=== PATIENT | male | born 1935 ===

== ENCOUNTER 2018-05-16 20:15 | Inpatient (IN) | payer MEDICARE, MEDICAID ==
[2018-05-16] MEDS: niCARdipine IV 25 MG in Sodium Chloride 0.9% 240 ML IV SCH (20:15)
[2018-05-16 20:41] VITALS: BMI 26.6
[2018-05-16] MEDS ORDERED: Glucagon Recombinant 1 mg Inj IM PRN (21:03)
[2018-05-16] MEDS ORDERED: Dextrose 50% SYRINGE Inj (50 ml) IV PRN (21:03)
--- NOTE | 2018-05-16 21:05 | CP.PCM.CON ---
History of Present Illness - History of Present Illness History of Present Illness: Chief complaint: Patient transferred from [facility] not clear, but for neurological management. HPI: 83-year-old male with a history of ischemic CVA, residual right-sided weakness, history of AV malformation in 2014, peripheral vascular disease, iron deficiency anemia, hypertension and hyperlipidemia diabetes BPH. Patient was initially seen in the emergency room what [facility], and there are he was evaluated for increasing weakness in the lower extremities bilaterally, difficulty in walking, frequent fall. Patient usually walks with a cane. Patient felt warm last night prior to the emergency room visit and CT scan of the head was done in the hospital reviewed left posterior frontal, parietal intracerebral hematoma with the edema. And also some slight midline shift noted. Patient was transferred to [facility] because of the request by interventional neuroradiologist's request. Follow closely monitoring. And for possible intervention if needed a the at [facility] or at tertiary center. Patient is now awake. He is responding. He is having less right-sided weakness. Also right-sided neglect Past medical history: Multiple medical history including hypertension and hyperlipidemia ischemic CVA in the past Surgical history noted from the chart Allergies no known drug allergy Personal history unclear Most of the information was obtained from the chart. On examination: Vital signs stable at this time. Blood pressure 150/75 Temperature is normal Heartbeat is 1 23 bpm Respiration 17/m Chest bilateral good air entry. Regular heart sound. Abdominal tenderness negative SOD CUTTER right-sided weakness noted. He is moving and also focusing on the left side patient's initial labs reviewed Chemistry normal. Glucose 190. WBC 12.3 Hemoglobin 10.5 Hematocrit is 32.5 Platelets 232 INR is 1.1 CAT scan of the head showing evidence of large hematoma involving the left hemisphere suspected AVM noted Assessment and recommendation: Patient is a 84-year-old male with multiple medical history, ischemic stroke in the past. Hypertension hyperlipidemia Admitted to the hospital with acute intracranial bleeding. Suspected AVM. Neurological follow-up and evaluation. Any changing in the neurological status, needs to be evaluated by the neurosurgical intervention team. We will repeat the CAT scan. Will follow the patient in ICU. Past Patient History - Infectious Disease Hx of Infectious Diseases: None - Past Medical History & Family History Past Medical History?: Yes - Past Social History Smoking Status: Unknown If Ever Smoked - CARDIAC Hx Cardiac Disorders: Yes - PULMONARY Hx Asthma: No Hx Bronchitis: No Hx Chronic Obstructive Pulmonary Disease (COPD): No Hx Emphysema: No Hx Pneumonia: No Hx Pulmonary Embolism: No Hx Sleep Apnea: No - NEUROLOGICAL Hx Neurological Disorder: Yes - HEENT Hx HEENT Problems: Yes - RENAL Hx Chronic Kidney Disease: No - ENDOCRINE/METABOLIC Hx Endocrine Disorders: Yes - HEMATOLOGICAL/ONCOLOGICAL Hx Blood Disorders: No - INTEGUMENTARY Hx Dermatological Problems: No - MUSCULOSKELETAL/RHEUMATOLOGICAL Hx Falls: No - GASTROINTESTINAL Hx Gastrointestinal Disorders: No - GENITOURINARY/GYNECOLOGICAL Hx Genitourinary Disorders: Yes - PSYCHIATRIC Hx Psychophysiologic Disorder: No Hx Substance Use: No - ANESTHESIA Hx Anesthesia: No Hx Anesthesia Reactions: No Meds Allergies/Adverse Reactions: Allergies Allergy/AdvReac Type Severity Reaction Status Date / Time No Known Allergies Allergy Verified 04/30/16 15:57 - Medications Medications: Current Medications Dextrose (Dextrose 50% Inj) 0 ml IV STAT PRN; Protocol PRN Reason: Hypoglycemia Protocol Dextrose (Glutose 15) 0 gm PO ONCE PRN; Protocol PRN Reason: Hypoglycemia Protocol Glucagon (Glucagen Diagnostic Kit) 0 mg IM STAT PRN; Protocol PRN Reason: Hypoglycemia Protocol Dextrose (Dextrose 5% In Water 1000 Ml) 1,000 mls @ 0 mls/hr IV .Q0M PRN; Protocol; Per Protocol PRN Reason: Hypoglycemia Protocol Insulin Human Regular (Novolin R) 0 unit SC ACHS ATUL PRN Reason: Protocol
--- NOTE | 2018-05-16 21:06 | CP.PCM.HP ---
<Kathrin Masters - Last Filed: 05/16/18 23:37> History of Present Illness - History of Present Illness History of Present Illness: Information was received from the niece - Shelby Graves and medical record from [place] as patient was not oriented x3. HPI: 83 year old male with past medical history as noted below who was found unresponsive at home and was brought to [facility] via ambulance. Per EMS the patient had a fall at home last night. In the ED, the patient had a Head CT which revealed an interval left posterior frontal/parietal intra cerebral hematoma with surrounding edema and possible minimal/mild mass effect on the left frontal horn. There is no mildline shift at this time. Given these findings, neurosurgery was called- Dr. Teresa stated the patient should be transferred. Patient was transferred to [facility] and is being followed by neurologist Dr. Aviles and interventional neurologist Dr. Brantley. PMD: Dr. 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; smokes for the past 70 years about 1 ppd; quit drinking 3 years ago; quit snorting cocaine about 10 years ago Patient also has a sister - Sonja Rosario #[phone] Present on Admission - Present on Admission Any Indicators Present on Admission: No Review of Systems - Review of Systems Systems not reviewed;Unavailable: Altered Mental Status Past Patient History - Infectious Disease Hx of Infectious Diseases: None - Past Medical History & Family History Past Medical History?: Yes - Past Social History Smoking Status: Unknown If Ever Smoked - CARDIAC Hx Cardiac Disorders: Yes - PULMONARY Hx Asthma: No Hx Bronchitis: No Hx Chronic Obstructive Pulmonary Disease (COPD): No Hx Emphysema: No Hx Pneumonia: No Hx Pulmonary Embolism: No Hx Sleep Apnea: No - NEUROLOGICAL Hx Neurological Disorder: Yes - HEENT Hx HEENT Problems: Yes - RENAL Hx Chronic Kidney Disease: No - ENDOCRINE/METABOLIC Hx Endocrine Disorders: Yes - HEMATOLOGICAL/ONCOLOGICAL Hx Blood Disorders: No - INTEGUMENTARY Hx Dermatological Problems: No - MUSCULOSKELETAL/RHEUMATOLOGICAL Hx Falls: No - GASTROINTESTINAL Hx Gastrointestinal Disorders: No - GENITOURINARY/GYNECOLOGICAL Hx Genitourinary Disorders: Yes - PSYCHIATRIC Hx Psychophysiologic Disorder: No Hx Substance Use: No - ANESTHESIA Hx Anesthesia: No Hx Anesthesia Reactions: No Meds Allergies/Adverse Reactions: Allergies Allergy/AdvReac Type Severity Reaction Status Date / Time No Known Allergies Allergy Verified 04/30/16 15:57 Physical Exam - Constitutional Appears: Confused - Head Exam Head Exam: ATRAUMATIC, NORMAL INSPECTION - Eye Exam Eye Exam: EOMI, Normal appearance. absent: PERRL Pupil Exam: absent: NORMAL ACCOMODATION - ENT Exam ENT Exam: Mucous Membranes Moist - Respiratory Exam Respiratory Exam: NORMAL BREATHING PATTERN - Cardiovascular Exam Cardiovascular Exam: REGULAR RHYTHM, +S1, +S2 - Extremities Exam Additional comments: Right Foot: 4th and 5th toes are amputated - Neurological Exam Additional comments: Patient was awake; not alert and not oriented x3. Right sided facial droop. Was not able to access strength as patient was not cooperative for physical exam Assessment & Plan - Assessment and Plan (Free Text) Assessment: Acute left posterior intracerebral hematoma with surrounding edema, with underlying AVM. - Admitted to ICU - Neuro Intervention: Dr. Brantley - Neurology: Dr. Aviles - Repeat CT scan in the AM - Cardene drip for BP control - Neuro checks q1 hours - NPO status - Hold Plavix and any other anticoagulation - Images: * Head CT 10:45am: Interval left posterior frontal/parietal intra cerebral hematoma with surrounding edema and possible minimal -mild mass-effect on the left frontal horn. No midline shift. No dilatation of the right lateral ventricle appreciated. No interval dilatation of other particular segments noted. Prior to this report dictation, the urgent findings of a left intercerebral hematoma was directly called in to the ER physician Dr. Gordillo at approximately 11 :18 am. * Cervical Spine CT: No fracture or subluxation. Multilevel arthrosis. Chronic sinus disease. * Head/Neck CTA: A large left frontoparietal arteriovascular malformation is identified immediately anterior to significant intraparenchymal hemorrhage not significantly changed in size compared prior unenhanced CT head 05/16/2017 10: 57 a.m.. The AVM may have increased in size slightly as compared to 05/02/2016 brain MRI with contrast Prominent vertex cortical venous drainage is seen above the AVM as discussed above. Follow-up digital subtraction catheter angiography is advised for added characterization. No aneurysm appreciated grossly. Moderate bilateral ICA stenoses at their cavernous segments as well as mild-to- moderate right and moderate left ICA origins stenoses as discussed above. Hypoplastic left vertebral artery with widely patent right vertebral and basilar arteries noted. * Head CT 5pm: Subjective mild expansion of the left parietal hematoma with mild surrounding edema impressing upon the posterior portion of the body of the left lateral ventricle. No other significant interval change. History of HTN - Cardene drip as above - monitor History of Type 2 Diabetes mellitus - ISS sliding scale - accucheks - Hypoglycemia protocol - Monitor History of Hyperlipidemia - Restart statin when diet advanced History of BPH Prophylaxis - SCDs - PT/OT Kathrin Masters PGY-2 <Harrison Stephenson - Last Filed: 05/17/18 06:26> Results - Vital Signs Recent Vital Signs: Last Vital Signs Temp 99 F 05/17/18 04:00 Pulse 121 H 05/17/18 04:02 Resp 18 05/17/18 04:02 BP 150/73 05/17/18 04:02 Pulse Ox 96 05/17/18 04:02 - Labs Labs: Laboratory Results - last 24 hr 05/16/18 21:12 POC Glucose (mg/dL) 192 H Assessment & Plan - Date & Time Date: 05/17/18 (I have seen and examined the patient. I agree with the findings and plan of care as documented by Dr. Masters. Patient with intracererbral hemorrhage. History of Hypertension and diabetes. Admit to ICU. Cardene drip. NISS and accuchecks. Further management as per ICU. Monitor for acute changes.) Time: 06:25 Attending/Attestation - Attestation I have personally seen and examined this patient.: Yes I have fully participated in the care of the patient.: Yes I have reviewed all pertinent clinical information: Yes
[2018-05-16] MEDS ORDERED: SODIUM CHLORIDE 0.9% IV SCH ×2 (21:15→22:00)
[2018-05-16] MEDS ORDERED: NICARDIPINE IV SCH ×2 (21:15→22:00)
[2018-05-16] MEDS: (Novolin R) Insulin Human Regular 100 units/ml vial SC SCH (21:39)
[2018-05-16] MEDS ORDERED: (Novolin R) Insulin Human Regular 100 units/ml vial SC SCH (22:00)
--- NOTE | 2018-05-16 23:01 | CP.PCM.CON ---
History of Present Illness - History of Present Illness History of Present Illness: 83 yr old male who was found unresponsive with pmh of documented left cortical avm, not resected and now intracranial hemorrhage. He is transferred to [facility] icu for angiogram in am and possibel avm embolization. in the er, the patient showed right sided droop, right arm weakness that was about 3/5, and aphasia . ct scan showed large left parietotemporal hemorrhage Past Patient History - Infectious Disease Hx of Infectious Diseases: None - Past Medical History & Family History Past Medical History?: Yes - Past Social History Smoking Status: Unknown If Ever Smoked - CARDIAC Hx Cardiac Disorders: Yes - PULMONARY Hx Asthma: No Hx Bronchitis: No Hx Chronic Obstructive Pulmonary Disease (COPD): No Hx Emphysema: No Hx Pneumonia: No Hx Pulmonary Embolism: No Hx Sleep Apnea: No - NEUROLOGICAL Hx Neurological Disorder: Yes - HEENT Hx HEENT Problems: Yes - RENAL Hx Chronic Kidney Disease: No - ENDOCRINE/METABOLIC Hx Endocrine Disorders: Yes - HEMATOLOGICAL/ONCOLOGICAL Hx Blood Disorders: No - INTEGUMENTARY Hx Dermatological Problems: No - MUSCULOSKELETAL/RHEUMATOLOGICAL Hx Falls: No - GASTROINTESTINAL Hx Gastrointestinal Disorders: No - GENITOURINARY/GYNECOLOGICAL Hx Genitourinary Disorders: Yes - PSYCHIATRIC Hx Psychophysiologic Disorder: No Hx Substance Use: No - ANESTHESIA Hx Anesthesia: No Hx Anesthesia Reactions: No Meds Allergies/Adverse Reactions: Allergies Allergy/AdvReac Type Severity Reaction Status Date / Time No Known Allergies Allergy Verified 04/30/16 15:57 - Medications Medications: Current Medications Dextrose (Dextrose 50% Inj) 0 ml IV STAT PRN; Protocol PRN Reason: Hypoglycemia Protocol Dextrose (Glutose 15) 0 gm PO ONCE PRN; Protocol PRN Reason: Hypoglycemia Protocol Glucagon (Glucagen Diagnostic Kit) 0 mg IM STAT PRN; Protocol PRN Reason: Hypoglycemia Protocol Dextrose (Dextrose 5% In Water 1000 Ml) 1,000 mls @ 0 mls/hr IV .Q0M PRN; Protocol; Per Protocol PRN Reason: Hypoglycemia Protocol Nicardipine HCl 25 mg/ Sodium (Chloride) 250 mls @ 50 mls/hr IV .Q5H ATUL; 5 MG/ HR PRN Reason: Protocol Last Admin: 05/16/18 20:15 Dose: 5 mg/hr, 50 mls/hr Insulin Human Regular (Novolin R) 0 unit SC ACHS ATUL PRN Reason: Protocol Last Admin: 05/16/18 21:39 Dose: Not Given Assessment & Plan - Assessment and Plan (Free Text) Assessment: plan; 1. control bp 2. decadron 8 m giv q [address] scan am thank you dr quintana
[2018-05-17] MEDS: niCARdipine IV 25 MG in Sodium Chloride 0.9% 240 ML IV SCH ×6 (03:31→20:10)
[2018-05-17 06:31] LABS: BASO # 0.1 K/uL (0.0-0.2); BASO % 0.8 % (0.0-2.0); EOS # 0.2 K/uL (0.0-0.7); EOS % 1.8 % (0.0-4.0); HEMOGLOBIN 10.2 g/dL (12.0-18.0); LYMPH # 1.8 K/uL (1.0-4.3); LYMPH % 17.6 % (20.0-40.0); MEAN CELL VOLUME 70.5 fL (80.0-94.0); MEAN CORPUSCULAR HEMOGLOBIN 22.7 pg (27.0-31.0); MEAN CORPUSCULAR HGB CONC 32.2 g/dL (33.0-37.0); MEAN PLATELET VOLUME 9.6 fL (7.2-11.7); MONO # 0.7 K/uL (0.0-0.8); MONO % 6.6 % (0.0-10.0); NEUT # 7.4 K/uL (1.8-7.0); NEUT % 73.2 % (50.0-75.0); RBC 4.51 Mil/uL (4.40-5.90); RED CELL DISTRIBUTION WIDTH 19.3 % (11.5-14.5); WHITE BLOOD COUNT 10.1 K/uL (4.8-10.8)
[2018-05-17 06:32] LABS: INR 1.2
[2018-05-17 06:39] LABS: ALB/GLOB RATIO 1.8 (1.0-2.1); ALBUMIN 4.1 g/dL (3.5-5.0); ALT/SGPT 34 U/L (21-72); AST/SGOT 40 U/L (17-59); BLOOD UREA NITROGEN 11 mg/dL (9-20); CALCIUM 7.8 mg/dl (8.6-10.4); GFR AFRICAN-AMERICAN > 60; GFR NON-AFRICAN AMERICAN > 60
--- NOTE | 2018-05-17 06:54 | CP.PCM.PN ---
Subjective - Date & Time of Evaluation Date of Evaluation: 05/17/18 Time of Evaluation: 06:53 - Subjective Subjective: Mr. Rosario was seen and examined at the bedside in ICU. He is awake, confused , with episode of restlessness and agitation. He is able to answer some questions and denies any headache, blurred vision, diplopia. He is able to follow simple commands with right facial droop, right side weakness. On Nicardipine drip for blood pressure control. He is is on 1:1 sitter for patient safety. Objective - Vital Signs/Intake and Output Vital Signs (last 24 hours): Temp Pulse Resp BP Pulse Ox 99 F 121 H 18 150/73 96 05/17/18 04:00 05/17/18 04:02 05/17/18 04:02 05/17/18 04:02 05/17/18 04:02 Intake and Output: 05/16/18 05/17/18 18:59 06:59 Intake Total 558.9 Output Total 250 Balance 308.9 - Medications Medications: Current Medications Dexamethasone (Decadron Inj) 8 mg IV Q12 ATUL Dextrose (Dextrose 50% Inj) 0 ml IV STAT PRN; Protocol PRN Reason: Hypoglycemia Protocol Dextrose (Glutose 15) 0 gm PO ONCE PRN; Protocol PRN Reason: Hypoglycemia Protocol Glucagon (Glucagen Diagnostic Kit) 0 mg IM STAT PRN; Protocol PRN Reason: Hypoglycemia Protocol Dextrose (Dextrose 5% In Water 1000 Ml) 1,000 mls @ 0 mls/hr IV .Q0M PRN; Protocol; Per Protocol PRN Reason: Hypoglycemia Protocol Nicardipine HCl 25 mg/ Sodium (Chloride) 250 mls @ 50 mls/hr IV .Q5H ATUL; 5 MG/ HR PRN Reason: Protocol Last Admin: 05/17/18 04:49 Dose: 5 mg/hr, 50 mls/hr Insulin Human Regular (Novolin R) 0 unit SC ACHS ATUL PRN Reason: Protocol Last Admin: 05/16/18 21:39 Dose: Not Given - Labs Labs: 05/17/18 06:14 PT 13.0 SECONDS (9.7-12.2) H 05/17/18 06:21 INR 1.2 05/17/18 06:21 APTT 29 SECONDS (21-34) 05/17/18 06:21 - Constitutional Appears: No Acute Distress - Head Exam Head Exam: NORMAL INSPECTION - Eye Exam Pupil Exam: Miosis Additional comments: 2 mm sluggish bilaterally. - Neurological Exam Neurological Exam: Awake Neuro motor strength exam: Left Upper Extremity: 5, Right Upper Extremity: 0, Left Lower Extremity: 5, Right Lower Extremity: 2/1 Additional comments: awake, confused, able to follow simple commands such as opening his mouth, squeezing his left hand, no movement noted in his right hand. Assessment and Plan (1) Intracranial hemorrhage Assessment & Plan: Case discussed with Dr. Aviles, continue all current medical regimen. Pending repeat CT scan of the head results. Recommend daily CT scan of the head to monitor intracranial hemorrhage, decadron 8 mg IV q 12 hours, blood pressure control with systolic blood pressure between 130-140, keep head of bed elevated at least 30 degrees angle.normothermic, glycemic control. Status: Acute
[2018-05-17] MEDS: Dexamethasone 4 mg/1 ml IV SCH ×2 (07:18→09:28)
[2018-05-17] MEDS: (Novolin R) Insulin Human Regular 100 units/ml vial SC SCH ×2 (07:19→12:35)
--- NOTE | 2018-05-17 08:48 | CP.CCUPN ---
<Alecia Avalos - Last Filed: 05/17/18 20:41> CCU Subjective - Physician Review Subjective (Free Text): Patient seen and examined at bedside. He is awake, confused, with episode of restlessness and agitation. Denies any headache, blurred vision, diplopia. CCU Objective - Vital Signs / Intake & Output Intake and Output (Last 8hrs): Intake & Output 05/16/18 05/17/18 05/17/18 22:59 06:59 14:59 Intake Total 243.9 425.0 Output Total 400 Balance 243.9 25.0 Weight 175 lb 4.28 oz 175 lb 4.28 oz Intake: IV 100.0 62.5 Intake, IV Amount 143.9 362.5 LFA #20 143.9 362.5 Oral 0 0 Output: Urine 400 Urine, Voided 400 - Physical Exam Head: Positive for: Atraumatic, Normocephalic Pupils: Positive for: Sluggish Extroacular Muscles: Positive for: EOMI Conjunctiva: Positive for: Normal Mouth: Positive for: Dry Cardiovascular: Positive for: Tachycardic Abdomen: Positive for: Normal Bowel Sounds. Negative for: Tenderness, Distention Upper Extremity: Positive for: Normal Inspection, NORMAL PULSES, Neurovascularly Intact, Capillary Refill < 2s Lower Extremity: Positive for: Normal Inspection, NORMAL PULSES, Neurovascularly Intact, Capillary Refill < 2 s Skin: Positive for: Warm, Dry Psychiatric: Positive for: Alert, Agitated - Medications Active Medications: Active Medications Generic Name Dose Route Start Last Admin Trade Name Freq PRN Reason Stop Dose Admin Dexamethasone 8 mg 05/17/18 06:52 Decadron Inj IV Q12 ATUL Dextrose 0 ml 05/16/18 21:03 Dextrose 50% Inj IV STAT PRN Hypoglycemia Protocol Protocol Dextrose 0 gm 05/16/18 21:03 Glutose 15 PO ONCE PRN Hypoglycemia Protocol Protocol Glucagon 0 mg 05/16/18 21:03 Glucagen Diagnostic Kit IM STAT PRN Hypoglycemia Protocol Protocol Dextrose 1,000 mls @ 0 mls/hr 05/16/18 21:03 Dextrose 5% In Water 1000 Ml IV .Q0M PRN Hypoglycemia Protocol Protocol Per Protocol Nicardipine HCl 25 mg/ Sodium 250 mls @ 50 mls/hr 05/16/18 22:00 05/17/18 06: 30 Chloride IV 5 mg/hr .Q5H ATUL 50 mls/hr Protocol Titration 5 MG/HR Insulin Human Regular 0 unit 05/16/18 22:00 05/16/18 21:39 Novolin R SC Not Given ACHS [facility] Protocol - Patient Studies Lab Studies: Lab Studies 05/17/18 05/17/18 05/17/18 Range/Units 07:26 06:21 06:21 WBC 10.1 (4.8-10.8) K/uL RBC 4.51 (4.40-5.90) Mil/uL Hgb 10.2 L (12.0-18.0) g/dL Hct 31.8 L (35.0-51.0) % MCV 70.5 L (80.0-94.0) fL MCH 22.7 L (27.0-31.0) pg MCHC 32.2 L (33.0-37.0) g/dL RDW 19.3 H (11.5-14.5) % Plt Count 250 (130-400) K/uL MPV 9.6 (7.2-11.7) fL Neut % (Auto) 73.2 (50.0-75.0) % Lymph % (Auto) 17.6 L (20.0-40.0) % [place] % (Auto) 6.6 (0.0-10.0) % Eos % (Auto) 1.8 (0.0-4.0) % Baso % (Auto) 0.8 (0.0-2.0) % Neut # (Auto) 7.4 H (1.8-7.0) K/uL Lymph # (Auto) 1.8 (1.0-4.3) K/uL [place] # (Auto) 0.7 (0.0-0.8) K/uL Eos # (Auto) 0.2 (0.0-0.7) K/uL Baso # (Auto) 0.1 (0.0-0.2) K/uL PT 13.0 H (9.7-12.2) SECONDS INR 1.2 APTT 29 (21-34) SECONDS Sodium (132-148) mmol/L Potassium (3.6-5.2) mmol/L Chloride (98-107) mmol/L Carbon Dioxide (22-30) mmol/L Anion Gap (10-20) BUN (9-20) mg/dL Creatinine (0.8-1.5) mg/dL Est GFR ( Amer) Est GFR (Non-Af Amer) POC Glucose (mg/dL) 198 H (65-110) mg/dL Random Glucose (75-110) mg/dL Calcium (8.6-10.4) mg/dl Phosphorus (2.5-4.5) mg/dL Magnesium (1.6-2.3) mg/dL Total Bilirubin (0.2-1.3) mg/dL AST (17-59) U/L ALT (21-72) U/L Alkaline Phosphatase (38-126) U/L Total Protein (6.3-8.3) g/dL Albumin (3.5-5.0) g/dL Globulin (2.2-3.9) gm/dL Albumin/Globulin Ratio (1.0-2.1) 05/17/18 05/16/18 Range/Units 06:14 21:12 WBC (4.8-10.8) K/uL RBC (4.40-5.90) Mil/uL Hgb (12.0-18.0) g/dL Hct (35.0-51.0) % MCV (80.0-94.0) fL MCH (27.0-31.0) pg MCHC (33.0-37.0) g/dL RDW (11.5-14.5) % Plt Count (130-400) K/uL MPV (7.2-11.7) fL Neut % (Auto) (50.0-75.0) % Lymph % (Auto) (20.0-40.0) % [place] % (Auto) (0.0-10.0) % Eos % (Auto) (0.0-4.0) % Baso % (Auto) (0.0-2.0) % Neut # (Auto) (1.8-7.0) K/uL Lymph # (Auto) (1.0-4.3) K/uL [place] # (Auto) (0.0-0.8) K/uL Eos # (Auto) (0.0-0.7) K/uL Baso # (Auto) (0.0-0.2) K/uL PT (9.7-12.2) SECONDS INR APTT (21-34) SECONDS Sodium 140 (132-148) mmol/L Potassium 3.7 (3.6-5.2) mmol/L Chloride 107 (98-107) mmol/L Carbon Dioxide 22 (22-30) mmol/L Anion Gap 15 (10-20) BUN 11 (9-20) mg/dL Creatinine 0.7 L (0.8-1.5) mg/dL Est GFR ( Amer) > 60 Est GFR (Non-Af Amer) > 60 POC Glucose (mg/dL) 192 H (65-110) mg/dL Random Glucose 176 H (75-110) mg/dL Calcium 7.8 L (8.6-10.4) mg/dl Phosphorus 3.0 (2.5-4.5) mg/dL Magnesium 1.8 (1.6-2.3) mg/dL Total Bilirubin 0.7 (0.2-1.3) mg/dL AST 40 (17-59) U/L ALT 34 (21-72) U/L Alkaline Phosphatase 52 (38-126) U/L Total Protein 6.4 (6.3-8.3) g/dL Albumin 4.1 (3.5-5.0) g/dL Globulin 2.3 (2.2-3.9) gm/dL Albumin/Globulin Ratio 1.8 (1.0-2.1) Laboratory Results - last 24 hr 05/16/18 05/17/18 05/17/18 21:12 06:14 06:21 WBC 10.1 RBC 4.51 Hgb 10.2 L Hct 31.8 L MCV 70.5 L MCH 22.7 L MCHC 32.2 L RDW 19.3 H Plt Count 250 MPV 9.6 Neut % (Auto) 73.2 Lymph % (Auto) 17.6 L [place] % (Auto) 6.6 Eos % (Auto) 1.8 Baso % (Auto) 0.8 Neut # (Auto) 7.4 H Lymph # (Auto) 1.8 [place] # (Auto) 0.7 Eos # (Auto) 0.2 Baso # (Auto) 0.1 PT INR APTT Sodium 140 Potassium 3.7 Chloride 107 Carbon Dioxide 22 Anion Gap 15 BUN 11 Creatinine 0.7 L Est GFR ( Amer) > 60 Est GFR (Non-Af Amer) > 60 POC Glucose (mg/dL) 192 H Random Glucose 176 H Calcium 7.8 L Phosphorus 3.0 Magnesium 1.8 Total Bilirubin 0.7 AST 40 ALT 34 Alkaline Phosphatase 52 Total Protein 6.4 Albumin 4.1 Globulin 2.3 Albumin/Globulin Ratio 1.8 05/17/18 05/17/18 06:21 07:26 WBC RBC Hgb Hct MCV MCH MCHC RDW Plt Count MPV Neut % (Auto) Lymph % (Auto) [place] % (Auto) Eos % (Auto) Baso % (Auto) Neut # (Auto) Lymph # (Auto) [place] # (Auto) Eos # (Auto) Baso # (Auto) PT 13.0 H INR 1.2 APTT 29 Sodium Potassium Chloride Carbon Dioxide Anion Gap BUN Creatinine Est GFR ( Amer) Est GFR (Non-Af Amer) POC Glucose (mg/dL) 198 H Random Glucose Calcium Phosphorus Magnesium Total Bilirubin AST ALT Alkaline Phosphatase Total Protein Albumin Globulin Albumin/Globulin Ratio EKG/Cardiology Studies: Cardiology / EKG Studies 05/16/18 21:30 EKG [ELECTROCARDIOGRAM] Stat Comment: Mode Of Transportation: Reason For Exam: CVA Fingerstick Blood Sugar Results: 192 Critical Care Progress Note - Nutrition Nutrition: Nutrition Category Date Time Status NPO Diet [DIET] Diets 05/16/18 Dinner Active Assessment/Plan - Assessment and Plan (Free Text) Assessment: This is a 83 year old male with PMHx Ischemic CVA x 4, 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 There is no mildline shift at this time. Given these findings, neurosurgery was called- Dr. Teresa stated the patient should be transferred for angiogram and possible AVM embolization. Patient was transferred to [facility] and is being followed by neurologist Dr. Aviles and interventional neurologist Dr. Brantley. As per Dr. Brantley - no neurological interventional is warranted at this time. Patient's sister - Sonja Rosario #[phone] Plan: Neuro: A: Intracranial Hemorrhage -- Dr. Aviles, Dr. Brantley consulted At [place]: -CT Head (05/16/18): interval left posterior frontal/parietal intra cerebral hematoma with surrounding edema and possible minimal mild mass effect on the left frontal horn. No midline shift. No dilatation of the right lateral ventricle appreciated. No interval dilatation or other particular segments noted. -CT head (05/16/18): subjective mild expansion of the left parietal hematoma with mild surrounding edema impression upon the posterior portion of the body of the left lateral ventricle. No other significant interval chage. At [facility]: -CT Head (05/17/18): re-demonstrated is a large parenchymal hematoma within the left posterior temporoparietal lobe secondary to hemorrhage into pre-existing AVM, mass effect produced by the hematoma and surrounding edema impress overlying sulci and posterior aspect left lateral ventricle as described. moderate to significant chronic white matter ischemic changes. - Aspiration precautions - Seizure precautions - Started Keppra 500mg Q12 - Serial CT scans ordered daily - As per Dr. 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 - Will need thyroid studies repeated : A: BPH Heme/Onc: A: History of Iron Deficiency Anemia Prophylactic Measures: - Protonix - SCDs, VTE C/I in light of ICH - PT Eval - Speech Eval - Swallow Eval DW Alecia Epps DO, PGY-1 <Yazan Godinez - Last Filed: 05/19/18 19:45> CCU Objective - Vital Signs / Intake & Output Vital Signs (Last 4 hours): Vital Signs BP 05/19/18 17:52 148/73 Intake and Output (Last 8hrs): Intake & Output 05/19/18 05/19/18 05/19/18 06:59 14:59 22:59 Intake Total 330 150 Balance 330 150 Weight 171 lb 0.62 oz Intake: Tube Feeding 330 150 Other: # Bowel Movements 0 0 - Medications Active Medications: Active Medications Generic Name Dose Route Start Last Admin Trade Name Freq PRN Reason Stop Dose Admin Bisacodyl 10 mg 05/19/18 08:54 Dulcolax [place] ONCE PRN Constipation Dextrose 0 ml 05/16/18 21:03 Dextrose 50% Inj IV STAT PRN Hypoglycemia Protocol Protocol Dextrose 0 gm 05/16/18 21:03 Glutose 15 PO ONCE PRN Hypoglycemia Protocol Protocol Glucagon 0 mg 05/16/18 21:03 Glucagen Diagnostic Kit IM STAT PRN Hypoglycemia Protocol Protocol Hydralazine HCl 20 mg 05/19/18 14:33 05/19/18 17:50 Apresoline PO 20 mg QID ATUL Administration Hydralazine HCl 10 mg 05/19/18 14:33 05/19/18 18:05 Apresoline IVP 10 mg Q6H PRN Administration Systolic Blood Pressure Dextrose 1,000 mls @ 0 mls/hr 05/16/18 21:03 Dextrose 5% In Water 1000 Ml IV .Q0M PRN Hypoglycemia Protocol Protocol Per Protocol Levetiracetam 500 mg/ Sodium 105 mls @ 420 mls/hr 05/18/18 10:00 05/19/18 09: 08 Chloride IVPB 420 mls/hr Q12H ATUL Administration Insulin Human Regular 0 unit 05/18/18 00:00 05/19/18 18:05 Novolin R SC 3 u Q6H ATUL Administration Protocol Metoprolol Tartrate 25 mg 05/19/18 10:00 05/19/18 17:52 Lopressor PO 25 mg BID ATUL Administration Pantoprazole Sodium 40 mg 05/18/18 10:00 05/19/18 09:09 Protonix Inj IVP 40 mg DAILY ATUL Administration - Patient Studies Lab Studies: Lab Studies 05/19/18 05/19/18 05/19/18 Range/Units 17:19 11:22 06:59 WBC (4.8-10.8) K/uL RBC (4.40-5.90) Mil/uL Hgb (12.0-18.0) g/dL Hct (35.0-51.0) % MCV (80.0-94.0) fL MCH (27.0-31.0) pg MCHC (33.0-37.0) g/dL RDW (11.5-14.5) % Plt Count (130-400) K/uL MPV (7.2-11.7) fL Neut % (Auto) (50.0-75.0) % Lymph % (Auto) (20.0-40.0) % [place] % (Auto) (0.0-10.0) % Eos % (Auto) (0.0-4.0) % Baso % (Auto) (0.0-2.0) % Neut # (Auto) (1.8-7.0) K/uL Lymph # (Auto) (1.0-4.3) K/uL [place] # (Auto) (0.0-0.8) K/uL Eos # (Auto) (0.0-0.7) K/uL Baso # (Auto) (0.0-0.2) K/uL Sodium (132-148) mmol/L Potassium (3.6-5.2) mmol/L Chloride (98-107) mmol/L Carbon Dioxide (22-30) mmol/L Anion Gap (10-20) BUN (9-20) mg/dL Creatinine (0.8-1.5) mg/dL Est GFR ( Amer) Est GFR (Non-Af Amer) POC Glucose (mg/dL) 237 H 200 H 207 H (65-110) mg/dL Random Glucose (75-110) mg/dL Calcium (8.6-10.4) mg/dl Phosphorus (2.5-4.5) mg/dL Magnesium (1.6-2.3) mg/dL Total Bilirubin (0.2-1.3) mg/dL AST (17-59) U/L ALT (21-72) U/L Alkaline Phosphatase (38-126) U/L Total Protein (6.3-8.3) g/dL Albumin (3.5-5.0) g/dL Globulin (2.2-3.9) gm/dL Albumin/Globulin Ratio (1.0-2.1) 05/19/18 05/19/18 05/18/18 Range/Units 06:48 06:48 23:29 WBC 12.3 H (4.8-10.8) K/uL RBC 4.51 (4.40-5.90) Mil/uL Hgb 10.3 L (12.0-18.0) g/dL Hct 32.0 L (35.0-51.0) % MCV 71.0 L (80.0-94.0) fL MCH 22.7 L (27.0-31.0) pg MCHC 32.0 L (33.0-37.0) g/dL RDW 19.9 H (11.5-14.5) % Plt Count 271 (130-400) K/uL MPV 9.3 (7.2-11.7) fL Neut % (Auto) 65.5 (50.0-75.0) % Lymph % (Auto) 27.2 (20.0-40.0) % [place] % (Auto) 6.3 (0.0-10.0) % Eos % (Auto) 0.4 (0.0-4.0) % Baso % (Auto) 0.6 (0.0-2.0) % Neut # (Auto) 8.0 H (1.8-7.0) K/uL Lymph # (Auto) 3.4 (1.0-4.3) K/uL [place] # (Auto) 0.8 (0.0-0.8) K/uL Eos # (Auto) 0.1 (0.0-0.7) K/uL Baso # (Auto) 0.1 (0.0-0.2) K/uL Sodium 146 (132-148) mmol/L Potassium 3.7 (3.6-5.2) mmol/L Chloride 112 H (98-107) mmol/L Carbon Dioxide 23 (22-30) mmol/L Anion Gap 14 (10-20) BUN 26 H (9-20) mg/dL Creatinine 0.8 (0.8-1.5) mg/dL Est GFR ( Amer) > 60 Est GFR (Non-Af Amer) > 60 POC Glucose (mg/dL) 225 H (65-110) mg/dL Random Glucose 199 H (75-110) mg/dL Calcium 9.4 (8.6-10.4) mg/dl Phosphorus 3.3 (2.5-4.5) mg/dL Magnesium 2.4 H (1.6-2.3) mg/dL Total Bilirubin 0.5 (0.2-1.3) mg/dL AST 68 H D (17-59) U/L ALT 40 (21-72) U/L Alkaline Phosphatase 55 (38-126) U/L Total Protein 7.0 (6.3-8.3) g/dL Albumin 4.2 (3.5-5.0) g/dL Globulin 2.8 (2.2-3.9) gm/dL Albumin/Globulin Ratio 1.5 (1.0-2.1) Laboratory Results - last 24 hr 05/18/18 05/19/18 05/19/18 23:29 06:48 06:48 WBC 12.3 H RBC 4.51 Hgb 10.3 L Hct 32.0 L MCV 71.0 L MCH 22.7 L MCHC 32.0 L RDW 19.9 H Plt Count 271 MPV 9.3 Neut % (Auto) 65.5 Lymph % (Auto) 27.2 Seward % (Auto) 6.3 Eos % (Auto) 0.4 Baso % (Auto) 0.6 Neut # (Auto) 8.0 H Lymph # (Auto) 3.4 Seward # (Auto) 0.8 Eos # (Auto) 0.1 Baso # (Auto) 0.1 Sodium 146 Potassium 3.7 Chloride 112 H Carbon Dioxide 23 Anion Gap 14 BUN 26 H Creatinine 0.8 Est GFR ( Amer) > 60 Est GFR (Non-Af Amer) > 60 POC Glucose (mg/dL) 225 H Random Glucose 199 H Calcium 9.4 Phosphorus 3.3 Magnesium 2.4 H Total Bilirubin 0.5 AST 68 H D ALT 40 Alkaline Phosphatase 55 Total Protein 7.0 Albumin 4.2 Globulin 2.8 Albumin/Globulin Ratio 1.5 05/19/18 05/19/18 05/19/18 06:59 11:22 17:19 WBC RBC Hgb Hct MCV MCH MCHC RDW Plt Count MPV Neut % (Auto) Lymph % (Auto) [place] % (Auto) Eos % (Auto) Baso % (Auto) Neut # (Auto) Lymph # (Auto) [place] # (Auto) Eos # (Auto) Baso # (Auto) Sodium Potassium Chloride Carbon Dioxide Anion Gap BUN Creatinine Est GFR ( Amer) Est GFR (Non-Af Amer) POC Glucose (mg/dL) 207 H 200 H 237 H Random Glucose Calcium Phosphorus Magnesium Total Bilirubin AST ALT Alkaline Phosphatase Total Protein Albumin Globulin Albumin/Globulin Ratio Critical Care Progress Note - Nutrition Nutrition: Nutrition Category Date Time Status NPO Diet [DIET] Diets 05/16/18 Dinner Active NPO Diet [DIET] Diets 05/20/18 Breakfast Active Attending/Attestation - Attestation I have personally seen and examined this patient.: Yes I have fully participated in the care of the patient.: Yes I have reviewed all pertinent clinical information: Yes Notes (Text): 05/17/18 Today: , May 17, 2018 The Patient was seen and examined at the bedside, Medical records reviewed, and management issues were discussed and formulated with the house staff. I have reviewed all the relevant clinical, laboratory, hemodynamic, radiographic data and medications Events reviewed Pain issues, skin care, head of the bed elevation, glycemic control were addressed. Agree with above resident's assessment and treatment plans of care as transcribed in Dr. Avalos note.
--- NOTE | 2018-05-17 11:52 | CT ---
PROCEDURE: CT HEAD WITHOUT CONTRAST. HISTORY: cva COMPARISON: Correlation made with CT scan of the brain [facility]/16/2018 [facility] TECHNIQUE: Axial computed tomography images were obtained through the head/brain without intravenous contrast. Radiation dose: Total exam DLP = 2900.56 mGy-cm. This CT exam was performed using one or more of the following dose reduction techniques: Automated exposure control, adjustment of the mA and/or kV according to patient size, and/or use of iterative reconstruction technique. FINDINGS: HEMORRHAGE: Re- demonstrated is a large elliptical shaped hematoma within the left posterior temporal parietal lobe consistent with hemorrhage into a pre-existing arteriovenous malformation. . Surrounding low-attenuation edema. The large left frontal lobe cortical surface AVM is less well seen on this study due to the lack of circulating intravenous contrast material. BRAIN: Above-mentioned hematoma and surrounding edema exert considerable surrounding mass effect with overlying sulcal effacement and marked compression of the posterior aspect of the left lateral ventricle including the left temporal horn. Moderate to significant chronic periventricular white matter ischemic changes seen extending peripherally into the deep and subcortical white matter both cerebral hemispheres. VENTRICLES: There is dilatation of the entire ventricular system,, not withstanding the aforementioned mass effect on the left atrium, left occipital horn temporal horn and posterior body left lateral ventricle. CALVARIUM: The calvarium intact. ORIF changes left orbital rim and anterior wall left maxillary antrum PARANASAL SINUSES: Mild mucoperiosteal inflammatory changes within the maxillary ethmoid and frontal sinuses. MASTOID AIR CELLS: Unremarkable as visualized. No inflammatory changes. OTHER FINDINGS: None. IMPRESSION: Re- demonstrated is a large parenchymal hematoma within the left posterior temporoparietal lobe secondary to hemorrhage into a pre-existing arteriovenous malformation. The mass effect produced by the hematoma and surrounding edema impress overlying sulci and posterior aspect left lateral ventricle as described. Moderate to significant chronic white matter ischemic changes.
--- NOTE | 2018-05-17 12:40 | CP.PCM.PN ---
Subjective - Date & Time of Evaluation Date of Evaluation: 05/17/18 Time of Evaluation: 12:35 - Subjective Subjective: Medical Attending Note: Patient seen and examined. Assisted RNCoty at bedside. Patient is agitated. Will not turn his head to the right. Patient reports he is at home, has 38 fingers with the nurse. Patient's family is not present at bedside. He also reports he wants coffee, but he failed his nursing swallow eval and the official swallow eval today. Patient received first dose of Decadron today. Objective - Vital Signs/Intake and Output Vital Signs (last 24 hours): Temp Pulse Resp BP Pulse Ox 100.1 F H 109 H 17 147/73 97 05/17/18 08:00 05/17/18 09:32 05/17/18 09:32 05/17/18 09:32 05/17/18 09:32 Intake and Output: 05/17/18 05/17/18 06:59 18:59 Intake Total 668.9 155 Output Total 400 150 Balance 268.9 5 - Medications Medications: Current Medications Dexamethasone (Decadron Inj) 8 mg IV Q12 ATUL Last Admin: 05/17/18 09:28 Dose: Not Given Dextrose (Dextrose 50% Inj) 0 ml IV STAT PRN; Protocol PRN Reason: Hypoglycemia Protocol Dextrose (Glutose 15) 0 gm PO ONCE PRN; Protocol PRN Reason: Hypoglycemia Protocol Glucagon (Glucagen Diagnostic Kit) 0 mg IM STAT PRN; Protocol PRN Reason: Hypoglycemia Protocol Dextrose (Dextrose 5% In Water 1000 Ml) 1,000 mls @ 0 mls/hr IV .Q0M PRN; Protocol; Per Protocol PRN Reason: Hypoglycemia Protocol Nicardipine HCl 25 mg/ Sodium (Chloride) 250 mls @ 50 mls/hr IV .Q5H ATUL; 5 MG/ HR PRN Reason: Protocol Last Admin: 05/17/18 09:20 Dose: Not Given Insulin Human Regular (Novolin R) 0 unit SC ACHS ATUL PRN Reason: Protocol Last Admin: 05/17/18 07:19 Dose: 2 u - Labs Labs: 05/17/18 06:21 05/17/18 06:14 PT 13.0 SECONDS (9.7-12.2) H 05/17/18 06:21 INR 1.2 05/17/18 06:21 APTT 29 SECONDS (21-34) 05/17/18 06:21 - Constitutional Appears: Agitated, Confused - ENT Exam ENT Exam: Mucous Membranes Moist - Respiratory Exam Respiratory Exam: Clear to Ausculation Bilateral, NORMAL BREATHING PATTERN. absent: Rales, Rhonchi, Wheezes - Cardiovascular Exam Cardiovascular Exam: Tachycardia, +S1, +S2 - GI/Abdominal Exam GI & Abdominal Exam: Soft, Normal Bowel Sounds. absent: Firm, Guarding, Rigid, Tenderness - Neurological Exam Neurological Exam: Awake. absent: Oriented x3 Neuro motor strength exam: Left Upper Extremity: 0, Right Upper Extremity: 4, Left Lower Extremity: 2/1, Right Lower Extremity: 4 Additional comments: will need turn his hand to see me on his right. will only look on his left. left upper extremity 4/5; left lower extremity: 4/5 Right upper extremity: 0; right lower extremity: 1/0 - Psychiatric Exam Psychiatric exam: Agitated - Skin Skin Exam: Dry, Intact, Normal Color, Warm Assessment and Plan (1) Intracranial hemorrhage Assessment & Plan: At [place]: CT Head (05/16/18): interval left posterior frontal/parietal intra cerebral hematoma with surrounding edema and possible minimal mild mass effect on the left frontal horn. No midline shift. No dilatation of the right lateral ventricle appreciated. No interval dilatation or other particular segments noted. CT head (05/16/18): subjective mild expansion of the left parietal hematoma with mild surrounding edema impression upon the posterior portion of the body of the left lateral ventricle. No other significant interval chage. At [facility]: CT Head (05/17/18): re-demonstrated is a large parenchymal hematoma within the left posterior temporoparietal lobe secondary to hemorrhage into pre-existing AVM, mass effect produced by the hematoma and surrounding edema impress overlying sulci and posterior aspect left lateral ventricle as described. moderate to significant chronic white matter ischemic changes. Admitted to ICU at [facility]. Neurology (Dr. Aviles) on the case-->help appreciated * I spoke with her in regards to CT head from today-->will speak with Neurointerventional regarding for embolization for today. Recommended for Keppra 1000mg IV X1, then keppra 500mg IV Q12H. * Off plavix (was previously on) * Dexamethadone 8mg IV Q12H * Nicardene drip 5mg/hr * Elevated head of Bed * Seizure precautions * Neurochecks * Plavix was held and other anticoagulation held Neurointerventional (Dr. Brantley covering by Dr. Felix? (apologize dont' know exact spelling)-->on board * Neurology will speak with neurointerventionalist in regards to latest CT head. Status: Acute (2) Dyslipidemia Assessment & Plan: Patient is NPO; failed both bedside and swallow eval Restart statin when patient safe to restart diet Status: Chronic (3) Hypertension Assessment & Plan: Patient on Cardene drip Status: Chronic (4) Diabetes Status: Chronic (5) Prophylactic measure Assessment & Plan: Elevated head Neurochecks chemical anticoagulation secondary to intracranial hemorrhage NPO seizure precautions aspiration precautions Status: Acute Attending/Attestation - Attestation I have personally seen and examined this patient.: Yes I have fully participated in the care of the patient.: Yes I have reviewed all pertinent clinical information, including history, physical exam and plan: Yes
--- NOTE | 2018-05-18 00:48 | CP.PCM.CON ---
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 The patient was transferred to [facility], [place] for further management and possible angiography to further evaluate the AVM . Review of Systems - Review of Systems Systems not reviewed;Unavailable: Acuity of Condition, Altered Mental Status Past Patient History - Infectious Disease Hx of Infectious Diseases: None - Past Medical History & Family History Past Medical History?: Yes - Past Social History Smoking Status: Current Some Days Smoker Chewing Tobacco Use: No Alcohol: Other (quit 3 years ago) - CARDIAC Hx Hypercholesterolemia: Yes Hx Hypertension: Yes - PULMONARY Hx Asthma: No Hx Bronchitis: No Hx Chronic Obstructive Pulmonary Disease (COPD): No Hx Emphysema: No Hx Pneumonia: No Hx Pulmonary Embolism: No Hx Sleep Apnea: No - NEUROLOGICAL HX 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 ) - HEENT Hx HEENT Problems: Yes - RENAL Hx Chronic Kidney Disease: No - ENDOCRINE/METABOLIC Hx Endocrine Disorders: Yes Hx Diabetes Mellitus Type 2: Yes - HEMATOLOGICAL/ONCOLOGICAL Hx Blood Disorders: No - INTEGUMENTARY Hx Dermatological Problems: No - MUSCULOSKELETAL/RHEUMATOLOGICAL Hx Falls: No - GASTROINTESTINAL Hx Gastrointestinal Disorders: No - GENITOURINARY/GYNECOLOGICAL Hx Genitourinary Disorders: Yes - PSYCHIATRIC Hx Psychophysiologic Disorder: No Hx Substance Use: No - SURGICAL HISTORY Hx Surgeries: No 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) - ANESTHESIA Hx Anesthesia: No Hx Anesthesia Reactions: No Meds Allergies/Adverse Reactions: Allergies Allergy/AdvReac Type Severity Reaction Status Date / Time No Known Allergies Allergy Verified 04/30/16 15:57 - Medications Medications: Current Medications Dextrose (Dextrose 50% Inj) 0 ml IV STAT PRN; Protocol PRN Reason: Hypoglycemia Protocol Dextrose (Glutose 15) 0 gm PO ONCE PRN; Protocol PRN Reason: Hypoglycemia Protocol Glucagon (Glucagen Diagnostic Kit) 0 mg IM STAT PRN; Protocol PRN Reason: Hypoglycemia Protocol Dextrose (Dextrose 5% In Water 1000 Ml) 1,000 mls @ 0 mls/hr IV .Q0M PRN; Protocol; Per Protocol PRN Reason: Hypoglycemia Protocol Nicardipine HCl 25 mg/ Sodium (Chloride) 250 mls @ 50 mls/hr IV .Q5H ATUL; 5 MG/ HR PRN Reason: Protocol Last Admin: 05/17/18 20:10 Dose: 5 mg/hr, 50 mls/hr Levetiracetam 500 mg/ Sodium (Chloride) 105 mls @ 420 mls/hr IVPB Q12H ATUL Insulin Human Regular (Novolin R) 0 unit SC Q6H ATUL PRN Reason: Protocol Pantoprazole Sodium (Protonix Inj) 40 mg IVP DAILY ATUL Physical Exam - Constitutional Appears: Confused - Head Exam Head Exam: ATRAUMATIC, NORMAL INSPECTION, NORMOCEPHALIC - Eye Exam Eye Exam: EOMI, Normal appearance Pupil Exam: PERRL - Respiratory Exam Respiratory Exam: Clear to Auscultation Bilateral, NORMAL BREATHING PATTERN - Cardiovascular Exam Cardiovascular Exam: REGULAR RHYTHM - GI/Abdominal Exam GI & Abdominal Exam: Normal Bowel Sounds - Expanded Neurological Exam Expanded Neurological exam: Expressive Aphasia Patient oriented to: person Speech: Anomia, Expressive Aphasia Cranial nerves: EOM's Intact: Normal, Facial [place]y w/Forehead Movement: Abnormal Right, Gag Reflex: Normal, Nystagmus: Normal Cerebellar Function: Finger to Nose: Abnormal Right (hemiparesis), Heel to [place] : Abnormal Right Sensory exam: Lower Extremity Temperature: Normal, Upper Extremity Temperature: Normal Neuro motor strength exam: Left Upper Extremity: 4, Right Upper Extremity: 2/1, Left Lower Extremity: 4, Right Lower Extremity: 2/1 DTR: Bicep Left: 2+, Bicep Right: 2+ Coma Scale Eye Opening: To Voice Coma Scale Verbal: Confused, Incomprehensible Results - Vital Signs Recent Vital Signs: Last Vital Signs Temp 100.0 F H 05/17/18 18:00 Pulse 107 H 05/17/18 18:02 Resp 16 05/17/18 18:02 BP 119/52 L 05/17/18 18:02 Pulse Ox 86 L 05/17/18 15:03 - Labs Result Diagrams: 05/17/18 06:21 05/17/18 06:14 Labs: Laboratory Results - last 24 hr 05/17/18 05/17/18 05/17/18 06:14 06:21 06:21 WBC 10.1 RBC 4.51 Hgb 10.2 L Hct 31.8 L MCV 70.5 L MCH 22.7 L MCHC 32.2 L RDW 19.3 H Plt Count 250 MPV 9.6 Neut % (Auto) 73.2 Lymph % (Auto) 17.6 L [place] % (Auto) 6.6 Eos % (Auto) 1.8 Baso % (Auto) 0.8 Neut # (Auto) 7.4 H Lymph # (Auto) 1.8 [place] # (Auto) 0.7 Eos # (Auto) 0.2 Baso # (Auto) 0.1 PT 13.0 H INR 1.2 APTT 29 Sodium 140 Potassium 3.7 Chloride 107 Carbon Dioxide 22 Anion Gap 15 BUN 11 Creatinine 0.7 L Est GFR ( Amer) > 60 Est GFR (Non-Af Amer) > 60 POC Glucose (mg/dL) Random Glucose 176 H Hemoglobin A1c Calcium 7.8 L Phosphorus 3.0 Magnesium 1.8 Total Bilirubin 0.7 AST 40 ALT 34 Alkaline Phosphatase 52 Total Protein 6.4 Albumin 4.1 Globulin 2.3 Albumin/Globulin Ratio 1.8 Triglycerides Cholesterol LDL Cholesterol Direct HDL Cholesterol Free T4 TSH 3rd Generation 05/17/18 05/17/18 05/17/18 07:26 11:09 14:12 WBC RBC Hgb Hct MCV MCH MCHC RDW Plt Count MPV Neut % (Auto) Lymph % (Auto) [place] % (Auto) Eos % (Auto) Baso % (Auto) Neut # (Auto) Lymph # (Auto) [place] # (Auto) Eos # (Auto) Baso # (Auto) PT INR APTT Sodium Potassium Chloride Carbon Dioxide Anion Gap BUN Creatinine Est GFR ( Amer) Est GFR (Non-Af Amer) POC Glucose (mg/dL) 198 H 213 H Random Glucose Hemoglobin A1c Calcium Phosphorus Magnesium Total Bilirubin AST ALT Alkaline Phosphatase Total Protein Albumin Globulin Albumin/Globulin Ratio Triglycerides 123 Cholesterol 199 LDL Cholesterol Direct 152 H HDL Cholesterol 38 Free T4 TSH 3rd Generation 0.22 L 05/17/18 05/17/18 05/17/18 14:12 14:12 16:23 WBC RBC Hgb Hct MCV MCH MCHC RDW Plt Count MPV Neut % (Auto) Lymph % (Auto) [place] % (Auto) Eos % (Auto) Baso % (Auto) Neut # (Auto) Lymph # (Auto) [place] # (Auto) Eos # (Auto) Baso # (Auto) PT INR APTT Sodium Potassium Chloride Carbon Dioxide Anion Gap BUN Creatinine Est GFR ( Amer) Est GFR (Non-Af Amer) POC Glucose (mg/dL) 231 H Random Glucose Hemoglobin A1c 9.2 H Calcium Phosphorus Magnesium Total Bilirubin AST ALT Alkaline Phosphatase Total Protein Albumin Globulin Albumin/Globulin Ratio Triglycerides Cholesterol LDL Cholesterol Direct HDL Cholesterol Free T4 1.22 TSH 3rd Generation Assessment & Plan (1) Intracranial hemorrhage Status: Acute Priority: High (2) AVM (arteriovenous malformation) brain Status: Acute Priority: High - Assessment and Plan (Free Text) Assessment: Left frontal arteriovenous malformation status post CT angiography which demonstrates and associated arteriovenous malformation of the posterior frontal and anterior parietal region. Status post intracranial hemorrhage. Monitor neurological examination is there is significant worsening than obtained repeated head CT stat Routine follow-up head CT for Monday, May 20, 2018 Patient will need to cerebral angiography to further evaluate the arterial venous malformation. This will be scheduled for sometime next week. - Date & Time Date: 05/17/18 Time: 20:15
[2018-05-18] MEDS: niCARdipine IV 25 MG in Sodium Chloride 0.9% 240 ML IV SCH ×5 (02:05→14:50)
[2018-05-18] MEDS: (Novolin R) Insulin Human Regular 100 units/ml vial SC SCH ×4 (05:35→18:37)
[2018-05-18 06:55] LABS: BASO % 0.2 % (0.0-2.0); HEMOGLOBIN 9.9 g/dL (12.0-18.0); LYMPH # 1.7 K/uL (1.0-4.3); LYMPH % 14.3 % (20.0-40.0); MEAN CELL VOLUME 70.3 fL (80.0-94.0); MEAN CORPUSCULAR HEMOGLOBIN 22.6 pg (27.0-31.0); MEAN CORPUSCULAR HGB CONC 32.1 g/dL (33.0-37.0); MEAN PLATELET VOLUME 9.4 fL (7.2-11.7); MONO # 0.7 K/uL (0.0-0.8); MONO % 5.6 % (0.0-10.0); NEUT # 9.6 K/uL (1.8-7.0); NEUT % 79.9 % (50.0-75.0); NRBC % 0.1 % (0.0-2.0); RBC 4.38 Mil/uL (4.40-5.90); RED CELL DISTRIBUTION WIDTH 19.3 % (11.5-14.5)
[2018-05-18 07:05] LABS: ALB/GLOB RATIO 1.5 (1.0-2.1); ALBUMIN 4.2 g/dL (3.5-5.0); ALT/SGPT 31 U/L (21-72); AST/SGOT 51 U/L (17-59); BLOOD UREA NITROGEN 25 mg/dL (9-20); CALCIUM 9.3 mg/dl (8.6-10.4); GFR AFRICAN-AMERICAN > 60; GFR NON-AFRICAN AMERICAN > 60
--- NOTE | 2018-05-18 07:15 | CP.PCM.PN ---
Subjective - Date & Time of Evaluation Date of Evaluation: 05/18/18 Time of Evaluation: 07:15 - Subjective Subjective: Mr. Rosario was seen and examined at the bedside in ICU. He is awake, confused , with episode of restlessness and agitation. He is able to answer some questions and denies any headache, blurred vision, diplopia. He is able to follow simple commands with right facial droop, right side weakness. On Nicardipine drip for blood pressure control. He is is on 1:1 sitter and left hand mitten for patient safety. Seen by neurointerventionalist with possible cerebral angiogram next week.There was no untoward events overnight. Objective - Vital Signs/Intake and Output Vital Signs (last 24 hours): Temp Pulse Resp BP Pulse Ox 97.6 F 84 12 135/63 98 05/18/18 04:00 05/18/18 07:01 05/18/18 07:01 05/18/18 07:01 05/18/18 07:01 Intake and Output: 05/18/18 05/18/18 06:59 18:59 Intake Total 1100 300 Output Total 200 Balance 900 300 - Medications Medications: Current Medications Dextrose (Dextrose 50% Inj) 0 ml IV STAT PRN; Protocol PRN Reason: Hypoglycemia Protocol Dextrose (Glutose 15) 0 gm PO ONCE PRN; Protocol PRN Reason: Hypoglycemia Protocol Glucagon (Glucagen Diagnostic Kit) 0 mg IM STAT PRN; Protocol PRN Reason: Hypoglycemia Protocol Dextrose (Dextrose 5% In Water 1000 Ml) 1,000 mls @ 0 mls/hr IV .Q0M PRN; Protocol; Per Protocol PRN Reason: Hypoglycemia Protocol Nicardipine HCl 25 mg/ Sodium (Chloride) 250 mls @ 50 mls/hr IV .Q5H ATUL; 5 MG/ HR PRN Reason: Protocol Last Admin: 05/18/18 07:00 Dose: 5 mg/hr, 50 mls/hr Levetiracetam 500 mg/ Sodium (Chloride) 105 mls @ 420 mls/hr IVPB Q12H ATUL Insulin Human Regular (Novolin R) 0 unit SC Q6H ATUL PRN Reason: Protocol Last Admin: 05/18/18 05:35 Dose: Not Given Pantoprazole Sodium (Protonix Inj) 40 mg IVP DAILY ATUL - Labs Labs: 05/18/18 06:39 05/18/18 06:40 PT 13.0 SECONDS (9.7-12.2) H 05/17/18 06:21 INR 1.2 05/17/18 06:21 APTT 29 SECONDS (21-34) 05/17/18 06:21 - Constitutional Appears: No Acute Distress - Head Exam Head Exam: NORMAL INSPECTION - Eye Exam Pupil Exam: Unequal Additional comments: left 3 mm and right 2 mm sluggish - Neurological Exam Neurological Exam: Awake Neuro motor strength exam: Left Upper Extremity: 5, Right Upper Extremity: 0, Left Lower Extremity: 5, Right Lower Extremity: 2/1 Additional comments: neurological unchanged from previous examination Assessment and Plan (1) Intracranial hemorrhage Assessment & Plan: Case discussed with Dr. Aviles, continue all current medical regimen. Recommend daily CT scan of the head to monitor intracranial hemorrhage, however, repeat CT scan if mental status decline from his current status, blood pressure control with systolic blood pressure between 130-140, keep head of bed elevated at least 30 degrees angle.normothermic, glycemic control. Status: Acute
--- NOTE | 2018-05-18 09:17 | CT ---
EXAM: CT Head Without Intravenous Contrast EXAM DATE/TIME: Examination ordered 05/17/2018 5:41 PM. Image number total count reviewed 359 CLINICAL HISTORY: The patient is 83 years old and is male; Signs and symptoms; Other: Evaluate ich; Patient HX: Icu patient Facility exam id and description: Ct heads head w/o contrast TECHNIQUE: Axial computed tomography images of the head/brain without intravenous contrast. All CT scans at this facility use at least one of these dose optimization techniques: automated exposure control; mA and/or kV adjustment per patient size (includes targeted exams where dose is matched to clinical indication); or iterative reconstruction. Coronal and sagittal reformatted images were created and reviewed. COMPARISON: CT - HEAD W/O CONTRAST 2018-05-17 05:54 FINDINGS: BRAIN: Stable elliptical shaped hematoma within the left posterior temporal parietal lobe with surrounding edema causing mass effect. chronic periventricular white matter ischemic changes seen extending peripherally into the deep and subcortical white matter both cerebral hemispheres. VENTRICLES: Stable. BONES/JOINTS: Unremarkable. SOFT TISSUES: Unremarkable. SINUSES: Mild mucoperiosteal changes within the maxillary ethmoid and frontal sinuses with metallic densities left maxillary sinus. MASTOID AIR CELLS: Unremarkable as visualized. No mastoid effusion. IMPRESSION: 1. Stable elliptical shaped hematoma within the left posterior temporal parietal lobe with surrounding edema causing mass effect. 2. chronic periventricular white matter ischemic changes seen extending peripherally into the deep and subcortical white matter both cerebral hemispheres.
[2018-05-18] MEDS: levETIRAcetam 500 MG in Sodium Chloride 0.9% 100 ML IVPB SCH ×2 (09:34→21:47)
[2018-05-18] MEDS: Metoprolol 1 mg/ml Inj IVP SCH ×3 (09:35→22:01)
--- NOTE | 2018-05-18 09:43 | RAD ---
HISTORY: aspiration? COMPARISON: 03/20/2013 FINDINGS: LUNGS: No active pulmonary disease. PLEURA: No significant pleural effusion identified, no pneumothorax apparent. CARDIOVASCULAR: Normal. OSSEOUS STRUCTURES: No significant abnormalities. VISUALIZED UPPER ABDOMEN: Normal. OTHER FINDINGS: None. IMPRESSION: No active disease.
--- NOTE | 2018-05-18 10:20 | CP.PCM.PN ---
Subjective - Date & Time of Evaluation Date of Evaluation: 05/18/18 Time of Evaluation: 10:00 - Subjective Subjective: Medical Attending Note: Patient seen and examined. Translation provided with his nurse Coty. Patient was restless and agitated over night. This morning patient is much more alert. Patient is able to say his -date. patient is able to move right upper extremity more compared to yesterday and left upper extremity 5/5 and right lower extremity is moving more compared to yesterday. Patient reports he cannot see. patient is requesting coffee this morning. pending swallow eval this AM. Objective - Vital Signs/Intake and Output Vital Signs (last 24 hours): Temp Pulse Resp BP Pulse Ox 97.6 F 84 12 135/63 98 05/18/18 04:00 05/18/18 07:01 05/18/18 07:01 05/18/18 07:01 05/18/18 07:01 Intake and Output: 05/18/18 05/18/18 06:59 18:59 Intake Total 1100 300 Output Total 200 Balance 900 300 - Medications Medications: Current Medications Dextrose (Dextrose 50% Inj) 0 ml IV STAT PRN; Protocol PRN Reason: Hypoglycemia Protocol Dextrose (Glutose 15) 0 gm PO ONCE PRN; Protocol PRN Reason: Hypoglycemia Protocol Glucagon (Glucagen Diagnostic Kit) 0 mg IM STAT PRN; Protocol PRN Reason: Hypoglycemia Protocol Dextrose (Dextrose 5% In Water 1000 Ml) 1,000 mls @ 0 mls/hr IV .Q0M PRN; Protocol; Per Protocol PRN Reason: Hypoglycemia Protocol Nicardipine HCl 25 mg/ Sodium (Chloride) 250 mls @ 50 mls/hr IV .Q5H ATUL; 5 MG/ HR PRN Reason: Protocol Last Admin: 05/18/18 07:00 Dose: 5 mg/hr, 50 mls/hr Levetiracetam 500 mg/ Sodium (Chloride) 105 mls @ 420 mls/hr IVPB Q12H ATUL Insulin Human Regular (Novolin R) 0 unit SC Q6H ATUL PRN Reason: Protocol Last Admin: 05/18/18 05:35 Dose: Not Given Metoprolol Tartrate (Lopressor) 5 mg IVP Q6H ATUL Pantoprazole Sodium (Protonix Inj) 40 mg IVP DAILY ATUL - Labs Labs: 05/18/18 06:39 05/18/18 06:40 PT 13.0 SECONDS (9.7-12.2) H 05/17/18 06:21 INR 1.2 05/17/18 06:21 APTT 29 SECONDS (21-34) 05/17/18 06:21 - Constitutional Appears: Non-toxic, Agitated - Head Exam Head Exam: ATRAUMATIC - Eye Exam Additional comments: neglect towards right - Respiratory Exam Respiratory Exam: Clear to Ausculation Bilateral, NORMAL BREATHING PATTERN. absent: Rales, Rhonchi, Wheezes - Cardiovascular Exam Cardiovascular Exam: REGULAR RHYTHM, +S1, +S2 - GI/Abdominal Exam GI & Abdominal Exam: Distended, Soft, Normal Bowel Sounds. absent: Firm, Guarding, Rigid, Tenderness, Rebound - Extremities Exam Extremities Exam: absent: Pedal Edema, Tenderness - Neurological Exam Neurological Exam: Awake. absent: Oriented x3 Neuro motor strength exam: Left Upper Extremity: 4, Right Upper Extremity: 2/1 ( improved), Left Lower Extremity: 4, Right Lower Extremity: 2/1 - Skin Skin Exam: Dry, Intact, Normal Color, Warm Assessment and Plan (1) Intracranial hemorrhage Status: Acute (2) Dyslipidemia Status: Chronic (3) Hypertension Status: Chronic (4) Diabetes Status: Chronic (5) Prophylactic measure Status: Acute Attending/Attestation - Attestation I have personally seen and examined this patient.: Yes I have fully participated in the care of the patient.: Yes I have reviewed all pertinent clinical information, including history, physical exam and plan: Yes Notes (Text): Assessment and Plan (1) Intracranial hemorrhage Assessment & Plan: At [place]: CT Head (05/16/18): interval left posterior frontal/parietal intra cerebral hematoma with surrounding edema and possible minimal mild mass effect on the left frontal horn. No midline shift. No dilatation of the right lateral ventricle appreciated. No interval dilatation or other particular segments noted. CT head (05/16/18): subjective mild expansion of the left parietal hematoma with mild surrounding edema impression upon the posterior portion of the body of the left lateral ventricle. No other significant interval chage. At [facility]: CT Head (05/17/18): re-demonstrated is a large parenchymal hematoma within the left posterior temporoparietal lobe secondary to hemorrhage into pre-existing AVM, mass effect produced by the hematoma and surrounding edema impress overlying sulci and posterior aspect left lateral ventricle as described. moderate to significant chronic white matter ischemic changes. Admitted to ICU at [facility]. Neurology (Dr. Aviles) on the case-->help appreciated * I spoke with her in regards to CT head from today-->will speak with Neurointerventional regarding for embolization for today. Recommended for Keppra 1000mg IV X1, then keppra 500mg IV Q12H. * Off plavix (was previously on) * d/c Dexamethadone 8mg IV Q12H yesterday * Nicardene drip 5mg/hr * Elevated head of Bed * Seizure precautions * Neurochecks * Plavix was held and other anticoagulation held Neurointerventional on board-->plan for intervention for next week Pending repeat swallow eval Status: Acute (2) Dyslipidemia Assessment & Plan: Patient is NPO; failed both bedside and swallow eval Restart statin when patient safe to restart diet; if not place NGT tube Status: Chronic (3) Hypertension Assessment & Plan: Patient on Cardene drip--Tapered Status: Chronic (4) Diabetes Status: Chronic (5) Prophylactic measure Assessment & Plan: Elevated head Neurochecks chemical anticoagulation secondary to intracranial hemorrhage NPO seizure precautions aspiration precautions pending repeat swallow eval Status: Acute
--- NOTE | 2018-05-18 11:40 | CT ---
PROCEDURE: CT HEAD WITHOUT CONTRAST. HISTORY: follow up intracranial hemorrhage COMPARISON: 05/17/2018. TECHNIQUE: Axial computed tomography images were obtained through the head/brain without intravenous contrast. Radiation dose: Total exam DLP = 1331.87 MGy-cm. This CT exam was performed using one or more of the following dose reduction techniques: Automated exposure control, adjustment of the mA and/or kV according to patient size, and/or use of iterative reconstruction technique. FINDINGS: HEMORRHAGE: There is interval evolution and mild contraction of 5.2 x 5.1 x 6.5 cm acute left posterior parietal hematoma with moderate surrounding vasogenic edema, local mass effect, compression and effacement of the left lateral ventricle without midline shift, herniation or hydrocephalus. BRAIN: There are moderate chronic microangiopathic changes. There is no extra-axial fluid collection. VENTRICLES: There is mild age-related global parenchymal volume loss and proportionate enlargement of the ventricles and cortical sulci. CALVARIUM: The skull base and calvarium are normal. There are metallic plates transfixing left inferior orbital and anterior maxillary wall fractures. PARANASAL SINUSES: There is a retention cyst/ polyp in the left frontal sinus, chronic ethmoid and bilateral maxillary sinusitis. MASTOID AIR CELLS: Predominantly clear. OTHER FINDINGS: None. IMPRESSION: Interval evolution of acute large left posterior parietal lobe hematoma with moderate surrounding vasogenic edema and mass effect on the left lateral ventricle without evidence of midline shift or herniation. No hydrocephalus. Moderate chronic microangiopathic changes and mild age-related global parenchymal volume loss.
--- NOTE | 2018-05-18 12:00 | CP.CCUPN ---
<Alecia Avalos - Last Filed: 05/18/18 12:07> CCU Subjective - Physician Review Subjective (Free Text): Patient seen and examined at bedside. He is awake, confused, with episode of restlessness and agitation. Denies any headache, blurred vision, diplopia. CCU Objective - Vital Signs / Intake & Output Vital Signs (Last 4 hours): Vital Signs Temp Pulse Resp BP Pulse Ox 05/18/18 11:15 73 12 131/63 05/18/18 11:06 74 16 05/18/18 11:00 99.1 F 05/18/18 10:01 100 H 15 138/69 96 05/18/18 10:00 98 H 14 100 05/18/18 09:01 80 13 124/60 97 05/18/18 09:00 79 13 98 05/18/18 08:01 89 12 129/64 98 05/18/18 08:00 76 12 99 Intake and Output (Last 8hrs): Intake & Output 05/17/18 05/18/18 05/18/18 22:59 06:59 14:59 Intake Total 675 650 425 Output Total 200 100 Balance 675 450 325 Weight 169 lb 12.095 oz Intake: IV 250 250 250 Intake, IV Amount 425 400 175 Left Forearm 425 50 Right Wrist 350 175 Output: Urine 200 100 Condom 200 100 - Physical Exam Head: Positive for: Atraumatic, Normocephalic Pupils: Positive for: Sluggish Extroacular Muscles: Positive for: EOMI Conjunctiva: Positive for: Normal Mouth: Positive for: Dry Cardiovascular: Positive for: Tachycardic Abdomen: Positive for: Normal Bowel Sounds. Negative for: Tenderness, Distention Upper Extremity: Positive for: Normal Inspection, NORMAL PULSES, Neurovascularly Intact, Capillary Refill < 2s Lower Extremity: Positive for: Normal Inspection, NORMAL PULSES, Neurovascularly Intact, Capillary Refill < 2 s Skin: Positive for: Warm, Dry Psychiatric: Positive for: Alert, Agitated - Medications Active Medications: Active Medications Generic Name Dose Route Start Last Admin Trade Name Freq PRN Reason Stop Dose Admin Dextrose 0 ml 05/16/18 21:03 Dextrose 50% Inj IV STAT PRN Hypoglycemia Protocol Protocol Dextrose 0 gm 05/16/18 21:03 Glutose 15 PO ONCE PRN Hypoglycemia Protocol Protocol Glucagon 0 mg 05/16/18 21:03 Glucagen Diagnostic Kit IM STAT PRN Hypoglycemia Protocol Protocol Dextrose 1,000 mls @ 0 mls/hr 05/16/18 21:03 Dextrose 5% In Water 1000 Ml IV .Q0M PRN Hypoglycemia Protocol Protocol Per Protocol Nicardipine HCl 25 mg/ Sodium 250 mls @ 50 mls/hr 05/16/18 22:00 05/18/18 07: 00 Chloride IV 5 mg/hr .Q5H ATUL 50 mls/hr Protocol Administration 5 MG/HR Levetiracetam 500 mg/ Sodium 105 mls @ 420 mls/hr 05/18/18 10:00 Chloride IVPB Q12H ATUL Insulin Human Regular 0 unit 05/18/18 00:00 05/18/18 05:35 Novolin R SC Not Given Q6H [facility] Protocol Metoprolol Tartrate 5 mg 05/18/18 09:30 Lopressor IVP Q6H ATUL Pantoprazole Sodium 40 mg 05/18/18 10:00 Protonix Inj IVP DAILY ATUL - Patient Studies Lab Studies: Microbiology Studies 05/16/18 22:42 MRSA Culture (Admit) - Final Nose MRSA NOT DETECTED Lab Studies 05/18/18 05/18/18 05/18/18 Range/Units 11:17 06:40 06:39 WBC 12.0 H (4.8-10.8) K/uL RBC 4.38 L (4.40-5.90) Mil/uL Hgb 9.9 L (12.0-18.0) g/dL Hct 30.8 L (35.0-51.0) % MCV 70.3 L (80.0-94.0) fL MCH 22.6 L (27.0-31.0) pg MCHC 32.1 L (33.0-37.0) g/dL RDW 19.3 H (11.5-14.5) % Plt Count 240 (130-400) K/uL MPV 9.4 (7.2-11.7) fL Neut % (Auto) 79.9 H (50.0-75.0) % Lymph % (Auto) 14.3 L (20.0-40.0) % [place] % (Auto) 5.6 (0.0-10.0) % Eos % (Auto) 0.0 (0.0-4.0) % Baso % (Auto) 0.2 (0.0-2.0) % Neut # (Auto) 9.6 H (1.8-7.0) K/uL Lymph # (Auto) 1.7 (1.0-4.3) K/uL [place] # (Auto) 0.7 (0.0-0.8) K/uL Eos # (Auto) 0.0 (0.0-0.7) K/uL Baso # (Auto) 0.0 (0.0-0.2) K/uL Sodium 143 (132-148) mmol/L Potassium 4.0 (3.6-5.2) mmol/L Chloride 110 H (98-107) mmol/L Carbon Dioxide 21 L (22-30) mmol/L Anion Gap 16 (10-20) BUN 25 H (9-20) mg/dL Creatinine 0.8 (0.8-1.5) mg/dL Est GFR ( Amer) > 60 Est GFR (Non-Af Amer) > 60 POC Glucose (mg/dL) 230 H (65-110) mg/dL Random Glucose 213 H (75-110) mg/dL Hemoglobin A1c (4.2-6.5) % Calcium 9.3 (8.6-10.4) mg/dl Phosphorus 3.0 (2.5-4.5) mg/dL Magnesium 2.2 (1.6-2.3) mg/dL Total Bilirubin 0.6 (0.2-1.3) mg/dL AST 51 (17-59) U/L ALT 31 (21-72) U/L Alkaline Phosphatase 60 (38-126) U/L Total Protein 7.2 (6.3-8.3) g/dL Albumin 4.2 (3.5-5.0) g/dL Globulin 2.9 (2.2-3.9) gm/dL Albumin/Globulin Ratio 1.5 (1.0-2.1) Triglycerides (0-149) mg/dL Cholesterol (0-199) mg/dL LDL Cholesterol Direct (0-129) mg/dL HDL Cholesterol (30-70) mg/dL Free T4 (0.78-2.19) ng/dL TSH 3rd Generation (0.46-4.68) mIU/L 05/18/18 05/18/18 05/17/18 Range/Units 05:25 00:07 16:23 WBC (4.8-10.8) K/uL RBC (4.40-5.90) Mil/uL Hgb (12.0-18.0) g/dL Hct (35.0-51.0) % MCV (80.0-94.0) fL MCH (27.0-31.0) pg MCHC (33.0-37.0) g/dL RDW (11.5-14.5) % Plt Count (130-400) K/uL MPV (7.2-11.7) fL Neut % (Auto) (50.0-75.0) % Lymph % (Auto) (20.0-40.0) % [place] % (Auto) (0.0-10.0) % Eos % (Auto) (0.0-4.0) % Baso % (Auto) (0.0-2.0) % Neut # (Auto) (1.8-7.0) K/uL Lymph # (Auto) (1.0-4.3) K/uL [place] # (Auto) (0.0-0.8) K/uL Eos # (Auto) (0.0-0.7) K/uL Baso # (Auto) (0.0-0.2) K/uL Sodium (132-148) mmol/L Potassium (3.6-5.2) mmol/L Chloride (98-107) mmol/L Carbon Dioxide (22-30) mmol/L Anion Gap (10-20) BUN (9-20) mg/dL Creatinine (0.8-1.5) mg/dL Est GFR ( Amer) Est GFR (Non-Af Amer) POC Glucose (mg/dL) 224 H 200 H 231 H (65-110) mg/dL Random Glucose (75-110) mg/dL Hemoglobin A1c (4.2-6.5) % Calcium (8.6-10.4) mg/dl Phosphorus (2.5-4.5) mg/dL Magnesium (1.6-2.3) mg/dL Total Bilirubin (0.2-1.3) mg/dL AST (17-59) U/L ALT (21-72) U/L Alkaline Phosphatase (38-126) U/L Total Protein (6.3-8.3) g/dL Albumin (3.5-5.0) g/dL Globulin (2.2-3.9) gm/dL Albumin/Globulin Ratio (1.0-2.1) Triglycerides (0-149) mg/dL Cholesterol (0-199) mg/dL LDL Cholesterol Direct (0-129) mg/dL HDL Cholesterol (30-70) mg/dL Free T4 (0.78-2.19) ng/dL TSH 3rd Generation (0.46-4.68) mIU/L 05/17/18 05/17/18 05/17/18 Range/Units 14:12 14:12 14:12 WBC (4.8-10.8) K/uL RBC (4.40-5.90) Mil/uL Hgb (12.0-18.0) g/dL Hct (35.0-51.0) % MCV (80.0-94.0) fL MCH (27.0-31.0) pg MCHC (33.0-37.0) g/dL RDW (11.5-14.5) % Plt Count (130-400) K/uL MPV (7.2-11.7) fL Neut % (Auto) (50.0-75.0) % Lymph % (Auto) (20.0-40.0) % [place] % (Auto) (0.0-10.0) % Eos % (Auto) (0.0-4.0) % Baso % (Auto) (0.0-2.0) % Neut # (Auto) (1.8-7.0) K/uL Lymph # (Auto) (1.0-4.3) K/uL [place] # (Auto) (0.0-0.8) K/uL Eos # (Auto) (0.0-0.7) K/uL Baso # (Auto) (0.0-0.2) K/uL Sodium (132-148) mmol/L Potassium (3.6-5.2) mmol/L Chloride (98-107) mmol/L Carbon Dioxide (22-30) mmol/L Anion Gap (10-20) BUN (9-20) mg/dL Creatinine (0.8-1.5) mg/dL Est GFR ( Amer) Est GFR (Non-Af Amer) POC Glucose (mg/dL) (65-110) mg/dL Random Glucose (75-110) mg/dL Hemoglobin A1c 9.2 H (4.2-6.5) % Calcium (8.6-10.4) mg/dl Phosphorus (2.5-4.5) mg/dL Magnesium (1.6-2.3) mg/dL Total Bilirubin (0.2-1.3) mg/dL AST (17-59) U/L ALT (21-72) U/L Alkaline Phosphatase (38-126) U/L Total Protein (6.3-8.3) g/dL Albumin (3.5-5.0) g/dL Globulin (2.2-3.9) gm/dL Albumin/Globulin Ratio (1.0-2.1) Triglycerides 123 (0-149) mg/dL Cholesterol 199 (0-199) mg/dL LDL Cholesterol Direct 152 H (0-129) mg/dL HDL Cholesterol 38 (30-70) mg/dL Free T4 1.22 (0.78-2.19) ng/dL TSH 3rd Generation 0.22 L (0.46-4.68) mIU/L Laboratory Results - last 24 hr 05/17/18 05/17/18 05/17/18 14:12 14:12 14:12 WBC RBC Hgb Hct MCV MCH MCHC RDW Plt Count MPV Neut % (Auto) Lymph % (Auto) [place] % (Auto) Eos % (Auto) Baso % (Auto) Neut # (Auto) Lymph # (Auto) [place] # (Auto) Eos # (Auto) Baso # (Auto) Sodium Potassium Chloride Carbon Dioxide Anion Gap BUN Creatinine Est GFR ( Amer) Est GFR (Non-Af Amer) POC Glucose (mg/dL) Random Glucose Hemoglobin A1c 9.2 H Calcium Phosphorus Magnesium Total Bilirubin AST ALT Alkaline Phosphatase Total Protein Albumin Globulin Albumin/Globulin Ratio Triglycerides 123 Cholesterol 199 LDL Cholesterol Direct 152 H HDL Cholesterol 38 Free T4 1.22 TSH 3rd Generation 0.22 L 05/17/18 05/18/18 05/18/18 16:23 00:07 05:25 WBC RBC Hgb Hct MCV MCH MCHC RDW Plt Count MPV Neut % (Auto) Lymph % (Auto) [place] % (Auto) Eos % (Auto) Baso % (Auto) Neut # (Auto) Lymph # (Auto) [place] # (Auto) Eos # (Auto) Baso # (Auto) Sodium Potassium Chloride Carbon Dioxide Anion Gap BUN Creatinine Est GFR ( Amer) Est GFR (Non-Af Amer) POC Glucose (mg/dL) 231 H 200 H 224 H Random Glucose Hemoglobin A1c Calcium Phosphorus Magnesium Total Bilirubin AST ALT Alkaline Phosphatase Total Protein Albumin Globulin Albumin/Globulin Ratio Triglycerides Cholesterol LDL Cholesterol Direct HDL Cholesterol Free T4 TSH 3rd Generation 05/18/18 05/18/18 05/18/18 06:39 06:40 11:17 WBC 12.0 H RBC 4.38 L Hgb 9.9 L Hct 30.8 L MCV 70.3 L MCH 22.6 L MCHC 32.1 L RDW 19.3 H Plt Count 240 MPV 9.4 Neut % (Auto) 79.9 H Lymph % (Auto) 14.3 L [place] % (Auto) 5.6 Eos % (Auto) 0.0 Baso % (Auto) 0.2 Neut # (Auto) 9.6 H Lymph # (Auto) 1.7 [place] # (Auto) 0.7 Eos # (Auto) 0.0 Baso # (Auto) 0.0 Sodium 143 Potassium 4.0 Chloride 110 H Carbon Dioxide 21 L Anion Gap 16 BUN 25 H Creatinine 0.8 Est GFR ( Amer) > 60 Est GFR (Non-Af Amer) > 60 POC Glucose (mg/dL) 230 H Random Glucose 213 H Hemoglobin A1c Calcium 9.3 Phosphorus 3.0 Magnesium 2.2 Total Bilirubin 0.6 AST 51 ALT 31 Alkaline Phosphatase 60 Total Protein 7.2 Albumin 4.2 Globulin 2.9 Albumin/Globulin Ratio 1.5 Triglycerides Cholesterol LDL Cholesterol Direct HDL Cholesterol Free T4 TSH 3rd Generation Fingerstick Blood Sugar Results: 224 Critical Care Progress Note - Nutrition Nutrition: Nutrition Category Date Time Status NPO Diet [DIET] Diets 05/16/18 Dinner Active Assessment/Plan - Assessment and Plan (Free Text) Assessment: This is a 83 year old male with PMHx Ischemic CVA x 4, 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 There is no mildline shift at this time. Given these findings, neurosurgery was called- Dr. Teresa stated the patient should be transferred for angiogram and possible AVM embolization. Patient was transferred to [facility] and is being followed by neurologist Dr. Aviles and interventional neurologist Dr. Brantley. As per Dr. Brantley - angiogram next week. Patient's sister - Sonja Rosario #[phone] Plan: Neuro: A: Intracranial Hemorrhage -- Dr. Aviles, Dr. Brantley consulted At [facility]: -CT Head (05/16/18): interval left posterior frontal/parietal intra cerebral hematoma with surrounding edema and possible minimal mild mass effect on the left frontal horn. No midline shift. No dilatation of the right lateral ventricle appreciated. No interval dilatation or other particular segments noted. -CT head (05/16/18): subjective mild expansion of the left parietal hematoma with mild surrounding edema impression upon the posterior portion of the body of the left lateral ventricle. No other significant interval chage. At [facility]: -CT Head (05/17/18): re-demonstrated is a large parenchymal hematoma within the left posterior temporoparietal lobe secondary to hemorrhage into pre-existing AVM, mass effect produced by the hematoma and surrounding edema impress overlying sulci and posterior aspect left lateral ventricle as described. moderate to significant chronic white matter ischemic changes. - Aspiration precautions - Seizure precautions - Started Keppra 500mg Q12 - Serial CT scans ordered daily - As per Dr. 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 - Will need thyroid studies repeated : A: BPH Heme/Onc: A: History of Iron Deficiency Anemia Prophylactic Measures: - Protonix - SCDs, VTE C/I in light of ICH - PT Eval - Speech Eval - Swallow Eval Disposition: Spoke to Luke Ryan, , NGT in place with tube feedings, she is amendable to PEG if it is necessary, will consult GI. Possible angiogram next week as per interventional neurosurgery. DW Alecia Beverly DO, PGY-1 <Antonio Edouard M - Last Filed: 05/19/18 12:41> CCU Objective - Vital Signs / Intake & Output Vital Signs (Last 4 hours): Vital Signs Pulse Resp BP Pulse Ox 05/19/18 11:02 48 L 12 129/61 99 05/19/18 11:00 51 L 13 98 05/19/18 10:02 69 12 162/66 H 99 05/19/18 10:00 65 14 100 05/19/18 09:53 151/64 H 05/19/18 09:02 56 L 11 L 151/64 H 99 05/19/18 09:00 55 L 12 97 Intake and Output (Last 8hrs): Intake & Output 05/18/18 05/19/18 05/19/18 22:59 06:59 14:59 Intake Total 180 330 150 Balance 180 330 150 Weight 171 lb 0.62 oz Intake: Intake, IV Amount 100 Right Wrist 100 Oral 0 Tube Feeding 80 330 150 Other: # Bowel Movements 0 0 - Medications Active Medications: Active Medications Generic Name Dose Route Start Last Admin Trade Name Freq PRN Reason Stop Dose Admin Bisacodyl 10 mg 05/19/18 08:54 Dulcolax [place] ONCE PRN Constipation Dextrose 0 ml 05/16/18 21:03 Dextrose 50% Inj IV STAT PRN Hypoglycemia Protocol Protocol Dextrose 0 gm 05/16/18 21:03 Glutose 15 PO ONCE PRN Hypoglycemia Protocol Protocol Glucagon 0 mg 05/16/18 21:03 Glucagen Diagnostic Kit IM STAT PRN Hypoglycemia Protocol Protocol Hydralazine HCl 10 mg 05/19/18 10:00 05/19/18 09:51 Apresoline PO 10 mg QID ATUL Administration Dextrose 1,000 mls @ 0 mls/hr 05/16/18 21:03 Dextrose 5% In Water 1000 Ml IV .Q0M PRN Hypoglycemia Protocol Protocol Per Protocol Levetiracetam 500 mg/ Sodium 105 mls @ 420 mls/hr 05/18/18 10:00 05/19/18 09: 08 Chloride IVPB 420 mls/hr Q12H ATUL Administration Insulin Human Regular 0 unit 05/18/18 00:00 05/19/18 06:00 Novolin R SC 3 u Q6H ATUL Administration Protocol Metoprolol Tartrate 25 mg 05/19/18 10:00 05/19/18 09:53 Lopressor PO 25 mg BID ATUL Administration Pantoprazole Sodium 40 mg 05/18/18 10:00 05/19/18 09:09 Protonix Inj IVP 40 mg DAILY ATUL Administration - Patient Studies Lab Studies: Lab Studies 05/19/18 05/19/18 05/19/18 Range/Units 11:22 06:59 06:48 WBC (4.8-10.8) K/uL RBC (4.40-5.90) Mil/uL Hgb (12.0-18.0) g/dL Hct (35.0-51.0) % MCV (80.0-94.0) fL MCH (27.0-31.0) pg MCHC (33.0-37.0) g/dL RDW (11.5-14.5) % Plt Count (130-400) K/uL MPV (7.2-11.7) fL Neut % (Auto) (50.0-75.0) % Lymph % (Auto) (20.0-40.0) % [place] % (Auto) (0.0-10.0) % Eos % (Auto) (0.0-4.0) % Baso % (Auto) (0.0-2.0) % Neut # (Auto) (1.8-7.0) K/uL Lymph # (Auto) (1.0-4.3) K/uL [place] # (Auto) (0.0-0.8) K/uL Eos # (Auto) (0.0-0.7) K/uL Baso # (Auto) (0.0-0.2) K/uL Sodium 146 (132-148) mmol/L Potassium 3.7 (3.6-5.2) mmol/L Chloride 112 H (98-107) mmol/L Carbon Dioxide 23 (22-30) mmol/L Anion Gap 14 (10-20) BUN 26 H (9-20) mg/dL Creatinine 0.8 (0.8-1.5) mg/dL Est GFR ( Amer) > 60 Est GFR (Non-Af Amer) > 60 POC Glucose (mg/dL) 200 H 207 H (65-110) mg/dL Random Glucose 199 H (75-110) mg/dL Calcium 9.4 (8.6-10.4) mg/dl Phosphorus 3.3 (2.5-4.5) mg/dL Magnesium 2.4 H (1.6-2.3) mg/dL Total Bilirubin 0.5 (0.2-1.3) mg/dL AST 68 H D (17-59) U/L ALT 40 (21-72) U/L Alkaline Phosphatase 55 (38-126) U/L Total Protein 7.0 (6.3-8.3) g/dL Albumin 4.2 (3.5-5.0) g/dL Globulin 2.8 (2.2-3.9) gm/dL Albumin/Globulin Ratio 1.5 (1.0-2.1) 05/19/18 05/18/18 05/18/18 Range/Units 06:48 23:29 17:40 WBC 12.3 H (4.8-10.8) K/uL RBC 4.51 (4.40-5.90) Mil/uL Hgb 10.3 L (12.0-18.0) g/dL Hct 32.0 L (35.0-51.0) % MCV 71.0 L (80.0-94.0) fL MCH 22.7 L (27.0-31.0) pg MCHC 32.0 L (33.0-37.0) g/dL RDW 19.9 H (11.5-14.5) % Plt Count 271 (130-400) K/uL MPV 9.3 (7.2-11.7) fL Neut % (Auto) 65.5 (50.0-75.0) % Lymph % (Auto) 27.2 (20.0-40.0) % [place] % (Auto) 6.3 (0.0-10.0) % Eos % (Auto) 0.4 (0.0-4.0) % Baso % (Auto) 0.6 (0.0-2.0) % Neut # (Auto) 8.0 H (1.8-7.0) K/uL Lymph # (Auto) 3.4 (1.0-4.3) K/uL [place] # (Auto) 0.8 (0.0-0.8) K/uL Eos # (Auto) 0.1 (0.0-0.7) K/uL Baso # (Auto) 0.1 (0.0-0.2) K/uL Sodium (132-148) mmol/L Potassium (3.6-5.2) mmol/L Chloride (98-107) mmol/L Carbon Dioxide (22-30) mmol/L Anion Gap (10-20) BUN (9-20) mg/dL Creatinine (0.8-1.5) mg/dL Est GFR ( Amer) Est GFR (Non-Af Amer) POC Glucose (mg/dL) 225 H 182 H (65-110) mg/dL Random Glucose (75-110) mg/dL Calcium (8.6-10.4) mg/dl Phosphorus (2.5-4.5) mg/dL Magnesium (1.6-2.3) mg/dL Total Bilirubin (0.2-1.3) mg/dL AST (17-59) U/L ALT (21-72) U/L Alkaline Phosphatase (38-126) U/L Total Protein (6.3-8.3) g/dL Albumin (3.5-5.0) g/dL Globulin (2.2-3.9) gm/dL Albumin/Globulin Ratio (1.0-2.1) Laboratory Results - last 24 hr 05/18/18 05/18/18 05/19/18 17:40 23:29 06:48 WBC 12.3 H RBC 4.51 Hgb 10.3 L Hct 32.0 L MCV 71.0 L MCH 22.7 L MCHC 32.0 L RDW 19.9 H Plt Count 271 MPV 9.3 Neut % (Auto) 65.5 Lymph % (Auto) 27.2 [place] % (Auto) 6.3 Eos % (Auto) 0.4 Baso % (Auto) 0.6 Neut # (Auto) 8.0 H Lymph # (Auto) 3.4 [place] # (Auto) 0.8 Eos # (Auto) 0.1 Baso # (Auto) 0.1 Sodium Potassium Chloride Carbon Dioxide Anion Gap BUN Creatinine Est GFR ( Amer) Est GFR (Non-Af Amer) POC Glucose (mg/dL) 182 H 225 H Random Glucose Calcium Phosphorus Magnesium Total Bilirubin AST ALT Alkaline Phosphatase Total Protein Albumin Globulin Albumin/Globulin Ratio 05/19/18 05/19/18 05/19/18 06:48 06:59 11:22 WBC RBC Hgb Hct MCV MCH MCHC RDW Plt Count MPV Neut % (Auto) Lymph % (Auto) [place] % (Auto) Eos % (Auto) Baso % (Auto) Neut # (Auto) Lymph # (Auto) [place] # (Auto) Eos # (Auto) Baso # (Auto) Sodium 146 Potassium 3.7 Chloride 112 H Carbon Dioxide 23 Anion Gap 14 BUN 26 H Creatinine 0.8 Est GFR ( Amer) > 60 Est GFR (Non-Af Amer) > 60 POC Glucose (mg/dL) 207 H 200 H Random Glucose 199 H Calcium 9.4 Phosphorus 3.3 Magnesium 2.4 H Total Bilirubin 0.5 AST 68 H D ALT 40 Alkaline Phosphatase 55 Total Protein 7.0 Albumin 4.2 Globulin 2.8 Albumin/Globulin Ratio 1.5 Critical Care Progress Note - Nutrition Nutrition: Nutrition Category Date Time Status NPO Diet [DIET] Diets 05/16/18 Dinner Active Assessment/Plan - Assessment and Plan (Free Text) Plan: Patient seen and examined at bedside. Patient with ICH HTN admitted to ICU for treatment for HTn with IV cardene. -HTN: rx with lopressor +/-hydralazine -ICH: avoid antiplatelet and anticoagulants -dvt pppx scds -pud ppx Patient remains hemodynamically stable. Agitated at time requiring 1:1 -continue rx as per neurology/neurosurgery - Date & Time Date: 05/18/18 Time: 19:00
[2018-05-19] MEDS: (Novolin R) Insulin Human Regular 100 units/ml vial SC SCH ×4 (00:40→18:05)
[2018-05-19] MEDS: Metoprolol 1 mg/ml Inj IVP SCH (03:30)
[2018-05-19 06:59] LABS: BASO # 0.1 K/uL (0.0-0.2); BASO % 0.6 % (0.0-2.0); EOS # 0.1 K/uL (0.0-0.7); EOS % 0.4 % (0.0-4.0); HEMOGLOBIN 10.3 g/dL (12.0-18.0); LYMPH # 3.4 K/uL (1.0-4.3); LYMPH % 27.2 % (20.0-40.0); MEAN CORPUSCULAR HEMOGLOBIN 22.7 pg (27.0-31.0); MEAN PLATELET VOLUME 9.3 fL (7.2-11.7); MONO # 0.8 K/uL (0.0-0.8); MONO % 6.3 % (0.0-10.0); NEUT % 65.5 % (50.0-75.0); RBC 4.51 Mil/uL (4.40-5.90); RED CELL DISTRIBUTION WIDTH 19.9 % (11.5-14.5); WHITE BLOOD COUNT 12.3 K/uL (4.8-10.8)
[2018-05-19 07:21] LABS: ALB/GLOB RATIO 1.5 (1.0-2.1); ALBUMIN 4.2 g/dL (3.5-5.0); ALT/SGPT 40 U/L (21-72); AST/SGOT 68 U/L (17-59); BLOOD UREA NITROGEN 26 mg/dL (9-20); CALCIUM 9.4 mg/dl (8.6-10.4); GFR AFRICAN-AMERICAN > 60; GFR NON-AFRICAN AMERICAN > 60
[2018-05-19] MEDS: levETIRAcetam 500 MG in Sodium Chloride 0.9% 100 ML IVPB SCH ×2 (09:08→22:00)
--- NOTE | 2018-05-19 10:58 | CP.PCM.CON ---
History of Present Illness - History of Present Illness History of Present Illness: COVERING DR MANRIQUE 83 yo male transferred from [place] following a CVA in need of interventional radiologist for angiogram to be scheduled next week. Patient failed speech and swallow evaluation and has an NGt for feedings. Called as family and medical team desire a PEG tube to meet his short and possible senior care feeding and medication needs. Patient and family are apparently in agreement for this. Consent issues to be addressed before schedulling. Review of Systems - Review of Systems Systems not reviewed;Unavailable: Language Barrier, Other Past Patient History - Infectious Disease Hx of Infectious Diseases: None - Past Medical History & Family History Past Medical History?: Yes - Past Social History Smoking Status: Current Some Days Smoker Chewing Tobacco Use: No Alcohol: None Drugs: Denies - CARDIAC Hx Hypercholesterolemia: Yes Hx Hypertension: Yes - PULMONARY Hx Asthma: No Hx Bronchitis: No Hx Chronic Obstructive Pulmonary Disease (COPD): No Hx Emphysema: No Hx Pneumonia: No Hx Pulmonary Embolism: No Hx Sleep Apnea: No - NEUROLOGICAL HX 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 ) - HEENT Hx HEENT Problems: Yes - RENAL Hx Chronic Kidney Disease: No - ENDOCRINE/METABOLIC Hx Endocrine Disorders: Yes Hx Diabetes Mellitus Type 2: Yes - HEMATOLOGICAL/ONCOLOGICAL Hx Blood Disorders: No - INTEGUMENTARY Hx Dermatological Problems: No - MUSCULOSKELETAL/RHEUMATOLOGICAL Hx Falls: No - GASTROINTESTINAL Hx Gastrointestinal Disorders: No - GENITOURINARY/GYNECOLOGICAL Hx Genitourinary Disorders: Yes - PSYCHIATRIC Hx Psychophysiologic Disorder: No Hx Substance Use: No - SURGICAL HISTORY Hx Surgeries: No 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) - ANESTHESIA Hx Anesthesia: No Hx Anesthesia Reactions: No Meds Allergies/Adverse Reactions: Allergies Allergy/AdvReac Type Severity Reaction Status Date / Time No Known Allergies Allergy Verified 04/30/16 15:57 - Medications Medications: Current Medications Bisacodyl (Dulcolax) 10 mg [place] ONCE PRN PRN Reason: Constipation Dextrose (Dextrose 50% Inj) 0 ml IV STAT PRN; Protocol PRN Reason: Hypoglycemia Protocol Dextrose (Glutose 15) 0 gm PO ONCE PRN; Protocol PRN Reason: Hypoglycemia Protocol Glucagon (Glucagen Diagnostic Kit) 0 mg IM STAT PRN; Protocol PRN Reason: Hypoglycemia Protocol Hydralazine HCl (Apresoline) 10 mg PO QID ATUL Last Admin: 05/19/18 09:51 Dose: 10 mg Dextrose (Dextrose 5% In Water 1000 Ml) 1,000 mls @ 0 mls/hr IV .Q0M PRN; Protocol; Per Protocol PRN Reason: Hypoglycemia Protocol Levetiracetam 500 mg/ Sodium (Chloride) 105 mls @ 420 mls/hr IVPB Q12H [facility] Last Admin: 05/19/18 09:08 Dose: 420 mls/hr Insulin Human Regular (Novolin R) 0 unit SC Q6H [facility] PRN Reason: Protocol Last Admin: 05/19/18 06:00 Dose: 3 u Metoprolol Tartrate (Lopressor) 25 mg PO BID [facility] Last Admin: 05/19/18 09:53 Dose: 25 mg Pantoprazole Sodium (Protonix Inj) 40 mg IVP DAILY [facility] Last Admin: 05/19/18 09:09 Dose: 40 mg Physical Exam - Constitutional Appears: No Acute Distress - Head Exam Head Exam: ATRAUMATIC, NORMOCEPHALIC - Respiratory Exam Respiratory Exam: NORMAL BREATHING PATTERN - Cardiovascular Exam Cardiovascular Exam: REGULAR RHYTHM, +S1 - GI/Abdominal Exam GI & Abdominal Exam: Normal Bowel Sounds, Soft. absent: Tenderness Additional comments: Obese, no scars or masses appreciated. - Extremities Exam Extremities exam: Positive for: pedal edema - Neurological Exam Neurological exam: Alert Results - Vital Signs Recent Vital Signs: Last Vital Signs Temp 98.7 F 05/19/18 04:00 Pulse 73 05/19/18 08:02 Resp 14 05/19/18 08:02 BP 151/64 H 05/19/18 09:53 Pulse Ox 96 05/19/18 08:02 - Labs Result Diagrams: 05/19/18 06:48 05/19/18 06:48 Labs: Laboratory Results - last 24 hr 05/18/18 05/18/18 05/18/18 11:17 17:40 23:29 WBC RBC Hgb Hct MCV MCH MCHC RDW Plt Count MPV Neut % (Auto) Lymph % (Auto) [place] % (Auto) Eos % (Auto) Baso % (Auto) Neut # (Auto) Lymph # (Auto) [place] # (Auto) Eos # (Auto) Baso # (Auto) Sodium Potassium Chloride Carbon Dioxide Anion Gap BUN Creatinine Est GFR ( Amer) Est GFR (Non-Af Amer) POC Glucose (mg/dL) 230 H 182 H 225 H Random Glucose Calcium Phosphorus Magnesium Total Bilirubin AST ALT Alkaline Phosphatase Total Protein Albumin Globulin Albumin/Globulin Ratio 05/19/18 05/19/18 05/19/18 06:48 06:48 06:59 WBC 12.3 H RBC 4.51 Hgb 10.3 L Hct 32.0 L MCV 71.0 L MCH 22.7 L MCHC 32.0 L RDW 19.9 H Plt Count 271 MPV 9.3 Neut % (Auto) 65.5 Lymph % (Auto) 27.2 [place] % (Auto) 6.3 Eos % (Auto) 0.4 Baso % (Auto) 0.6 Neut # (Auto) 8.0 H Lymph # (Auto) 3.4 [place] # (Auto) 0.8 Eos # (Auto) 0.1 Baso # (Auto) 0.1 Sodium 146 Potassium 3.7 Chloride 112 H Carbon Dioxide 23 Anion Gap 14 BUN 26 H Creatinine 0.8 Est GFR ( Amer) > 60 Est GFR (Non-Af Amer) > 60 POC Glucose (mg/dL) 207 H Random Glucose 199 H Calcium 9.4 Phosphorus 3.3 Magnesium 2.4 H Total Bilirubin 0.5 AST 68 H D ALT 40 Alkaline Phosphatase 55 Total Protein 7.0 Albumin 4.2 Globulin 2.8 Albumin/Globulin Ratio 1.5 Assessment & Plan (1) Dysphagia Assessment and Plan: Patient in need of PEG as outlined in notes. Will discuss with family and arrange for next week (monday) Risks/benefits to be discussed with family. Will need to be off all antiplatelet drugs for 5-7 days to facilitate placement. Will schedule for tomorrow am if family has given consent. Status: Acute (2) AVM (arteriovenous malformation) Assessment and Plan: as per neuro Status: Acute (3) Intracranial hemorrhage Assessment and Plan: as per neuro Status: Acute Priority: High
--- NOTE | 2018-05-19 12:56 | CP.CCUPN ---
<Alecia Avalos - Last Filed: 05/19/18 12:54> CCU Subjective - Physician Review Subjective (Free Text): Patient seen and examined at bedside. He is awake, confused, with episode of restlessness and agitation. Denies any headache, blurred vision, diplopia. CCU Objective - Vital Signs / Intake & Output Vital Signs (Last 4 hours): Vital Signs Pulse Resp BP Pulse Ox 05/19/18 11:02 48 L 12 129/61 99 05/19/18 11:00 51 L 13 98 05/19/18 10:02 69 12 162/66 H 99 05/19/18 10:00 65 14 100 05/19/18 09:53 151/64 H 05/19/18 09:02 56 L 11 L 151/64 H 99 05/19/18 09:00 55 L 12 97 Intake and Output (Last 8hrs): Intake & Output 05/18/18 05/19/18 05/19/18 22:59 06:59 14:59 Intake Total 180 330 150 Balance 180 330 150 Weight 171 lb 0.62 oz Intake: Intake, IV Amount 100 Right Wrist 100 Oral 0 Tube Feeding 80 330 150 Other: # Bowel Movements 0 0 - Physical Exam Head: Positive for: Atraumatic, Normocephalic Pupils: Positive for: Sluggish Extroacular Muscles: Positive for: EOMI Conjunctiva: Positive for: Normal Mouth: Positive for: Dry Cardiovascular: Positive for: Tachycardic Abdomen: Positive for: Normal Bowel Sounds. Negative for: Tenderness, Distention Upper Extremity: Positive for: Normal Inspection, NORMAL PULSES, Neurovascularly Intact, Capillary Refill < 2s Lower Extremity: Positive for: Normal Inspection, NORMAL PULSES, Neurovascularly Intact, Capillary Refill < 2 s Skin: Positive for: Warm, Dry Psychiatric: Positive for: Alert, Agitated - Medications Active Medications: Active Medications Generic Name Dose Route Start Last Admin Trade Name Freq PRN Reason Stop Dose Admin Bisacodyl 10 mg 05/19/18 08:54 Dulcolax [place] ONCE PRN Constipation Dextrose 0 ml 05/16/18 21:03 Dextrose 50% Inj IV STAT PRN Hypoglycemia Protocol Protocol Dextrose 0 gm 05/16/18 21:03 Glutose 15 PO ONCE PRN Hypoglycemia Protocol Protocol Glucagon 0 mg 05/16/18 21:03 Glucagen Diagnostic Kit IM STAT PRN Hypoglycemia Protocol Protocol Hydralazine HCl 10 mg 05/19/18 10:00 05/19/18 09:51 Apresoline PO 10 mg QID ATUL Administration Dextrose 1,000 mls @ 0 mls/hr 05/16/18 21:03 Dextrose 5% In Water 1000 Ml IV .Q0M PRN Hypoglycemia Protocol Protocol Per Protocol Levetiracetam 500 mg/ Sodium 105 mls @ 420 mls/hr 05/18/18 10:00 05/19/18 09: 08 Chloride IVPB 420 mls/hr Q12H ATUL Administration Insulin Human Regular 0 unit 05/18/18 00:00 05/19/18 06:00 Novolin R SC 3 u Q6H ATUL Administration Protocol Metoprolol Tartrate 25 mg 05/19/18 10:00 05/19/18 09:53 Lopressor PO 25 mg BID ATUL Administration Pantoprazole Sodium 40 mg 05/18/18 10:00 05/19/18 09:09 Protonix Inj IVP 40 mg DAILY ATUL Administration - Patient Studies Lab Studies: Lab Studies 05/19/18 05/19/18 05/19/18 Range/Units 11:22 06:59 06:48 WBC (4.8-10.8) K/uL RBC (4.40-5.90) Mil/uL Hgb (12.0-18.0) g/dL Hct (35.0-51.0) % MCV (80.0-94.0) fL MCH (27.0-31.0) pg MCHC (33.0-37.0) g/dL RDW (11.5-14.5) % Plt Count (130-400) K/uL MPV (7.2-11.7) fL Neut % (Auto) (50.0-75.0) % Lymph % (Auto) (20.0-40.0) % [place] % (Auto) (0.0-10.0) % Eos % (Auto) (0.0-4.0) % Baso % (Auto) (0.0-2.0) % Neut # (Auto) (1.8-7.0) K/uL Lymph # (Auto) (1.0-4.3) K/uL [place] # (Auto) (0.0-0.8) K/uL Eos # (Auto) (0.0-0.7) K/uL Baso # (Auto) (0.0-0.2) K/uL Sodium 146 (132-148) mmol/L Potassium 3.7 (3.6-5.2) mmol/L Chloride 112 H (98-107) mmol/L Carbon Dioxide 23 (22-30) mmol/L Anion Gap 14 (10-20) BUN 26 H (9-20) mg/dL Creatinine 0.8 (0.8-1.5) mg/dL Est GFR ( Amer) > 60 Est GFR (Non-Af Amer) > 60 POC Glucose (mg/dL) 200 H 207 H (65-110) mg/dL Random Glucose 199 H (75-110) mg/dL Calcium 9.4 (8.6-10.4) mg/dl Phosphorus 3.3 (2.5-4.5) mg/dL Magnesium 2.4 H (1.6-2.3) mg/dL Total Bilirubin 0.5 (0.2-1.3) mg/dL AST 68 H D (17-59) U/L ALT 40 (21-72) U/L Alkaline Phosphatase 55 (38-126) U/L Total Protein 7.0 (6.3-8.3) g/dL Albumin 4.2 (3.5-5.0) g/dL Globulin 2.8 (2.2-3.9) gm/dL Albumin/Globulin Ratio 1.5 (1.0-2.1) 05/19/18 05/18/18 05/18/18 Range/Units 06:48 23:29 17:40 WBC 12.3 H (4.8-10.8) K/uL RBC 4.51 (4.40-5.90) Mil/uL Hgb 10.3 L (12.0-18.0) g/dL Hct 32.0 L (35.0-51.0) % MCV 71.0 L (80.0-94.0) fL MCH 22.7 L (27.0-31.0) pg MCHC 32.0 L (33.0-37.0) g/dL RDW 19.9 H (11.5-14.5) % Plt Count 271 (130-400) K/uL MPV 9.3 (7.2-11.7) fL Neut % (Auto) 65.5 (50.0-75.0) % Lymph % (Auto) 27.2 (20.0-40.0) % [place] % (Auto) 6.3 (0.0-10.0) % Eos % (Auto) 0.4 (0.0-4.0) % Baso % (Auto) 0.6 (0.0-2.0) % Neut # (Auto) 8.0 H (1.8-7.0) K/uL Lymph # (Auto) 3.4 (1.0-4.3) K/uL [place] # (Auto) 0.8 (0.0-0.8) K/uL Eos # (Auto) 0.1 (0.0-0.7) K/uL Baso # (Auto) 0.1 (0.0-0.2) K/uL Sodium (132-148) mmol/L Potassium (3.6-5.2) mmol/L Chloride (98-107) mmol/L Carbon Dioxide (22-30) mmol/L Anion Gap (10-20) BUN (9-20) mg/dL Creatinine (0.8-1.5) mg/dL Est GFR ( Amer) Est GFR (Non-Af Amer) POC Glucose (mg/dL) 225 H 182 H (65-110) mg/dL Random Glucose (75-110) mg/dL Calcium (8.6-10.4) mg/dl Phosphorus (2.5-4.5) mg/dL Magnesium (1.6-2.3) mg/dL Total Bilirubin (0.2-1.3) mg/dL AST (17-59) U/L ALT (21-72) U/L Alkaline Phosphatase (38-126) U/L Total Protein (6.3-8.3) g/dL Albumin (3.5-5.0) g/dL Globulin (2.2-3.9) gm/dL Albumin/Globulin Ratio (1.0-2.1) Laboratory Results - last 24 hr 05/18/18 05/18/18 05/19/18 17:40 23:29 06:48 WBC 12.3 H RBC 4.51 Hgb 10.3 L Hct 32.0 L MCV 71.0 L MCH 22.7 L MCHC 32.0 L RDW 19.9 H Plt Count 271 MPV 9.3 Neut % (Auto) 65.5 Lymph % (Auto) 27.2 [place] % (Auto) 6.3 Eos % (Auto) 0.4 Baso % (Auto) 0.6 Neut # (Auto) 8.0 H Lymph # (Auto) 3.4 [place] # (Auto) 0.8 Eos # (Auto) 0.1 Baso # (Auto) 0.1 Sodium Potassium Chloride Carbon Dioxide Anion Gap BUN Creatinine Est GFR ( Amer) Est GFR (Non-Af Amer) POC Glucose (mg/dL) 182 H 225 H Random Glucose Calcium Phosphorus Magnesium Total Bilirubin AST ALT Alkaline Phosphatase Total Protein Albumin Globulin Albumin/Globulin Ratio 05/19/18 05/19/18 05/19/18 06:48 06:59 11:22 WBC RBC Hgb Hct MCV MCH MCHC RDW Plt Count MPV Neut % (Auto) Lymph % (Auto) [place] % (Auto) Eos % (Auto) Baso % (Auto) Neut # (Auto) Lymph # (Auto) [place] # (Auto) Eos # (Auto) Baso # (Auto) Sodium 146 Potassium 3.7 Chloride 112 H Carbon Dioxide 23 Anion Gap 14 BUN 26 H Creatinine 0.8 Est GFR ( Amer) > 60 Est GFR (Non-Af Amer) > 60 POC Glucose (mg/dL) 207 H 200 H Random Glucose 199 H Calcium 9.4 Phosphorus 3.3 Magnesium 2.4 H Total Bilirubin 0.5 AST 68 H D ALT 40 Alkaline Phosphatase 55 Total Protein 7.0 Albumin 4.2 Globulin 2.8 Albumin/Globulin Ratio 1.5 Fingerstick Blood Sugar Results: 207 Critical Care Progress Note - Nutrition Nutrition: Nutrition Category Date Time Status NPO Diet [DIET] Diets 05/16/18 Dinner Active Assessment/Plan - Assessment and Plan (Free Text) Assessment: This is a 83 year old male with PMHx Ischemic CVA x 4, 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 There is no mildline shift at this time. Given these findings, neurosurgery was called- Dr. Teresa stated the patient should be transferred for angiogram and possible AVM embolization. Patient was transferred to [facility] and is being followed by neurologist Dr. Aviles and interventional neurologist Dr. Brantley. As per Dr. Brantley - angiogram next week. Patient's sister - Sonja Rosario #[phone] Plan: Neuro: A: Intracranial Hemorrhage -- Dr. Aviles, Dr. Brantley consulted At [place]: -CT Head (05/16/18): interval left posterior frontal/parietal intra cerebral hematoma with surrounding edema and possible minimal mild mass effect on the left frontal horn. No midline shift. No dilatation of the right lateral ventricle appreciated. No interval dilatation or other particular segments noted. -CT head (05/16/18): subjective mild expansion of the left parietal hematoma with mild surrounding edema impression upon the posterior portion of the body of the left lateral ventricle. No other significant interval chage. At [facility]: -CT Head (05/17/18): re-demonstrated is a large parenchymal hematoma within the left posterior temporoparietal lobe secondary to hemorrhage into pre-existing AVM, mass effect produced by the hematoma and surrounding edema impress overlying sulci and posterior aspect left lateral ventricle as described. moderate to significant chronic white matter ischemic changes. - Aspiration precautions - Seizure precautions - Started Keppra 500mg Q12 - Serial CT scans ordered daily - As per Dr. 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 - Will need thyroid studies repeated : A: BPH Heme/Onc: A: History of Iron Deficiency Anemia Prophylactic Measures: - Protonix - SCDs, VTE C/I in light of ICH - PT Eval - Speech Eval - Swallow Eval failed x2 Disposition: Spoke to Niece Shelby, , NGT in place with tube feedings, she is amendable to PEG if it is necessary, will consult GI. Possible angiogram next week as per interventional neurosurgery. Disposition: Patient transferred to telemetry. DW Dr. Antonio Edouard, Alecia Avalos DO, PGY-1 <Antonio Edouard M - Last Filed: 05/19/18 14:36> CCU Objective - Vital Signs / Intake & Output Vital Signs (Last 4 hours): Vital Signs Pulse Resp BP Pulse Ox 05/19/18 11:02 48 L 12 129/61 99 05/19/18 11:00 51 L 13 98 Intake and Output (Last 8hrs): Intake & Output 05/18/18 05/19/18 05/19/18 22:59 06:59 14:59 Intake Total 180 330 150 Balance 180 330 150 Weight 171 lb 0.62 oz Intake: Intake, IV Amount 100 Right Wrist 100 Oral 0 Tube Feeding 80 330 150 Other: # Bowel Movements 0 0 - Medications Active Medications: Active Medications Generic Name Dose Route Start Last Admin Trade Name Freq PRN Reason Stop Dose Admin Bisacodyl 10 mg 05/19/18 08:54 Dulcolax OK ONCE PRN Constipation Dextrose 0 ml 05/16/18 21:03 Dextrose 50% Inj IV STAT PRN Hypoglycemia Protocol Protocol Dextrose 0 gm 05/16/18 21:03 Glutose 15 PO ONCE PRN Hypoglycemia Protocol Protocol Glucagon 0 mg 05/16/18 21:03 Glucagen Diagnostic Kit IM STAT PRN Hypoglycemia Protocol Protocol Hydralazine HCl 20 mg 05/19/18 14:33 Apresoline PO QID ATUL Dextrose 1,000 mls @ 0 mls/hr 05/16/18 21:03 Dextrose 5% In Water 1000 Ml IV .Q0M PRN Hypoglycemia Protocol Protocol Per Protocol Levetiracetam 500 mg/ Sodium 105 mls @ 420 mls/hr 05/18/18 10:00 05/19/18 09: 08 Chloride IVPB 420 mls/hr Q12H ATUL Administration Insulin Human Regular 0 unit 05/18/18 00:00 05/19/18 13:12 Novolin R SC 3 u Q6H ATUL Administration Protocol Metoprolol Tartrate 25 mg 05/19/18 10:00 05/19/18 09:53 Lopressor PO 25 mg BID ATUL Administration Pantoprazole Sodium 40 mg 05/18/18 10:00 05/19/18 09:09 Protonix Inj IVP 40 mg DAILY ATLU Administration - Patient Studies Lab Studies: Lab Studies 05/19/18 05/19/18 05/19/18 Range/Units 11:22 06:59 06:48 WBC (4.8-10.8) K/uL RBC (4.40-5.90) Mil/uL Hgb (12.0-18.0) g/dL Hct (35.0-51.0) % MCV (80.0-94.0) fL MCH (27.0-31.0) pg MCHC (33.0-37.0) g/dL RDW (11.5-14.5) % Plt Count (130-400) K/uL MPV (7.2-11.7) fL Neut % (Auto) (50.0-75.0) % Lymph % (Auto) (20.0-40.0) % [place] % (Auto) (0.0-10.0) % Eos % (Auto) (0.0-4.0) % Baso % (Auto) (0.0-2.0) % Neut # (Auto) (1.8-7.0) K/uL Lymph # (Auto) (1.0-4.3) K/uL [place] # (Auto) (0.0-0.8) K/uL Eos # (Auto) (0.0-0.7) K/uL Baso # (Auto) (0.0-0.2) K/uL Sodium 146 (132-148) mmol/L Potassium 3.7 (3.6-5.2) mmol/L Chloride 112 H (98-107) mmol/L Carbon Dioxide 23 (22-30) mmol/L Anion Gap 14 (10-20) BUN 26 H (9-20) mg/dL Creatinine 0.8 (0.8-1.5) mg/dL Est GFR ( Amer) > 60 Est GFR (Non-Af Amer) > 60 POC Glucose (mg/dL) 200 H 207 H (65-110) mg/dL Random Glucose 199 H (75-110) mg/dL Calcium 9.4 (8.6-10.4) mg/dl Phosphorus 3.3 (2.5-4.5) mg/dL Magnesium 2.4 H (1.6-2.3) mg/dL Total Bilirubin 0.5 (0.2-1.3) mg/dL AST 68 H D (17-59) U/L ALT 40 (21-72) U/L Alkaline Phosphatase 55 (38-126) U/L Total Protein 7.0 (6.3-8.3) g/dL Albumin 4.2 (3.5-5.0) g/dL Globulin 2.8 (2.2-3.9) gm/dL Albumin/Globulin Ratio 1.5 (1.0-2.1) 05/19/18 05/18/18 05/18/18 Range/Units 06:48 23:29 17:40 WBC 12.3 H (4.8-10.8) K/uL RBC 4.51 (4.40-5.90) Mil/uL Hgb 10.3 L (12.0-18.0) g/dL Hct 32.0 L (35.0-51.0) % MCV 71.0 L (80.0-94.0) fL MCH 22.7 L (27.0-31.0) pg MCHC 32.0 L (33.0-37.0) g/dL RDW 19.9 H (11.5-14.5) % Plt Count 271 (130-400) K/uL MPV 9.3 (7.2-11.7) fL Neut % (Auto) 65.5 (50.0-75.0) % Lymph % (Auto) 27.2 (20.0-40.0) % [place] % (Auto) 6.3 (0.0-10.0) % Eos % (Auto) 0.4 (0.0-4.0) % Baso % (Auto) 0.6 (0.0-2.0) % Neut # (Auto) 8.0 H (1.8-7.0) K/uL Lymph # (Auto) 3.4 (1.0-4.3) K/uL [place] # (Auto) 0.8 (0.0-0.8) K/uL Eos # (Auto) 0.1 (0.0-0.7) K/uL Baso # (Auto) 0.1 (0.0-0.2) K/uL Sodium (132-148) mmol/L Potassium (3.6-5.2) mmol/L Chloride (98-107) mmol/L Carbon Dioxide (22-30) mmol/L Anion Gap (10-20) BUN (9-20) mg/dL Creatinine (0.8-1.5) mg/dL Est GFR ( Amer) Est GFR (Non-Af Amer) POC Glucose (mg/dL) 225 H 182 H (65-110) mg/dL Random Glucose (75-110) mg/dL Calcium (8.6-10.4) mg/dl Phosphorus (2.5-4.5) mg/dL Magnesium (1.6-2.3) mg/dL Total Bilirubin (0.2-1.3) mg/dL AST (17-59) U/L ALT (21-72) U/L Alkaline Phosphatase (38-126) U/L Total Protein (6.3-8.3) g/dL Albumin (3.5-5.0) g/dL Globulin (2.2-3.9) gm/dL Albumin/Globulin Ratio (1.0-2.1) Laboratory Results - last 24 hr 05/18/18 05/18/18 05/19/18 17:40 23:29 06:48 WBC 12.3 H RBC 4.51 Hgb 10.3 L Hct 32.0 L MCV 71.0 L MCH 22.7 L MCHC 32.0 L RDW 19.9 H Plt Count 271 MPV 9.3 Neut % (Auto) 65.5 Lymph % (Auto) 27.2 [place] % (Auto) 6.3 Eos % (Auto) 0.4 Baso % (Auto) 0.6 Neut # (Auto) 8.0 H Lymph # (Auto) 3.4 [place] # (Auto) 0.8 Eos # (Auto) 0.1 Baso # (Auto) 0.1 Sodium Potassium Chloride Carbon Dioxide Anion Gap BUN Creatinine Est GFR ( Amer) Est GFR (Non-Af Amer) POC Glucose (mg/dL) 182 H 225 H Random Glucose Calcium Phosphorus Magnesium Total Bilirubin AST ALT Alkaline Phosphatase Total Protein Albumin Globulin Albumin/Globulin Ratio 05/19/18 05/19/18 05/19/18 06:48 06:59 11:22 WBC RBC Hgb Hct MCV MCH MCHC RDW Plt Count MPV Neut % (Auto) Lymph % (Auto) [place] % (Auto) Eos % (Auto) Baso % (Auto) Neut # (Auto) Lymph # (Auto) [place] # (Auto) Eos # (Auto) Baso # (Auto) Sodium 146 Potassium 3.7 Chloride 112 H Carbon Dioxide 23 Anion Gap 14 BUN 26 H Creatinine 0.8 Est GFR ( Amer) > 60 Est GFR (Non-Af Amer) > 60 POC Glucose (mg/dL) 207 H 200 H Random Glucose 199 H Calcium 9.4 Phosphorus 3.3 Magnesium 2.4 H Total Bilirubin 0.5 AST 68 H D ALT 40 Alkaline Phosphatase 55 Total Protein 7.0 Albumin 4.2 Globulin 2.8 Albumin/Globulin Ratio 1.5 Critical Care Progress Note - Nutrition Nutrition: Nutrition Category Date Time Status NPO Diet [DIET] Diets 05/16/18 Dinner Active Assessment/Plan - Assessment and Plan (Free Text) Plan: Patient with h/o ICH with slight pressure effect, off cardene ggt. -HTN: continue hydralazine + lopressor +/-iv hydrlazine -avoid any hypotonic fluid -avoid antiplatelets and anticogulants -neurosurgery and neurology follow up. Patient tolerating NG tube feeds and remains hemodynamically stable. - Date & Time Date: 05/19/18 Time: 14:36
--- NOTE | 2018-05-19 13:05 | CP.PCM.PN ---
Subjective - Date & Time of Evaluation Date of Evaluation: 05/19/18 Time of Evaluation: 12:50 - Subjective Subjective: Medical Attending Note Patient seen and examined whit his nurse and charge nurse at bedside. Patient has comeback from head CT. Patient is able to say his name, his birthdate, will follow commands. His niece is on route in the hospital. Objective - Vital Signs/Intake and Output Vital Signs (last 24 hours): Temp Pulse Resp BP Pulse Ox 97.6 F 48 L 12 129/61 99 05/19/18 08:00 05/19/18 11:02 05/19/18 11:02 05/19/18 11:02 05/19/18 11:02 Intake and Output: 05/19/18 05/19/18 06:59 18:59 Intake Total 500 150 Balance 500 150 - Medications Medications: Current Medications Bisacodyl (Dulcolax) 10 mg [place] ONCE PRN PRN Reason: Constipation Dextrose (Dextrose 50% Inj) 0 ml IV STAT PRN; Protocol PRN Reason: Hypoglycemia Protocol Dextrose (Glutose 15) 0 gm PO ONCE PRN; Protocol PRN Reason: Hypoglycemia Protocol Glucagon (Glucagen Diagnostic Kit) 0 mg IM STAT PRN; Protocol PRN Reason: Hypoglycemia Protocol Hydralazine HCl (Apresoline) 10 mg PO QID [facility] Last Admin: 05/19/18 09:51 Dose: 10 mg Dextrose (Dextrose 5% In Water 1000 Ml) 1,000 mls @ 0 mls/hr IV .Q0M PRN; Protocol; Per Protocol PRN Reason: Hypoglycemia Protocol Levetiracetam 500 mg/ Sodium (Chloride) 105 mls @ 420 mls/hr IVPB Q12H [facility] Last Admin: 05/19/18 09:08 Dose: 420 mls/hr Insulin Human Regular (Novolin R) 0 unit SC Q6H ATUL PRN Reason: Protocol Last Admin: 05/19/18 06:00 Dose: 3 u Metoprolol Tartrate (Lopressor) 25 mg PO BID [facility] Last Admin: 05/19/18 09:53 Dose: 25 mg Pantoprazole Sodium (Protonix Inj) 40 mg IVP DAILY [facility] Last Admin: 05/19/18 09:09 Dose: 40 mg - Labs Labs: 05/19/18 06:48 05/19/18 06:48 PT 13.0 SECONDS (9.7-12.2) H 05/17/18 06:21 INR 1.2 05/17/18 06:21 APTT 29 SECONDS (21-34) 05/17/18 06:21 - Constitutional Appears: Non-toxic, No Acute Distress - Head Exam Additional comments: right sided facial weakness Patient is more alert, able to see me straight ahead there was neglect yesterday - Eye Exam Eye Exam: EOMI, PERRL - ENT Exam ENT Exam: Mucous Membranes Moist - Respiratory Exam Respiratory Exam: Clear to Ausculation Bilateral. absent: Rales, Rhonchi, Wheezes - Cardiovascular Exam Cardiovascular Exam: REGULAR RHYTHM, +S1, +S2 - GI/Abdominal Exam GI & Abdominal Exam: Soft, Normal Bowel Sounds. absent: Distended, Firm, Guarding, Rigid, Tenderness, Rebound - Extremities Exam Extremities Exam: absent: Pedal Edema, Tenderness - Neurological Exam Neurological Exam: Alert, Awake, Oriented x3 Neuro motor strength exam: Left Upper Extremity: 4, Right Upper Extremity: 2/1, Left Lower Extremity: 4, Right Lower Extremity: 2/1 - Psychiatric Exam Psychiatric exam: Normal Affect, Normal Mood - Skin Skin Exam: Dry, Intact, Normal Color, Warm Assessment and Plan (1) Intracranial hemorrhage Status: Acute (2) Dyslipidemia Status: Chronic (3) Hypertension Status: Chronic (4) Diabetes Status: Chronic (5) Prophylactic measure Status: Acute Attending/Attestation - Attestation I have personally seen and examined this patient.: Yes I have fully participated in the care of the patient.: Yes I have reviewed all pertinent clinical information, including history, physical exam and plan: Yes Notes (Text): (1) Intracranial hemorrhage Assessment & Plan: At [place]: * CT Head (05/16/18): interval left posterior frontal/parietal intra cerebral hematoma with surrounding edema and possible minimal mild mass effect on the left frontal horn. No midline shift. No dilatation of the right lateral ventricle appreciated. No interval dilatation or other particular segments noted. * CT head (05/16/18): subjective mild expansion of the left parietal hematoma with mild surrounding edema impression upon the posterior portion of the body of the left lateral ventricle. No other significant interval chage. At [facility]: * CT Head (05/17/18): re-demonstrated is a large parenchymal hematoma within the left posterior temporoparietal lobe secondary to hemorrhage into pre-existing AVM, mass effect produced by the hematoma and surrounding edema impress overlying sulci and posterior aspect left lateral ventricle as described. moderate to significant chronic white matter ischemic changes. * CT head (05/19/18): pending Admitted to ICU at [facility] on 05/16/18 Neurology (Dr. Aviles) on the case-->help appreciated Neurointerventioanl (Dr. Brantley/) on board-->help appreciated * Off plavix (was previously on) * d/c Dexamethadone 8mg IV Q12H yesterday * off nicardine drip * Elevated head of Bed * Seizure precautions * Neurochecks * Plavix was held and other anticoagulation held Neurointerventional on board-->plan for intervention for next week for angiogram Has failed swallow eval; has NGT tube currently Status: Acute (2) Dysphagia Assessment & Plan: * GI (Dr. Sawant) zone maintenance technician-->help appreciated * GI to discuss with family-->possible Monday * Will discuss with family and arrange for next week (monday most lik) * Risks/benefits to be discussed with family. Will need to be off all antiplatelet drugs for 5-7 days to facilitate placement. (3) Dyslipidemia Assessment & Plan: * Patient is NPO; failed both bedside and swallow eval * Restart statin when patient safe to restart diet; if not place NGT tube Status: Chronic (4) Hypertension Assessment & Plan: * Off drip * Started on Metoprolol 25mgPO BID * Started on Hydralazine 10mg PO QID * Order for echocardiogram * Prior echocardiogram (05/03/18): normal LV systolic function. Aortic valve sclerosis Status: Chronic (5) Diabetes Status: Chronic * hgba1c: 9.2 * Lipid Panel: 123, Cholestrol: 199, LDL: 152. HDL: 38 * HYpoglycemic protocol * insulin sliding scale Q6H * Accuchecks Q6H (6) Prophylactic measure Assessment & Plan: * Elevated head * Neurochecks * chemical anticoagulation secondary to intracranial hemorrhage * NPO * seizure precautions * aspiration precautions * Has failed swallow eval twice * Has NGT tube * Spoke to Luke Ryan, , she is amendable to PEG if it is necessary Status: Acute
--- NOTE | 2018-05-19 13:08 | CT ---
PROCEDURE: CT HEAD WITHOUT CONTRAST. HISTORY: Follow-up follow up intracranial hemorrhage COMPARISON: None available. TECHNIQUE: Axial computed tomography images were obtained through the head/brain without intravenous contrast. Radiation dose: Total exam DLP = mGy-cm. This CT exam was performed using one or more of the following dose reduction techniques: Automated exposure control, adjustment of the mA and/or kV according to patient size, and/or use of iterative reconstruction technique. FINDINGS: HEMORRHAGE: Large left posterior temporoparietal parenchymal hematoma related to hemorrhage into a pre-existing arteriovenous malformation again noted. The hematoma appears essentially unchanged from prior study. There is a small peripheral rim of surrounding edema about the hematoma. Persistent mass effect with compression of the left ventricle particularly the left atrium and occipital horn again noted. There is also overlying sulcal effacement. BRAIN: Moderate chronic periventricular white matter ischemic changes are again noted. There are scattered chronic bilateral basal nuclei and small lacunar type infarcts as well. Moderate generalized volume loss. VENTRICLES: Persistent enlargement of the ventricular system not withstanding mass-effect. Hydrocephalus. CALVARIUM: Calvarium intact. PARANASAL SINUSES: Mild mucosal thickening seen within the ethmoid air complex extending superiorly into the frontal sinus. Mild mucosal thickening both maxillary antra. . MASTOID AIR CELLS: Unremarkable as visualized. No inflammatory changes. OTHER FINDINGS: In situ NGT. . 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 There is a small rim of surrounding edema about the hematoma. The hematoma and its surrounding edema exert persistent mass effect with overlying sulcal effacement as well as compression of the left lateral ventricle as described. There is also dilatation of the remaining ventricular system not withstanding mass-effect of. Moderate to spare significant chronic white matter ischemic changes.
[2018-05-20] MEDS: (Novolin R) Insulin Human Regular 100 units/ml vial SC SCH ×4 (00:17→18:55)
--- NOTE | 2018-05-20 00:17 | CP.PCM.PN ---
Subjective - Date & Time of Evaluation Date of Evaluation: 05/19/18 Time of Evaluation: 16:00 - Subjective Subjective: Patient is now speaking clearly, naming objects, and following commands. No seizures noted. A/P: Patient with cerebral hemorrhage, and underlying avm. Plan: 1. DIscussd with Dr. dunne, and possible angiogram on Monday. 2. Repeat CT if mental status changes. 3. COntrol blood pressure control. Thank you Dr. quintana Objective - Vital Signs/Intake and Output Vital Signs (last 24 hours): Temp Pulse Resp BP Pulse Ox 97.8 F 70 15 166/63 H 98 05/19/18 16:00 05/19/18 20:10 05/19/18 20:10 05/19/18 20:10 05/19/18 20:10 Intake and Output: 05/19/18 05/20/18 18:59 06:59 Intake Total 150 Balance 150 - Medications Medications: Current Medications Bisacodyl (Dulcolax) 10 mg ID ONCE PRN PRN Reason: Constipation Dextrose (Dextrose 50% Inj) 0 ml IV STAT PRN; Protocol PRN Reason: Hypoglycemia Protocol Dextrose (Glutose 15) 0 gm PO ONCE PRN; Protocol PRN Reason: Hypoglycemia Protocol Glucagon (Glucagen Diagnostic Kit) 0 mg IM STAT PRN; Protocol PRN Reason: Hypoglycemia Protocol Hydralazine HCl (Apresoline) 20 mg PO QID [facility] Last Admin: 05/19/18 22:00 Dose: 20 mg Hydralazine HCl (Apresoline) 10 mg IVP Q6H PRN PRN Reason: Systolic Blood Pressure Last Admin: 05/19/18 18:05 Dose: 10 mg Dextrose (Dextrose 5% In Water 1000 Ml) 1,000 mls @ 0 mls/hr IV .Q0M PRN; Protocol; Per Protocol PRN Reason: Hypoglycemia Protocol Levetiracetam 500 mg/ Sodium (Chloride) 105 mls @ 420 mls/hr IVPB Q12H [facility] Last Admin: 05/19/18 22:00 Dose: 420 mls/hr Insulin Human Regular (Novolin R) 0 unit SC Q6H [facility] PRN Reason: Protocol Last Admin: 05/19/18 18:05 Dose: 3 u Metoprolol Tartrate (Lopressor) 25 mg PO BID [facility] Last Admin: 05/19/18 17:52 Dose: 25 mg Pantoprazole Sodium (Protonix Inj) 40 mg IVP DAILY [facility] Last Admin: 05/19/18 09:09 Dose: 40 mg - Labs Labs: 05/19/18 06:48 05/19/18 06:48 PT 13.0 SECONDS (9.7-12.2) H 05/17/18 06:21 INR 1.2 05/17/18 06:21 APTT 29 SECONDS (21-34) 05/17/18 06:21
[2018-05-20 06:54] LABS: BASO # 0.1 K/uL (0.0-0.2); BASO % 0.4 % (0.0-2.0); EOS # 0.3 K/uL (0.0-0.7); EOS % 1.8 % (0.0-4.0); HEMOGLOBIN 11.6 g/dL (12.0-18.0); LYMPH # 3.3 K/uL (1.0-4.3); LYMPH % 23.3 % (20.0-40.0); MEAN CELL VOLUME 70.6 fL (80.0-94.0); MEAN CORPUSCULAR HEMOGLOBIN 22.5 pg (27.0-31.0); MEAN CORPUSCULAR HGB CONC 31.9 g/dL (33.0-37.0); MEAN PLATELET VOLUME 9.1 fL (7.2-11.7); MONO % 6.9 % (0.0-10.0); NEUT # 9.7 K/uL (1.8-7.0); NEUT % 67.6 % (50.0-75.0); RBC 5.15 Mil/uL (4.40-5.90); RED CELL DISTRIBUTION WIDTH 19.4 % (11.5-14.5); WHITE BLOOD COUNT 14.3 K/uL (4.8-10.8)
[2018-05-20 07:07] LABS: ALB/GLOB RATIO 1.3 (1.0-2.1); ALBUMIN 4.3 g/dL (3.5-5.0); ALT/SGPT 52 U/L (21-72); AST/SGOT 57 U/L (17-59); BLOOD UREA NITROGEN 25 mg/dL (9-20); CALCIUM 9.6 mg/dl (8.6-10.4); GFR AFRICAN-AMERICAN > 60; GFR NON-AFRICAN AMERICAN > 60
--- NOTE | 2018-05-20 09:12 | CP.PCM.PN ---
Subjective - Date & Time of Evaluation Date of Evaluation: 05/20/18 Time of Evaluation: 09:00 - Subjective Subjective: Medical Attending Note: I discussed with patient's nurse. no events overnight noted for confusion per nurse. Patient is able to say his name, his birthday, and following commands. Patient has not had a bowel movement. Patient is on NGT tube feedings. Patient is scheduled for peg placement this upcoming Monday with Dr. Concepcion. Patient is pending angiogram with neurointerventionalist this upcoming week unclear when. patient to go for repeat head CT later today. Objective - Vital Signs/Intake and Output Vital Signs (last 24 hours): Temp Pulse Resp BP Pulse Ox 98.5 F 70 16 138/62 96 05/20/18 04:00 05/20/18 07:26 05/20/18 07:26 05/20/18 07:26 05/20/18 07:26 Intake and Output: 05/20/18 05/20/18 06:59 18:59 Intake Total 550 100 Output Total 150 Balance 550 -50 - Medications Medications: Current Medications Bisacodyl (Dulcolax) 10 mg IN ONCE PRN PRN Reason: Constipation Dextrose (Dextrose 50% Inj) 0 ml IV STAT PRN; Protocol PRN Reason: Hypoglycemia Protocol Dextrose (Glutose 15) 0 gm PO ONCE PRN; Protocol PRN Reason: Hypoglycemia Protocol Glucagon (Glucagen Diagnostic Kit) 0 mg IM STAT PRN; Protocol PRN Reason: Hypoglycemia Protocol Hydralazine HCl (Apresoline) 10 mg IVP Q6H PRN PRN Reason: Systolic Blood Pressure Last Admin: 05/20/18 01:43 Dose: 10 mg Hydralazine HCl (Apresoline) 20 mg PO Q6H [facility] Dextrose (Dextrose 5% In Water 1000 Ml) 1,000 mls @ 0 mls/hr IV .Q0M PRN; Protocol; Per Protocol PRN Reason: Hypoglycemia Protocol Levetiracetam 500 mg/ Sodium (Chloride) 105 mls @ 420 mls/hr IVPB Q12H [facility] Last Admin: 05/19/18 22:00 Dose: 420 mls/hr Insulin Human Regular (Novolin R) 0 unit SC Q6H [facility] PRN Reason: Protocol Last Admin: 05/20/18 06:00 Dose: 3 u Metoprolol Tartrate (Lopressor) 25 mg PO BID [facility] Last Admin: 05/19/18 17:52 Dose: 25 mg Pantoprazole Sodium (Protonix Inj) 40 mg IVP DAILY [facility] Last Admin: 05/19/18 09:09 Dose: 40 mg - Labs Labs: 05/20/18 06:41 05/20/18 06:35 PT 13.0 SECONDS (9.7-12.2) H 05/17/18 06:21 INR 1.2 05/17/18 06:21 APTT 29 SECONDS (21-34) 05/17/18 06:21 - Constitutional Appears: Non-toxic, No Acute Distress - Head Exam Additional comments: right facial weakness - Eye Exam Eye Exam: EOMI, PERRL - ENT Exam ENT Exam: Mucous Membranes Moist - Respiratory Exam Respiratory Exam: Clear to Ausculation Bilateral, NORMAL BREATHING PATTERN. absent: Rales, Rhonchi, Wheezes - Cardiovascular Exam Cardiovascular Exam: REGULAR RHYTHM, +S1, +S2 - GI/Abdominal Exam GI & Abdominal Exam: Soft, Normal Bowel Sounds. absent: Distended, Firm, Guarding, Rigid, Tenderness, Rebound - Exam Additional comments: [facility] - Extremities Exam Extremities Exam: absent: Pedal Edema, Tenderness - Back Exam Back Exam: absent: CVA tenderness (L), CVA tenderness (R) - Neurological Exam Neurological Exam: Alert, Awake, Oriented x3 Neuro motor strength exam: Left Upper Extremity: 4, Right Upper Extremity: 2/1, Left Lower Extremity: 4, Right Lower Extremity: 2/1 - Psychiatric Exam Psychiatric exam: Normal Affect, Normal Mood - Skin Skin Exam: Dry, Intact, Normal Color, Warm Assessment and Plan (1) Intracranial hemorrhage Status: Acute (2) Dyslipidemia Status: Chronic (3) Hypertension Status: Chronic (4) Diabetes Status: Chronic (5) Prophylactic measure Status: Acute Attending/Attestation - Attestation I have personally seen and examined this patient.: Yes I have fully participated in the care of the patient.: Yes I have reviewed all pertinent clinical information, including history, physical exam and plan: Yes Notes (Text): (1) Intracranial hemorrhage Assessment & Plan: At [place]: * CT Head (05/16/18): interval left posterior frontal/parietal intra cerebral hematoma with surrounding edema and possible minimal mild mass effect on the left frontal horn. No midline shift. No dilatation of the right lateral ventricle appreciated. No interval dilatation or other particular segments noted. * CT head (05/16/18): subjective mild expansion of the left parietal hematoma with mild surrounding edema impression upon the posterior portion of the body of the left lateral ventricle. No other significant interval chage. At [facility]: * CT Head (05/17/18): re-demonstrated is a large parenchymal hematoma within the left posterior temporoparietal lobe secondary to hemorrhage into pre-existing AVM, mass effect produced by the hematoma and surrounding edema impress overlying sulci and posterior aspect left lateral ventricle as described. moderate to significant chronic white matter ischemic changes. * CT head (05/19/18): official read available in the computer. Admitted to ICU at [facility] on 05/16/18 Neurology (Dr. Aviles) on the case-->help appreciated Noninterventionist (Dr. Brantley/) on board-->help appreciated * Off plavix (was previously on) * d/c Dexamethadone 8mg IV Q12H * off nicardine drip * Elevated head of Bed * Seizure precautions * Neurochecks * Plavix was held and other anticoagulation held since 05/16/18 Neurointerventional on board-->plan for intervention this upcoming week for angiogram Has failed swallow eval; has NGT tube currently Status: Acute (2) Dysphagia Assessment & Plan: * GI (Sr. Concepcion) phone operator-->help appreciated * GI is planning for peg placement on Monday * Risks/benefits to be discussed with family. Will need to be off all antiplatelet drugs for 5-7 days to facilitate placement. Has been since 05/16/18 (3) Dyslipidemia Assessment & Plan: * Patient is NPO; failed both bedside and swallow eval * Patient is on NGT tube feedings * Glucerna 50ml/hr Status: Chronic (4) Hypertension Assessment & Plan: * Off drip * Started on Metoprolol 25mgPO BID * Hydralazine 20mg PO Q6H * Order for echocardiogram * Prior echocardiogram (05/03/18): normal LV systolic function. Aortic valve sclerosis Status: Chronic (5) Diabetes Status: Chronic * hgba1c: 9.2 * Lipid Panel: 123, Cholestrol: 199, LDL: 152. HDL: 38 * HYpoglycemic protocol * insulin sliding scale Q6H * Accuchecks Q6H (6) Prophylactic measure Assessment & Plan: * Elevated head * Neurochecks * chemical anticoagulation secondary to intracranial hemorrhage * NPO * seizure precautions * aspiration precautions * Has failed swallow eval twice * Has NGT tube * Luke Ryan, , she is amendable to PEG if it is necessary Status: Acute Patient is mild trending white count. Patient has [place] catheter. No fever noted. Will order blood/urine cultures/procalcitonin. Patient will be going for head CT later today. Discussed with nurse Johanny, patient is scheduled for peg placement with Gi (Dr. Lebron) this upcoming Monday. Patient is tentatively scheduled for cerebral angiogram with neurointerventional but unclear this upcoming week.
[2018-05-20] MEDS: levETIRAcetam 500 MG in Sodium Chloride 0.9% 100 ML IVPB SCH ×2 (10:21→21:12)
--- NOTE | 2018-05-20 11:00 | CP.PCM.PN ---
Subjective - Date & Time of Evaluation Date of Evaluation: 05/20/18 Time of Evaluation: 10:58 - Subjective Subjective: No new c/o. Consent for PEG obtained this am from family. Objective - Vital Signs/Intake and Output Vital Signs (last 24 hours): Temp Pulse Resp BP Pulse Ox 99.1 F 81 11 L 168/67 H 97 05/20/18 08:00 05/20/18 09:10 05/20/18 09:10 05/20/18 10:19 05/20/18 08:26 Intake and Output: 05/20/18 05/20/18 06:59 18:59 Intake Total 550 155 Output Total 150 Balance 550 5 - Medications Medications: Current Medications Bisacodyl (Dulcolax) 10 mg [place] ONCE PRN PRN Reason: Constipation Dextrose (Dextrose 50% Inj) 0 ml IV STAT PRN; Protocol PRN Reason: Hypoglycemia Protocol Dextrose (Glutose 15) 0 gm PO ONCE PRN; Protocol PRN Reason: Hypoglycemia Protocol Glucagon (Glucagen Diagnostic Kit) 0 mg IM STAT PRN; Protocol PRN Reason: Hypoglycemia Protocol Hydralazine HCl (Apresoline) 10 mg IVP Q6H PRN PRN Reason: Systolic Blood Pressure Last Admin: 05/20/18 01:43 Dose: 10 mg Hydralazine HCl (Apresoline) 20 mg PO Q6H [facility] Last Admin: 05/20/18 10:20 Dose: 20 mg Dextrose (Dextrose 5% In Water 1000 Ml) 1,000 mls @ 0 mls/hr IV .Q0M PRN; Protocol; Per Protocol PRN Reason: Hypoglycemia Protocol Levetiracetam 500 mg/ Sodium (Chloride) 105 mls @ 420 mls/hr IVPB Q12H [facility] Last Admin: 05/20/18 10:21 Dose: 420 mls/hr Insulin Human Regular (Novolin R) 0 unit SC Q6H [facility] PRN Reason: Protocol Last Admin: 05/20/18 06:00 Dose: 3 u Metoprolol Tartrate (Lopressor) 25 mg PO BID [facility] Last Admin: 05/20/18 10:19 Dose: 25 mg Pantoprazole Sodium (Protonix Inj) 40 mg IVP DAILY [facility] Last Admin: 05/20/18 10:19 Dose: 40 mg - Labs Labs: 05/20/18 06:41 05/20/18 06:35 PT 13.0 SECONDS (9.7-12.2) H 05/17/18 06:21 INR 1.2 05/17/18 06:21 APTT 29 SECONDS (21-34) 05/17/18 06:21 - Constitutional Appears: No Acute Distress - Head Exam Head Exam: ATRAUMATIC, NORMOCEPHALIC - Respiratory Exam Respiratory Exam: Decreased Breath Sounds - Cardiovascular Exam Cardiovascular Exam: REGULAR RHYTHM - GI/Abdominal Exam GI & Abdominal Exam: Soft, Normal Bowel Sounds. absent: Tenderness - Extremities Exam Extremities Exam: Pedal Edema Assessment and Plan (1) Dysphagia Assessment & Plan: Plan for PEG placement on Monday. Consent obtained. Hold all antiplatelet and anticoagulant meds (none currently due to bleed). Discussed with Neuro yesterday. Status: Acute (2) AVM (arteriovenous malformation) Status: Acute (3) Intracranial hemorrhage Status: Acute
--- NOTE | 2018-05-20 13:26 | CT ---
PROCEDURE: CT HEAD WITHOUT CONTRAST. HISTORY: follow up intracranial hemorrhage COMPARISON: 05/19/2018. TECHNIQUE: Axial computed tomography images were obtained through the head/brain without intravenous contrast. Radiation dose: Total exam DLP = 1001.98 mGy-cm. This CT exam was performed using one or more of the following dose reduction techniques: Automated exposure control, adjustment of the mA and/or kV according to patient size, and/or use of iterative reconstruction technique. FINDINGS: HEMORRHAGE: There is redemonstration of evolving 3.9 x 4.2 cm left posterior parietal lobe subacute hematoma with moderate surrounding vasogenic edema, local mass effect and effacement of the left lateral ventricle with 4 mm midline shift from left to right without herniation. BRAIN: There are moderate chronic microangiopathic changes. There is no territorial infarction. There are coarse atherosclerotic calcifications in the cavernous carotid arteries. VENTRICLES: There is moderate age-related global parenchymal volume loss and proportionate enlargement of the ventricles and cortical sulci. There is redemonstration of a linear high attenuation focus along the right lateral ventricular wall which may represent tiny hemorrhage or calcification. CALVARIUM: There are postsurgical changes in the left inferior orbital floor and anterior maxillary wall. PARANASAL SINUSES: There is mild mucoperiosteal thickening in the ethmoid air cells and maxillary sinuses with fluid in the right maxillary sinus. MASTOID AIR CELLS: Unremarkable as visualized. No inflammatory changes. OTHER FINDINGS: None. IMPRESSION: Involving large subacute left posterior parietal lobe hematoma with moderate surrounding vasogenic edema, local mass effect and effacement of the right lateral ventricle and 4 mm midline shift from left to right. No herniation or hydrocephalus. Moderate chronic microangiopathic changes and moderate age-related global parenchymal volume loss.
[2018-05-20 15:15] LABS: URINE BILIRUBIN NEGATIVE (NEGATIVE); URINE BLOOD NEGATIVE (NEGATIVE); URINE CLARITY Clear (Clear); URINE COLOR Yellow (YELLOW); URINE GLUCOSE (UA) 3+ mg/dL (Normal); URINE LEUKOCYTE ESTERASE NEG Leu/uL (Negative); URINE PROTEIN NEGATIVE (NEGATIVE)
[2018-05-21] MEDS: (Novolin R) Insulin Human Regular 100 units/ml vial SC SCH ×4 (00:18→18:01)
--- NOTE | 2018-05-21 07:03 | CP.PCM.PN ---
Subjective - Date & Time of Evaluation Date of Evaluation: 05/21/18 Time of Evaluation: 06:58 - Subjective Subjective: Mr. Rosario was seen and examined at the bedside. He is awake, with episode of confusion, unable to state place, person, or time. However he is able to answer some questions. He denies denies, dizziness, blurred vision. He is tolerating NGT feeding. He follows simple commands with mild right facial droop, his right upper extremity flaccid and lower extremity weak. He is able to wiggle his toes. He has bilateral SCD's. He is schedule for cerebral angiogram in maxi. am. He has episode of restlessness and remains on 1: 1 for patient safety. There was no untoward events overnight. Objective - Vital Signs/Intake and Output Vital Signs (last 24 hours): Temp Pulse Resp BP Pulse Ox 98.9 F 98 H 20 171/83 H 98 05/21/18 04:35 05/21/18 04:35 05/21/18 04:35 05/21/18 04:35 05/20/18 23:38 Intake and Output: 05/20/18 05/21/18 18:59 06:59 Intake Total 935 50 Output Total 650 Balance 285 50 - Medications Medications: Current Medications Bisacodyl (Dulcolax) 10 mg [place] ONCE PRN PRN Reason: Constipation Dextrose (Dextrose 50% Inj) 0 ml IV STAT PRN; Protocol PRN Reason: Hypoglycemia Protocol Dextrose (Glutose 15) 0 gm PO ONCE PRN; Protocol PRN Reason: Hypoglycemia Protocol Glucagon (Glucagen Diagnostic Kit) 0 mg IM STAT PRN; Protocol PRN Reason: Hypoglycemia Protocol Hydralazine HCl (Apresoline) 20 mg PO Q6H [facility] Last Admin: 05/21/18 04:53 Dose: 20 mg Hydralazine HCl (Apresoline) 10 mg IVP Q6H PRN PRN Reason: sbp > 160 Last Admin: 05/20/18 23:49 Dose: 10 mg Dextrose (Dextrose 5% In Water 1000 Ml) 1,000 mls @ 0 mls/hr IV .Q0M PRN; Protocol; Per Protocol PRN Reason: Hypoglycemia Protocol Levetiracetam 500 mg/ Sodium (Chloride) 105 mls @ 420 mls/hr IVPB Q12H [facility] Last Admin: 05/20/18 21:12 Dose: 420 mls/hr Insulin Human Regular (Novolin R) 0 unit SC Q6H [facility] PRN Reason: Protocol Last Admin: 05/21/18 00:18 Dose: 3 u Metoprolol Tartrate (Lopressor) 25 mg PO BID [facility] Last Admin: 05/20/18 17:12 Dose: 25 mg Pantoprazole Sodium (Protonix Inj) 40 mg IVP DAILY [facility] Last Admin: 05/20/18 10:19 Dose: 40 mg - Labs Labs: 05/20/18 06:41 05/20/18 06:35 PT 13.0 SECONDS (9.7-12.2) H 05/17/18 06:21 INR 1.2 05/17/18 06:21 APTT 29 SECONDS (21-34) 05/17/18 06:21 - Constitutional Appears: No Acute Distress - Head Exam Head Exam: NORMAL INSPECTION - Eye Exam Pupil Exam: PERRL - Neurological Exam Neurological Exam: Awake Neuro motor strength exam: Left Upper Extremity: 5, Right Upper Extremity: 0, Left Lower Extremity: 5, Right Lower Extremity: 2/1 Additional comments: neurological unchanged from previous examination. Assessment and Plan (1) Intracranial hemorrhage Assessment & Plan: Case discussed with Dr. Daugherty, continue all current medical regimen. Recommend repeat CT scan if mental status decline from his current status, blood pressure control with systolic blood pressure between 130-140, keep head of bed elevated at least 30 degrees angle.normothermic, glycemic control, and acute rehab for discharge planning. Status: Acute
[2018-05-21 08:51] LABS: BASO # 0.1 K/uL (0.0-0.2); BASO % 0.5 % (0.0-2.0); EOS # 0.1 K/uL (0.0-0.7); EOS % 0.8 % (0.0-4.0); HEMOGLOBIN 11.6 g/dL (12.0-18.0); LYMPH # 2.5 K/uL (1.0-4.3); LYMPH % 18.6 % (20.0-40.0); MEAN CELL VOLUME 70.9 fL (80.0-94.0); MEAN CORPUSCULAR HEMOGLOBIN 22.4 pg (27.0-31.0); MEAN CORPUSCULAR HGB CONC 31.6 g/dL (33.0-37.0); MEAN PLATELET VOLUME 9.6 fL (7.2-11.7); MONO # 0.8 K/uL (0.0-0.8); NEUT # 9.8 K/uL (1.8-7.0); NEUT % 74.1 % (50.0-75.0); RBC 5.18 Mil/uL (4.40-5.90); RED CELL DISTRIBUTION WIDTH 19.8 % (11.5-14.5); WHITE BLOOD COUNT 13.2 K/uL (4.8-10.8)
[2018-05-21 08:57] LABS: INR 1.1; PROTHROMBIN TIME 12.4 SECONDS (9.7-12.2)
[2018-05-21] MEDS: levETIRAcetam 500 MG in Sodium Chloride 0.9% 100 ML IVPB SCH ×2 (09:34→21:20)
--- NOTE | 2018-05-21 09:51 | CP.PCM.PN ---
Subjective - Date & Time of Evaluation Date of Evaluation: 05/21/18 Time of Evaluation: 07:00 - Subjective Subjective: PGY2- Progress note for Dr. Edouard Patient seen and examined at bedside. Patient says he has no pain. Patient thinks he is in [place], but then when I tell him he is in [place] he says he is in [facility]. Patient denies any headache, chest pain, or abdominal pain. Objective - Vital Signs/Intake and Output Vital Signs (last 24 hours): Temp Pulse Resp BP Pulse Ox 98.9 F 93 H 20 150/85 98 05/21/18 04:35 05/21/18 07:50 05/21/18 04:35 05/21/18 09:13 05/20/18 23:38 Intake and Output: 05/21/18 05/21/18 06:59 18:59 Intake Total 50 Balance 50 - Medications Medications: Current Medications Bisacodyl (Dulcolax) 10 mg [place] ONCE PRN PRN Reason: Constipation Dextrose (Dextrose 50% Inj) 0 ml IV STAT PRN; Protocol PRN Reason: Hypoglycemia Protocol Dextrose (Glutose 15) 0 gm PO ONCE PRN; Protocol PRN Reason: Hypoglycemia Protocol Glucagon (Glucagen Diagnostic Kit) 0 mg IM STAT PRN; Protocol PRN Reason: Hypoglycemia Protocol Hydralazine HCl (Apresoline) 20 mg PO Q6H [facility] Last Admin: 05/21/18 09:12 Dose: 20 mg Hydralazine HCl (Apresoline) 10 mg IVP Q6H PRN PRN Reason: sbp > 160 Last Admin: 05/20/18 23:49 Dose: 10 mg Dextrose (Dextrose 5% In Water 1000 Ml) 1,000 mls @ 0 mls/hr IV .Q0M PRN; Protocol; Per Protocol PRN Reason: Hypoglycemia Protocol Levetiracetam 500 mg/ Sodium (Chloride) 105 mls @ 420 mls/hr IVPB Q12H [facility] Last Admin: 05/21/18 09:34 Dose: 420 mls/hr Insulin Human Regular (Novolin R) 0 unit SC Q6H [facility] PRN Reason: Protocol Last Admin: 05/21/18 07:55 Dose: 4 u Metoprolol Tartrate (Lopressor) 25 mg PO BID [facility] Last Admin: 05/21/18 09:13 Dose: 25 mg Pantoprazole Sodium (Protonix Inj) 40 mg IVP DAILY [facility] Last Admin: 05/21/18 09:13 Dose: 40 mg - Labs Labs: 05/21/18 08:44 05/20/18 06:35 PT 12.4 SECONDS (9.7-12.2) H 05/21/18 08:44 INR 1.1 05/21/18 08:44 APTT 32 SECONDS (21-34) 05/21/18 08:44 - Constitutional Appears: Non-toxic, No Acute Distress - Head Exam Head Exam: ATRAUMATIC, NORMOCEPHALIC Additional comments: right facial weakness - Eye Exam Eye Exam: EOMI, Normal appearance - Respiratory Exam Respiratory Exam: Clear to Ausculation Bilateral, NORMAL BREATHING PATTERN. absent: Rales, Rhonchi, Wheezes - Cardiovascular Exam Cardiovascular Exam: REGULAR RHYTHM, RRR, +S1, +S2 - Extremities Exam Extremities Exam: Normal Inspection. absent: Pedal Edema - Neurological Exam Neuro motor strength exam: Left Upper Extremity: 4, Right Upper Extremity: 2/1, Left Lower Extremity: 4, Right Lower Extremity: 2/1 - Psychiatric Exam Psychiatric exam: Flat Affect, Normal Mood - Skin Skin Exam: Intact, Normal Color, Warm Assessment and Plan - Assessment and Plan (Free Text) Assessment: (1) Intracranial hemorrhage Assessment & Plan: At [place]: * CT Head (05/16/18): interval left posterior frontal/parietal intra cerebral hematoma with surrounding edema and possible minimal mild mass effect on the left frontal horn. No midline shift. No dilatation of the right lateral ventricle appreciated. No interval dilatation or other particular segments noted. * CT head (05/16/18): subjective mild expansion of the left parietal hematoma with mild surrounding edema impression upon the posterior portion of the body of the left lateral ventricle. No other significant interval chage. At [facility]: * CT Head (05/17/18): re-demonstrated is a large parenchymal hematoma within the left posterior temporoparietal lobe secondary to hemorrhage into pre-existing AVM, mass effect produced by the hematoma and surrounding edema impress overlying sulci and posterior aspect left lateral ventricle as described. moderate to significant chronic white matter ischemic changes. * CT Head (05/19/18): re-demonstrated large parenchymal hematoma left posterior temporoparietal region secondary to hemorrhage into a pre-existing AVM. see full report * CT Head (05/20/18): no change, please see full report Neurology (Dr. Aviles) on the case-->help appreciated Noninterventionist (Dr. Brantley/) on board-->help appreciated * Off plavix (was previously on) * d/c Dexamethadone 8mg IV Q12H * off nicardine drip * Elevated head of Bed * Seizure precautions * Neurochecks * Plavix was held and other anticoagulation held since 05/16/18 Neurointerventional on board-->plan for intervention :angiogram tomorrow (05/22) (2) Dysphagia Assessment & Plan: * GI (Sr. Concepcion) nuclear radiation engineer-->help appreciated * GI is planning for peg placement on Monday, npo after midnight * Risks/benefits to be discussed with family. Will need to be off all antiplatelet drugs for 5-7 days to facilitate placement. Has been since 05/16/18 (3) Dyslipidemia Assessment & Plan: * Patient is on NGT tube feedings, hold after midnight * Glucerna 50ml/hr Status: Chronic (4) Hypertension Assessment & Plan: * Off drip * Metoprolol to 25mg po BID * Hydralazine 50mg PO Q6H (increased from 20 mg on 05/21) * Order for echocardiogram * Prior echocardiogram (05/03/18): normal LV systolic function. Aortic valve sclerosis Status: Chronic (5) Diabetes Status: Chronic * hgba1c: 9.2 * Lipid Panel: 123, Cholestrol: 199, LDL: 152. HDL: 38 * Hypoglycemic protocol * insulin sliding scale Q6H * Accuchecks Q6H (6) Prophylactic measure Assessment & Plan: * Elevated head * Neurochecks * chemical anticoagulation secondary to intracranial hemorrhage * NPO * seizure precautions * aspiration precautions * Has failed swallow eval twice * Has NGT tube * Niece Shelby, , she is amendable to PEG if it is necessary Status: Acute Dispo: Patient medically optimized for peg tube placement tomorrow 05/22/18, NPO after midnight
--- NOTE | 2018-05-21 11:51 | CP.PCM.PCO ---
Physician Communication Note - Physician Communication Note Physician Communication Note: Family meeting tomorrow at 11 am.
--- NOTE | 2018-05-21 16:20 | CARD ---
APPROVED REPORT EXAM: Two-dimensional and M-mode echocardiogram with Doppler and color Doppler. Other Information Quality : AverageRhythm : NSR INDICATION Aortic Valve Disease RISK FACTORS Hypertension 2D DIMENSIONS LVOT Diameter1.5 (1.8-2.4cm) M-Mode DIMENSIONS RVDd1.44 (2.1-3.2cm)Left Atrium (MM)3.32 (2.5-4.0cm) IVSd0.96 (0.7-1.1cm)Aortic Root2.91 (2.2-3.7cm) LVDd5.09 (4.0-5.6cm)Aortic Cusp Exc.1.70 (1.5-2.0cm) PWd0.96 (0.7-1.1cm)FS (%) 36 % LVDs3.28 (2.0-3.8cm)LVEF (%)65 (>50%) Aortic Valve AoV Peak Wsgnszyl085.9cm/Shandra Peak GR.11mmHgLVOT Peak Jwthsvrl498.2cm/s DAVID (VMAX)1.33cm2 Mitral Valve MV E Yxutoxde087.0cm/sMV A Yahvpsai956.1cm/sE/A ratio0.7 TDI E/Lateral E'0.0E/Medial E'0.0 Tricuspid Valve TR Peak Brdhtylc297oy/sTR Peak Gr.79kaJcNGKT54rvYn LEFT VENTRICLE The left ventricle is normal size. There is normal left ventricular wall thickness. The Ejection Fraction is 60-65%. Transmitral Doppler flow pattern is Grade I-abnormal relaxation pattern. RIGHT VENTRICLE The right ventricle is normal size. The right ventricular systolic function is normal. ATRIA The left atrium size is normal. The right atrium size is normal. The interatrial septum is intact with no evidence for an atrial septal defect. AORTIC VALVE The aortic valve is mildly sclerotic. No aortic regurgitation is present. MITRAL VALVE Mitral annular calcification is mild. Mitral regurgitation is trace. TRICUSPID VALVE The tricuspid valve is normal in structure. There is mild tricuspid regurgitation. Right ventricular systolic pressure is estimated at 30 mmHg. There is no pulmonary hypertension. PULMONIC VALVE The pulmonary valve is normal in structure. GREAT VESSELS The aortic root is normal size. The aortic root displays mild sclerocalcific changes of the aortic root. PERICARDIAL EFFUSION There is no pericardial effusion. <Conclusion> poor window. tds. The left ventricle is normal size. The Ejection Fraction is 60-65%. Transmitral Doppler flow pattern is Grade I-abnormal relaxation pattern. There is mild tricuspid regurgitation. Right ventricular systolic pressure is estimated at 30 mmHg. There is no pulmonary hypertension. The aortic root is normal size. The aortic root displays mild sclerocalcific changes of the aortic root.
--- NOTE | 2018-05-21 17:19 | CP.PCM.PN ---
Subjective - Date & Time of Evaluation Date of Evaluation: 05/21/18 Time of Evaluation: 17:17 - Subjective Subjective: Dr Leal discussed case with Dr Teresa who feels that angiogram with embolization should be done now before any elective procedures due to risk to extend stroke after PEG. PEG has been cancelled and can be rescheduled once angiogram situation has been addressed. Dr Brody called but unable to leave message on her voice mail. Objective - Vital Signs/Intake and Output Vital Signs (last 24 hours): Temp Pulse Resp BP Pulse Ox 98.9 F 93 H 20 150/85 98 05/21/18 04:35 05/21/18 07:50 05/21/18 04:35 05/21/18 09:13 05/20/18 23:38 Intake and Output: 05/21/18 05/21/18 06:59 18:59 Intake Total 50 Balance 50 - Medications Medications: Current Medications Bisacodyl (Dulcolax) 10 mg [place] ONCE PRN PRN Reason: Constipation Dextrose (Dextrose 50% Inj) 0 ml IV STAT PRN; Protocol PRN Reason: Hypoglycemia Protocol Dextrose (Glutose 15) 0 gm PO ONCE PRN; Protocol PRN Reason: Hypoglycemia Protocol Glucagon (Glucagen Diagnostic Kit) 0 mg IM STAT PRN; Protocol PRN Reason: Hypoglycemia Protocol Hydralazine HCl (Apresoline) 10 mg IVP Q6H PRN PRN Reason: sbp > 160 Last Admin: 05/20/18 23:49 Dose: 10 mg Hydralazine HCl (Apresoline) 50 mg PO Q6H ATUL Dextrose (Dextrose 5% In Water 1000 Ml) 1,000 mls @ 0 mls/hr IV .Q0M PRN; Protocol; Per Protocol PRN Reason: Hypoglycemia Protocol Levetiracetam 500 mg/ Sodium (Chloride) 105 mls @ 420 mls/hr IVPB Q12H ATUL Last Admin: 05/21/18 09:34 Dose: 420 mls/hr Insulin Human Regular (Novolin R) 0 unit SC Q6H ATUL PRN Reason: Protocol Last Admin: 05/21/18 13:00 Dose: 3 u Metoprolol Tartrate (Lopressor) 25 mg PO BID ATUL Last Admin: 05/21/18 09:13 Dose: 25 mg Pantoprazole Sodium (Protonix Inj) 40 mg IVP DAILY [facility] Last Admin: 05/21/18 09:13 Dose: 40 mg Rosuvastatin Calcium (Crestor) 5 mg PO HS ATUL - Labs Labs: 05/21/18 08:44 05/20/18 06:35 PT 12.4 SECONDS (9.7-12.2) H 05/21/18 08:44 INR 1.1 05/21/18 08:44 APTT 32 SECONDS (21-34) 05/21/18 08:44 Assessment and Plan (1) Dysphagia Status: Acute (2) AVM (arteriovenous malformation) Status: Acute (3) Intracranial hemorrhage Status: Acute
--- NOTE | 2018-05-21 22:02 | CP.PCM.PCO ---
Physician Communication Note - Physician Communication Note Physician Communication Note: discussed with Baldemar ovalle in regards to peg cancellation.
[2018-05-22] MEDS: (Novolin R) Insulin Human Regular 100 units/ml vial SC SCH ×4 (00:24→17:12)
--- NOTE | 2018-05-22 07:09 | CP.PCM.PN ---
<Ally Lakhani - Last Filed: 05/22/18 17:14> Subjective - Date & Time of Evaluation Date of Evaluation: 05/22/18 Time of Evaluation: 07:00 - Subjective Subjective: PGY2- Medicine Note for Dr. Edouard Patient seen and examined at bedside. Patient is very confused. Patient says we are in a house in [place]. Patient does not know the year. Patient denies any pain, but full ROS unobtainable. Objective - Vital Signs/Intake and Output Vital Signs (last 24 hours): Temp Pulse Resp BP Pulse Ox 98.1 F 20 L 118 H 177/74 H 96 05/21/18 23:44 05/22/18 05:00 05/22/18 05:00 05/22/18 05:00 05/22/18 05:00 Intake and Output: 05/22/18 05/22/18 06:59 18:59 Intake Total 505 Balance 505 - Medications Medications: Current Medications Bisacodyl (Dulcolax) 10 mg [place] ONCE PRN PRN Reason: Constipation Dextrose (Dextrose 50% Inj) 0 ml IV STAT PRN; Protocol PRN Reason: Hypoglycemia Protocol Dextrose (Glutose 15) 0 gm PO ONCE PRN; Protocol PRN Reason: Hypoglycemia Protocol Glucagon (Glucagen Diagnostic Kit) 0 mg IM STAT PRN; Protocol PRN Reason: Hypoglycemia Protocol Hydralazine HCl (Apresoline) 10 mg IVP Q6H PRN PRN Reason: sbp > 160 Last Admin: 05/21/18 20:53 Dose: 10 mg Hydralazine HCl (Apresoline) 50 mg PO Q6H [facility] Last Admin: 05/22/18 05:49 Dose: 50 mg Dextrose (Dextrose 5% In Water 1000 Ml) 1,000 mls @ 0 mls/hr IV .Q0M PRN; Protocol; Per Protocol PRN Reason: Hypoglycemia Protocol Levetiracetam 500 mg/ Sodium (Chloride) 105 mls @ 420 mls/hr IVPB Q12H [facility] Last Admin: 05/21/18 21:20 Dose: 420 mls/hr Insulin Human Regular (Novolin R) 0 unit SC Q6H ATUL PRN Reason: Protocol Last Admin: 05/22/18 06:15 Dose: 4 units Metoprolol Tartrate (Lopressor) 25 mg PO BID [facility] Last Admin: 05/21/18 18:04 Dose: 25 mg Pantoprazole Sodium (Protonix Inj) 40 mg IVP DAILY [facility] Last Admin: 05/21/18 09:13 Dose: 40 mg Rosuvastatin Calcium (Crestor) 5 mg PO HS [facility] Last Admin: 05/21/18 22:36 Dose: 5 mg - Labs Labs: 05/21/18 08:44 05/20/18 06:35 PT 12.4 SECONDS (9.7-12.2) H 05/21/18 08:44 INR 1.1 05/21/18 08:44 APTT 32 SECONDS (21-34) 05/21/18 08:44 - Additional Findings Additional findings: - Constitutional Appears: Non-toxic, No Acute Distress - Head Exam Head Exam: ATRAUMATIC, NORMOCEPHALIC Additional comments: right facial weakness - Eye Exam Eye Exam: EOMI, Normal appearance - Respiratory Exam Respiratory Exam: Clear to Ausculation Bilateral, NORMAL BREATHING PATTERN. absent: Rales, Rhonchi, Wheezes - Cardiovascular Exam Cardiovascular Exam: REGULAR RHYTHM, RRR, +S1, +S2 - Extremities Exam Extremities Exam: Normal Inspection. absent: Pedal Edema - Neurological Exam Neuro motor strength exam: Left Upper Extremity: 4, Right Upper Extremity: 2/1, Left Lower Extremity: 4, Right Lower Extremity: 2/1 - Psychiatric Exam Psychiatric exam: Flat Affect, Normal Mood - Skin Skin Exam: Intact, Normal Color, Warm Assessment and Plan - Assessment and Plan (Free Text) Assessment: (1) Intracranial hemorrhage Assessment & Plan: At [place]: * CT Head (05/16/18): interval left posterior frontal/parietal intra cerebral hematoma with surrounding edema and possible minimal mild mass effect on the left frontal horn. No midline shift. No dilatation of the right lateral ventricle appreciated. No interval dilatation or other particular segments noted. * CT head (05/16/18): subjective mild expansion of the left parietal hematoma with mild surrounding edema impression upon the posterior portion of the body of the left lateral ventricle. No other significant interval chage. At [facility]: * CT Head (05/17/18): re-demonstrated is a large parenchymal hematoma within the left posterior temporoparietal lobe secondary to hemorrhage into pre-existing AVM, mass effect produced by the hematoma and surrounding edema impress overlying sulci and posterior aspect left lateral ventricle as described. moderate to significant chronic white matter ischemic changes. * CT Head (05/19/18): re-demonstrated large parenchymal hematoma left posterior temporoparietal region secondary to hemorrhage into a pre-existing AVM. see full report * CT Head (05/20/18): no change, please see full report Neurology (Dr. Aviles) on the case-->help appreciated Noninterventionist (Dr. Brantley/) on board-->help appreciated * Off plavix (was previously on) * d/c Dexamethadone 8mg IV Q12H * off nicardine drip * Elevated head of Bed * Seizure precautions * Neurochecks * Plavix was held and other anticoagulation held since 05/16/18 Neurointerventional on board-->plan for intervention :angiogram with Dr. Brantley' s colleague Dr. Agarwal on 05/23/18 (2) Dysphagia Assessment & Plan: * GI (Sr. Concepcion) adult basic education manager-->help appreciated * PEG placement cancelled due to angiogram with embolization, PEG to be rescheduled * Risks/benefits to be discussed with family. Will need to be off all antiplatelet drugs for 5-7 days to facilitate placement. Has been since 05/16/18 (3) Dyslipidemia Assessment & Plan: * Patient is on NGT tube feedings, hold after midnight * Glucerna 50ml/hr Status: Chronic (4) Hypertension Assessment & Plan: * Off drip * Metoprolol to 25mg po BID * Hydralazine 50mg PO Q6H (increased from 20 mg on 05/21) * Order for echocardiogram * Prior echocardiogram (05/03/18): normal LV systolic function. Aortic valve sclerosis Status: Chronic (5) Diabetes Status: Chronic * hgba1c: 9.2 * Lipid Panel: 123, Cholestrol: 199, LDL: 152. HDL: 38 * Hypoglycemic protocol * insulin sliding scale Q6H * Accuchecks Q6H (6) Prophylactic measure Assessment & Plan: * Elevated head * Neurochecks * chemical anticoagulation secondary to intracranial hemorrhage * NPO * seizure precautions * aspiration precautions * Has failed swallow eval twice * Has NGT tube * Luke Ryan, , she is amendable to PEG if it is necessary * f/u with Ken tomorrow after family meeting for code status/ polst Status: Acute <Baldemar Edouard - Last Filed: 05/22/18 20:45> Objective - Vital Signs/Intake and Output Vital Signs (last 24 hours): Temp Pulse Resp BP Pulse Ox 98.5 F 85 20 156/81 H 97 05/22/18 15:57 05/22/18 20:31 05/22/18 15:57 05/22/18 20:31 05/22/18 15:57 Intake and Output: 05/22/18 05/23/18 18:59 06:59 Intake Total 500 Balance 500 - Medications Medications: Current Medications Bisacodyl (Dulcolax) 10 mg MT ONCE PRN PRN Reason: Constipation Dextrose (Dextrose 50% Inj) 0 ml IV STAT PRN; Protocol PRN Reason: Hypoglycemia Protocol Dextrose (Glutose 15) 0 gm PO ONCE PRN; Protocol PRN Reason: Hypoglycemia Protocol Glucagon (Glucagen Diagnostic Kit) 0 mg IM STAT PRN; Protocol PRN Reason: Hypoglycemia Protocol Hydralazine HCl (Apresoline) 10 mg IVP Q6H PRN PRN Reason: sbp > 160 Last Admin: 05/21/18 20:53 Dose: 10 mg Hydralazine HCl (Apresoline) 50 mg PO Q6H ATUL Last Admin: 05/22/18 16:44 Dose: 50 mg Levetiracetam 500 mg/ Sodium (Chloride) 105 mls @ 420 mls/hr IVPB Q12H ATUL Last Admin: 05/22/18 10:18 Dose: 420 mls/hr Insulin Human Regular (Novolin R) 0 unit SC Q6H ATUL PRN Reason: Protocol Last Admin: 05/22/18 17:12 Dose: 4 units Metoprolol Tartrate (Lopressor) 50 mg PO BID ATUL Pantoprazole Sodium (Protonix Inj) 40 mg IVP DAILY ATUL Last Admin: 05/22/18 10:17 Dose: 40 mg Rosuvastatin Calcium (Crestor) 5 mg PO HS ATUL Last Admin: 05/21/18 22:36 Dose: 5 mg - Labs Labs: 05/22/18 08:03 05/22/18 08:03 PT 12.4 SECONDS (9.7-12.2) H 05/21/18 08:44 INR 1.1 05/21/18 08:44 APTT 32 SECONDS (21-34) 05/21/18 08:44 Attending/Attestation - Attestation I have personally seen and examined this patient.: Yes I have fully participated in the care of the patient.: Yes I have reviewed all pertinent clinical information, including history, physical exam and plan: Yes Notes (Text): 05/22/18 20:33 Patient was seen and examined at 3:15 PM with Luke Ryan Henri [phone] present Exam, assessment and plan were gone over with Resident Dr. Blackmon Spoke with Luke Ryan (who his designated health care decision maker for patient as per my conversation with Sister Sonja Rosario [phone] with the help of Thai translation done by Nurse Luevano from ) extensively about patient diagnoses. Also explained the Angiogram of brain with possible embolization to [place] as well as the risks. She has agreed to procedure and consent has been placed in chart. For Brain Angiogram and possible Embolization morning 05/23/[address] Dionisio Garcia. Therefore we will hold NGT Glucerna feeding at midnight tonight. Patient is cleared from Medicine standpoint for above procedure. Blood glucose not under control on ISS Q6H. Will add long acting insulin after procedure on 05/23/18. Leukocytosis at 19. However NO fever and Blood Culture is negative to date. Could this elevated WBC be secondary to the intracranial hemorrhage? Blood pressure not under control despite increasing the Hydralazine to 50 mg PO Q6H on 05/22/18. Therefore Metoprolol Tartrate has been increased to 50 mg PO BID starting tonight at 10 PM. Spoke with Speech Therapist Howard on 05/21/18 and she is not able to perform swallow evaluation on patient due to him not being able to follow instructions. Spoke with GI Dr. Concepcion earlier this morning and he will perform PEG Tube placement once above neurology procedure is completed and patient is stable from that standpoint. Baldemar Edouard D.O.
[2018-05-22 08:10] LABS: BASO # 0.1 K/uL (0.0-0.2); BASO % 0.4 % (0.0-2.0); EOS # 0.3 K/uL (0.0-0.7); EOS % 1.8 % (0.0-4.0); HEMOGLOBIN 11.7 g/dL (12.0-18.0); LYMPH % 15.6 % (20.0-40.0); MEAN CELL VOLUME 71.6 fL (80.0-94.0); MEAN CORPUSCULAR HEMOGLOBIN 22.6 pg (27.0-31.0); MEAN CORPUSCULAR HGB CONC 31.5 g/dL (33.0-37.0); MEAN PLATELET VOLUME 9.8 fL (7.2-11.7); MONO # 1.1 K/uL (0.0-0.8); MONO % 5.8 % (0.0-10.0); NEUT # 14.6 K/uL (1.8-7.0); NEUT % 76.4 % (50.0-75.0); RBC 5.18 Mil/uL (4.40-5.90); WHITE BLOOD COUNT 19.1 K/uL (4.8-10.8)
[2018-05-22 08:48] LABS: ALB/GLOB RATIO 1.3 (1.0-2.1); ALBUMIN 4.3 g/dL (3.5-5.0); ALT/SGPT 38 U/L (21-72); AST/SGOT 31 U/L (17-59); BLOOD UREA NITROGEN 34 mg/dL (9-20); CALCIUM 9.8 mg/dl (8.6-10.4); GFR AFRICAN-AMERICAN > 60; GFR NON-AFRICAN AMERICAN > 60
--- NOTE | 2018-05-22 10:02 | CP.PCM.PN ---
Subjective - Date & Time of Evaluation Date of Evaluation: 05/22/18 Time of Evaluation: 09:58 - Subjective Subjective: Advised patient to go for angiography tomorrow. Event leading to cancellation of PEG discussed with Dr Leal, Dr Brody and Dr Gabbie Edouard. Objective - Vital Signs/Intake and Output Vital Signs (last 24 hours): Temp Pulse Resp BP Pulse Ox 98.2 F 95 H 20 156/87 H 98 05/22/18 07:54 05/22/18 07:54 05/22/18 07:54 05/22/18 07:54 05/22/18 07:54 Intake and Output: 05/22/18 05/22/18 06:59 18:59 Intake Total 505 Balance 505 - Medications Medications: Current Medications Bisacodyl (Dulcolax) 10 mg [place] ONCE PRN PRN Reason: Constipation Dextrose (Dextrose 50% Inj) 0 ml IV STAT PRN; Protocol PRN Reason: Hypoglycemia Protocol Dextrose (Glutose 15) 0 gm PO ONCE PRN; Protocol PRN Reason: Hypoglycemia Protocol Glucagon (Glucagen Diagnostic Kit) 0 mg IM STAT PRN; Protocol PRN Reason: Hypoglycemia Protocol Hydralazine HCl (Apresoline) 10 mg IVP Q6H PRN PRN Reason: sbp > 160 Last Admin: 05/21/18 20:53 Dose: 10 mg Hydralazine HCl (Apresoline) 50 mg PO Q6H [facility] Last Admin: 05/22/18 05:49 Dose: 50 mg Dextrose (Dextrose 5% In Water 1000 Ml) 1,000 mls @ 0 mls/hr IV .Q0M PRN; Protocol; Per Protocol PRN Reason: Hypoglycemia Protocol Levetiracetam 500 mg/ Sodium (Chloride) 105 mls @ 420 mls/hr IVPB Q12H [facility] Last Admin: 05/21/18 21:20 Dose: 420 mls/hr Insulin Human Regular (Novolin R) 0 unit SC Q6H ATUL PRN Reason: Protocol Last Admin: 05/22/18 06:15 Dose: 4 units Metoprolol Tartrate (Lopressor) 25 mg PO BID [facility] Last Admin: 05/21/18 18:04 Dose: 25 mg Pantoprazole Sodium (Protonix Inj) 40 mg IVP DAILY [facility] Last Admin: 05/21/18 09:13 Dose: 40 mg Rosuvastatin Calcium (Crestor) 5 mg PO HS [facility] Last Admin: 05/21/18 22:36 Dose: 5 mg - Labs Labs: 05/22/18 08:03 05/22/18 08:03 PT 12.4 SECONDS (9.7-12.2) H 05/21/18 08:44 INR 1.1 05/21/18 08:44 APTT 32 SECONDS (21-34) 05/21/18 08:44 - Constitutional Appears: No Acute Distress, Confused - Head Exam Head Exam: ATRAUMATIC, NORMOCEPHALIC - Respiratory Exam Respiratory Exam: NORMAL BREATHING PATTERN - Cardiovascular Exam Cardiovascular Exam: REGULAR RHYTHM - GI/Abdominal Exam GI & Abdominal Exam: Soft, Normal Bowel Sounds. absent: Tenderness - Extremities Exam Extremities Exam: Normal Inspection Assessment and Plan (1) Dysphagia Assessment & Plan: Continue NGT feedings until cleared for PEG placement. Will likely need to be done next week. Status: Acute (2) AVM (arteriovenous malformation) Assessment & Plan: Awaiting transfer for angio and embolization if warranted. Elective PEG cancelled due to potential risk to extend CVA with procedures before clip placed. Anti platelet drugs on hold due to ICH. Status: Acute (3) Intracranial hemorrhage Status: Acute
[2018-05-22] MEDS: levETIRAcetam 500 MG in Sodium Chloride 0.9% 100 ML IVPB SCH ×2 (10:18→21:21)
--- NOTE | 2018-05-22 11:56 | CP.PCM.PCO ---
Physician Communication Note - Physician Communication Note Physician Communication Note: Family meeting postponed by the famly for tomorrow at 1 pm.
--- NOTE | 2018-05-22 12:18 | CP.PCM.PN ---
Subjective - Date & Time of Evaluation Date of Evaluation: 05/22/18 Time of Evaluation: 11:58 - Subjective Subjective: NEURO-INTERVENTIONAL PROGRESS NOTE The patient is an 83 year old male with an ICH into the region of a previusoly diagnosed, known left fronto-parietal AVM. The patient intially presented to [facility] and was transferred to [facility] for higher level care. the patient has done well, and is now out of the ICU. He will need a diagnostic cerebral angiogram to better define and deliniate the lesion. Pre-rupture imaging did not demonstrate definitive evidence of a nidal aneurysm , nor did emergent CTA done in the ER. Objective - Vital Signs/Intake and Output Vital Signs (last 24 hours): Temp Pulse Resp BP Pulse Ox 98.2 F 95 H 20 152/89 H 98 05/22/18 07:54 05/22/18 07:54 05/22/18 07:54 05/22/18 10:12 05/22/18 07:54 Intake and Output: 05/22/18 05/22/18 06:59 18:59 Intake Total 505 Balance 505 - Medications Medications: Current Medications Bisacodyl (Dulcolax) 10 mg [place] ONCE PRN PRN Reason: Constipation Dextrose (Dextrose 50% Inj) 0 ml IV STAT PRN; Protocol PRN Reason: Hypoglycemia Protocol Dextrose (Glutose 15) 0 gm PO ONCE PRN; Protocol PRN Reason: Hypoglycemia Protocol Glucagon (Glucagen Diagnostic Kit) 0 mg IM STAT PRN; Protocol PRN Reason: Hypoglycemia Protocol Hydralazine HCl (Apresoline) 10 mg IVP Q6H PRN PRN Reason: sbp > 160 Last Admin: 05/21/18 20:53 Dose: 10 mg Hydralazine HCl (Apresoline) 50 mg PO Q6H ATUL Last Admin: 05/22/18 10:12 Dose: 50 mg Dextrose (Dextrose 5% In Water 1000 Ml) 1,000 mls @ 0 mls/hr IV .Q0M PRN; Protocol; Per Protocol PRN Reason: Hypoglycemia Protocol Levetiracetam 500 mg/ Sodium (Chloride) 105 mls @ 420 mls/hr IVPB Q12H ATUL Last Admin: 05/22/18 10:18 Dose: 420 mls/hr Insulin Human Regular (Novolin R) 0 unit SC Q6H ATUL PRN Reason: Protocol Last Admin: 05/22/18 06:15 Dose: 4 units Metoprolol Tartrate (Lopressor) 25 mg PO BID [facility] Last Admin: 05/22/18 10:12 Dose: 25 mg Pantoprazole Sodium (Protonix Inj) 40 mg IVP DAILY [facility] Last Admin: 05/22/18 10:17 Dose: 40 mg Rosuvastatin Calcium (Crestor) 5 mg PO HS [facility] Last Admin: 05/21/18 22:36 Dose: 5 mg - Labs Labs: 05/22/18 08:03 05/22/18 08:03 PT 12.4 SECONDS (9.7-12.2) H 05/21/18 08:44 INR 1.1 05/21/18 08:44 APTT 32 SECONDS (21-34) 05/21/18 08:44 - Additional Findings Additional findings: NEURO EXAM Awake, Alert PERRL EOMI moves left side freely, no drift on left +right sided arm and leg weakness Assessment and Plan - Assessment and Plan (Free Text) Assessment: 83 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 Pre-rupture imaging did not demonstrate definitive evidence of a nidal aneurysm, nor did emergent CTA done in the ER. Given that this is a ruptured AVM, the risk of rebleed is lower than it would be if this was a SAH from a ruptured aneurysm . The rebleed rate for a ruptured AVM is quoted as between 4-18% in the first year after the bleed. As such urgent, but not emergent cerebral angiography is warranted. Now that the patient is out of the acute window we will proceed with diagnostic angiography. If an angiographic high risk feature is found we will then decide on how best to treat the patient. 2-NPO except medications after midnight. 3-Please obtain medical clearance for Diagnostic Cerebral Angiography under [place]. 4-Please obtain pre-anaesthesia consultation as well.
[2018-05-23] MEDS: (Novolin R) Insulin Human Regular 100 units/ml vial SC SCH ×3 (00:19→18:04)
--- NOTE | 2018-05-23 06:49 | CP.PCM.PN ---
Subjective - Date & Time of Evaluation Date of Evaluation: 05/23/18 Time of Evaluation: 06:49 - Subjective Subjective: Mr. Rosario was seen and examined at the bedside. He is awake, but much improved behavior in comparison from previous examination. He remains with episode of confusion, unable to state place, person, or time, but able to answer some questions. He denies denies, dizziness, blurred vision. He follows simple commands with mild right facial droop, his right upper extremity flaccid and lower extremity weak. He is able to wiggle his toes. He is schedule for cerebral angiogram in today. He has episode of restlessness and remains on 1: 1 for patient safety. There was no untoward events overnight. Objective - Vital Signs/Intake and Output Vital Signs (last 24 hours): Temp Pulse Resp BP Pulse Ox 99 F 95 H 20 155/87 H 98 05/23/18 01:10 05/23/18 06:29 05/23/18 01:10 05/23/18 06:29 05/23/18 01:10 Intake and Output: 05/22/18 05/23/18 18:59 06:59 Intake Total 500 550 Balance 500 550 - Medications Medications: Current Medications Bisacodyl (Dulcolax) 10 mg SD ONCE PRN PRN Reason: Constipation Dextrose (Dextrose 50% Inj) 0 ml IV STAT PRN; Protocol PRN Reason: Hypoglycemia Protocol Dextrose (Glutose 15) 0 gm PO ONCE PRN; Protocol PRN Reason: Hypoglycemia Protocol Glucagon (Glucagen Diagnostic Kit) 0 mg IM STAT PRN; Protocol PRN Reason: Hypoglycemia Protocol Hydralazine HCl (Apresoline) 10 mg IVP Q6H PRN PRN Reason: sbp > 160 Last Admin: 05/23/18 01:10 Dose: 10 mg Hydralazine HCl (Apresoline) 50 mg PO Q6H [facility] Last Admin: 05/23/18 04:01 Dose: Not Given Levetiracetam 500 mg/ Sodium (Chloride) 105 mls @ 420 mls/hr IVPB Q12H [facility] Last Admin: 05/22/18 21:21 Dose: 420 mls/hr Insulin Human Regular (Novolin R) 0 unit SC Q6H [facility] PRN Reason: Protocol Last Admin: 05/23/18 06:30 Dose: Not Given Metoprolol Tartrate (Lopressor) 50 mg PO BID [facility] Last Admin: 05/22/18 21:21 Dose: Not Given Pantoprazole Sodium (Protonix Inj) 40 mg IVP DAILY [facility] Last Admin: 05/22/18 10:17 Dose: 40 mg Rosuvastatin Calcium (Crestor) 5 mg PO HS [facility] Last Admin: 05/22/18 21:22 Dose: Not Given - Labs Labs: 05/22/18 08:03 05/22/18 08:03 PT 12.4 SECONDS (9.7-12.2) H 05/21/18 08:44 INR 1.1 05/21/18 08:44 APTT 32 SECONDS (21-34) 05/21/18 08:44 - Constitutional Appears: No Acute Distress - Head Exam Head Exam: NORMAL INSPECTION - Eye Exam Pupil Exam: PERRL Additional comments: 2 mm sluggish - Neurological Exam Neurological Exam: Awake Neuro motor strength exam: Left Upper Extremity: 5, Right Upper Extremity: 0, Left Lower Extremity: 5, Right Lower Extremity: 2/1 Additional comments: neurological improved from previous examination, less restlessness, follows commands, sensation is intact. Assessment and Plan (1) Intracranial hemorrhage Assessment & Plan: Case discussed with Dr. Daugherty, continue all current medical regimen. Recommend to follow any orders from neurointerventionalist, repeat CT scan if mental status decline from his current status, blood pressure control with systolic blood pressure between 130-140, keep head of bed elevated at least 30 degrees angle.normothermic, glycemic control, and acute rehab for discharge planning. Status: Acute
[2018-05-23 08:47] LABS: BASO # 0.2 K/uL (0.0-0.2); BASO % 0.9 % (0.0-2.0); EOS # 0.4 K/uL (0.0-0.7); EOS % 2.6 % (0.0-4.0); HEMOGLOBIN 11.4 g/dL (12.0-18.0); LYMPH # 3.5 K/uL (1.0-4.3); MEAN CELL VOLUME 71.4 fL (80.0-94.0); MEAN CORPUSCULAR HEMOGLOBIN 22.6 pg (27.0-31.0); MEAN CORPUSCULAR HGB CONC 31.7 g/dL (33.0-37.0); MONO # 0.8 K/uL (0.0-0.8); MONO % 4.9 % (0.0-10.0); NEUT # 11.7 K/uL (1.8-7.0); NEUT % 70.6 % (50.0-75.0); RBC 5.03 Mil/uL (4.40-5.90); WHITE BLOOD COUNT 16.6 K/uL (4.8-10.8)
[2018-05-23 09:01] LABS: ALB/GLOB RATIO 1.3 (1.0-2.1); ALBUMIN 4.2 g/dL (3.5-5.0); ALT/SGPT 33 U/L (21-72); AST/SGOT 25 U/L (17-59); BLOOD UREA NITROGEN 31 mg/dL (9-20); CALCIUM 9.4 mg/dl (8.6-10.4); GFR AFRICAN-AMERICAN > 60; GFR NON-AFRICAN AMERICAN > 60
[2018-05-23] MEDS: levETIRAcetam 500 MG in Sodium Chloride 0.9% 100 ML IVPB SCH ×2 (09:18→21:30)
--- NOTE | 2018-05-23 10:00 | CP.PCM.PN ---
Subjective - Date & Time of Evaluation Date of Evaluation: 05/23/18 Time of Evaluation: 07:00 - Subjective Subjective: Progress Note for Dr. Edouard Patient seen and examined at bedside and in no acute distress. Patient pulled his NG tube out overnight and would not tolerate it being replaced. Today patient is more oriented. He knows he is in a hospital in [place], but is unable to tell me the date. Patient denies any pain. Objective - Vital Signs/Intake and Output Vital Signs (last 24 hours): Temp Pulse Resp BP Pulse Ox 98.3 F 96 H 20 148/98 H 96 05/23/18 07:00 05/23/18 07:45 05/23/18 07:00 05/23/18 07:00 05/23/18 07:00 Intake and Output: 05/23/18 05/23/18 06:59 18:59 Intake Total 550 Balance 550 - Medications Medications: Current Medications Bisacodyl (Dulcolax) 10 mg [place] ONCE PRN PRN Reason: Constipation Dextrose (Dextrose 50% Inj) 0 ml IV STAT PRN; Protocol PRN Reason: Hypoglycemia Protocol Dextrose (Glutose 15) 0 gm PO ONCE PRN; Protocol PRN Reason: Hypoglycemia Protocol Glucagon (Glucagen Diagnostic Kit) 0 mg IM STAT PRN; Protocol PRN Reason: Hypoglycemia Protocol Hydralazine HCl (Apresoline) 10 mg IVP Q6H PRN PRN Reason: sbp > 160 Last Admin: 05/23/18 01:10 Dose: 10 mg Hydralazine HCl (Apresoline) 50 mg PO Q6H [facility] Last Admin: 05/23/18 04:01 Dose: Not Given Levetiracetam 500 mg/ Sodium (Chloride) 105 mls @ 420 mls/hr IVPB Q12H [facility] Last Admin: 05/23/18 09:18 Dose: 420 mls/hr Insulin Human Regular (Novolin R) 0 unit SC Q6H [facility] PRN Reason: Protocol Last Admin: 05/23/18 06:30 Dose: Not Given Metoprolol Tartrate (Lopressor) 50 mg PO BID [facility] Last Admin: 05/22/18 21:21 Dose: Not Given Pantoprazole Sodium (Protonix Ec Tab) 40 mg PO DAILY [facility] Rosuvastatin Calcium (Crestor) 5 mg PO HS [facility] Last Admin: 05/22/18 21:22 Dose: Not Given - Labs Labs: 05/23/18 08:22 05/23/18 08:22 PT 12.4 SECONDS (9.7-12.2) H 05/21/18 08:44 INR 1.1 05/21/18 08:44 APTT 32 SECONDS (21-34) 05/21/18 08:44 - Additional Findings Additional findings: - Constitutional Appears: Non-toxic, No Acute Distress - Head Exam Head Exam: ATRAUMATIC, NORMOCEPHALIC Additional comments: right facial weakness - Eye Exam Eye Exam: EOMI, Normal appearance - Respiratory Exam Respiratory Exam: Clear to Ausculation Bilateral, NORMAL BREATHING PATTERN. absent: Rales, Rhonchi, Wheezes - Cardiovascular Exam Cardiovascular Exam: REGULAR RHYTHM, RRR, +S1, +S2 - Extremities Exam Extremities Exam: Normal Inspection. absent: Pedal Edema - Neurological Exam Neuro motor strength exam: Left Upper Extremity: 4, Right Upper Extremity: 2/1, Left Lower Extremity: 4, Right Lower Extremity: 2/1 - Psychiatric Exam Psychiatric exam: Flat Affect, Normal Mood - Skin Skin Exam: Intact, Normal Color, Warm Assessment and Plan - Assessment and Plan (Free Text) Assessment: (1) Intracranial hemorrhage Assessment & Plan: At [place]: * CT Head (05/16/18): interval left posterior frontal/parietal intra cerebral hematoma with surrounding edema and possible minimal mild mass effect on the left frontal horn. No midline shift. No dilatation of the right lateral ventricle appreciated. No interval dilatation or other particular segments noted. * CT head (05/16/18): subjective mild expansion of the left parietal hematoma with mild surrounding edema impression upon the posterior portion of the body of the left lateral ventricle. No other significant interval chage. At [facility]: * CT Head (05/17/18): re-demonstrated is a large parenchymal hematoma within the left posterior temporoparietal lobe secondary to hemorrhage into pre-existing AVM, mass effect produced by the hematoma and surrounding edema impress overlying sulci and posterior aspect left lateral ventricle as described. moderate to significant chronic white matter ischemic changes. * CT Head (05/19/18): re-demonstrated large parenchymal hematoma left posterior temporoparietal region secondary to hemorrhage into a pre-existing AVM. see full report * CT Head (05/20/18): no change, please see full report Neurology (Dr. Aviles) on the case-->help appreciated Noninterventionist (Dr. Brantley/) on board-->help appreciated * Off plavix (was previously on) * d/c Dexamethadone 8mg IV Q12H * off nicardine drip * Elevated head of Bed * Seizure precautions * Neurochecks * Plavix was held and other anticoagulation held since 05/16/18 Neurointerventional on board-->plan for intervention :angiogram with Dr. Brantley' s colleague Dr. Agarwal on 05/23/18 (2) Dysphagia Assessment & Plan: * GI (Sr. Concepcion) social professionals-->help appreciated * PEG placement cancelled due to angiogram with embolization, PEG to be rescheduled * Risks/benefits to be discussed with family. Will need to be off all antiplatelet drugs for 5-7 days to facilitate placement. Has been since 05/16/18 * NG tube replaced on 05/23 (3) Dyslipidemia Assessment & Plan: * Patient is on NGT tube feedings, hold after midnight * Glucerna 50ml/hr Status: Chronic (4) Hypertension Assessment & Plan: * Off drip * Metoprolol increased to 50mg po BID * Hydralazine 50mg PO Q6H (increased from 20 mg on 05/21) * Order for echocardiogram * Prior echocardiogram (05/03/18): normal LV systolic function. Aortic valve sclerosis Status: Chronic (5) Diabetes Status: Chronic * hgba1c: 9.2 * Lipid Panel: 123, Cholestrol: 199, LDL: 152. HDL: 38 * Hypoglycemic protocol * insulin sliding scale Q6H * Accuchecks Q6H (6) Prophylactic measure Assessment & Plan: * Elevated head * Neurochecks * chemical anticoagulation secondary to intracranial hemorrhage * NPO * NG tube for Glucerna feedings and Free water 250cc/hr * seizure precautions * aspiration precautions * Has failed swallow eval twice * Has NGT tube * Niece Shelby, , she is amendable to PEG if it is necessary * f/u with [facility] tomorrow after family meeting for code status/ polst Status: Acute
--- NOTE | 2018-05-23 10:30 | CP.PCM.PN ---
Subjective - Date & Time of Evaluation Date of Evaluation: 05/23/18 Time of Evaluation: 10:25 - Subjective Subjective: No new complaints. Noted that NGT pulled out Objective - Vital Signs/Intake and Output Vital Signs (last 24 hours): Temp Pulse Resp BP Pulse Ox 98.3 F 96 H 20 148/98 H 96 05/23/18 07:00 05/23/18 07:45 05/23/18 07:00 05/23/18 07:00 05/23/18 07:00 Intake and Output: 05/23/18 05/23/18 06:59 18:59 Intake Total 550 Balance 550 - Medications Medications: Current Medications Bisacodyl (Dulcolax) 10 mg [place] ONCE PRN PRN Reason: Constipation Dextrose (Dextrose 50% Inj) 0 ml IV STAT PRN; Protocol PRN Reason: Hypoglycemia Protocol Dextrose (Glutose 15) 0 gm PO ONCE PRN; Protocol PRN Reason: Hypoglycemia Protocol Glucagon (Glucagen Diagnostic Kit) 0 mg IM STAT PRN; Protocol PRN Reason: Hypoglycemia Protocol Hydralazine HCl (Apresoline) 10 mg IVP Q6H PRN PRN Reason: sbp > 160 Last Admin: 05/23/18 01:10 Dose: 10 mg Hydralazine HCl (Apresoline) 50 mg PO Q6H [facility] Last Admin: 05/23/18 04:01 Dose: Not Given Levetiracetam 500 mg/ Sodium (Chloride) 105 mls @ 420 mls/hr IVPB Q12H [facility] Last Admin: 05/23/18 09:18 Dose: 420 mls/hr Insulin Human Regular (Novolin R) 0 unit SC Q6H [facility] PRN Reason: Protocol Last Admin: 05/23/18 06:30 Dose: Not Given Metoprolol Tartrate (Lopressor) 50 mg PO BID [facility] Last Admin: 05/22/18 21:21 Dose: Not Given Pantoprazole Sodium (Protonix Ec Tab) 40 mg PO DAILY [facility] Rosuvastatin Calcium (Crestor) 5 mg PO HS [facility] Last Admin: 05/22/18 21:22 Dose: Not Given - Labs Labs: 05/23/18 08:22 05/23/18 08:22 PT 12.4 SECONDS (9.7-12.2) H 05/21/18 08:44 INR 1.1 05/21/18 08:44 APTT 32 SECONDS (21-34) 05/21/18 08:44 - Constitutional Appears: No Acute Distress, Confused - Head Exam Head Exam: ATRAUMATIC, NORMOCEPHALIC - Respiratory Exam Respiratory Exam: NORMAL BREATHING PATTERN - Cardiovascular Exam Cardiovascular Exam: REGULAR RHYTHM, +S1 - GI/Abdominal Exam GI & Abdominal Exam: Soft, Normal Bowel Sounds. absent: Tenderness Assessment and Plan (1) Dysphagia Assessment & Plan: Will need NGT reinserted for feedings and meds until cleared for PEG tube. Will schedule when angio/clipping is done. Status: Acute (2) AVM (arteriovenous malformation) Assessment & Plan: Awaiting cerebral angio today. Awaiting Neuro clearance to schedule PEG. Status: Acute (3) Intracranial hemorrhage Status: Acute
[2018-05-23] MEDS: Pantoprazole 40 mg EC Tab PO SCH (10:45)
[2018-05-23] MEDS ORDERED: Lidocaine Hydrochloride 20 ML INJ ONE (13:50)
--- NOTE | 2018-05-23 14:27 | CP.PCM.PN ---
Subjective - Date & Time of Evaluation Date of Evaluation: 05/23/18 Time of Evaluation: 14:24 - Subjective Subjective: Patient examined in best, very sleepy, confused, is not cooperative. Patient is still unable to swallow. Went today for brain angiography. PEG placement suggested before any other information initiated. Doctor Gabbie Edouard just informed me that family was against PEG. This happened after family meeting was over. Objective - Vital Signs/Intake and Output Vital Signs (last 24 hours): Temp Pulse Resp BP Pulse Ox 98.3 F 96 H 20 148/98 H 96 05/23/18 07:00 05/23/18 07:45 05/23/18 07:00 05/23/18 07:00 05/23/18 07:00 Intake and Output: 05/23/18 05/23/18 06:59 18:59 Intake Total 550 Balance 550 - Medications Medications: Current Medications Bisacodyl (Dulcolax) 10 mg [place] ONCE PRN PRN Reason: Constipation Dextrose (Dextrose 50% Inj) 0 ml IV STAT PRN; Protocol PRN Reason: Hypoglycemia Protocol Dextrose (Glutose 15) 0 gm PO ONCE PRN; Protocol PRN Reason: Hypoglycemia Protocol Glucagon (Glucagen Diagnostic Kit) 0 mg IM STAT PRN; Protocol PRN Reason: Hypoglycemia Protocol Hydralazine HCl (Apresoline) 10 mg IVP Q6H PRN PRN Reason: sbp > 160 Last Admin: 05/23/18 01:10 Dose: 10 mg Hydralazine HCl (Apresoline) 50 mg PO Q6H [facility] Last Admin: 05/23/18 04:01 Dose: Not Given Levetiracetam 500 mg/ Sodium (Chloride) 105 mls @ 420 mls/hr IVPB Q12H [facility] Last Admin: 05/23/18 09:18 Dose: 420 mls/hr Insulin Human Regular (Novolin R) 0 unit SC Q6H [facility] PRN Reason: Protocol Last Admin: 05/23/18 06:30 Dose: Not Given Metoprolol Tartrate (Lopressor) 50 mg PO BID [facility] Last Admin: 05/23/18 10:44 Dose: Not Given Pantoprazole Sodium (Protonix Ec Tab) 40 mg PO DAILY [facility] Last Admin: 05/23/18 10:45 Dose: Not Given Rosuvastatin Calcium (Crestor) 5 mg PO HS [facility] Last Admin: 05/22/18 21:22 Dose: Not Given - Labs Labs: 05/23/18 08:22 05/23/18 08:22 PT 12.4 SECONDS (9.7-12.2) H 05/21/18 08:44 INR 1.1 05/21/18 08:44 APTT 32 SECONDS (21-34) 05/21/18 08:44 - Constitutional Appears: Chronically Ill - Head Exam Head Exam: ATRAUMATIC, NORMAL INSPECTION, NORMOCEPHALIC - Eye Exam Eye Exam: EOMI, Normal appearance, PERRL Pupil Exam: NORMAL ACCOMODATION, PERRL - ENT Exam ENT Exam: Mucous Membranes Dry - Neck Exam Neck Exam: Normal Inspection - Respiratory Exam Respiratory Exam: Decreased Breath Sounds, NORMAL BREATHING PATTERN - Cardiovascular Exam Cardiovascular Exam: Tachycardia - GI/Abdominal Exam GI & Abdominal Exam: Soft, Normal Bowel Sounds - Rectal Exam Rectal Exam: Deferred - Exam Exam: NORMAL INSPECTION - Extremities Exam Extremities Exam: Normal Inspection - Back Exam Back Exam: NORMAL INSPECTION - Neurological Exam Neurological Exam: Alert, Altered Neuro motor strength exam: Left Upper Extremity: 2/1, Right Upper Extremity: 2/1 , Left Lower Extremity: 2/1, Right Lower Extremity: 2/1 - Psychiatric Exam Psychiatric exam: Flat Affect - Skin Skin Exam: Normal Color, Warm Assessment and Plan - Assessment and Plan (Free Text) Assessment: Family meeting held attended by patient's sister Sal and niece Rosa. Patient's clinical condition reviewed. I offered my concerns regarding intra cerebral hematoma and edema seen on CT head. I related patient's symptoms to those findings. Family understood the complexity of situation. I further discussed the other neuro deficits and suggested that patient may need further interventions to correct those findings on the brain. Code status discussed. POLST reviewed. I enabled family to make informed decision. Patient's sister was very clear that her brother would never want his life prolonged on life support. The niece supported her decision. They chose DNR /DNI. After the meeting upon patient's return from procedure, Doctor Gabbie Edouard spoke to family about proposed PEG tube before any intervention on brain is done. As per Doctor Edouard, family refused PEG. At this time , family has left and I will have to meet again with them for further goals of care discussion. Impression * Lethargy * Confusion * Dysphagia * No further interventions on brain suggested before PEG inserted * Family advocates for ordinary measures only * Family against PEG as per discussion with Doctor Gabbie Edouard Suggestion * Promote safety * Artificial hydration and nutrition * DNR/DNI * Palliative care will meet with family again to discuss PEG. * If PEG declined than Hospice at facility would be next appropriate level of care Advance planing time 45 min
--- NOTE | 2018-05-23 14:33 | CP.PCM.PN ---
Subjective - Date & Time of Evaluation Date of Evaluation: 05/23/18 Time of Evaluation: 14:20 - Subjective Subjective: NEURO-INTERVENTIONAL PRGORESS NOTE The patient is an 83 year old male with an ICH into the region of a previously diagnosed, known left fronto-parietal AVM. The patient intially presented to [facility] and was transferred to [facility] for higher level care. The plan was for a diagnostic angiogram today. After re-discussion with the family they have decided against having the cerbral angiogram as they feel that at this juncture treament of the AVM would not be in-line with his wished. Objective - Vital Signs/Intake and Output Vital Signs (last 24 hours): Temp Pulse Resp BP Pulse Ox 98.3 F 96 H 20 148/98 H 96 05/23/18 07:00 05/23/18 07:45 05/23/18 07:00 05/23/18 07:00 05/23/18 07:00 Intake and Output: 05/23/18 05/23/18 06:59 18:59 Intake Total 550 Balance 550 - Medications Medications: Current Medications Bisacodyl (Dulcolax) 10 mg [place] ONCE PRN PRN Reason: Constipation Dextrose (Dextrose 50% Inj) 0 ml IV STAT PRN; Protocol PRN Reason: Hypoglycemia Protocol Dextrose (Glutose 15) 0 gm PO ONCE PRN; Protocol PRN Reason: Hypoglycemia Protocol Glucagon (Glucagen Diagnostic Kit) 0 mg IM STAT PRN; Protocol PRN Reason: Hypoglycemia Protocol Hydralazine HCl (Apresoline) 10 mg IVP Q6H PRN PRN Reason: sbp > 160 Last Admin: 05/23/18 01:10 Dose: 10 mg Hydralazine HCl (Apresoline) 50 mg PO Q6H [facility] Last Admin: 05/23/18 04:01 Dose: Not Given Levetiracetam 500 mg/ Sodium (Chloride) 105 mls @ 420 mls/hr IVPB Q12H [facility] Last Admin: 05/23/18 09:18 Dose: 420 mls/hr Insulin Human Regular (Novolin R) 0 unit SC Q6H [facility] PRN Reason: Protocol Last Admin: 05/23/18 06:30 Dose: Not Given Metoprolol Tartrate (Lopressor) 50 mg PO BID [facility] Last Admin: 05/23/18 10:44 Dose: Not Given Pantoprazole Sodium (Protonix Ec Tab) 40 mg PO DAILY [facility] Last Admin: 05/23/18 10:45 Dose: Not Given Rosuvastatin Calcium (Crestor) 5 mg PO HS [facility] Last Admin: 05/22/18 21:22 Dose: Not Given - Labs Labs: 05/23/18 08:22 05/23/18 08:22 PT 12.4 SECONDS (9.7-12.2) H 05/21/18 08:44 INR 1.1 05/21/18 08:44 APTT 32 SECONDS (21-34) 05/21/18 08:44 - Additional Findings Additional findings: NEURO EXAM Awake, Alert PERRL EOMI moves left side freely, no drift on left +right sided arm and leg weakness Assessment and Plan - Assessment and Plan (Free Text) Assessment: 83 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 I spoke with his sister and with his niece. The neice's name is Shelby Dash and she is the family member who is making medical decisions. I explained that without a diagnostic cerebral angiogram we might not detect a weak point in the AVM that is amicable to repair. Further, the patient could go onto re-rupture and have more severe disability or even . The family acknowledged this, but feel that right now he is too weak to entertain treatment; even if we discovered something that we could treat and possibly reduce his risk of further rebleed. Shelby was very clear that this is not what the patient would want. If he goes to rehab and recovers to where he is more independent then they will reconsider. I explained that should they change their mind at any time--including this hospitilization--we can revisit the plan. The family said they still want to treat him, but that this was too invasive for now. All questions answered. I have discussed this with the primary team and the neurology team. reccomend repeat non-invasive imaging this week.
--- NOTE | 2018-05-23 17:39 | RAD ---
Chest x-ray single frontal view History: NG tube placement. Comparison: None available. Findings: NG tube coiled within the distal esophagus. Advancement into the stomach is recommended. Enlarged ectatic aorta. Biapical pleural thickening with upper lobe granulomatous changes. Scattered nodularity in both lungs. Cardiomegaly. Mild venous congestion. Patchy increased markings at the right lung base. Degenerative changes in the spine and shoulders. Impression: NG tube coiled within the distal esophagus. Advancement into the stomach is recommended. Enlarged ectatic aorta. Biapical pleural thickening with upper lobe granulomatous changes. Scattered nodularity in both lungs. Cardiomegaly. Mild venous congestion. Patchy increased markings at the right lung base.
[2018-05-24] MEDS: (Novolin R) Insulin Human Regular 100 units/ml vial SC SCH ×4 (00:22→17:52)
--- NOTE | 2018-05-24 07:11 | CP.PCM.PN ---
Subjective - Date & Time of Evaluation Date of Evaluation: 05/24/18 Time of Evaluation: 07:11 - Subjective Subjective: Mr. Rosario was seen and examined at the bedside. He is awake, but much improved behavior in comparison from previous examination. He remains with episode of confusion, unable to state place, person, or time, but able to answer some questions. He denies denies, dizziness, blurred vision. He follows simple commands with mild right facial droop, his right upper extremity flaccid and lower extremity weak. He is able to wiggle his toes. The family decided to placed the patient DNR/DNI. and cancelled cerebral angiogram. He has episode of restlessness and remains on 1: 1 for patient safety. There was no untoward events overnight. Objective - Vital Signs/Intake and Output Vital Signs (last 24 hours): Temp Pulse Resp BP Pulse Ox 99 F 101 H 20 146/81 94 L 05/23/18 23:45 05/23/18 23:45 05/23/18 23:45 05/23/18 23:45 05/23/18 23:45 - Medications Medications: Current Medications Bisacodyl (Dulcolax) 10 mg [place] ONCE PRN PRN Reason: Constipation Dextrose (Dextrose 50% Inj) 0 ml IV STAT PRN; Protocol PRN Reason: Hypoglycemia Protocol Dextrose (Glutose 15) 0 gm PO ONCE PRN; Protocol PRN Reason: Hypoglycemia Protocol Glucagon (Glucagen Diagnostic Kit) 0 mg IM STAT PRN; Protocol PRN Reason: Hypoglycemia Protocol Hydralazine HCl (Apresoline) 10 mg IVP Q6H PRN PRN Reason: sbp > 160 Last Admin: 05/23/18 01:10 Dose: 10 mg Hydralazine HCl (Apresoline) 50 mg PO Q6H [facility] Last Admin: 05/24/18 05:32 Dose: 50 mg Levetiracetam 500 mg/ Sodium (Chloride) 105 mls @ 420 mls/hr IVPB Q12H [facility] Last Admin: 05/23/18 21:30 Dose: 420 mls/hr Insulin Human Regular (Novolin R) 0 unit SC Q6H [facility] PRN Reason: Protocol Last Admin: 05/24/18 07:00 Dose: 4 units Metoprolol Tartrate (Lopressor) 50 mg PO BID [facility] Last Admin: 05/23/18 18:04 Dose: Not Given Pantoprazole Sodium (Protonix Ec Tab) 40 mg PO DAILY [facility] Last Admin: 05/23/18 10:45 Dose: Not Given Rosuvastatin Calcium (Crestor) 5 mg PO HS [facility] Last Admin: 05/23/18 22:05 Dose: 5 mg - Labs Labs: 05/23/18 08:22 05/23/18 08:22 PT 12.4 SECONDS (9.7-12.2) H 05/21/18 08:44 INR 1.1 05/21/18 08:44 APTT 32 SECONDS (21-34) 05/21/18 08:44 - Constitutional Appears: No Acute Distress - Head Exam Head Exam: NORMAL INSPECTION - Eye Exam Pupil Exam: Miosis - Neurological Exam Neurological Exam: Alert, Awake Neuro motor strength exam: Left Upper Extremity: 5, Right Upper Extremity: 2/1, Left Lower Extremity: 5, Right Lower Extremity: 2/1 Additional comments: neurological unchanged from previous examination. Assessment and Plan (1) Intracranial hemorrhage Assessment & Plan: Case discussed with Dr. Daugherty, continue all current medical regimen. Recommend palliative care, blood pressure control with systolic blood pressure between 130-140, keep head of bed elevated at least 30 degrees angle.normothermic, glycemic control, and acute rehab for discharge planning. Status: Acute
[2018-05-24 08:25] LABS: BASO # 0.1 K/uL (0.0-0.2); BASO % 0.9 % (0.0-2.0); EOS # 0.5 K/uL (0.0-0.7); EOS % 3.3 % (0.0-4.0); HEMOGLOBIN 11.1 g/dL (12.0-18.0); LYMPH # 2.7 K/uL (1.0-4.3); LYMPH % 19.7 % (20.0-40.0); MEAN CELL VOLUME 72.3 fL (80.0-94.0); MEAN CORPUSCULAR HEMOGLOBIN 22.7 pg (27.0-31.0); MEAN CORPUSCULAR HGB CONC 31.4 g/dL (33.0-37.0); MEAN PLATELET VOLUME 10.1 fL (7.2-11.7); MONO % 7.4 % (0.0-10.0); NEUT # 9.6 K/uL (1.8-7.0); NEUT % 68.7 % (50.0-75.0); RBC 4.87 Mil/uL (4.40-5.90); RED CELL DISTRIBUTION WIDTH 20.1 % (11.5-14.5); WHITE BLOOD COUNT 13.9 K/uL (4.8-10.8)
[2018-05-24 08:48] LABS: ALB/GLOB RATIO 1.3 (1.0-2.1); ALT/SGPT 26 U/L (21-72); AST/SGOT 27 U/L (17-59); BLOOD UREA NITROGEN 37 mg/dL (9-20); CALCIUM 9.3 mg/dl (8.6-10.4); GFR AFRICAN-AMERICAN > 60; GFR NON-AFRICAN AMERICAN > 60
[2018-05-24] MEDS: Pantoprazole 40 mg EC Tab PO SCH (09:45)
[2018-05-24] MEDS: levETIRAcetam 500 MG in Sodium Chloride 0.9% 100 ML IVPB SCH ×2 (09:49→21:27)
--- NOTE | 2018-05-24 10:07 | CP.PCM.PN ---
Subjective - Date & Time of Evaluation Date of Evaluation: 05/24/18 Time of Evaluation: 10:04 - Subjective Subjective: Cerebral Angio cancelled by family yesterday. He is now a DNR/DNI. Objective - Vital Signs/Intake and Output Vital Signs (last 24 hours): Temp Pulse Resp BP Pulse Ox 98.0 F 90 20 149/87 98 05/24/18 07:35 05/24/18 07:35 05/24/18 07:35 05/24/18 07:35 05/24/18 07:35 - Medications Medications: Current Medications Bisacodyl (Dulcolax) 10 mg [place] ONCE PRN PRN Reason: Constipation Dextrose (Dextrose 50% Inj) 0 ml IV STAT PRN; Protocol PRN Reason: Hypoglycemia Protocol Dextrose (Glutose 15) 0 gm PO ONCE PRN; Protocol PRN Reason: Hypoglycemia Protocol Glucagon (Glucagen Diagnostic Kit) 0 mg IM STAT PRN; Protocol PRN Reason: Hypoglycemia Protocol Hydralazine HCl (Apresoline) 10 mg IVP Q6H PRN PRN Reason: sbp > 160 Last Admin: 05/23/18 01:10 Dose: 10 mg Hydralazine HCl (Apresoline) 50 mg PO Q6H [facility] Last Admin: 05/24/18 05:32 Dose: 50 mg Levetiracetam 500 mg/ Sodium (Chloride) 105 mls @ 420 mls/hr IVPB Q12H [facility] Last Admin: 05/24/18 09:49 Dose: 420 mls/hr Insulin Human Regular (Novolin R) 0 unit SC Q6H [facility] PRN Reason: Protocol Last Admin: 05/24/18 07:00 Dose: 4 units Metoprolol Tartrate (Lopressor) 50 mg PO BID [facility] Last Admin: 05/24/18 09:45 Dose: 50 mg Pantoprazole Sodium (Protonix Ec Tab) 40 mg PO DAILY [facility] Last Admin: 05/24/18 09:45 Dose: Not Given Rosuvastatin Calcium (Crestor) 5 mg PO HS [facility] Last Admin: 05/23/18 22:05 Dose: 5 mg - Labs Labs: 05/24/18 08:19 05/24/18 08:19 PT 12.4 SECONDS (9.7-12.2) H 05/21/18 08:44 INR 1.1 05/21/18 08:44 APTT 32 SECONDS (21-34) 05/21/18 08:44 - Constitutional Appears: No Acute Distress, Confused - Respiratory Exam Respiratory Exam: NORMAL BREATHING PATTERN - Cardiovascular Exam Cardiovascular Exam: REGULAR RHYTHM - GI/Abdominal Exam GI & Abdominal Exam: Soft, Normal Bowel Sounds. absent: Tenderness - Extremities Exam Extremities Exam: Pedal Edema Assessment and Plan (1) Dysphagia Assessment & Plan: Continue NGT feedings for now. Await family decision regarding PEG which was postponed until angiogram and possible clipping of AVM was performed. Family may opt for supportive care only at this time. Recall as needed. Thank you. Status: Acute (2) AVM (arteriovenous malformation) Assessment & Plan: Further workup and treatment cancelled per family request. Status: Acute (3) Intracranial hemorrhage Status: Acute
--- NOTE | 2018-05-24 10:47 | RAD ---
HISTORY: NGT Placement COMPARISON: 05/23/2018. FINDINGS: The nasogastric tube terminates in the stomach. LUNGS: The lungs are well inflated. No focal consolidation. PLEURA: No significant pleural effusion identified, no pneumothorax apparent. CARDIOVASCULAR: Normal. OSSEOUS STRUCTURES: No significant abnormalities. VISUALIZED UPPER ABDOMEN: Normal. OTHER FINDINGS: None. IMPRESSION: The nasogastric tube terminates in the stomach. No acute findings.
--- NOTE | 2018-05-24 11:06 | CP.PCM.PN ---
<Ally Lakhani - Last Filed: 05/24/18 16:41> Subjective - Date & Time of Evaluation Date of Evaluation: 05/24/18 Time of Evaluation: 07:00 - Subjective Subjective: PGY [address] Edouard Patient seen and examined at bedside. Cerebral angio cancelled by family yesterday. Patient is DNR/ DNI. After discussion with [place] family would like the cerebral angio and then peg tube. Cerebral angio to be done tomorrow. Patient denies any pain. NG tube replaced yesterday after patient had pulled it out. Patient tolerating NG tube well. Patient thinks he is at home and does not know the date. Objective - Vital Signs/Intake and Output Vital Signs (last 24 hours): Temp Pulse Resp BP Pulse Ox 98.0 F 90 20 149/87 98 05/24/18 07:35 05/24/18 07:35 05/24/18 07:35 05/24/18 07:35 05/24/18 07:35 - Medications Medications: Current Medications Bisacodyl (Dulcolax) 10 mg [place] ONCE PRN PRN Reason: Constipation Dextrose (Dextrose 50% Inj) 0 ml IV STAT PRN; Protocol PRN Reason: Hypoglycemia Protocol Dextrose (Glutose 15) 0 gm PO ONCE PRN; Protocol PRN Reason: Hypoglycemia Protocol Glucagon (Glucagen Diagnostic Kit) 0 mg IM STAT PRN; Protocol PRN Reason: Hypoglycemia Protocol Hydralazine HCl (Apresoline) 10 mg IVP Q6H PRN PRN Reason: sbp > 160 Last Admin: 05/23/18 01:10 Dose: 10 mg Hydralazine HCl (Apresoline) 50 mg PO Q6H [facility] Last Admin: 05/24/18 05:32 Dose: 50 mg Levetiracetam 500 mg/ Sodium (Chloride) 105 mls @ 420 mls/hr IVPB Q12H [facility] Last Admin: 05/24/18 09:49 Dose: 420 mls/hr Insulin Human Regular (Novolin R) 0 unit SC Q6H [facility] PRN Reason: Protocol Last Admin: 05/24/18 07:00 Dose: 4 units Metoprolol Tartrate (Lopressor) 50 mg PO BID [facility] Last Admin: 05/24/18 09:45 Dose: 50 mg Pantoprazole Sodium (Protonix Ec Tab) 40 mg PO DAILY [facility] Last Admin: 05/24/18 09:45 Dose: Not Given Rosuvastatin Calcium (Crestor) 5 mg PO HS [facility] Last Admin: 05/23/18 22:05 Dose: 5 mg - Labs Labs: 05/24/18 08:19 05/24/18 08:19 PT 12.4 SECONDS (9.7-12.2) H 05/21/18 08:44 INR 1.1 05/21/18 08:44 APTT 32 SECONDS (21-34) 05/21/18 08:44 - Additional Findings Additional findings: - Constitutional Appears: Non-toxic, No Acute Distress - Head Exam Head Exam: ATRAUMATIC, NORMOCEPHALIC Additional comments: right facial weakness - Eye Exam Eye Exam: EOMI, Normal appearance - Respiratory Exam Respiratory Exam: Clear to Ausculation Bilateral, NORMAL BREATHING PATTERN. absent: Rales, Rhonchi, Wheezes - Cardiovascular Exam Cardiovascular Exam: REGULAR RHYTHM, RRR, +S1, +S2 - Extremities Exam Extremities Exam: Normal Inspection. absent: Pedal Edema - Neurological Exam Neuro motor strength exam: Left Upper Extremity: 4, Right Upper Extremity: 2/1, Left Lower Extremity: 4, Right Lower Extremity: 2/1 - Psychiatric Exam Psychiatric exam: Flat Affect, Normal Mood - Skin Skin Exam: Intact, Normal Color, Warm Assessment and Plan - Assessment and Plan (Free Text) Assessment: (1) Intracranial hemorrhage Assessment & Plan: At [place]: * CT Head (05/16/18): interval left posterior frontal/parietal intra cerebral hematoma with surrounding edema and possible minimal mild mass effect on the left frontal horn. No midline shift. No dilatation of the right lateral ventricle appreciated. No interval dilatation or other particular segments noted. * CT head (05/16/18): subjective mild expansion of the left parietal hematoma with mild surrounding edema impression upon the posterior portion of the body of the left lateral ventricle. No other significant interval chage. At [facility]): * CT Head (05/17/18): re-demonstrated is a large parenchymal hematoma within the left posterior temporoparietal lobe secondary to hemorrhage into pre-existing AVM, mass effect produced by the hematoma and surrounding edema impress overlying sulci and posterior aspect left lateral ventricle as described. moderate to significant chronic white matter ischemic changes. * CT Head (05/19/18): re-demonstrated large parenchymal hematoma left posterior temporoparietal region secondary to hemorrhage into a pre-existing AVM. see full report * CT Head (05/20/18): no change, please see full report Neurology (Dr. Aviles) on the case-->help appreciated Noninterventionist (Dr. Brantley/) on board-->help appreciated * Off plavix (was previously on) * d/c Dexamethadone 8mg IV Q12H * off nicardine drip * Elevated head of Bed * Seizure precautions * Neurochecks * Plavix was held and other anticoagulation held since 05/16/18 Neurointerventional on board-->plan for intervention :angiogram with Dr. Brantley' s colleague Dr. Agarwal on 05/25/18 If patient needs embolization will need to transferred to [place] or [facility] tube feedings to be stopped after midnight (2) Dysphagia Assessment & Plan: * GI (Sr. Concepcion) aoc operations intelligence officer-->help appreciated * PEG placement cancelled due to angiogram with embolization, PEG to be rescheduled * Risks/benefits to be discussed with family. Will need to be off all antiplatelet drugs for 5-7 days to facilitate placement. Has been since 05/16/18 * NG tube replaced on 05/23 (3) Dyslipidemia Assessment & Plan: * Patient is on NGT tube feedings, hold after midnight * Glucerna 50ml/hr Status: Chronic (4) Hypertension Assessment & Plan: * Off drip * Metoprolol increased to 50mg po BID * Hydralazine 50mg PO Q6H (increased from 20 mg on 05/21) * Order for echocardiogram * Prior echocardiogram (05/03/18): normal LV systolic function. Aortic valve sclerosis Status: Chronic (5) Diabetes Status: Chronic * hgba1c: 9.2 * Lipid Panel: 123, Cholestrol: 199, LDL: 152. HDL: 38 * Hypoglycemic protocol * insulin sliding scale Q6H * Accuchecks Q6H (6) Hypernatremia * free water through NG tube increased from 250ml to 400ml on 05/24 (6) Prophylactic measure Assessment & Plan: * Elevated head * Neurochecks * chemical anticoagulation secondary to intracranial hemorrhage * NPO * NG tube for Glucerna feedings and Free water 250cc/hr * seizure precautions * aspiration precautions * Has failed swallow eval twice * Has NGT tube * Luke Ryan, * DNR/ DNI <Baldemar Edouard - Last Filed: 05/24/18 23:40> Objective - Vital Signs/Intake and Output Vital Signs (last 24 hours): Temp Pulse Resp BP Pulse Ox 98.1 F 69 20 145/87 95 05/24/18 16:05 05/24/18 18:11 05/24/18 16:05 05/24/18 16:05 05/24/18 16:05 Intake and Output: 05/24/18 05/25/18 18:59 06:59 Intake Total 100 100 Balance 100 100 - Medications Medications: Current Medications Bisacodyl (Dulcolax) 10 mg [place] ONCE PRN PRN Reason: Constipation Dextrose (Dextrose 50% Inj) 0 ml IV STAT PRN; Protocol PRN Reason: Hypoglycemia Protocol Dextrose (Glutose 15) 0 gm PO ONCE PRN; Protocol PRN Reason: Hypoglycemia Protocol Glucagon (Glucagen Diagnostic Kit) 0 mg IM STAT PRN; Protocol PRN Reason: Hypoglycemia Protocol Hydralazine HCl (Apresoline) 10 mg IVP Q6H PRN PRN Reason: sbp > 160 Last Admin: 05/23/18 01:10 Dose: 10 mg Hydralazine HCl (Apresoline) 50 mg PO Q6H [facility] Last Admin: 05/24/18 22:05 Dose: 50 mg Levetiracetam 500 mg/ Sodium (Chloride) 105 mls @ 420 mls/hr IVPB Q12H [facility] Last Admin: 05/24/18 21:27 Dose: 420 mls/hr Insulin Human Regular (Novolin R) 0 unit SC Q6H [facility] PRN Reason: Protocol Last Admin: 05/24/18 17:52 Dose: 4 units Metoprolol Tartrate (Lopressor) 50 mg PO BID [facility] Last Admin: 05/24/18 17:53 Dose: 50 mg Pantoprazole Sodium (Protonix Ec Tab) 40 mg PO DAILY [facility] Last Admin: 05/24/18 09:45 Dose: Not Given Rosuvastatin Calcium (Crestor) 5 mg PO HS [facility] Last Admin: 05/24/18 22:05 Dose: 5 mg - Labs Labs: 05/24/18 08:19 05/24/18 08:19 PT 12.4 SECONDS (9.7-12.2) H 05/21/18 08:44 INR 1.1 05/21/18 08:44 APTT 32 SECONDS (21-34) 05/21/18 08:44 Attending/Attestation - Attestation I have personally seen and examined this patient.: Yes I have fully participated in the care of the patient.: Yes I have reviewed all pertinent clinical information, including history, physical exam and plan: Yes Notes (Text): 05/24/18 23:28 Patient was seen and examined at 10:15 AM Patient was seen with ALISE Menezes who helped to translate Hungarian. ROS was not possible as patient appears to be confused. He believes it is 1982 and that the president is Elbert. He could not provide day, date, time although these provided to him yesterday and they were again provided to him today. Noted Speach Therapist evaluation: need barrium swallow to fully assess ability to swallow but this is not possible as patient does not have ability at this point in time to follow instructions. He is at high risk for aspiration. Continue feedings with Glucerna 50 ml/hr via NGT 400 ml Free Water Q6H via NGT to help treat the Hypernatremia. Patient was scheduled for Brain Angiogram on 05/23/18 but then Luke Ryan [phone] declined right before the procedure. I reached out to Palliative Care Nurse Amari and she spoke with Shelby again today who agreed to procedure as we need the issue of the possibility of bleeding AVM resolved PRIOR to GI placing PEG Tube. Spoke with Neurointervential Radiologist Dr. Dionisio Agarwal [phone] and he has scheduled patient for Brain Angiogram for 10 AM 05/25/18 here at [facility]. Based upon what he finds he may have to schedule embolization either at [facility] or [facility]. NGT feeding will be stopped after midnight tonight. Once cleared by Dr. Agarwal, speak with GI Dr. Nova about placing PEG Tube. Baldemar Edouard D.O.
[2018-05-25] MEDS: (Novolin R) Insulin Human Regular 100 units/ml vial SC SCH ×4 (00:47→17:54)
--- NOTE | 2018-05-25 06:36 | CP.PCM.PN ---
Subjective - Date & Time of Evaluation Date of Evaluation: 05/25/18 Time of Evaluation: 06:35 - Subjective Subjective: Mr. Rosario was seen and examined at the bedside. He is awake,speech is much clearer and much improved behavior in comparison from previous examination. He remains with episode of confusion, unable to state place, person, or time, but able to answer some questions. He denies denies, dizziness, blurred vision. He follows simple commands with mild right facial droop, his right upper extremity flaccid and lower extremity weak. He is able to wiggle his toes. He is schedule for cerebral angiogram in today. He has episode of restlessness but able to redirect.and remains on 1: 1 for patient safety. There was no untoward events overnight. Objective - Vital Signs/Intake and Output Vital Signs (last 24 hours): Temp Pulse Resp BP Pulse Ox 98.0 F 78 18 190/70 H 97 05/25/18 00:15 05/25/18 00:15 05/25/18 00:15 05/25/18 00:15 05/25/18 00:15 Intake and Output: 05/24/18 05/25/18 18:59 06:59 Intake Total 100 500 Balance 100 500 - Medications Medications: Current Medications Bisacodyl (Dulcolax) 10 mg [place] ONCE PRN PRN Reason: Constipation Dextrose (Dextrose 50% Inj) 0 ml IV STAT PRN; Protocol PRN Reason: Hypoglycemia Protocol Dextrose (Glutose 15) 0 gm PO ONCE PRN; Protocol PRN Reason: Hypoglycemia Protocol Glucagon (Glucagen Diagnostic Kit) 0 mg IM STAT PRN; Protocol PRN Reason: Hypoglycemia Protocol Hydralazine HCl (Apresoline) 10 mg IVP Q6H PRN PRN Reason: sbp > 160 Last Admin: 05/23/18 01:10 Dose: 10 mg Hydralazine HCl (Apresoline) 50 mg PO Q6H [facility] Last Admin: 05/25/18 05:52 Dose: 50 mg Levetiracetam 500 mg/ Sodium (Chloride) 105 mls @ 420 mls/hr IVPB Q12H [facility] Last Admin: 05/24/18 21:27 Dose: 420 mls/hr Insulin Human Regular (Novolin R) 0 unit SC Q6H [facility] PRN Reason: Protocol Last Admin: 05/25/18 00:47 Dose: Not Given Metoprolol Tartrate (Lopressor) 50 mg PO BID [facility] Last Admin: 05/24/18 17:53 Dose: 50 mg Pantoprazole Sodium (Protonix Ec Tab) 40 mg PO DAILY [facility] Last Admin: 05/24/18 09:45 Dose: Not Given Rosuvastatin Calcium (Crestor) 5 mg PO HS [facility] Last Admin: 05/24/18 22:05 Dose: 5 mg - Labs Labs: 05/24/18 08:19 05/24/18 08:19 PT 12.4 SECONDS (9.7-12.2) H 05/21/18 08:44 INR 1.1 05/21/18 08:44 APTT 32 SECONDS (21-34) 05/21/18 08:44 - Constitutional Appears: No Acute Distress - Head Exam Head Exam: NORMAL INSPECTION - Eye Exam Pupil Exam: PERRL - Neurological Exam Neurological Exam: Alert, Awake Neuro motor strength exam: Left Upper Extremity: 4, Right Upper Extremity: 0, Left Lower Extremity: 4, Right Lower Extremity: 2/1 Additional comments: neuro status unchanged from previous examination. Assessment and Plan (1) Intracranial hemorrhage Assessment & Plan: Case discussed with Dr. Daugherty, continue all current medical regimen. Recommend to follow any orders from neurointerventionalist, repeat CT scan if mental status decline from his current status, blood pressure control with systolic blood pressure between 130-140, keep head of bed elevated at least 30 degrees angle.normothermic, glycemic control, and acute rehab for discharge planning. Status: Acute
[2018-05-25 08:35] LABS: BASO # 0.1 K/uL (0.0-0.2); BASO % 0.8 % (0.0-2.0); EOS # 0.6 K/uL (0.0-0.7); EOS % 4.5 % (0.0-4.0); HEMOGLOBIN 11.4 g/dL (12.0-18.0); LYMPH # 3.4 K/uL (1.0-4.3); LYMPH % 27.2 % (20.0-40.0); MEAN CELL VOLUME 71.4 fL (80.0-94.0); MEAN CORPUSCULAR HEMOGLOBIN 22.3 pg (27.0-31.0); MEAN CORPUSCULAR HGB CONC 31.2 g/dL (33.0-37.0); MEAN PLATELET VOLUME 10.3 fL (7.2-11.7); MONO # 0.9 K/uL (0.0-0.8); MONO % 7.5 % (0.0-10.0); NEUT # 7.6 K/uL (1.8-7.0); NRBC % 0.1 % (0.0-2.0); RBC 5.12 Mil/uL (4.40-5.90); RED CELL DISTRIBUTION WIDTH 19.9 % (11.5-14.5); WHITE BLOOD COUNT 12.7 K/uL (4.8-10.8)
[2018-05-25 08:39] LABS: ALB/GLOB RATIO 1.3 (1.0-2.1); ALT/SGPT 34 U/L (21-72); AST/SGOT 29 U/L (17-59); BLOOD UREA NITROGEN 33 mg/dL (9-20); CALCIUM 9.5 mg/dl (8.6-10.4); GFR AFRICAN-AMERICAN > 60; GFR NON-AFRICAN AMERICAN > 60
--- NOTE | 2018-05-25 09:36 | CP.PCM.PN ---
<Ally Lakhani - Last Filed: 05/25/18 15:43> Subjective - Date & Time of Evaluation Date of Evaluation: 05/25/18 Time of Evaluation: 07:00 - Subjective Subjective: PGY2 Progress Note for Dr. Eaton Patient seen and examined at bedside. Cerebral angio to be done today. Patient denies any pain and says he is feeling okay. Patient is unaware of location or date. Objective - Vital Signs/Intake and Output Vital Signs (last 24 hours): Temp Pulse Resp BP Pulse Ox 98.0 F 73 18 162/85 H 97 05/25/18 00:15 05/25/18 07:50 05/25/18 00:15 05/25/18 03:00 05/25/18 00:15 Intake and Output: 05/25/18 05/25/18 06:59 18:59 Intake Total 500 Balance 500 - Medications Medications: Current Medications Bisacodyl (Dulcolax) [address] ONCE PRN PRN Reason: Constipation Dextrose (Dextrose 50% Inj) 0 ml IV STAT PRN; Protocol PRN Reason: Hypoglycemia Protocol Dextrose (Glutose 15) 0 gm PO ONCE PRN; Protocol PRN Reason: Hypoglycemia Protocol Glucagon (Glucagen Diagnostic Kit) 0 mg IM STAT PRN; Protocol PRN Reason: Hypoglycemia Protocol Hydralazine HCl (Apresoline) 10 mg IVP Q6H PRN PRN Reason: sbp > 160 Last Admin: 05/23/18 01:10 Dose: 10 mg Hydralazine HCl (Apresoline) 50 mg PO Q6H [facility] Last Admin: 05/25/18 05:52 Dose: 50 mg Levetiracetam 500 mg/ Sodium (Chloride) 105 mls @ 420 mls/hr IVPB Q12H [facility] Last Admin: 05/24/18 21:27 Dose: 420 mls/hr Insulin Human Regular (Novolin R) 0 unit SC Q6H [facility] PRN Reason: Protocol Last Admin: 05/25/18 07:05 Dose: 3 units Metoprolol Tartrate (Lopressor) 50 mg PO BID [facility] Last Admin: 05/24/18 17:53 Dose: 50 mg Pantoprazole Sodium (Protonix Ec Tab) 40 mg PO DAILY [facility] Last Admin: 05/24/18 09:45 Dose: Not Given Rosuvastatin Calcium (Crestor) 5 mg PO [facility] Last Admin: 05/24/18 22:05 Dose: 5 mg - Labs Labs: 05/25/18 08:18 05/25/18 08:18 PT 12.4 SECONDS (9.7-12.2) H 05/21/18 08:44 INR 1.1 05/21/18 08:44 APTT 32 SECONDS (21-34) 05/21/18 08:44 - Additional Findings Additional findings: - Constitutional Appears: Non-toxic, No Acute Distress - Head Exam Head Exam: ATRAUMATIC, NORMOCEPHALIC Additional comments: right facial weakness - Eye Exam Eye Exam: EOMI, Normal appearance - Respiratory Exam Respiratory Exam: Clear to Ausculation Bilateral, NORMAL BREATHING PATTERN. absent: Rales, Rhonchi, Wheezes - Cardiovascular Exam Cardiovascular Exam: REGULAR RHYTHM, RRR, +S1, +S2 - Extremities Exam Extremities Exam: Normal Inspection. absent: Pedal Edema - Neurological Exam Neuro motor strength exam: Left Upper Extremity: 4, Right Upper Extremity: 2/1, Left Lower Extremity: 4, Right Lower Extremity: 2/1 - Psychiatric Exam Psychiatric exam: Flat Affect, Normal Mood - Skin Skin Exam: Intact, Normal Color, Warm Assessment and Plan - Assessment and Plan (Free Text) Assessment: (1) Intracranial hemorrhage Assessment & Plan: At [place]: * CT Head (05/16/18): interval left posterior frontal/parietal intra cerebral hematoma with surrounding edema and possible minimal mild mass effect on the left frontal horn. No midline shift. No dilatation of the right lateral ventricle appreciated. No interval dilatation or other particular segments noted. * CT head (05/16/18): subjective mild expansion of the left parietal hematoma with mild surrounding edema impression upon the posterior portion of the body of the left lateral ventricle. No other significant interval chage. At [facility]: * CT Head (05/17/18): re-demonstrated is a large parenchymal hematoma within the left posterior temporoparietal lobe secondary to hemorrhage into pre-existing AVM, mass effect produced by the hematoma and surrounding edema impress overlying sulci and posterior aspect left lateral ventricle as described. moderate to significant chronic white matter ischemic changes. * CT Head (05/19/18): re-demonstrated large parenchymal hematoma left posterior temporoparietal region secondary to hemorrhage into a pre-existing AVM. see full report * CT Head (05/20/18): no change, please see full report Neurology (Dr. Aviles) on the case-->help appreciated Noninterventionist (Dr. Brantley/) on board-->help appreciated * Off plavix (was previously on) * d/c Dexamethadone 8mg IV Q12H * off nicardine drip * Elevated head of Bed * Seizure precautions * Neurochecks * Plavix was held and other anticoagulation held since 05/16/18 Neurointerventional on board--> angiogram with Dr. Brantley's colleague Dr. Agarwal on 05/25/18 If patient needs embolization will need to be transferred to [place] or [facility] (2) Dysphagia Assessment & Plan: * GI (Sr. Concepcion) traffic control operator-->help appreciated * PEG to be rescheduled * Risks/benefits to be discussed with family. Will need to be off all antiplatelet drugs for 5-7 days to facilitate placement. Has been since 05/16/18 * NG tube replaced on 05/23 (3) Dyslipidemia Assessment & Plan: * Patient is on NGT tube feedings, hold after midnight * Glucerna 50ml/hr Status: Chronic (4) Hypertension Assessment & Plan: * Off drip * Metoprolol increased to 50mg po BID * Hydralazine 50mg PO Q6H (increased from 20 mg on 05/21) * Order for echocardiogram * Prior echocardiogram (05/03/18): normal LV systolic function. Aortic valve sclerosis Status: Chronic (5) Diabetes Status: Chronic * hgba1c: 9.2 * Lipid Panel: 123, Cholestrol: 199, LDL: 152. HDL: 38 * Hypoglycemic protocol * insulin sliding scale Q6H * Accuchecks Q6H (6) Hypernatremia * free water through NG tube increased from 250ml to 400ml on 05/24 (6) Prophylactic measure Assessment & Plan: * Elevated head * Neurochecks * chemical anticoagulation secondary to intracranial hemorrhage * NPO * NG tube for Glucerna feedings and Free water 250cc/hr * seizure precautions * aspiration precautions * Has failed swallow eval twice * Has NGT tube * Luke Ryan, * DNR/ DNI Patient stable for PEG placement as per neuro, neuro interventional, and medicine. <Myles Eaton - Last Filed: 05/30/18 15:23> Objective - Vital Signs/Intake and Output Vital Signs (last 24 hours): Temp Pulse Resp BP Pulse Ox 98.8 F 76 20 154/78 H 97 05/25/18 16:50 05/25/18 18:00 05/25/18 16:50 05/25/18 16:50 05/25/18 16:50 - Medications Medications: Current Medications Bisacodyl (Dulcolax) [address] ONCE PRN PRN Reason: Constipation Dextrose (Dextrose 50% Inj) 0 ml IV STAT PRN; Protocol PRN Reason: Hypoglycemia Protocol Dextrose (Glutose 15) 0 gm PO ONCE PRN; Protocol PRN Reason: Hypoglycemia Protocol Glucagon (Glucagen Diagnostic Kit) 0 mg IM STAT PRN; Protocol PRN Reason: Hypoglycemia Protocol Hydralazine HCl (Apresoline) 10 mg IVP Q6H PRN PRN Reason: sbp > 160 Last Admin: 05/23/18 01:10 Dose: 10 mg Hydralazine HCl (Apresoline) 50 mg PO Q6H [facility] Last Admin: 05/25/18 17:54 Dose: 50 mg Levetiracetam 500 mg/ Sodium (Chloride) 105 mls @ 420 mls/hr IVPB Q12H [facility] Last Admin: 05/25/18 10:13 Dose: Not Given Insulin Human Regular (Novolin R) 0 unit SC Q6H [facility] PRN Reason: Protocol Last Admin: 05/25/18 17:54 Dose: 3 units Metoprolol Tartrate (Lopressor) 50 mg PO BID [facility] Last Admin: 05/25/18 17:54 Dose: 50 mg Pantoprazole Sodium (Protonix Ec Tab) 40 mg PO DAILY [facility] Last Admin: 05/25/18 10:14 Dose: Not Given Rosuvastatin Calcium (Crestor) 5 mg PO HS [facility] Last Admin: 05/24/18 22:05 Dose: 5 mg - Labs Labs: 05/25/18 08:18 05/25/18 08:18 PT 12.4 SECONDS (9.7-12.2) H 05/21/18 08:44 INR 1.1 05/21/18 08:44 APTT 32 SECONDS (21-34) 05/21/18 08:44 Attending/Attestation - Attestation I have personally seen and examined this patient.: Yes I have fully participated in the care of the patient.: Yes I have reviewed all pertinent clinical information, including history, physical exam and plan: Yes
[2018-05-25] MEDS ORDERED: Lidocaine 2% MPF (5 ml) Inj ONE (09:50)
--- NOTE | 2018-05-25 09:50 | CP.PCM.PCO ---
Physician Communication Note - Physician Communication Note Physician Communication Note: Discussion with Patients NOK Assessment/Plan - Assessment and Plan (Free Text) Assessment: 83 year old male with ICH Plan: I had a long discussion with the patient's niece Shelby Dash ([phone]) . Lizette has been delegated by the family to be the one making the medical decisions for the patient. When I spoke to her and the family they expressed that they felt that he would not want the angiogram as they felt that his condition was poor. The family-- int the interim--had discussions with the primary team and pallaitive care. I received a call that the family had changed their mind and would like to proceed with the angiogram. I called Shelby this am and she said that they would like to proceed. She expressed that she was under the impression that in order for the patient to be fed he had to have this procedure. I explained to her that that was completely incorrect, that he can still have full and aggressive medical treatment without perusing diagnosis and treatment of the AVM. Shelby said she understood, I believe from my conversations with her that the stress of the situation might have caused her to have an incorrect perception of the meetings with his various medical and support teams. I again explained that in no way was his care contingent on him having this angiogram or having his AVM treated. Shelby said she understood. She now feels that she would like to get the diagnostic study because it will help the family decide if they will want to proceed with more agressive care. We also decided that we will not do the angiogram under GA as this increases the studies risk; it will be done under MAC. Shelby displayed good understanding of the situation, and was able to assure me she understood that she and her family alone would be determining what care MR. Rosario recieved. Consent for the procedure was affirmed. We also discussed that gamma knife could be a viable option for the patient, while not providing immediate reduction of bleeding risk, would possibly reduce the risk over time. We will discuss this and other options, including surgery, intervention and observation after we have the results of the cerebral angiogram. In order to prevent any further confusion I have given Shelby my personal cell number should she need to disucss things in the future. Plan is for Cerebral angiogram today under MAC with anaesthesia present. - Date & Time Date: 05/25/18 Time: 09:49
--- NOTE | 2018-05-25 10:04 | PCM.IRPREO ---
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 CT head and CTA head and neck post rupture Was medical management performed in the past 24 months: Yes List of medical management performed: Conservative observation prior to ICH Clinical indication for the procedure: ICH with known AVM. To look for possible anatomical weak points that pose a risk of re-rupture. Also to better define the lesion for definitve treatment if decided upon Have risks and benefits been explained to the patient: Yes Risks and benefits been explained to the patient: Disucssed with family and next of kin. Risks include but not limited to groin site complications, anasthesia complications, allergic reaction, vessel injury, renal damage, limb injury, new stroke with severe or persistent neuro deficits, ICH, and possibly . Have alternatives to surgery explained to the patient as applicable: Yes - Allergies Allergies: Allergies No Known Allergies Allergy (Verified 04/30/16 15:57) - Physical Exam Vital Signs: Vital Signs 05/25/18 05/25/18 03:00 07:50 Pulse Rate 72 73 Blood Pressure 162/85 H - Specialist Directed Exam Other Pertinent Findings: NEURO EXAM. Awake, Alert. PERRL,. moves left side. no drift on left. +right sided arm and leg weakness - Impression Impression: 83 year old with a left fronto-parietal known AVM and ICH in that region Pt. Evaluated Today:Candidate for Anesthesia & Procedure: yes. case discussed with family decison maker Shelby Hernandez. please see my seperated physician communication note for details. - Date & Time Date: 05/25/18 Time: 10:02
[2018-05-25] MEDS: levETIRAcetam 500 MG in Sodium Chloride 0.9% 100 ML IVPB SCH ×2 (10:13→22:01)
[2018-05-25] MEDS: Pantoprazole 40 mg EC Tab PO SCH (10:14)
[2018-05-25] MEDS ORDERED: ceFAZolin 1 gm in NS 1 GM/100 ML BAG IVPB ONE (10:25)
[2018-05-25] MEDS ORDERED: Iodixanol 320 MG/ML 100 ML BOTTLE IV ONE (10:29)
--- NOTE | 2018-05-25 11:45 | PCM.OP ---
Operative Report - Operative Report Date of Surgery/Procedure: 05/25/18 Time of Surgery/Procedure: 10:00 Surgeon: Dr. Dionisio Leal MD Payroll Processor: Moises Anesthesia/Sedation: MAC by Dr. Akins Pre-Operative Diagnosis: Left anterior circulation ICH Post-Operative Diagnosis: Ruptured left fronto-parietal AVM Indication for Surgery: ICH with known AVM Operative Findings: Left fronto-parietal AVM: 1-Arterial supply via the superior branch of the left MCA and via distal left QUIN convexal branches. 2- Diffuse, yet will defined nidus. 3-No evidence of treatable mayela-nidal aneurysm. 4-Early venous drainaige (shunting) primarily into the superior sagital sinus with antegrade drainge into the bilateral transverse-sigmoid sinuses. There is also reflus into superficial cortical veins. Procedure/Operation Description: Diagnostic cerebral angiography Estimated Blood Loss: minimal Blood Replaced: none Sponge/Instrument Count: all catheters, wires and sheaths removed and acounted for Drains: none Complications: none. No new FND upon awakening. Stable throught the procedure Specimen: none Discharge & Condition: To PACU for observation
[2018-05-26] MEDS: (Novolin R) Insulin Human Regular 100 units/ml vial SC SCH ×4 (00:23→17:43)
[2018-05-26 07:29] LABS: BASO # 0.1 K/uL (0.0-0.2); BASO % 0.8 % (0.0-2.0); EOS # 0.6 K/uL (0.0-0.7); EOS % 4.2 % (0.0-4.0); LYMPH # 2.8 K/uL (1.0-4.3); LYMPH % 21.5 % (20.0-40.0); MEAN CELL VOLUME 71.1 fL (80.0-94.0); MEAN CORPUSCULAR HEMOGLOBIN 22.6 pg (27.0-31.0); MEAN CORPUSCULAR HGB CONC 31.7 g/dL (33.0-37.0); MEAN PLATELET VOLUME 10.8 fL (7.2-11.7); MONO # 0.8 K/uL (0.0-0.8); MONO % 5.8 % (0.0-10.0); NEUT # 8.8 K/uL (1.8-7.0); NEUT % 67.7 % (50.0-75.0); RBC 4.9 Mil/uL (4.40-5.90)
[2018-05-26 07:46] LABS: ALB/GLOB RATIO 1.3 (1.0-2.1); ALBUMIN 3.9 g/dL (3.5-5.0); ALT/SGPT 34 U/L (21-72); AST/SGOT 30 U/L (17-59); BLOOD UREA NITROGEN 33 mg/dL (9-20); CALCIUM 9.5 mg/dl (8.6-10.4); GFR AFRICAN-AMERICAN > 60; GFR NON-AFRICAN AMERICAN > 60
[2018-05-26] MEDS: levETIRAcetam 500 MG in Sodium Chloride 0.9% 100 ML IVPB SCH ×2 (09:34→21:35)
[2018-05-26] MEDS: Pantoprazole 40 mg EC Tab PO SCH (09:35)
--- NOTE | 2018-05-26 10:34 | CP.PCM.PN ---
<Ally Lakhani - Last Filed: 05/26/18 11:34> Subjective - Date & Time of Evaluation Date of Evaluation: 05/26/18 Time of Evaluation: 07:00 - Subjective Subjective: PGY2- Progress Note for Dr. Eaton Patient seen and examined at bedside. Patient does not know where he is or what day it is. Patient has no complaints. Objective - Vital Signs/Intake and Output Vital Signs (last 24 hours): Temp Pulse Resp BP Pulse Ox 98.0 F 87 20 151/72 H 96 05/26/18 07:09 05/26/18 07:30 05/26/18 07:09 05/26/18 09:28 05/26/18 07:09 Intake and Output: 05/26/18 05/26/18 06:59 18:59 Intake Total 400 Balance 400 - Medications Medications: Current Medications Bisacodyl (Dulcolax) 10 mg WA ONCE PRN PRN Reason: Constipation Dextrose (Dextrose 50% Inj) 0 ml IV STAT PRN; Protocol PRN Reason: Hypoglycemia Protocol Dextrose (Glutose 15) 0 gm PO ONCE PRN; Protocol PRN Reason: Hypoglycemia Protocol Glucagon (Glucagen Diagnostic Kit) 0 mg IM STAT PRN; Protocol PRN Reason: Hypoglycemia Protocol Hydralazine HCl (Apresoline) 10 mg IVP Q6H PRN PRN Reason: sbp > 160 Last Admin: 05/26/18 08:45 Dose: 10 mg Hydralazine HCl (Apresoline) 50 mg PO Q6H [facility] Last Admin: 05/26/18 05:34 Dose: 50 mg Levetiracetam 500 mg/ Sodium (Chloride) 105 mls @ 420 mls/hr IVPB Q12H [facility] Last Admin: 05/26/18 09:34 Dose: 420 mls/hr Insulin Human Regular (Novolin R) 0 unit SC Q6H [facility] PRN Reason: Protocol Last Admin: 05/26/18 07:30 Dose: 4 units Metoprolol Tartrate (Lopressor) 50 mg PO BID [facility] Last Admin: 05/26/18 09:35 Dose: 50 mg Pantoprazole Sodium (Protonix Ec Tab) 40 mg PO DAILY [facility] Last Admin: 05/26/18 09:35 Dose: 40 mg Rosuvastatin Calcium (Crestor) 5 mg PO HS [facility] Last Admin: 05/25/18 22:21 Dose: 5 mg - Labs Labs: 05/26/18 07:20 05/26/18 07:20 PT 12.4 SECONDS (9.7-12.2) H 05/21/18 08:44 INR 1.1 05/21/18 08:44 APTT 32 SECONDS (21-34) 05/21/18 08:44 - Additional Findings Additional findings: - Constitutional Appears: Non-toxic, No Acute Distress - Head Exam Head Exam: ATRAUMATIC, NORMOCEPHALIC Additional comments: right facial weakness - Eye Exam Eye Exam: EOMI, Normal appearance - Respiratory Exam Respiratory Exam: Clear to Ausculation Bilateral, NORMAL BREATHING PATTERN. absent: Rales, Rhonchi, Wheezes - Cardiovascular Exam Cardiovascular Exam: REGULAR RHYTHM, RRR, +S1, +S2 - Extremities Exam Extremities Exam: Normal Inspection. absent: Pedal Edema - Neurological Exam Neuro motor strength exam: Left Upper Extremity: 4, Right Upper Extremity: 2/1, Left Lower Extremity: 4, Right Lower Extremity: 2/1 - Psychiatric Exam Psychiatric exam: Flat Affect, Normal Mood - Skin Skin Exam: Intact, Normal Color, Warm Assessment and Plan - Assessment and Plan (Free Text) Assessment: (1) Intracranial hemorrhage Assessment & Plan: At [place]: * CT Head (05/16/18): interval left posterior frontal/parietal intra cerebral hematoma with surrounding edema and possible minimal mild mass effect on the left frontal horn. No midline shift. No dilatation of the right lateral ventricle appreciated. No interval dilatation or other particular segments noted. * CT head (05/16/18): subjective mild expansion of the left parietal hematoma with mild surrounding edema impression upon the posterior portion of the body of the left lateral ventricle. No other significant interval chage. At [facility]: * CT Head (05/17/18): re-demonstrated is a large parenchymal hematoma within the left posterior temporoparietal lobe secondary to hemorrhage into pre-existing AVM, mass effect produced by the hematoma and surrounding edema impress overlying sulci and posterior aspect left lateral ventricle as described. moderate to significant chronic white matter ischemic changes. * CT Head (05/19/18): re-demonstrated large parenchymal hematoma left posterior temporoparietal region secondary to hemorrhage into a pre-existing AVM. see full report * CT Head (05/20/18): no change, please see full report Neurology (Dr. Aviles) on the case-->help appreciated Noninterventionist (Dr. Brantley/) on board-->help appreciated * Off plavix (was previously on) * d/c Dexamethadone 8mg IV Q12H * off nicardine drip * Elevated head of Bed * Seizure precautions * Neurochecks * Plavix was held and other anticoagulation held since 05/16/18 Neurointerventional on board--> angiogram with Dr. Brantley's colleague Dr. Agarwal on 05/25/18 If patient needs embolization will need to be transferred to [place] or [facility] (2) Dysphagia Assessment & Plan: * GI (Sr. Concepcion) rehab consultant-->help appreciated * PEG to be rescheduled * Risks/benefits to be discussed with family. Will need to be off all antiplatelet drugs for 5-7 days to facilitate placement. Has been since 05/16/18 * NG tube replaced on 05/23 * swallow eval on 05/25 recommended puree diet and nectar thick liquids with teaspoon, spoke with Nayeli on 05/26 who would like to stop the tube feeds and try the diet. * calorie count ordered on 05/26 (3) Dyslipidemia Assessment & Plan: * Patient is on NGT tube feedings, hold after midnight * Glucerna 50ml/hr Status: Chronic (4) Hypertension Assessment & Plan: * Off drip * Metoprolol changed to 100mg ER on 05/26 * Hydralazine changed to 75mg po q8h from 50mg PO Q6H on 05/26 * Amlodipine 10mg daily added 05/26 * Order for echocardiogram * Prior echocardiogram (05/03/18): normal LV systolic function. Aortic valve sclerosis Status: Chronic (5) Diabetes Status: Chronic * hgba1c: 9.2 * Lipid Panel: 123, Cholestrol: 199, LDL: 152. HDL: 38 * Hypoglycemic protocol * insulin sliding scale Q6H * Accuchecks Q6H (6) Hypernatremia * free water through NG tube increased from 250ml to 400ml on 05/24 (7) Prophylactic measure Assessment & Plan: * Elevated head * Neurochecks * chemical anticoagulation secondary to intracranial hemorrhage * NPO * NG tube for Glucerna feedings and Free water 250cc/hr * seizure precautions * aspiration precautions * Has failed swallow eval twice * 05/26: pureed diet and NTL * Luke Ryan, * DNR/ DNI Patient stable for PEG placement as per neuro, neuro interventional, and medicine. <Myles Eaton - Last Filed: 05/27/18 08:01> Objective - Vital Signs/Intake and Output Vital Signs (last 24 hours): Temp Pulse Resp BP Pulse Ox 98.2 F 72 20 160/77 H 97 05/26/18 15:16 05/26/18 15:16 05/26/18 15:16 05/26/18 15:16 05/26/18 15:16 Intake and Output: 05/26/18 05/26/18 06:59 18:59 Intake Total 400 Balance 400 - Medications Medications: Current Medications Amlodipine Besylate (Norvasc) 10 mg PO DAILY [facility] Bisacodyl (Dulcolax) 10 mg WA ONCE PRN PRN Reason: Constipation Dextrose (Dextrose 50% Inj) 0 ml IV STAT PRN; Protocol PRN Reason: Hypoglycemia Protocol Dextrose (Glutose 15) 0 gm PO ONCE PRN; Protocol PRN Reason: Hypoglycemia Protocol Glucagon (Glucagen Diagnostic Kit) 0 mg IM STAT PRN; Protocol PRN Reason: Hypoglycemia Protocol Hydralazine HCl (Apresoline) 10 mg IVP Q6H PRN PRN Reason: sbp > 160 Last Admin: 05/26/18 08:45 Dose: 10 mg Hydralazine HCl (Apresoline) 75 mg PO Q8H [facility] Last Admin: 05/26/18 11:01 Dose: 75 mg Levetiracetam 500 mg/ Sodium (Chloride) 105 mls @ 420 mls/hr IVPB Q12H [facility] Last Admin: 05/26/18 09:34 Dose: 420 mls/hr Insulin Human Regular (Novolin R) 0 unit SC Q6H [facility] PRN Reason: Protocol Last Admin: 05/26/18 12:22 Dose: 4 units Metoprolol Succinate (Toprol Xl) 100 mg PO DAILY [facility] Pantoprazole Sodium (Protonix Ec Tab) 40 mg PO DAILY [facility] Last Admin: 05/26/18 09:35 Dose: 40 mg Rosuvastatin Calcium (Crestor) 5 mg PO HS [facility] Last Admin: 05/25/18 22:21 Dose: 5 mg - Labs Labs: 05/26/18 07:20 05/26/18 07:20 PT 12.4 SECONDS (9.7-12.2) H 05/21/18 08:44 INR 1.1 05/21/18 08:44 APTT 32 SECONDS (21-34) 05/21/18 08:44 Attending/Attestation - Attestation I have personally seen and examined this patient.: Yes I have fully participated in the care of the patient.: Yes I have reviewed all pertinent clinical information, including history, physical exam and plan: Yes Notes (Text): Seen and examined by me.He was on bed comfortable,confused and getting NG feeding s/p cerebral angiogram Resident spoke to her niece Star Ryan about speech recommendation and risk of aspiration. she wanted to start on dysphagia diet. we will do calorie count and monitor his intake with aspiration precaution assessment and the plan discussedw ith the resident and I agree with the documentation
--- NOTE | 2018-05-26 14:21 | OP ---
PROCEDURE DATE: 05/25/2018 DIAGNOSTIC CEREBRAL ANGIOGRAM REFERRING PHYSICIAN: Rolf Daugherty MD SURGEON: Dionisio Granado MD BRIEF HISTORY: The patient is an 83-year-old gentleman who presented with a left hemispheric intracerebral hemorrhage. This is in the context of having a known left frontoparietal arteriovenous malformation. Up at this point, the lesion had been asymptomatic. Given the new hemorrhage, diagnostic cerebral angiography was requested by the primary team in order to better elucidate and evaluate the exact angioarchitecture characteristics of the AVM. Informed consent was obtained. Risks of the procedure were explained, to be including but not limited to allergic reaction, groin site complications, limb ischemia, limb damage, renal damage, new stroke with possible severe persistent neurologic deficits, bleeding in the head as well as low possibility of given the patient is severely ill. After all questions were answered, informed consent was obtained from the patient's niece. Please see full note in the electronic medical record for the details of this conversation. ANESTHESIA: MAC ANESTHESIOLOGIST: Dr. Hernandez. PROCEDURE: The patient was brought to the cardiac catheterization suite. A time-out was performed using two patient identifiers. The patient's bracelet had been briefly removed; however, the nurse who had removed it verified that this was indeed the patient and as well other members of the team who met him again verified that. After a time-out had been performed, all questions were answered by the team and the procedure was begun; 1 g of prophylactic Ancef was given for the procedure. Standard diagnostic cerebral angiographic protocols were used for vessels. A 5-Surinamese micropuncture was used to obtain arterial access to the right femoral artery after it was anesthetized with lidocaine. A 5-Surinamese short sheath was placed in the right femoral artery. This was intermittently flushed with heparinized saline. Under direct fluoroscopic visualization and roadmap guidance, all vessels were using the aid of a Terumo 35 guidewire and exchanged with Advantage 35 Glidewire. Initially, the catheter was double flushed within the aorta, and the catheter hooked up to continuous heparinized flush. LEFT SUBCLAVIAN ARTERY: The left subclavian artery was injected in the AP plane; visualized was a normal angioarchitecture of the left subclavian artery identified and this can be seen, the takeoff of the left vertebral artery, which makes 180-degree loop inferiorly before making another 180-degree loop superiorly. There is no evidence of flow-limiting stenosis of the origin of the left vertebral artery. As well one can appreciate, a common trunk for the cervical arteries. The left internal mammary artery is identified. Along the course of visualized portion of the cervical, left vertebral artery, there is no abnormality or evidence of vessel damage. Under direct visualization, the ostium of the left vertebral artery was gently catheterized. LEFT VERTEBRAL ARTERY: Injections of the left vertebral artery were performed in AP and lateral planes. These demonstrated filling of the left intracranial vertebral artery with a large amount of filling being directed towards the left PICA. That appears to be washout in the mid basilar, presumably from the contralateral vertebral artery. The basilar artery is seen opacifying well. Further, one can appreciate bilateral combination window installer and ACAs filling. No evidence of aneurysm nor shunting lesion. No evidence of any filling of the AVM detected on cross-sectional imaging. Venous phase is normal. Further, these injections were repeated in high speed oblique projections without demonstrating any new pathology or shunting. LEFT COMMON CAROTID ARTERY: Injections of the left common carotid artery were performed in AP plane, which demonstrated a bovine aortic arch with a normal course and caliber of the common carotid artery on the left. These injections further demonstrate mild tortuosity and irregularity at the bifurcation of the internal and external carotid arteries. Right common carotid artery injections intracranial views. We were then able to advance the [employer] diagnostic catheter more distally within the left common carotid artery. As such, we three diagnostic catheters, 5-Surinamese, which was formed as per protocol in the left subclavian. The origin of the left common carotid artery was engaged, and we were able to get projections from the distal portion of the left internal carotid artery. These injections demonstrated filling of the MCA and QUIN as well as a large tangle of vessels with early venous drainage in the left frontal parietal region. These injections showed opacification of both the external and internal carotid artery, no obvious from the external carotid artery was seen or any intracranial shunting from it. The AVM identified seems primarily supplied from the left MCA with drainage into the superior sagittal sinus antegrade into the bilateral sigmoid sinuses. High speed oblique projections of the intracranial vasculature from the left common carotid artery. The catheter was left in the same position. was obtained, at which point injection was performed. This again demonstrated the same angioarchitecture previously described with the large arteriovenous malformation draining primarily via the superior sagittal sinus after being supplied mainly by the left MCA. There is a suggestion of cortical venous reflux from the aneurysm to the superior sagittal sinus down to cortical veins above the convexity; however, imaging was somewhat limited for full analysis. Given the fact that we were not able to fully and ascertain the exact angioarchitectural features of the lesion, we used a soft tip Advantage Glidewire and placed it in a stable position within the high cervical internal carotid artery, which was then advanced slightly into the petrocavernous segment. An exchange maneuver was performed under direct fluoroscopic guidance and the 5-Surinamese Feliz diagnostic catheter was placed in a stable position within the cervical left internal carotid artery. Diagnostic angiography was performed in AP, lateral, and oblique projections with high speed imaging. LEFT INTERNAL CAROTID ARTERY IN INJECTION INTRACRANIAL VIEWS: The injections demonstrated normal angioarchitecture opacification of the visualized portion of the left internal carotid artery. There is filling of both the left MCA and QUIN. On these injections, there does appear to be filling of the lesion via direct feeders off of the left QUNI, distal branches along the convexity as well as from the left MCA. Again, when assessing these images, it appears that the main supply from the left MCA territory is coming from the superior division of the left MCA. There is a diffuse nidus seen without any obvious large aneurysmal dilatation or venous stenosis. Venous drainage is via the superior sagittal sinus, which then refluxes down into the superior sagittal sinus via the lateral transverse sigmoid sinuses. As well, these high speed views can show that there is, as well, early venous drainage into two cortical vein along the convexity. In order to better define the exact venous drainage pattern, a larger magnified oblique high speed run was obtained. MAGNIFIED HIGH SPEED OBLIQUE RUN FROM THE LEFT INTERNAL CAROTID ARTERY: This angiogram demonstrates the above-mentioned features of normal flow within the course of the visualized left internal carotid artery. There is a bifurcation showing a distinct QUIN filling in the point of superior aspect of the lesion on the convexity as well the left MCA showed filling of the lesion. Venous drainage again can be seen filtering in the superior sagittal sinus in an antegrade fashion. As well, one can also appreciate the presence of cortical venous drainage. RIGHT SUBCLAVIAN ARTERY: The catheter was again navigated under direct fluoroscopic visualization into the right subclavian artery. AP images performed demonstrated normal course and caliber of the left subclavian artery. Flash filling can be seen at the right vertebral artery with filling predominantly seen into the right common carotid artery. RIGHT COMMON CAROTID ARTERY: Injections were performed in the cervical plane of the right common carotid artery. They demonstrated a moderate degree of ectasia and tortuosity with atherosclerotic disease of less than 50 percent at the bulb motion. Right common carotid artery injections intracranial projections. The right common carotid artery was injected with intracranial visualization. These demonstrated normal course and caliber at the visualized portions of the cervical right internal carotid artery and the right external carotid artery. There does not appear to be any shunting or early venous supply from the external carotid artery intracranially. One can see robust filling of the right MCA and of its branches as well as the left QUIN. There is cross filling via a robust anterior communicating artery with collateralization from contralateral left QUIN to the lesion. Venous drainage is not well seen in this given the patient's motion. Of note, on the lateral projection, the external carotid artery does not appear on its distal occipital branches to spot lesion; however, it is not to be definitively determined. Attempts at catheterization of the left external carotid artery selectively was difficult given the patient's movement and discomfort. Given the fact that we had obtained the primary of the arteriovenous malformation, we decided to conclude the procedure. RIGHT FEMORAL ANGIOGRAPHY: The right femoral artery was injected . This demonstrates a puncture near the bifurcation on the right. There is also disease in the superficial and deep femoral arteries. There is no flow limitation or any evidence of aneurysm nor pseudoaneurysm nor dissection. As such, It was felt that manual pressure should be held for hemostasis. Hemostasis was obtained after 10 to 15 minutes of manual pressure. No hematoma. COMPLICATIONS: None. CONTRAST: Approximately 120 mL of contrast was used. The patient tolerated the procedure well without any hemodynamic compromise. No new focal neurological deficits at the conclusion of the procedure. CONCLUSION: This diagnostic cerebral angiogram demonstrated the presence of a large frontotemporal AVM in the left hemisphere. The main arterial feeding to this lesion is via the superior branch of the left middle cerebral artery. There is also supply to this lesion via the distal aspect of the left anterior cerebral artery. These are both direct filling. There is a diffuse, well defined nidus. Early venous drainage is seen into the superior sagittal sinus antegrade down to the bilateral transverse sigmoid sinuses. There is also reflux into the cortical venous vasculature along the convexity. No associated large pre-intra or post-nidal aneurysm nor obvious angiographic weak points seen. The patient was in the recovery room for several hours as per standard protocol. I will inform the team of the events in real-time. Any questions or concerns, please contact me. Dionisio Granado MD
[2018-05-27] MEDS: (Novolin R) Insulin Human Regular 100 units/ml vial SC SCH ×4 (00:32→17:50)
--- NOTE | 2018-05-27 08:07 | CP.PCM.PN ---
Subjective - Date & Time of Evaluation Date of Evaluation: 05/27/18 Time of Evaluation: 08:07 - Subjective Subjective: Mr. Rosario was seen and examined at the bedside. He is awake,speech is much clearer, oriented in all spheres but with restlessness behavior able to redirect.and remains on 1: 1 for patient safety. He claims of inability to sleep. He denies denies, dizziness, blurred vision. He follows simple commands with mild right facial droop, his right upper extremity flaccid and lower extremity weak. He is able to wiggle his toes. His groin is intact with no s/s hematoma, or bleeding. There was no untoward events overnight. Objective - Vital Signs/Intake and Output Vital Signs (last 24 hours): Temp Pulse Resp BP Pulse Ox 98.0 F 77 20 155/74 H 100 05/27/18 07:43 05/27/18 07:43 05/27/18 07:43 05/27/18 07:43 05/27/18 07:43 Intake and Output: 05/27/18 05/27/18 06:59 18:59 Intake Total 100 Balance 100 - Medications Medications: Current Medications Amlodipine Besylate (Norvasc) 10 mg PO DAILY [facility] Bisacodyl (Dulcolax) 10 mg VA ONCE PRN PRN Reason: Constipation Dextrose (Dextrose 50% Inj) 0 ml IV STAT PRN; Protocol PRN Reason: Hypoglycemia Protocol Dextrose (Glutose 15) 0 gm PO ONCE PRN; Protocol PRN Reason: Hypoglycemia Protocol Glucagon (Glucagen Diagnostic Kit) 0 mg IM STAT PRN; Protocol PRN Reason: Hypoglycemia Protocol Hydralazine HCl (Apresoline) 10 mg IVP Q6H PRN PRN Reason: sbp > 160 Last Admin: 05/26/18 08:45 Dose: 10 mg Hydralazine HCl (Apresoline) 75 mg PO Q8H ATUL Last Admin: 05/27/18 02:55 Dose: 75 mg Levetiracetam 500 mg/ Sodium (Chloride) 105 mls @ 420 mls/hr IVPB Q12H ATUL Last Admin: 05/26/18 21:35 Dose: 420 mls/hr Insulin Human Regular (Novolin R) 0 unit SC Q6H ATUL PRN Reason: Protocol Last Admin: 05/27/18 00:32 Dose: Not Given Metoprolol Succinate (Toprol Xl) 100 mg PO DAILY [facility] Pantoprazole Sodium (Protonix Ec Tab) 40 mg PO DAILY [facility] Last Admin: 05/26/18 09:35 Dose: 40 mg Rosuvastatin Calcium (Crestor) 5 mg PO HS [facility] Last Admin: 05/26/18 21:35 Dose: 5 mg - Labs Labs: 05/26/18 07:20 05/26/18 07:20 PT 12.4 SECONDS (9.7-12.2) H 05/21/18 08:44 INR 1.1 05/21/18 08:44 APTT 32 SECONDS (21-34) 05/21/18 08:44 - Constitutional Appears: No Acute Distress - Head Exam Head Exam: NORMAL INSPECTION - Eye Exam Pupil Exam: PERRL - Neurological Exam Neurological Exam: Alert, Awake, Oriented x3 Neuro motor strength exam: Left Upper Extremity: 5, Right Upper Extremity: 2/1, Left Lower Extremity: 5, Right Lower Extremity: 2/1 Additional comments: neurological improved from previous examination, more alert, oriented, follows commands able to verbalize needs to staff. Assessment and Plan (1) Intracranial hemorrhage Assessment & Plan: Case discussed with Dr. Daugherty, continue all current medical regimen. Recommend seroquel 12.5 mg PO Q HS PRN for insomnia, repeat CT scan if mental status decline from his current status, blood pressure control with systolic blood pressure between 130-140, keep head of bed elevated at least 30 degrees angle.normothermic, glycemic control, and acute rehab for discharge planning. Status: Acute
[2018-05-27] MEDS ORDERED: QUEtiapine 12.5 MG TAB PO PRN (08:14)
[2018-05-27 08:18] LABS: BASO # 0.1 K/uL (0.0-0.2); BASO % 0.6 % (0.0-2.0); EOS # 0.5 K/uL (0.0-0.7); EOS % 4.1 % (0.0-4.0); HEMOGLOBIN 10.8 g/dL (12.0-18.0); LYMPH # 3.6 K/uL (1.0-4.3); LYMPH % 29.9 % (20.0-40.0); MEAN CELL VOLUME 71.5 fL (80.0-94.0); MEAN CORPUSCULAR HEMOGLOBIN 23.1 pg (27.0-31.0); MEAN CORPUSCULAR HGB CONC 32.3 g/dL (33.0-37.0); MEAN PLATELET VOLUME 10.9 fL (7.2-11.7); MONO # 0.6 K/uL (0.0-0.8); MONO % 5.4 % (0.0-10.0); NEUT # 7.1 K/uL (1.8-7.0); RBC 4.67 Mil/uL (4.40-5.90); RED CELL DISTRIBUTION WIDTH 19.8 % (11.5-14.5); WHITE BLOOD COUNT 11.9 K/uL (4.8-10.8)
[2018-05-27 08:30] LABS: ALB/GLOB RATIO 1.3 (1.0-2.1); ALBUMIN 3.8 g/dL (3.5-5.0); ALT/SGPT 35 U/L (21-72); AST/SGOT 36 U/L (17-59); BLOOD UREA NITROGEN 24 mg/dL (9-20); CALCIUM 9.3 mg/dl (8.6-10.4); GFR AFRICAN-AMERICAN > 60; GFR NON-AFRICAN AMERICAN > 60
--- NOTE | 2018-05-27 09:39 | CP.PCM.PN ---
<Ally Lakhani - Last Filed: 05/27/18 11:50> Subjective - Date & Time of Evaluation Date of Evaluation: 05/27/18 Time of Evaluation: 07:00 - Subjective Subjective: PGY2- Progress Note for Dr. Brody Patient seen and examined at bedside and in no acute distress. Patient knows he is in a hospital in [place] in 2018. Patient says he is eating slowly and carefully. Patient tolerated 75% of breakfast this morning and 75% of dinner last night. Patient denies any headache, chest pain, shortness of breath, abdominal pain, nausea, vomiting. Objective - Vital Signs/Intake and Output Vital Signs (last 24 hours): Temp Pulse Resp BP Pulse Ox 98.0 F 77 20 155/74 H 100 05/27/18 07:43 05/27/18 07:43 05/27/18 07:43 05/27/18 07:43 05/27/18 07:43 Intake and Output: 05/27/18 05/27/18 06:59 18:59 Intake Total 100 Balance 100 - Medications Medications: Current Medications Amlodipine Besylate (Norvasc) 10 mg PO DAILY ATUL Bisacodyl (Dulcolax) 10 mg NV ONCE PRN PRN Reason: Constipation Dextrose (Dextrose 50% Inj) 0 ml IV STAT PRN; Protocol PRN Reason: Hypoglycemia Protocol Dextrose (Glutose 15) 0 gm PO ONCE PRN; Protocol PRN Reason: Hypoglycemia Protocol Glucagon (Glucagen Diagnostic Kit) 0 mg IM STAT PRN; Protocol PRN Reason: Hypoglycemia Protocol Hydralazine HCl (Apresoline) 10 mg IVP Q6H PRN PRN Reason: sbp > 160 Last Admin: 05/26/18 08:45 Dose: 10 mg Hydralazine HCl (Apresoline) 75 mg PO Q8H ATUL Last Admin: 05/27/18 02:55 Dose: 75 mg Levetiracetam 500 mg/ Sodium (Chloride) 105 mls @ 420 mls/hr IVPB Q12H ATUL Last Admin: 05/26/18 21:35 Dose: 420 mls/hr Insulin Human Regular (Novolin R) 0 unit SC Q6H ATUL PRN Reason: Protocol Last Admin: 05/27/18 00:32 Dose: Not Given Metoprolol Succinate (Toprol Xl) 100 mg PO DAILY [facility] Pantoprazole Sodium (Protonix Ec Tab) 40 mg PO DAILY [facility] Last Admin: 05/26/18 09:35 Dose: 40 mg Quetiapine Fumarate (Seroquel) 12.5 mg PO HS PRN PRN Reason: Insomnia Rosuvastatin Calcium (Crestor) 5 mg PO HS [facility] Last Admin: 05/26/18 21:35 Dose: 5 mg - Labs Labs: 05/27/18 07:50 05/27/18 07:50 PT 12.4 SECONDS (9.7-12.2) H 05/21/18 08:44 INR 1.1 05/21/18 08:44 APTT 32 SECONDS (21-34) 05/21/18 08:44 - Additional Findings Additional findings: - Constitutional Appears: Non-toxic, No Acute Distress - Head Exam Head Exam: ATRAUMATIC, NORMOCEPHALIC Additional comments: right facial weakness - Eye Exam Eye Exam: EOMI, Normal appearance - Respiratory Exam Respiratory Exam: Clear to Ausculation Bilateral, NORMAL BREATHING PATTERN. absent: Rales, Rhonchi, Wheezes - Cardiovascular Exam Cardiovascular Exam: REGULAR RHYTHM, RRR, +S1, +S2 - Extremities Exam Extremities Exam: Normal Inspection. absent: Pedal Edema - Neurological Exam Neuro motor strength exam: Left Upper Extremity: 4, Right Upper Extremity: 2/1, Left Lower Extremity: 4, Right Lower Extremity: 2/1 - Psychiatric Exam Psychiatric exam: Flat Affect, Normal Mood - Skin Skin Exam: Intact, Normal Color, Warm Assessment and Plan - Assessment and Plan (Free Text) Assessment: (1) Intracranial hemorrhage Assessment & Plan: At [place]: * CT Head (05/16/18): interval left posterior frontal/parietal intra cerebral hematoma with surrounding edema and possible minimal mild mass effect on the left frontal horn. No midline shift. No dilatation of the right lateral ventricle appreciated. No interval dilatation or other particular segments noted. * CT head (05/16/18): subjective mild expansion of the left parietal hematoma with mild surrounding edema impression upon the posterior portion of the body of the left lateral ventricle. No other significant interval chage. At [facility]: * CT Head (05/17/18): re-demonstrated is a large parenchymal hematoma within the left posterior temporoparietal lobe secondary to hemorrhage into pre-existing AVM, mass effect produced by the hematoma and surrounding edema impress overlying sulci and posterior aspect left lateral ventricle as described. moderate to significant chronic white matter ischemic changes. * CT Head (05/19/18): re-demonstrated large parenchymal hematoma left posterior temporoparietal region secondary to hemorrhage into a pre-existing AVM. see full report * CT Head (05/20/18): no change, please see full report Neurology (Dr. Aviles) on the case-->help appreciated Noninterventionist (Dr. Brantley/) on board-->help appreciated * Off plavix (was previously on) * d/c Dexamethadone 8mg IV Q12H * off nicardine drip * Elevated head of Bed * Seizure precautions * Neurochecks * Plavix was stopped and other anticoagulation held since 05/16/18 Neurointerventional on board--> angiogram with Dr. Brantley's colleague Dr. Agarwal on 05/25/18 If patient needs embolization will need to be transferred to [place] or [facility] (2) Dysphagia Assessment & Plan: * GI (Sr. Concepcion) quality control engineer-->help appreciated * PEG to be rescheduled * Risks/benefits to be discussed with family. Will need to be off all antiplatelet drugs for 5-7 days to facilitate placement. Has been since 05/16/18 * NG tube replaced on 05/23 * swallow eval on 05/25 recommended puree diet and nectar thick liquids with teaspoon, spoke with Nayeli on 05/26 who would like to stop the tube feeds and try the diet. * calorie count ordered on 05/26 * Patient tolerating PO intake on 05/26 and 05/27 (3) Dyslipidemia Assessment & Plan: * lipid panel: trigylcerides 123, cholesterol 199, LDL 152, HDL 38 * Crestor 5mg po HS Status: Chronic (4) Hypertension Assessment & Plan: * if blood pressure remains elevated, may increase hydralazine to 100mg q8h * Metoprolol changed to 100mg ER on 05/26 * Hydralazine changed to 75mg po q8h from 50mg PO Q6H on 05/26 * Amlodipine 10mg daily added 05/26 * echo (05/19/18): poor window. left ventricle normal size. EF: 60-65%. grade I abnormal relaxation pattern. mild tricuspid regurg. right ventricular systolic pressure is estimated at 30mmHg. no pulm htn, aortic root is normal size. aortic root displays mild sclerocalcific changes of the aortic root. * Prior echocardiogram (05/03/18): normal LV systolic function. Aortic valve sclerosis Status: Chronic (5) Diabetes Status: Chronic * hgba1c: 9.2 * Lipid Panel: 123, Cholestrol: 199, LDL: 152. HDL: 38 * Hypoglycemic protocol * insulin sliding scale Q6H * Accuchecks Q6H (6) Hypernatremia * downtrending (7) Insomnia * neuro added Seroquel 12.5mg po HS prn on 05/27 (8) Prophylactic measure Assessment & Plan: * Elevated head * Neurochecks * chemical anticoagulation secondary to intracranial hemorrhage * seizure precautions * aspiration precautions * Has failed swallow eval twice * 05/26: pureed diet and NTL * Luke Shelby, * DNR/ DNI <Amaya Brody V - Last Filed: 05/27/18 15:31> Objective - Vital Signs/Intake and Output Vital Signs (last 24 hours): Temp Pulse Resp BP Pulse Ox 98.0 F 77 20 155/74 H 100 05/27/18 07:43 05/27/18 07:43 05/27/18 07:43 05/27/18 07:43 05/27/18 07:43 Intake and Output: 05/27/18 05/27/18 06:59 18:59 Intake Total 100 300 Balance 100 300 - Medications Medications: Current Medications Amlodipine Besylate (Norvasc) 10 mg PO DAILY ATUL Last Admin: 05/27/18 09:40 Dose: 10 mg Bisacodyl (Dulcolax) 10 mg NV ONCE PRN PRN Reason: Constipation Dextrose (Dextrose 50% Inj) 0 ml IV STAT PRN; Protocol PRN Reason: Hypoglycemia Protocol Dextrose (Glutose 15) 0 gm PO ONCE PRN; Protocol PRN Reason: Hypoglycemia Protocol Glucagon (Glucagen Diagnostic Kit) 0 mg IM STAT PRN; Protocol PRN Reason: Hypoglycemia Protocol Hydralazine HCl (Apresoline) 10 mg IVP Q6H PRN PRN Reason: sbp > 160 Last Admin: 05/26/18 08:45 Dose: 10 mg Hydralazine HCl (Apresoline) 75 mg PO Q8H [facility] Last Admin: 05/27/18 12:00 Dose: 75 mg Levetiracetam 500 mg/ Sodium (Chloride) 105 mls @ 420 mls/hr IVPB Q12H [facility] Last Admin: 05/27/18 09:40 Dose: 420 mls/hr Insulin Human Regular (Novolin R) 0 unit SC Q6H ATUL PRN Reason: Protocol Last Admin: 05/27/18 12:25 Dose: 3 units Metoprolol Succinate (Toprol Xl) 100 mg PO DAILY [facility] Last Admin: 05/27/18 09:45 Dose: 100 mg Pantoprazole Sodium (Protonix Ec Tab) 40 mg PO DAILY [facility] Last Admin: 05/27/18 09:40 Dose: 40 mg Quetiapine Fumarate (Seroquel) 12.5 mg PO HS PRN PRN Reason: Insomnia Rosuvastatin Calcium (Crestor) 5 mg PO HS [facility] Last Admin: 05/26/18 21:35 Dose: 5 mg - Labs Labs: 05/27/18 07:50 05/27/18 07:50 PT 12.4 SECONDS (9.7-12.2) H 05/21/18 08:44 INR 1.1 05/21/18 08:44 APTT 32 SECONDS (21-34) 05/21/18 08:44 Assessment and Plan (1) Intracranial hemorrhage Status: Acute (2) Dyslipidemia Status: Chronic (3) Hypertension Status: Chronic (4) Diabetes Status: Chronic (5) Prophylactic measure Status: Acute Attending/Attestation - Attestation I have personally seen and examined this patient.: Yes I have fully participated in the care of the patient.: Yes I have reviewed all pertinent clinical information, including history, physical exam and plan: Yes Notes (Text): Patient seen, examined, case discussed with medical aides teacher. Patient is improving compared to my last visit with him about a week ago. Patient has passed swallow eval as of yesterday and was placed on a dysphagia diet. Patient is currently on a calorie count today's date 2. Patient will have third day of calorie count and will be available to us as of Monday. I discussed with nurse today patient 100% of his dysphagia diet today. Patient is very conversant alert. Discussed with neurology, we are monitoring him just to make sure there is no hematoma or signs of altered mental status sized I would be suggestive hematoma. Likely need follow-up with outpatient neuro interventional and see in 6 weeks from what I read in the prior records that home Dr. Garcia has personally given his cell to the patient's niece if there is any additional questions. We will follow-up with the patient's niece to determine where to place patient for discharge planning in terms of subacute rehabilitation. (1) Intracranial hemorrhage Assessment & Plan: At [place]: * CT Head (05/16/18): interval left posterior frontal/parietal intra cerebral hematoma with surrounding edema and possible minimal mild mass effect on the left frontal horn. No midline shift. No dilatation of the right lateral ventricle appreciated. No interval dilatation or other particular segments noted. * CT head (05/16/18): subjective mild expansion of the left parietal hematoma with mild surrounding edema impression upon the posterior portion of the body of the left lateral ventricle. No other significant interval chage. At [facility]: * CT Head (05/17/18): re-demonstrated is a large parenchymal hematoma within the left posterior temporoparietal lobe secondary to hemorrhage into pre-existing AVM, mass effect produced by the hematoma and surrounding edema impress overlying sulci and posterior aspect left lateral ventricle as described. moderate to significant chronic white matter ischemic changes. * CT head (05/19/18): official read available in the computer. * CT Head (05/20/18): involving large subacute left posterior parietal lobe hematoma with moderate surrounding vasogenic edema, local mass effect, and effacement of the right lateral ventricle, 4mm midline shift from left to right. No herniation or hydrocephalus. Moderate chronic microangiopathic changes and moderate age-related global parenchymal volume loss Admitted to ICU at [facility] on 05/16/18; transferred out on 05/19/18 * Neurology (Dr. Aviles/Dr. Daugherty ) on the case-->help appreciated * Noninterventionist (Dr. Dionsiio Leal) on board-->help appreciated * Operative Note (05/25/18): Left fronto-parietal AVM: 1-Arterial supply via the superior branch of the left MCA and via distal left QUIN convexal branches. 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 3-No evidence of treatable mayela-nidal aneurysm. 4-Early venous drainaige (shunting) primarily into the superior sagital sinus with antegrade drainge into the bilateral transverse-sigmoid sinuses. There is also reflus into superficial cortical veins. * We also discussed that gamma knife could be a viable option for the patient, while not providing immediate reduction of bleeding risk, would possibly reduce the risk over time. We will discuss this and other options, including surgery, intervention and observation after we have the results of the cerebral angiogram. * Elevated head of Bed * Seizure precautions * Neurochecks * Plavix was held and other anticoagulation held since 05/16/18 * Crestor 5mg POqHS * T, Chol: 199, LDL: 152, HDL: 38 * a1c: 9.2 Status: Acute (2) Dysphagia Hypernatremia Assessment & Plan: * GI (Sr. Concepcion) quality control engineer-->help appreciated; peg postponed and reconsult if needed * Patient has passed swallow eval; placed on dysphagia diet and aspiration precaution * Currently on 2nd day of 3 calorie count * hypernatremia secondary to GI loss-->patient is eating now will monitor sodium level (3) Dyslipidemia Assessment & Plan: * Crestor 5mg POqHS * T, Chol: 199, LDL: 152, HDL: 38 * a1c: 9.2 Status: Chronic (4) Hypertension Assessment & Plan: * Norvasc 10mg PO daily * Hydralazine 10mg IVP Q6H SBP>160 * Hydralazine 75mg PO Q8H * Will increase to 100mg PO Q8H if continues to be uncontrolled * Toprol 100mg PO once a day * Echocardiogram (05/21/18): left ventricle is normal size, ejection fraction is 60-65%, grade i abnormal relaxation, mild tricupsid regurgitation, right ventricular systolic pressure is estimated at 30mm hg, no pulmonary hypertension , aortic root is normal size, aortic root displays mild scleorcalcific changes of the aortic root * Prior echocardiogram (05/03/18): normal LV systolic function. Aortic valve sclerosis Status: Chronic (5) Diabetes Status: Chronic * hgba1c: 9.2 * Lipid Panel: 123, Cholestrol: 199, LDL: 152. HDL: 38 * Hypoglycemic protocol * insulin sliding scale Q AC and HS * Accuchecks qAC and HS (6) Prophylactic measure Assessment & Plan: * Elevated head * Neurochecks * chemical anticoagulation secondary to intracranial hemorrhage * NPO * seizure precautions * aspiration precautions * Passed swallow eval * Calorie count in progress (day2/3) * Luke Ryan, , she is amendable to PEG if it is necessary Status: Acute Disposition: Will continue to see how patient does on dysphagia diet. will consult for subacute rehab placement for the patient and plan for discharge planning. We will see if neurointerventional/neurology want any further recommendations.
[2018-05-27] MEDS: Pantoprazole 40 mg EC Tab PO SCH (09:40)
[2018-05-27] MEDS: levETIRAcetam 500 MG in Sodium Chloride 0.9% 100 ML IVPB SCH ×2 (09:40→21:47)
[2018-05-27] MEDS: Metoprolol Succinate 100 mg XL Tab PO SCH (09:45)
[2018-05-28] MEDS: (Novolin R) Insulin Human Regular 100 units/ml vial SC SCH ×5 (00:45→21:39)
--- NOTE | 2018-05-28 06:10 | CP.PCM.PN ---
Subjective - Date & Time of Evaluation Date of Evaluation: 05/28/18 Time of Evaluation: 06:10 - Subjective Subjective: Mr. Rosario was seen and examined at the bedside. He is awake,speech is much clearer, oriented in all spheres but with restlessness behavior able to redirect.and remains on 1: 1 for patient safety. He claims of inability to sleep, wants coffee. He denies denies, dizziness, blurred vision. He follows simple commands with mild right facial droop, his right upper extremity weakness able to move in vertically, but with no hand flexion and lower extremity weak. He is able to wiggle his toes. There was no untoward events overnight. Objective - Vital Signs/Intake and Output Vital Signs (last 24 hours): Temp Pulse Resp BP Pulse Ox 98.4 F 63 20 158/77 H 99 05/27/18 23:14 05/27/18 23:14 05/27/18 23:14 05/28/18 04:15 05/27/18 23:14 Intake and Output: 05/27/18 05/28/18 18:59 06:59 Intake Total 420 100 Balance 420 100 - Medications Medications: Current Medications Amlodipine Besylate (Norvasc) 10 mg PO DAILY [facility] Last Admin: 05/27/18 09:40 Dose: 10 mg Bisacodyl (Dulcolax) 10 mg [place] ONCE PRN PRN Reason: Constipation Dextrose (Dextrose 50% Inj) 0 ml IV STAT PRN; Protocol PRN Reason: Hypoglycemia Protocol Dextrose (Glutose 15) 0 gm PO ONCE PRN; Protocol PRN Reason: Hypoglycemia Protocol Glucagon (Glucagen Diagnostic Kit) 0 mg IM STAT PRN; Protocol PRN Reason: Hypoglycemia Protocol Hydralazine HCl (Apresoline) 10 mg IVP Q6H PRN PRN Reason: sbp > 160 Last Admin: 05/26/18 08:45 Dose: 10 mg Hydralazine HCl (Apresoline) 75 mg PO Q8H [facility] Last Admin: 05/28/18 03:16 Dose: 75 mg Levetiracetam 500 mg/ Sodium (Chloride) 105 mls @ 420 mls/hr IVPB Q12H [facility] Last Admin: 05/27/18 21:47 Dose: 420 mls/hr Insulin Human Regular (Novolin R) 0 unit SC Q6H ATUL PRN Reason: Protocol Last Admin: 05/28/18 00:45 Dose: 4 units Metoprolol Succinate (Toprol Xl) 100 mg PO DAILY [facility] Last Admin: 05/27/18 09:45 Dose: 100 mg Pantoprazole Sodium (Protonix Ec Tab) 40 mg PO DAILY [facility] Last Admin: 05/27/18 09:40 Dose: 40 mg Quetiapine Fumarate (Seroquel) 12.5 mg PO HS PRN PRN Reason: Insomnia Rosuvastatin Calcium (Crestor) 5 mg PO HS [facility] Last Admin: 05/27/18 21:47 Dose: 5 mg - Labs Labs: 05/27/18 07:50 05/27/18 07:50 PT 12.4 SECONDS (9.7-12.2) H 05/21/18 08:44 INR 1.1 05/21/18 08:44 APTT 32 SECONDS (21-34) 05/21/18 08:44 - Constitutional Appears: No Acute Distress - Head Exam Head Exam: NORMAL INSPECTION - Eye Exam Pupil Exam: PERRL - Neurological Exam Neurological Exam: Alert, Awake Neuro motor strength exam: Left Upper Extremity: 5, Right Upper Extremity: 2/1, Left Lower Extremity: 5, Right Lower Extremity: 3 Additional comments: neurological unchanged from previous examination. Assessment and Plan (1) Intracranial hemorrhage Assessment & Plan: Case discussed with Dr. Daugherty, continue all current medical regimen. Recommend to increase seroquel 25 mg mg PO Q HS PRN for insomnia, repeat CT scan if mental status decline from his current status, blood pressure control with systolic blood pressure between 130-140, keep head of bed elevated at least 30 degrees angle.normothermic, glycemic control, and acute rehab for discharge planning. Status: Acute
[2018-05-28 07:30] LABS: BASO # 0.1 K/uL (0.0-0.2); BASO % 0.8 % (0.0-2.0); EOS # 0.5 K/uL (0.0-0.7); EOS % 4.2 % (0.0-4.0); HEMOGLOBIN 10.8 g/dL (12.0-18.0); LYMPH # 3.6 K/uL (1.0-4.3); LYMPH % 29.6 % (20.0-40.0); MEAN CELL VOLUME 71.5 fL (80.0-94.0); MEAN CORPUSCULAR HEMOGLOBIN 23.1 pg (27.0-31.0); MEAN CORPUSCULAR HGB CONC 32.3 g/dL (33.0-37.0); MEAN PLATELET VOLUME 10.8 fL (7.2-11.7); MONO # 0.6 K/uL (0.0-0.8); NEUT # 7.3 K/uL (1.8-7.0); NEUT % 60.4 % (50.0-75.0); NRBC % 0.1 % (0.0-2.0); RBC 4.69 Mil/uL (4.40-5.90); RED CELL DISTRIBUTION WIDTH 19.5 % (11.5-14.5)
[2018-05-28 07:36] LABS: ALB/GLOB RATIO 1.4 (1.0-2.1); ALBUMIN 3.8 g/dL (3.5-5.0); ALT/SGPT 33 U/L (21-72); AST/SGOT 34 U/L (17-59); BLOOD UREA NITROGEN 19 mg/dL (9-20); CALCIUM 9.2 mg/dl (8.6-10.4); GFR AFRICAN-AMERICAN > 60; GFR NON-AFRICAN AMERICAN > 60
[2018-05-28] MEDS: Metoprolol Succinate 100 mg XL Tab PO SCH (10:52)
[2018-05-28] MEDS: levETIRAcetam 500 MG in Sodium Chloride 0.9% 100 ML IVPB SCH ×2 (10:53→21:31)
[2018-05-28] MEDS: Pantoprazole 40 mg EC Tab PO SCH (10:53)
--- NOTE | 2018-05-28 20:19 | CP.PCM.PN ---
<Akil Grubbs - Last Filed: 05/28/18 21:31> Subjective - Date & Time of Evaluation Date of Evaluation: 05/28/18 Time of Evaluation: 11:00 - Subjective Subjective: Progress note for Hospitalist service Patient seen and examined at bedside. He is in no acute distress. He is eating well. He denies headache, chest pain, dyspnea, abdominal pain, nausea, vomiting. As per social work, awaiting placement at alf. Objective - Vital Signs/Intake and Output Vital Signs (last 24 hours): Temp Pulse Resp BP Pulse Ox 98.2 F 60 20 120/68 97 05/28/18 15:00 05/28/18 17:00 05/28/18 15:00 05/28/18 17:00 05/28/18 15:00 Intake and Output: 05/28/18 05/29/18 18:59 06:59 Intake Total 620 Balance 620 - Medications Medications: Current Medications Amlodipine Besylate (Norvasc) 10 mg PO DAILY [facility] Last Admin: 05/28/18 10:53 Dose: 10 mg Bisacodyl (Dulcolax) 10 mg AR ONCE PRN PRN Reason: Constipation Dextrose (Dextrose 50% Inj) 0 ml IV STAT PRN; Protocol PRN Reason: Hypoglycemia Protocol Dextrose (Glutose 15) 0 gm PO ONCE PRN; Protocol PRN Reason: Hypoglycemia Protocol Glucagon (Glucagen Diagnostic Kit) 0 mg IM STAT PRN; Protocol PRN Reason: Hypoglycemia Protocol Hydralazine HCl (Apresoline) 10 mg IVP Q6H PRN PRN Reason: sbp > 160 Last Admin: 05/26/18 08:45 Dose: 10 mg Hydralazine HCl (Apresoline) 100 mg PO Q8H [facility] Last Admin: 05/28/18 17:02 Dose: 100 mg Levetiracetam 500 mg/ Sodium (Chloride) 105 mls @ 420 mls/hr IVPB Q12H [facility] Last Admin: 05/28/18 10:53 Dose: 420 mls/hr Insulin Human Regular (Novolin R) 0 unit SC ACHS ATUL PRN Reason: Protocol Last Admin: 05/28/18 16:52 Dose: 4 unit Losartan Potassium (Cozaar) 50 mg PO DAILY [facility] Last Admin: 05/28/18 10:53 Dose: 50 mg Metoprolol Succinate (Toprol Xl) 100 mg PO DAILY [facility] Last Admin: 05/28/18 10:52 Dose: 100 mg Pantoprazole Sodium (Protonix Ec Tab) 40 mg PO DAILY [facility] Last Admin: 05/28/18 10:53 Dose: 40 mg Quetiapine Fumarate (Seroquel) 25 mg PO HS PRN PRN Reason: Insomnia Rosuvastatin Calcium (Crestor) 5 mg PO HS [facility] Last Admin: 05/27/18 21:47 Dose: 5 mg - Labs Labs: 05/28/18 07:09 05/28/18 07:09 PT 12.4 SECONDS (9.7-12.2) H 05/21/18 08:44 INR 1.1 05/21/18 08:44 APTT 32 SECONDS (21-34) 05/21/18 08:44 - Constitutional Appears: Non-toxic, No Acute Distress - Eye Exam Eye Exam: EOMI - Respiratory Exam Respiratory Exam: Clear to Ausculation Bilateral, NORMAL BREATHING PATTERN - Cardiovascular Exam Cardiovascular Exam: REGULAR RHYTHM, +S1, +S2 - GI/Abdominal Exam GI & Abdominal Exam: Soft, Normal Bowel Sounds. absent: Guarding, Rigid, Tenderness - Neurological Exam Neuro motor strength exam: Left Upper Extremity: 4, Right Upper Extremity: 2/1, Left Lower Extremity: 2/1 - Psychiatric Exam Psychiatric exam: Normal Mood Assessment and Plan - Assessment and Plan (Free Text) Plan: Assessment/plan (1) Intracranial hemorrhage Assessment & Plan: At [place]: * CT Head (05/16/18): interval left posterior frontal/parietal intra cerebral hematoma with surrounding edema and possible minimal mild mass effect on the left frontal horn. No midline shift. No dilatation of the right lateral ventricle appreciated. No interval dilatation or other particular segments noted. * CT head (05/16/18): subjective mild expansion of the left parietal hematoma with mild surrounding edema impression upon the posterior portion of the body of the left lateral ventricle. No other significant interval chage. At [facility]: * CT Head (05/17/18): re-demonstrated is a large parenchymal hematoma within the left posterior temporoparietal lobe secondary to hemorrhage into pre-existing AVM, mass effect produced by the hematoma and surrounding edema impress overlying sulci and posterior aspect left lateral ventricle as described. moderate to significant chronic white matter ischemic changes. * CT head (05/19/18): official read available in the computer. * CT Head (05/20/18): involving large subacute left posterior parietal lobe hematoma with moderate surrounding vasogenic edema, local mass effect, and effacement of the right lateral ventricle, 4mm midline shift from left to right. No herniation or hydrocephalus. Moderate chronic microangiopathic changes and moderate age-related global parenchymal volume loss Admitted to ICU at [facility] on 05/16/18; transferred out on 05/19/18 * Neurology (Dr. Aviles/Dr. Daugherty ) on the case-->help appreciated * Noninterventionist (Dr. 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 3-No evidence of treatable mayela-nidal aneurysm. 4-Early venous drainaige (shunting) primarily into the superior sagital sinus with antegrade drainge into the bilateral transverse-sigmoid sinuses. There is also reflus into superficial cortical veins. * We also discussed that gamma knife could be a viable option for the patient, while not providing immediate reduction of bleeding risk, would possibly reduce the risk over time. We will discuss this and other options, including surgery, intervention and observation after we have the results of the cerebral angiogram. * Elevated head of Bed * Seizure precautions * Neurochecks * Plavix was held and other anticoagulation held since 05/16/18 * Crestor 5mg POqHS * T, Chol: 199, LDL: 152, HDL: 38 * a1c: 9.2 * Seroquel 25mg PO HS PRN (2) Dysphagia Hypernatremia * GI (Sr. Concepcion) health and nutrition specialist-->help appreciated; peg postponed and reconsult if needed * Patient has passed swallow eval; placed on dysphagia diet and aspiration precaution * 05/28/18: tolerating diet well. * Currently on 3rd day of 3 calorie count * hypernatremia secondary to GI loss-->patient is eating now will monitor sodium level * 05/28/18: Na 143 (3) Dyslipidemia * Crestor 5mg POqHS * T, Chol: 199, LDL: 152, HDL: 38 * a1c: 9.2 (4) Hypertension Assessment & Plan: * Continue to monitor BP to keep systolic BP between 130-140 * Norvasc 10mg PO daily * Hydralazine 10mg IVP Q6H SBP>160 * Hydralazine 75mg PO Q8H --> (05/28/18) increased to 100mg PO Q8H * start Cozaar 50mg PO daily * Toprol 100mg PO once a day * Echocardiogram (05/21/18): left ventricle is normal size, ejection fraction is 60-65%, grade i abnormal relaxation, mild tricupsid regurgitation, right ventricular systolic pressure is estimated at 30mm hg, no pulmonary hypertension , aortic root is normal size, aortic root displays mild scleorcalcific changes of the aortic root * Prior echocardiogram (05/03/18): normal LV systolic function. Aortic valve sclerosis (5) Diabetes Status: Chronic * hgba1c: 9.2 * Lipid Panel: 123, Cholestrol: 199, LDL: 152. HDL: 38 * Hypoglycemic protocol * insulin sliding scale Q AC and HS * Accuchecks qAC and HS (6) Prophylactic measure Assessment & Plan: * Elevated head * Neurochecks * chemical anticoagulation secondary to intracranial hemorrhage * NPO * seizure precautions * aspiration precautions * Passed swallow eval * Calorie count in progress (day01/27) * Luke Ryan, , she is amendable to PEG if it is necessary Akil Grubbs, PGY1 Case discussed with Dr. Brody <Amaya Brody V - Last Filed: 05/29/18 08:52> Objective - Vital Signs/Intake and Output Vital Signs (last 24 hours): Temp Pulse Resp BP Pulse Ox 98.1 F 71 20 148/76 98 05/29/18 07:57 05/29/18 07:57 05/29/18 07:57 05/29/18 07:57 05/29/18 07:57 Intake and Output: 05/29/18 05/29/18 06:59 18:59 Intake Total 120 Output Total 250 Balance -130 - Medications Medications: Current Medications Amlodipine Besylate (Norvasc) 10 mg PO DAILY [facility] Last Admin: 05/28/18 10:53 Dose: 10 mg Bisacodyl (Dulcolax) 10 mg AR ONCE PRN PRN Reason: Constipation Dextrose (Dextrose 50% Inj) 0 ml IV STAT PRN; Protocol PRN Reason: Hypoglycemia Protocol Dextrose (Glutose 15) 0 gm PO ONCE PRN; Protocol PRN Reason: Hypoglycemia Protocol Glucagon (Glucagen Diagnostic Kit) 0 mg IM STAT PRN; Protocol PRN Reason: Hypoglycemia Protocol Hydralazine HCl (Apresoline) 10 mg IVP Q6H PRN PRN Reason: sbp > 160 Last Admin: 05/26/18 08:45 Dose: 10 mg Hydralazine HCl (Apresoline) 100 mg PO Q8H [facility] Last Admin: 05/29/18 01:50 Dose: 100 mg Levetiracetam 500 mg/ Sodium (Chloride) 105 mls @ 420 mls/hr IVPB Q12H [facility] Last Admin: 05/28/18 21:31 Dose: 420 mls/hr Insulin Human Regular (Novolin R) 0 unit SC ACHS ATUL PRN Reason: Protocol Last Admin: 05/29/18 08:08 Dose: Not Given Losartan Potassium (Cozaar) 50 mg PO DAILY [facility] Last Admin: 05/28/18 10:53 Dose: 50 mg Metoprolol Succinate (Toprol Xl) 100 mg PO DAILY [facility] Last Admin: 05/28/18 10:52 Dose: 100 mg Pantoprazole Sodium (Protonix Ec Tab) 40 mg PO DAILY [facility] Last Admin: 05/28/18 10:53 Dose: 40 mg Quetiapine Fumarate (Seroquel) 25 mg PO HS PRN PRN Reason: Insomnia Rosuvastatin Calcium (Crestor) 5 mg PO HS [facility] Last Admin: 05/28/18 21:31 Dose: 5 mg - Labs Labs: 05/29/18 07:08 05/29/18 07:08 PT 12.4 SECONDS (9.7-12.2) H 05/21/18 08:44 INR 1.1 05/21/18 08:44 APTT 32 SECONDS (21-34) 05/21/18 08:44 Assessment and Plan (1) Intracranial hemorrhage Status: Acute (2) Dyslipidemia Status: Chronic (3) Hypertension Status: Chronic (4) Diabetes Status: Chronic (5) Prophylactic measure Status: Acute Attending/Attestation - Attestation I have personally seen and examined this patient.: Yes I have fully participated in the care of the patient.: Yes I have reviewed all pertinent clinical information, including history, physical exam and plan: Yes Notes (Text): This is a late computer entry for 05/28/2018. Patient seen and examined this morning patient able to say his name his birthdate and able and improvement in right upper extremity weakness. No family present at bedside. I spoke with clinical partner bedside patient was able to eat 100% no difficulty of his food. Patient to complete last day of countertop today. It is unlikely the patient will need PEG tube at this time. Her spoken with neurology as well no further workup needed. Whenever he reviewed records patient's niece does have neuro-interventionalists phone number for follow-up. Patient's blood pressure mildly uncontrollable systolic appointment high 150s. We have increased his hydralazine 100 mg by mouth every 8 and started Cozaar 50 mg once per mouth. Hyponatremia has now normalized. Patient will likely need to restart by mouth medications to control diabetes as outpatient. Plan for discharge planning to rehabilitation tomorrow. (1) Intracranial hemorrhage Assessment & Plan: At [place]: * CT Head (05/16/18): interval left posterior frontal/parietal intra cerebral hematoma with surrounding edema and possible minimal mild mass effect on the left frontal horn. No midline shift. No dilatation of the right lateral ventricle appreciated. No interval dilatation or other particular segments noted. * CT head (05/16/18): subjective mild expansion of the left parietal hematoma with mild surrounding edema impression upon the posterior portion of the body of the left lateral ventricle. No other significant interval chage. At [facility]: * CT Head (05/17/18): re-demonstrated is a large parenchymal hematoma within the left posterior temporoparietal lobe secondary to hemorrhage into pre-existing AVM, mass effect produced by the hematoma and surrounding edema impress overlying sulci and posterior aspect left lateral ventricle as described. moderate to significant chronic white matter ischemic changes. * CT head (05/19/18): official read available in the computer. * CT Head (05/20/18): involving large subacute left posterior parietal lobe hematoma with moderate surrounding vasogenic edema, local mass effect, and effacement of the right lateral ventricle, 4mm midline shift from left to right. No herniation or hydrocephalus. Moderate chronic microangiopathic changes and moderate age-related global parenchymal volume loss Admitted to ICU at [facility] on 05/16/18; transferred out on 05/19/18 * Neurology (Dr. Aviles/Dr. Daugherty ) on the case-->help appreciated * Neuro-narrow gauge brakeman (Dr. 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 3-No evidence of treatable mayela-nidal aneurysm. 4-Early venous drainaige (shunting) primarily into the superior sagital sinus with antegrade drainge into the bilateral transverse-sigmoid sinuses. There is also reflus into superficial cortical veins. * We also discussed that gamma knife could be a viable option for the patient, while not providing immediate reduction of bleeding risk, would possibly reduce the risk over time. We will discuss this and other options, including surgery, intervention and observation after we have the results of the cerebral angiogram. * Elevated head of Bed * Seizure precautions * Neurochecks * Plavix was held and other anticoagulation held since 05/16/18 * Crestor 5mg POqHS * T, Chol: 199, LDL: 152, HDL: 38 * a1c: 9.2 Status: Acute (2) Dysphagia Hypernatremia Assessment & Plan: * GI (Sr. Concepcion) health and nutrition specialist-->help appreciated; peg postponed and reconsult if needed * Patient has passed swallow eval; placed on dysphagia diet and aspiration precaution * Currently on day 3 of 3 calorie count * hypernatremia secondary to GI loss-->patient is eating now will monitor sodium level; normalized (3) Dyslipidemia Assessment & Plan: * Crestor 5mg POqHS * T, Chol: 199, LDL: 152, HDL: 38 * a1c: 9.2 Status: Chronic (4) Hypertension Assessment & Plan: * Norvasc 10mg PO daily * Hydralazine 10mg IVP Q6H SBP>160 * Hydralazine 100 mg PO Q8H * Cozaar 50 mg by mouth once a day * Toprol 100mg PO once a day * Echocardiogram (05/21/18): left ventricle is normal size, ejection fraction is 60-65%, grade i abnormal relaxation, mild tricupsid regurgitation, right ventricular systolic pressure is estimated at 30mm hg, no pulmonary hypertension , aortic root is normal size, aortic root displays mild scleorcalcific changes of the aortic root * Prior echocardiogram (05/03/18): normal LV systolic function. Aortic valve sclerosis Status: Chronic (5) Diabetes Status: Chronic * hgba1c: 9.2 * Lipid Panel: 123, Cholestrol: 199, LDL: 152. HDL: 38 * Hypoglycemic protocol * insulin sliding scale Q AC and HS * Accuchecks qAC and HS (6) Prophylactic measure Assessment & Plan: * Elevated head * Neurochecks * chemical anticoagulation secondary to intracranial hemorrhage * NPO * seizure precautions * aspiration precautions * Passed swallow eval * Calorie count in progress (day2/3) * Luke Ryan, , she is amendable to PEG if it is necessary Status: Acute Disposition: Discharge for tomorrow.
[2018-05-29] MEDS: (Novolin R) Insulin Human Regular 100 units/ml vial SC SCH ×4 (01:00→22:08)
--- NOTE | 2018-05-29 07:05 | CP.PCM.PN ---
<Akil Grubbs - Last Filed: 05/29/18 20:23> Subjective - Date & Time of Evaluation Date of Evaluation: 05/29/18 Time of Evaluation: 07:05 - Subjective Subjective: Progress note for hospitalist service. Patient seen and examined at bedside. He states that he is in no discomfort. He is tolerating food well without choking. He denies headache, chest pain, dyspnea , abdominal pain, nausea, vomiting. As per social work, he is awaiting placement at subacute rehab. Objective - Vital Signs/Intake and Output Vital Signs (last 24 hours): Temp Pulse Resp BP Pulse Ox 98 F 67 20 158/69 H 99 05/28/18 23:56 05/28/18 23:56 05/28/18 23:56 05/28/18 23:56 05/28/18 23:56 Intake and Output: 05/29/18 05/29/18 06:59 18:59 Intake Total 120 Output Total 250 Balance -130 - Medications Medications: Current Medications Amlodipine Besylate (Norvasc) 10 mg PO DAILY [facility] Last Admin: 05/28/18 10:53 Dose: 10 mg Bisacodyl (Dulcolax) 10 mg SC ONCE PRN PRN Reason: Constipation Dextrose (Dextrose 50% Inj) 0 ml IV STAT PRN; Protocol PRN Reason: Hypoglycemia Protocol Dextrose (Glutose 15) 0 gm PO ONCE PRN; Protocol PRN Reason: Hypoglycemia Protocol Glucagon (Glucagen Diagnostic Kit) 0 mg IM STAT PRN; Protocol PRN Reason: Hypoglycemia Protocol Hydralazine HCl (Apresoline) 10 mg IVP Q6H PRN PRN Reason: sbp > 160 Last Admin: 05/26/18 08:45 Dose: 10 mg Hydralazine HCl (Apresoline) 100 mg PO Q8H [facility] Last Admin: 05/29/18 01:50 Dose: 100 mg Levetiracetam 500 mg/ Sodium (Chloride) 105 mls @ 420 mls/hr IVPB Q12H [facility] Last Admin: 05/28/18 21:31 Dose: 420 mls/hr Insulin Human Regular (Novolin R) 0 unit SC ACHS ATUL PRN Reason: Protocol Last Admin: 05/28/18 21:39 Dose: Not Given Losartan Potassium (Cozaar) 50 mg PO DAILY [facility] Last Admin: 05/28/18 10:53 Dose: 50 mg Metoprolol Succinate (Toprol Xl) 100 mg PO DAILY [facility] Last Admin: 05/28/18 10:52 Dose: 100 mg Pantoprazole Sodium (Protonix Ec Tab) 40 mg PO DAILY [facility] Last Admin: 05/28/18 10:53 Dose: 40 mg Quetiapine Fumarate (Seroquel) 25 mg PO HS PRN PRN Reason: Insomnia Rosuvastatin Calcium (Crestor) 5 mg PO HS [facility] Last Admin: 05/28/18 21:31 Dose: 5 mg - Labs Labs: 05/28/18 07:09 05/28/18 07:09 PT 12.4 SECONDS (9.7-12.2) H 05/21/18 08:44 INR 1.1 05/21/18 08:44 APTT 32 SECONDS (21-34) 05/21/18 08:44 - Constitutional Appears: Non-toxic, No Acute Distress - Head Exam Head Exam: ATRAUMATIC, NORMAL INSPECTION - Eye Exam Eye Exam: EOMI - ENT Exam ENT Exam: Mucous Membranes Moist - Respiratory Exam Respiratory Exam: Clear to Ausculation Bilateral, NORMAL BREATHING PATTERN. absent: Rales, Rhonchi, Wheezes, Stridor - Cardiovascular Exam Cardiovascular Exam: REGULAR RHYTHM, +S1, +S2 - GI/Abdominal Exam GI & Abdominal Exam: Soft, Normal Bowel Sounds. absent: Distended, Firm, Guarding, Rigid, Tenderness - Extremities Exam Extremities Exam: absent: Calf Tenderness, Pedal Edema - Neurological Exam Neurological Exam: Alert, Awake Additional comments: Right facial droop noted. Right slightly weaker than left. Assessment and Plan - Assessment and Plan (Free Text) Plan: Assessment/plan (1) Intracranial hemorrhage Assessment & Plan: At [facility]: * CT Head (05/16/18): interval left posterior frontal/parietal intra cerebral hematoma with surrounding edema and possible minimal mild mass effect on the left frontal horn. No midline shift. No dilatation of the right lateral ventricle appreciated. No interval dilatation or other particular segments noted. * CT head (05/16/18): subjective mild expansion of the left parietal hematoma with mild surrounding edema impression upon the posterior portion of the body of the left lateral ventricle. No other significant interval chage. At [facility]: * CT Head (05/17/18): re-demonstrated is a large parenchymal hematoma within the left posterior temporoparietal lobe secondary to hemorrhage into pre-existing AVM, mass effect produced by the hematoma and surrounding edema impress overlying sulci and posterior aspect left lateral ventricle as described. moderate to significant chronic white matter ischemic changes. * CT head (05/19/18): official read available in the computer. * CT Head (05/20/18): involving large subacute left posterior parietal lobe hematoma with moderate surrounding vasogenic edema, local mass effect, and effacement of the right lateral ventricle, 4mm midline shift from left to right. No herniation or hydrocephalus. Moderate chronic microangiopathic changes and moderate age-related global parenchymal volume loss Admitted to ICU at [facility] on 05/16/18; transferred out on 05/19/18 * Neurology (Dr. Aviles/Dr. Daugherty ) on the case-->help appreciated * Noninterventionist (Dr. 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 3-No evidence of treatable mayela-nidal aneurysm. 4-Early venous drainaige (shunting) primarily into the superior sagital sinus with antegrade drainge into the bilateral transverse-sigmoid sinuses. There is also reflus into superficial cortical veins. * We also discussed that gamma knife could be a viable option for the patient, while not providing immediate reduction of bleeding risk, would possibly reduce the risk over time. We will discuss this and other options, including surgery, intervention and observation after we have the results of the cerebral angiogram. * Elevated head of Bed * Seizure precautions * Neurochecks * Plavix was held and other anticoagulation held since 05/16/18 * Crestor 5mg POqHS * T, Chol: 199, LDL: 152, HDL: 38 * a1c: 9.2 * Seroquel 25mg PO HS PRN (2) Dysphagia Hypernatremia * GI (SrMaria Eugenia Concepcion) director of institutional sales-->help appreciated; peg postponed and reconsult if needed * Patient has passed swallow eval; placed on dysphagia diet and aspiration precaution * Continues to tolerate diet well * Currently on 3rd day of 3 calorie count * hypernatremia secondary to GI loss-->patient is eating now will monitor sodium level * 05/29/18: Na 143 (3) Dyslipidemia * Crestor 5mg POqHS * T, Chol: 199, LDL: 152, HDL: 38 * a1c: 9.2 (4) Hypertension Assessment & Plan: * Continue to monitor BP to keep systolic BP between 130-140 * Norvasc 10mg PO daily * Hydralazine 10mg IVP Q6H SBP>160 * Hydralazine 75mg PO Q8H --> (05/28/18) increased to 100mg PO Q8H * start Cozaar 50mg PO daily * Toprol 100mg PO once a day * Echocardiogram (05/21/18): left ventricle is normal size, ejection fraction is 60-65%, grade i abnormal relaxation, mild tricupsid regurgitation, right ventricular systolic pressure is estimated at 30mm hg, no pulmonary hypertension , aortic root is normal size, aortic root displays mild scleorcalcific changes of the aortic root * Prior echocardiogram (05/03/18): normal LV systolic function. Aortic valve sclerosis (5) Diabetes Status: Chronic * hgba1c: 9.2 * Lipid Panel: 123, Cholestrol: 199, LDL: 152. HDL: 38 * Hypoglycemic protocol * insulin sliding scale Q AC and HS * Accuchecks qAC and HS (6) Prophylactic measure Assessment & Plan: * Elevated head * Neurochecks * chemical anticoagulation secondary to intracranial hemorrhage * NPO * seizure precautions * aspiration precautions * Passed swallow eval * 3 day Calorie count completed 05/28/18 * Niece Shelby, , she is amendable to PEG if it is necessary Disposition: Awaiting authorization from subacute rehab. Can restart DM meds at home. Patient is not to be discharged on ASA or Plavix. Akil Grubbs, PGY1 Case discussed with Dr. Brody <Amaya Brody V - Last Filed: 05/30/18 09:18> Objective - Vital Signs/Intake and Output Vital Signs (last 24 hours): Temp Pulse Resp BP Pulse Ox 98.7 F 70 20 138/70 99 05/30/18 07:00 05/30/18 07:30 05/30/18 07:00 05/30/18 07:00 05/30/18 07:00 - Medications Medications: Current Medications Amlodipine Besylate (Norvasc) 10 mg PO DAILY [facility] Last Admin: 05/29/18 10:08 Dose: 10 mg Bisacodyl (Dulcolax) 10 mg SC ONCE PRN PRN Reason: Constipation Dextrose (Dextrose 50% Inj) 0 ml IV STAT PRN; Protocol PRN Reason: Hypoglycemia Protocol Dextrose (Glutose 15) 0 gm PO ONCE PRN; Protocol PRN Reason: Hypoglycemia Protocol Glucagon (Glucagen Diagnostic Kit) 0 mg IM STAT PRN; Protocol PRN Reason: Hypoglycemia Protocol Hydralazine HCl (Apresoline) 10 mg IVP Q6H PRN PRN Reason: sbp > 160 Last Admin: 05/26/18 08:45 Dose: 10 mg Hydralazine HCl (Apresoline) 100 mg PO Q8H [facility] Last Admin: 05/30/18 01:54 Dose: 100 mg Levetiracetam 500 mg/ Sodium (Chloride) 105 mls @ 420 mls/hr IVPB Q12H [facility] Last Admin: 05/29/18 21:35 Dose: 420 mls/hr Insulin Human Regular (Novolin R) 0 unit SC ACHS ATUL PRN Reason: Protocol Last Admin: 05/29/18 22:08 Dose: Not Given Losartan Potassium (Cozaar) 50 mg PO DAILY [facility] Last Admin: 05/29/18 10:08 Dose: 50 mg Metoprolol Succinate (Toprol Xl) 100 mg PO DAILY [facility] Last Admin: 05/29/18 10:08 Dose: 100 mg Pantoprazole Sodium (Protonix Ec Tab) 40 mg PO DAILY [facility] Last Admin: 05/29/18 10:08 Dose: 40 mg Quetiapine Fumarate (Seroquel) 25 mg PO HS PRN PRN Reason: Insomnia Rosuvastatin Calcium (Crestor) 5 mg PO HS [facility] Last Admin: 05/29/18 21:29 Dose: 5 mg - Labs Labs: 05/30/18 07:38 05/30/18 07:38 PT 12.4 SECONDS (9.7-12.2) H 05/21/18 08:44 INR 1.1 05/21/18 08:44 APTT 32 SECONDS (21-34) 05/21/18 08:44 Assessment and Plan (1) Intracranial hemorrhage Status: Acute (2) Dyslipidemia Status: Chronic (3) Hypertension Status: Chronic (4) Diabetes Status: Chronic (5) Prophylactic measure Status: Acute Attending/Attestation - Attestation I have personally seen and examined this patient.: Yes I have fully participated in the care of the patient.: Yes I have reviewed all pertinent clinical information, including history, physical exam and plan: Yes Notes (Text): This is a late computer entry for 05/29/2018. Patient seen and examined this morning patient able to say his name his birthdate and able and improvement in right upper extremity weakness. No family present at bedside. Her spoken with neurology as well no further workup needed. Blood pressure is controlled. Patient ate his breakfast this morning. Patient is medically stable for discharge. I have discussed with both case and addiction social worker; arrangements underway for discharge. (1) Intracranial hemorrhage Assessment & Plan: At [facility]: * CT Head (05/16/18): interval left posterior frontal/parietal intra cerebral hematoma with surrounding edema and possible minimal mild mass effect on the left frontal horn. No midline shift. No dilatation of the right lateral ventricle appreciated. No interval dilatation or other particular segments noted. * CT head (05/16/18): subjective mild expansion of the left parietal hematoma with mild surrounding edema impression upon the posterior portion of the body of the left lateral ventricle. No other significant interval chage. At [facility]: * CT Head (05/17/18): re-demonstrated is a large parenchymal hematoma within the left posterior temporoparietal lobe secondary to hemorrhage into pre-existing AVM, mass effect produced by the hematoma and surrounding edema impress overlying sulci and posterior aspect left lateral ventricle as described. moderate to significant chronic white matter ischemic changes. * CT head (05/19/18): official read available in the computer. * CT Head (05/20/18): involving large subacute left posterior parietal lobe hematoma with moderate surrounding vasogenic edema, local mass effect, and effacement of the right lateral ventricle, 4mm midline shift from left to right. No herniation or hydrocephalus. Moderate chronic microangiopathic changes and moderate age-related global parenchymal volume loss Admitted to ICU at [facility] on 05/16/18; transferred out on 05/19/18 * Neurology (Dr. Aviles/Dr. Daugherty ) on the case-->help appreciated * Neuro-clutch assembler (Dr. 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 3-No evidence of treatable mayela-nidal aneurysm. 4-Early venous drainaige (shunting) primarily into the superior sagital sinus with antegrade drainge into the bilateral transverse-sigmoid sinuses. There is also reflus into superficial cortical veins. * We also discussed that gamma knife could be a viable option for the patient, while not providing immediate reduction of bleeding risk, would possibly reduce the risk over time. We will discuss this and other options, including surgery, intervention and observation after we have the results of the cerebral angiogram. * Elevated head of Bed * Seizure precautions * Neurochecks * Plavix was held and other anticoagulation held since 05/16/18 * Crestor 5mg POqHS * T, Chol: 199, LDL: 152, HDL: 38 * a1c: 9.2 Status: Acute (2) Dysphagia Hypernatremia Assessment & Plan: * GI (Sr. Concepcion) director of institutional sales-->help appreciated; peg postponed and reconsult if needed * Patient has passed swallow eval; placed on dysphagia diet and aspiration precaution * Currently on day 3 of 3 calorie count * hypernatremia secondary to GI loss-->patient is eating now will monitor sodium level; normalized Status: Resolved (3) Dyslipidemia Assessment & Plan: * Crestor 5mg POqHS * T, Chol: 199, LDL: 152, HDL: 38 * a1c: 9.2 Status: Chronic (4) Hypertension Assessment & Plan: * Norvasc 10mg PO daily * Hydralazine 10mg IVP Q6H SBP>160 * Hydralazine 100 mg PO Q8H * Cozaar 50 mg by mouth once a day * Toprol 100mg PO once a day * Echocardiogram (05/21/18): left ventricle is normal size, ejection fraction is 60-65%, grade i abnormal relaxation, mild tricupsid regurgitation, right ventricular systolic pressure is estimated at 30mm hg, no pulmonary hypertension , aortic root is normal size, aortic root displays mild scleorcalcific changes of the aortic root * Prior echocardiogram (05/03/18): normal LV systolic function. Aortic valve sclerosis Status: Chronic (5) Diabetes Status: Chronic * hgba1c: 9.2 * Lipid Panel: 123, Cholestrol: 199, LDL: 152. HDL: 38 * Hypoglycemic protocol * insulin sliding scale Q AC and HS * Accuchecks qAC and HS Status: Chronic (6) Prophylactic measure Assessment & Plan: * Elevated head * Neurochecks * chemical anticoagulation secondary to intracranial hemorrhage * seizure precautions * aspiration precautions * Passed swallow eval * Calorie count in progress (day2/3) * Luke Ryan, Disposition: Patient is medically stable for discharge. No aspirin/plavix given intracranial hemorrhage related to AVM. Patient to f/u with neurointerventionalist and PMD as outpatient.
[2018-05-29 07:29] LABS: BASO # 0.1 K/uL (0.0-0.2); BASO % 0.8 % (0.0-2.0); EOS # 0.4 K/uL (0.0-0.7); EOS % 3.4 % (0.0-4.0); HEMOGLOBIN 10.9 g/dL (12.0-18.0); LYMPH # 3.6 K/uL (1.0-4.3); LYMPH % 28.6 % (20.0-40.0); MEAN CELL VOLUME 71.3 fL (80.0-94.0); MEAN CORPUSCULAR HEMOGLOBIN 22.6 pg (27.0-31.0); MEAN CORPUSCULAR HGB CONC 31.8 g/dL (33.0-37.0); MEAN PLATELET VOLUME 10.5 fL (7.2-11.7); MONO # 0.6 K/uL (0.0-0.8); NEUT # 7.8 K/uL (1.8-7.0); NEUT % 62.2 % (50.0-75.0); NRBC % 0.1 % (0.0-2.0); RBC 4.81 Mil/uL (4.40-5.90); RED CELL DISTRIBUTION WIDTH 19.3 % (11.5-14.5); WHITE BLOOD COUNT 12.6 K/uL (4.8-10.8)
[2018-05-29 08:11] LABS: ALB/GLOB RATIO 1.3 (1.0-2.1); ALBUMIN 3.7 g/dL (3.5-5.0); ALT/SGPT 40 U/L (21-72); AST/SGOT 42 U/L (17-59); BLOOD UREA NITROGEN 17 mg/dL (9-20); CALCIUM 9.1 mg/dl (8.6-10.4); GFR AFRICAN-AMERICAN > 60; GFR NON-AFRICAN AMERICAN > 60
[2018-05-29] MEDS: Metoprolol Succinate 100 mg XL Tab PO SCH (10:08)
[2018-05-29] MEDS: Pantoprazole 40 mg EC Tab PO SCH (10:08)
[2018-05-29] MEDS: levETIRAcetam 500 MG in Sodium Chloride 0.9% 100 ML IVPB SCH ×2 (10:21→21:35)
[2018-05-30 07:54] LABS: BASO # 0.1 K/uL (0.0-0.2); EOS # 0.4 K/uL (0.0-0.7); EOS % 3.9 % (0.0-4.0); HEMOGLOBIN 10.8 g/dL (12.0-18.0); MEAN CELL VOLUME 71.4 fL (80.0-94.0); MEAN CORPUSCULAR HEMOGLOBIN 23.2 pg (27.0-31.0); MEAN CORPUSCULAR HGB CONC 32.5 g/dL (33.0-37.0); MEAN PLATELET VOLUME 10.7 fL (7.2-11.7); MONO # 0.5 K/uL (0.0-0.8); MONO % 5.4 % (0.0-10.0); NEUT % 59.7 % (50.0-75.0); RBC 4.66 Mil/uL (4.40-5.90); RED CELL DISTRIBUTION WIDTH 19.6 % (11.5-14.5); WHITE BLOOD COUNT 10.1 K/uL (4.8-10.8)
[2018-05-30 08:04] LABS: ALB/GLOB RATIO 1.3 (1.0-2.1); ALBUMIN 3.7 g/dL (3.5-5.0); ALT/SGPT 42 U/L (21-72); AST/SGOT 38 U/L (17-59); BLOOD UREA NITROGEN 19 mg/dL (9-20); CALCIUM 9.2 mg/dl (8.6-10.4); GFR AFRICAN-AMERICAN > 60; GFR NON-AFRICAN AMERICAN > 60
[2018-05-30] MEDS: (Novolin R) Insulin Human Regular 100 units/ml vial SC SCH ×4 (08:30→21:32)
--- NOTE | 2018-05-30 08:56 | CP.PCM.PN ---
<Amaya Brody V - Last Filed: 05/30/18 09:18> Objective - Vital Signs/Intake and Output Vital Signs (last 24 hours): Temp Pulse Resp BP Pulse Ox 98.7 F 70 20 138/70 99 05/30/18 07:00 05/30/18 07:30 05/30/18 07:00 05/30/18 07:00 05/30/18 07:00 - Medications Medications: Current Medications Amlodipine Besylate (Norvasc) 10 mg PO DAILY [facility] Last Admin: 05/30/18 09:17 Dose: 10 mg Bisacodyl (Dulcolax) 10 mg TN ONCE PRN PRN Reason: Constipation Dextrose (Dextrose 50% Inj) 0 ml IV STAT PRN; Protocol PRN Reason: Hypoglycemia Protocol Dextrose (Glutose 15) 0 gm PO ONCE PRN; Protocol PRN Reason: Hypoglycemia Protocol Glucagon (Glucagen Diagnostic Kit) 0 mg IM STAT PRN; Protocol PRN Reason: Hypoglycemia Protocol Hydralazine HCl (Apresoline) 10 mg IVP Q6H PRN PRN Reason: sbp > 160 Last Admin: 05/26/18 08:45 Dose: 10 mg Hydralazine HCl (Apresoline) 100 mg PO Q8H [facility] Last Admin: 05/30/18 09:17 Dose: 100 mg Levetiracetam 500 mg/ Sodium (Chloride) 105 mls @ 420 mls/hr IVPB Q12H [facility] Last Admin: 05/29/18 21:35 Dose: 420 mls/hr Insulin Human Regular (Novolin R) 0 unit SC ACHS [facility] PRN Reason: Protocol Last Admin: 05/30/18 08:30 Dose: 2 unit Losartan Potassium (Cozaar) 50 mg PO DAILY [facility] Last Admin: 05/30/18 09:17 Dose: 50 mg Metoprolol Succinate (Toprol Xl) 100 mg PO DAILY [facility] Last Admin: 05/30/18 09:17 Dose: 100 mg Pantoprazole Sodium (Protonix Ec Tab) 40 mg PO DAILY [facility] Last Admin: 05/30/18 09:17 Dose: 40 mg Quetiapine Fumarate (Seroquel) 25 mg PO HS PRN PRN Reason: Insomnia Rosuvastatin Calcium (Crestor) 5 mg PO HS [facility] Last Admin: 05/29/18 21:29 Dose: 5 mg - Labs Labs: 05/30/18 07:38 05/30/18 07:38 PT 12.4 SECONDS (9.7-12.2) H 05/21/18 08:44 INR 1.1 05/21/18 08:44 APTT 32 SECONDS (21-34) 05/21/18 08:44 Assessment and Plan (1) Intracranial hemorrhage Status: Acute (2) Dyslipidemia Status: Chronic (3) Hypertension Status: Chronic (4) Diabetes Status: Chronic (5) Prophylactic measure Status: Acute Attending/Attestation - Attestation I have personally seen and examined this patient.: Yes I have fully participated in the care of the patient.: Yes I have reviewed all pertinent clinical information, including history, physical exam and plan: Yes Notes (Text): Patient seen, examined and case discussed with medical coordinator pesticide use. Patient is alert, awake, and speaking with me. Denies acute complaints. No family present at bedside. Patient ate well this morning. Patient is medically stable for discharge when bed is available. I have spoken with social and director case yesterday; they are aware. Today is the holiday arrangements are still pending insurance and new location given denial yesterday. Will re-start patient's flomax 0.4mg PO daily Will start Amaryl 1mg PPO daily and start Metformin 1000mg PO BID given uncontrolled diabetic (1) Intracranial hemorrhage Assessment & Plan: At [facility]: * CT Head (05/16/18): interval left posterior frontal/parietal intra cerebral hematoma with surrounding edema and possible minimal mild mass effect on the left frontal horn. No midline shift. No dilatation of the right lateral ventricle appreciated. No interval dilatation or other particular segments noted. * CT head (05/16/18): subjective mild expansion of the left parietal hematoma with mild surrounding edema impression upon the posterior portion of the body of the left lateral ventricle. No other significant interval chage. At [facility]: * CT Head (05/17/18): re-demonstrated is a large parenchymal hematoma within the left posterior temporoparietal lobe secondary to hemorrhage into pre-existing AVM, mass effect produced by the hematoma and surrounding edema impress overlying sulci and posterior aspect left lateral ventricle as described. moderate to significant chronic white matter ischemic changes. * CT head (05/19/18): official read available in the computer. * CT Head (05/20/18): involving large subacute left posterior parietal lobe hematoma with moderate surrounding vasogenic edema, local mass effect, and effacement of the right lateral ventricle, 4mm midline shift from left to right. No herniation or hydrocephalus. Moderate chronic microangiopathic changes and moderate age-related global parenchymal volume loss Admitted to ICU at [facility] on 05/16/18; transferred out on 05/19/18 * Neurology (Dr. Aviles/Dr. Daugherty ) on the case-->help appreciated * Neuro-hoop driving machine operator helper (Dr. 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 3-No evidence of treatable mayela-nidal aneurysm. 4-Early venous drainaige (shunting) primarily into the superior sagital sinus with antegrade drainge into the bilateral transverse-sigmoid sinuses. There is also reflus into superficial cortical veins. * We also discussed that gamma knife could be a viable option for the patient, while not providing immediate reduction of bleeding risk, would possibly reduce the risk over time. We will discuss this and other options, including surgery, intervention and observation after we have the results of the cerebral angiogram. * Elevated head of Bed * Seizure precautions * Neurochecks * Plavix was held and other anticoagulation held since 05/16/18 * Crestor 5mg POqHS * T, Chol: 199, LDL: 152, HDL: 38 * a1c: 9.2 Status: stable (2) Dysphagia Hypernatremia-->resolved Assessment & Plan: * GI (Sr. Concepcion) environmental services supervisor-->help appreciated; peg postponed and reconsult if needed * Patient has passed swallow eval; placed on dysphagia diet and aspiration precaution * Completed calorie count * hypernatremia secondary to GI loss-->patient is eating now will monitor sodium level; normalized Status: Resolved (3) Dyslipidemia Assessment & Plan: * Crestor 5mg POqHS * T, Chol: 199, LDL: 152, HDL: 38 * a1c: 9.2 Status: Chronic (4) Hypertension Assessment & Plan: * Norvasc 10mg PO daily * Hydralazine 10mg IVP Q6H SBP>160 * Hydralazine 100 mg PO Q8H * Cozaar 50 mg by mouth once a day * Toprol 100mg PO once a day * Echocardiogram (05/21/18): left ventricle is normal size, ejection fraction is 60-65%, grade i abnormal relaxation, mild tricupsid regurgitation, right ventricular systolic pressure is estimated at 30mm hg, no pulmonary hypertension , aortic root is normal size, aortic root displays mild scleorcalcific changes of the aortic root * Prior echocardiogram (05/03/18): normal LV systolic function. Aortic valve sclerosis Status: Chronic (5) Diabetes Status: Chronic * hgba1c: 9.2 * Lipid Panel: 123, Cholestrol: 199, LDL: 152. HDL: 38 * Hypoglycemic protocol * insulin sliding scale Q AC and HS * Accuchecks qAC and HS * Start Metformin 1000mg PO BID * Start Amaryl 1mg PO daily Status: Chronic (6) BPH Status: Chronic * Flomax 0.4mg PO daily Status: Chronic (7) Prophylactic measure Assessment & Plan: * Elevated head * Neurochecks * chemical anticoagulation secondary to intracranial hemorrhage * seizure precautions * aspiration precautions * Passed swallow eval * Tolerating Dysphagia diet * Calorie count in progress (day2/3) * Luke Ryan, Disposition: Patient is medically stable for discharge. No aspirin/plavix given intracranial hemorrhage related to AVM. Patient to f/u with neurointerventionalist and PMD as outpatient. <Radha Chandler - Last Filed: 05/30/18 19:29> Subjective - Date & Time of Evaluation Date of Evaluation: 05/30/18 Time of Evaluation: 08:54 - Subjective Subjective: PGY-[address] Brody. Patient was seen and examined today at bedside. Nurse reports no overnight events. Patient reports no acute problems. No clinical change from yesterday. Denies chest pain, shortness of breath, abdominal pain, nausea, vomiting, constipation, diarrhea. Objective - Vital Signs/Intake and Output Vital Signs (last 24 hours): Temp Pulse Resp BP Pulse Ox 98.7 F 70 20 138/70 99 05/30/18 07:00 05/30/18 07:30 05/30/18 07:00 05/30/18 07:00 05/30/18 07:00 - Medications Medications: Current Medications Amlodipine Besylate (Norvasc) 10 mg PO DAILY [facility] Last Admin: 05/29/18 10:08 Dose: 10 mg Bisacodyl (Dulcolax) 10 mg TN ONCE PRN PRN Reason: Constipation Dextrose (Dextrose 50% Inj) 0 ml IV STAT PRN; Protocol PRN Reason: Hypoglycemia Protocol Dextrose (Glutose 15) 0 gm PO ONCE PRN; Protocol PRN Reason: Hypoglycemia Protocol Glucagon (Glucagen Diagnostic Kit) 0 mg IM STAT PRN; Protocol PRN Reason: Hypoglycemia Protocol Hydralazine HCl (Apresoline) 10 mg IVP Q6H PRN PRN Reason: sbp > 160 Last Admin: 05/26/18 08:45 Dose: 10 mg Hydralazine HCl (Apresoline) 100 mg PO Q8H [facility] Last Admin: 05/30/18 01:54 Dose: 100 mg Levetiracetam 500 mg/ Sodium (Chloride) 105 mls @ 420 mls/hr IVPB Q12H [facility] Last Admin: 05/29/18 21:35 Dose: 420 mls/hr Insulin Human Regular (Novolin R) 0 unit SC ACHS [facility] PRN Reason: Protocol Last Admin: 05/29/18 22:08 Dose: Not Given Losartan Potassium (Cozaar) 50 mg PO DAILY [facility] Last Admin: 05/29/18 10:08 Dose: 50 mg Metoprolol Succinate (Toprol Xl) 100 mg PO DAILY [facility] Last Admin: 05/29/18 10:08 Dose: 100 mg Pantoprazole Sodium (Protonix Ec Tab) 40 mg PO DAILY [facility] Last Admin: 05/29/18 10:08 Dose: 40 mg Quetiapine Fumarate (Seroquel) 25 mg PO HS PRN PRN Reason: Insomnia Rosuvastatin Calcium (Crestor) 5 mg PO HS [facility] Last Admin: 05/29/18 21:29 Dose: 5 mg - Labs Labs: 05/30/18 07:38 05/30/18 07:38 PT 12.4 SECONDS (9.7-12.2) H 05/21/18 08:44 INR 1.1 05/21/18 08:44 APTT 32 SECONDS (21-34) 05/21/18 08:44 - Constitutional Appears: Non-toxic, No Acute Distress - Head Exam Head Exam: ATRAUMATIC, NORMAL INSPECTION, NORMOCEPHALIC - Eye Exam Eye Exam: EOMI, Normal appearance, PERRL - ENT Exam ENT Exam: Mucous Membranes Moist, Normal Exam - Respiratory Exam Respiratory Exam: Clear to Ausculation Bilateral, NORMAL BREATHING PATTERN. absent: Rales, Rhonchi, Wheezes - Cardiovascular Exam Cardiovascular Exam: REGULAR RHYTHM, +S1, +S2. absent: Murmur - GI/Abdominal Exam GI & Abdominal Exam: Soft, Normal Bowel Sounds. absent: Distended, Firm, Guarding, Rigid, Tenderness - Extremities Exam Extremities Exam: absent: Calf Tenderness, Pedal Edema - Neurological Exam Neurological Exam: Alert, Awake - Psychiatric Exam Psychiatric exam: Normal Affect, Normal Mood - Skin Skin Exam: Dry, Intact, Normal Color, Warm Assessment and Plan - Assessment and Plan (Free Text) Plan: (1) Intracranial hemorrhage Assessment & Plan: At [facility]: * CT Head (05/16/18): interval left posterior frontal/parietal intra cerebral hematoma with surrounding edema and possible minimal mild mass effect on the left frontal horn. No midline shift. No dilatation of the right lateral ventricle appreciated. No interval dilatation or other particular segments noted. * CT head (05/16/18): subjective mild expansion of the left parietal hematoma with mild surrounding edema impression upon the posterior portion of the body of the left lateral ventricle. No other significant interval chage. At [facility]: * CT Head (05/17/18): re-demonstrated is a large parenchymal hematoma within the left posterior temporoparietal lobe secondary to hemorrhage into pre-existing AVM, mass effect produced by the hematoma and surrounding edema impress overlying sulci and posterior aspect left lateral ventricle as described. moderate to significant chronic white matter ischemic changes. * CT head (05/19/18): official read available in the computer. * CT Head (05/20/18): involving large subacute left posterior parietal lobe hematoma with moderate surrounding vasogenic edema, local mass effect, and effacement of the right lateral ventricle, 4mm midline shift from left to right. No herniation or hydrocephalus. Moderate chronic microangiopathic changes and moderate age-related global parenchymal volume loss Admitted to ICU at [facility] on 05/16/18; transferred out on 05/19/18 * Neurology (Dr. Aviles/Dr. Daugherty ) on the case-->help appreciated * Noninterventionist (Dr. 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 3-No evidence of treatable mayela-nidal aneurysm. 4-Early venous drainaige (shunting) primarily into the superior sagital sinus with antegrade drainge into the bilateral transverse-sigmoid sinuses. There is also reflus into superficial cortical veins. * We also discussed that gamma knife could be a viable option for the patient, while not providing immediate reduction of bleeding risk, would possibly reduce the risk over time. We will discuss this and other options, including surgery, intervention and observation after we have the results of the cerebral angiogram. * Elevated head of Bed * Seizure precautions * Neurochecks * Plavix was held and other anticoagulation held since 05/16/18 * Crestor 5mg POqHS * T, Chol: 199, LDL: 152, HDL: 38 * a1c: 9.2 * Seroquel 25mg PO HS PRN (2) Dysphagia Hypernatremia * GI (SrMaria Eugenia Concepcion) environmental services supervisor-->help appreciated; peg postponed and reconsult if needed * Patient has passed swallow eval; placed on dysphagia diet and aspiration precaution * Continues to tolerate diet well * Currently on 3rd day of 3 calorie count * hypernatremia secondary to GI loss-->patient is eating now will monitor sodium level * 05/29/18: Na 143 (3) Dyslipidemia * Crestor 5mg POqHS * T, Chol: 199, LDL: 152, HDL: 38 * a1c: 9.2 (4) Hypertension Assessment & Plan: * Continue to monitor BP to keep systolic BP between 130-140 * Norvasc 10mg PO daily * Hydralazine 10mg IVP Q6H SBP>160 * Hydralazine 75mg PO Q8H --> (05/28/18) increased to 100mg PO Q8H * start Cozaar 50mg PO daily * Toprol 100mg PO once a day * Echocardiogram (05/21/18): left ventricle is normal size, ejection fraction is 60-65%, grade i abnormal relaxation, mild tricupsid regurgitation, right ventricular systolic pressure is estimated at 30mm hg, no pulmonary hypertension , aortic root is normal size, aortic root displays mild scleorcalcific changes of the aortic root * Prior echocardiogram (05/03/18): normal LV systolic function. Aortic valve sclerosis (5) Diabetes Status: Chronic * hgba1c: 9.2 * Lipid Panel: 123, Cholestrol: 199, LDL: 152. HDL: 38 * Hypoglycemic protocol * insulin sliding scale Q AC and HS * Accuchecks qAC and HS (6) Prophylactic measure Assessment & Plan: * Elevated head * Neurochecks * chemical anticoagulation secondary to intracranial hemorrhage * NPO * seizure precautions * aspiration precautions * Passed swallow eval * 3 day Calorie count completed 05/28/18 * Niece Shelby, , she is amendable to PEG if it is necessary Disposition: Awaiting authorization from subacute rehab. Can restart DM meds at home. Patient is not to be discharged on ASA or Plavix. Failed placement yesterday, awaiting authorization from different subacute rehab facility. Radha Chandler PGY-1. Case discussed with Dr. Brody
[2018-05-30] MEDS: Metoprolol Succinate 100 mg XL Tab PO SCH (09:17)
[2018-05-30] MEDS: Pantoprazole 40 mg EC Tab PO SCH (09:17)
--- NOTE | 2018-05-31 07:06 | CP.PCM.PN ---
Subjective - Date & Time of Evaluation Date of Evaluation: 05/31/18 Time of Evaluation: 07:06 - Subjective Subjective: Mr. Rosario was seen and examined at the bedside. He is awake,speech is much clearer, oriented in all spheres but with restlessness behavior able to redirect.and remains on 1: 1 for patient safety. He claims of inability to sleep, wants coffee. He denies denies, dizziness, blurred vision. He follows simple commands with mild right facial droop, his right upper extremity weakness able to move in vertically, but with no hand flexion and lower extremity weak. He is able to wiggle his toes. There was no untoward events overnight. Objective - Vital Signs/Intake and Output Vital Signs (last 24 hours): Temp Pulse Resp BP Pulse Ox 97.9 F 73 20 121/66 96 05/30/18 23:33 05/30/18 23:33 05/30/18 23:33 05/30/18 23:33 05/30/18 23:33 - Medications Medications: Current Medications Amlodipine Besylate (Norvasc) 10 mg PO DAILY [facility] Last Admin: 05/30/18 09:17 Dose: 10 mg Bisacodyl (Dulcolax) 10 mg [place] ONCE PRN PRN Reason: Constipation Dextrose (Dextrose 50% Inj) 0 ml IV STAT PRN; Protocol PRN Reason: Hypoglycemia Protocol Dextrose (Glutose 15) 0 gm PO ONCE PRN; Protocol PRN Reason: Hypoglycemia Protocol Glimepiride (Amaryl) 1 mg PO DAILY [facility] Last Admin: 05/30/18 10:13 Dose: 1 mg Glucagon (Glucagen Diagnostic Kit) 0 mg IM STAT PRN; Protocol PRN Reason: Hypoglycemia Protocol Hydralazine HCl (Apresoline) 10 mg IVP Q6H PRN PRN Reason: sbp > 160 Last Admin: 05/26/18 08:45 Dose: 10 mg Hydralazine HCl (Apresoline) 100 mg PO Q8H [facility] Last Admin: 05/31/18 01:15 Dose: 100 mg Insulin Human Regular (Novolin R) 0 unit SC ACHS [facility] PRN Reason: Protocol Last Admin: 05/30/18 21:32 Dose: Not Given Levetiracetam (Keppra) 500 mg PO BID [facility] Last Admin: 05/30/18 17:31 Dose: 500 mg Losartan Potassium (Cozaar) 50 mg PO DAILY [facility] Last Admin: 05/30/18 09:17 Dose: 50 mg Metformin HCl (Glucophage) 1,000 mg PO BID [facility] Last Admin: 05/30/18 17:31 Dose: 1,000 mg Metoprolol Succinate (Toprol Xl) 100 mg PO DAILY [facility] Last Admin: 05/30/18 09:17 Dose: 100 mg Pantoprazole Sodium (Protonix Ec Tab) 40 mg PO DAILY [facility] Last Admin: 05/30/18 09:17 Dose: 40 mg Quetiapine Fumarate (Seroquel) 25 mg PO HS PRN PRN Reason: Insomnia Rosuvastatin Calcium (Crestor) 5 mg PO HS [facility] Last Admin: 05/30/18 22:01 Dose: 5 mg Tamsulosin HCl (Flomax) 0.4 mg PO DAILY [facility] Last Admin: 05/30/18 10:14 Dose: 0.4 mg - Labs Labs: 05/30/18 07:38 05/30/18 07:38 PT 12.4 SECONDS (9.7-12.2) H 05/21/18 08:44 INR 1.1 05/21/18 08:44 APTT 32 SECONDS (21-34) 05/21/18 08:44 - Constitutional Appears: No Acute Distress - Head Exam Head Exam: NORMAL INSPECTION - Neurological Exam Neurological Exam: Alert, Awake Neuro motor strength exam: Left Upper Extremity: 5, Right Upper Extremity: 2/1, Left Lower Extremity: 5, Right Lower Extremity: 3 Additional comments: neurological unchanged from previous examination. Assessment and Plan (1) Intracranial hemorrhage Assessment & Plan: Case discussed with Dr. Daugherty, continue all current medical regimen. Recommend to increase seroquel 25 mg mg PO Q HS PRN for insomnia, repeat CT scan if mental status decline from his current status, blood pressure control with systolic blood pressure between 130-140, keep head of bed elevated at least 30 degrees angle.normothermic, glycemic control, and rehab for discharge planning. Status: Acute
[2018-05-31 07:46] LABS: BASO # 0.1 K/uL (0.0-0.2); BASO % 0.7 % (0.0-2.0); EOS # 0.3 K/uL (0.0-0.7); EOS % 2.5 % (0.0-4.0); HEMOGLOBIN 11.3 g/dL (12.0-18.0); LYMPH # 2.5 K/uL (1.0-4.3); LYMPH % 22.5 % (20.0-40.0); MEAN CELL VOLUME 71.8 fL (80.0-94.0); MEAN CORPUSCULAR HEMOGLOBIN 23.4 pg (27.0-31.0); MEAN CORPUSCULAR HGB CONC 32.6 g/dL (33.0-37.0); MEAN PLATELET VOLUME 10.9 fL (7.2-11.7); MONO # 0.6 K/uL (0.0-0.8); MONO % 5.4 % (0.0-10.0); NEUT # 7.5 K/uL (1.8-7.0); NEUT % 68.9 % (50.0-75.0); NRBC % 0.1 % (0.0-2.0); RBC 4.83 Mil/uL (4.40-5.90); RED CELL DISTRIBUTION WIDTH 19.9 % (11.5-14.5); WHITE BLOOD COUNT 10.9 K/uL (4.8-10.8)
[2018-05-31 08:10] LABS: ALB/GLOB RATIO 1.3 (1.0-2.1); ALBUMIN 3.7 g/dL (3.5-5.0); ALT/SGPT 39 U/L (21-72); AST/SGOT 33 U/L (17-59); BLOOD UREA NITROGEN 24 mg/dL (9-20); CALCIUM 9.2 mg/dl (8.6-10.4); GFR AFRICAN-AMERICAN > 60; GFR NON-AFRICAN AMERICAN > 60
[2018-05-31] MEDS: (Novolin R) Insulin Human Regular 100 units/ml vial SC SCH ×4 (08:43→21:50)
--- NOTE | 2018-05-31 09:11 | CP.PCM.PN ---
Subjective - Date & Time of Evaluation Date of Evaluation: 05/31/18 Time of Evaluation: 09:11 - Subjective Subjective: Progress note for Hospitalist service. Patient seen and examined at bedside. He states that he is comfortable, has been eating and sleeping well. Objective - Vital Signs/Intake and Output Vital Signs (last 24 hours): Temp Pulse Resp BP Pulse Ox 98.1 F 85 20 119/74 99 05/31/18 07:00 05/31/18 07:00 05/31/18 07:00 05/31/18 07:00 05/31/18 07:00 - Medications Medications: Current Medications Amlodipine Besylate (Norvasc) 10 mg PO DAILY [facility] Last Admin: 05/30/18 09:17 Dose: 10 mg Bisacodyl (Dulcolax) 10 mg [place] ONCE PRN PRN Reason: Constipation Dextrose (Dextrose 50% Inj) 0 ml IV STAT PRN; Protocol PRN Reason: Hypoglycemia Protocol Dextrose (Glutose 15) 0 gm PO ONCE PRN; Protocol PRN Reason: Hypoglycemia Protocol Glimepiride (Amaryl) 1 mg PO DAILY [facility] Last Admin: 05/30/18 10:13 Dose: 1 mg Glucagon (Glucagen Diagnostic Kit) 0 mg IM STAT PRN; Protocol PRN Reason: Hypoglycemia Protocol Hydralazine HCl (Apresoline) 10 mg IVP Q6H PRN PRN Reason: sbp > 160 Last Admin: 05/26/18 08:45 Dose: 10 mg Hydralazine HCl (Apresoline) 100 mg PO Q8H [facility] Last Admin: 05/31/18 01:15 Dose: 100 mg Insulin Human Regular (Novolin R) 0 unit SC [facility] PRN Reason: Protocol Last Admin: 05/30/18 21:32 Dose: Not Given Levetiracetam (Keppra) 500 mg PO BID [facility] Last Admin: 05/30/18 17:31 Dose: 500 mg Losartan Potassium (Cozaar) 50 mg PO DAILY [facility] Last Admin: 05/30/18 09:17 Dose: 50 mg Metformin HCl (Glucophage) 1,000 mg PO BID [facility] Last Admin: 05/30/18 17:31 Dose: 1,000 mg Metoprolol Succinate (Toprol Xl) 100 mg PO DAILY [facility] Last Admin: 05/30/18 09:17 Dose: 100 mg Pantoprazole Sodium (Protonix Ec Tab) 40 mg PO DAILY [facility] Last Admin: 05/30/18 09:17 Dose: 40 mg Quetiapine Fumarate (Seroquel) 25 mg PO HS PRN PRN Reason: Insomnia Rosuvastatin Calcium (Crestor) 5 mg PO HS [facility] Last Admin: 05/30/18 22:01 Dose: 5 mg Tamsulosin HCl (Flomax) 0.4 mg PO DAILY [facility] Last Admin: 05/30/18 10:14 Dose: 0.4 mg - Labs Labs: 05/31/18 07:00 05/31/18 07:00 PT 12.4 SECONDS (9.7-12.2) H 05/21/18 08:44 INR 1.1 05/21/18 08:44 APTT 32 SECONDS (21-34) 05/21/18 08:44 - Constitutional Appears: Well, No Acute Distress - Head Exam Head Exam: ATRAUMATIC, NORMOCEPHALIC - Eye Exam Eye Exam: EOMI - ENT Exam ENT Exam: Mucous Membranes Moist - Respiratory Exam Respiratory Exam: Clear to Ausculation Bilateral, NORMAL BREATHING PATTERN. absent: Rales, Rhonchi, Wheezes - Cardiovascular Exam Cardiovascular Exam: REGULAR RHYTHM, +S1, +S2 - GI/Abdominal Exam GI & Abdominal Exam: Soft, Normal Bowel Sounds. absent: Firm, Guarding, Rigid, Tenderness - Extremities Exam Extremities Exam: absent: Calf Tenderness, Pedal Edema - Neurological Exam Neurological Exam: Alert, Awake Neuro motor strength exam: Left Upper Extremity: 4, Right Upper Extremity: 3, Left Lower Extremity: 4, Right Lower Extremity: 4 Additional comments: Right facial droop
--- NOTE | 2018-05-31 10:32 | CP.PCM.DIS ---
<Akil Grubbs - Last Filed: 05/31/18 16:57> Provider - Provider Date of Admission: 05/16/18 20:15 Attending physician: Amaya Brody DO Primary care physician: Dr. Jones Consults: Neuro: Dr. Aviles/Dat Neurointerventionalist: Dr. Leal Time Spent in preparation of Discharge (in minutes): 35 Hospital Course - Lab Results Lab Results: Micro Results 05/20/18 10:03 Blood Blood Culture - Final NO GROWTH AFTER 5 DAYS 05/20/18 10:03 Blood Gram Stain - Final TEST NOT PERFORMED 05/20/18 09:30 Blood Blood Culture - Final NO GROWTH AFTER 5 DAYS 05/20/18 15:00 Urine,Catheterized Urine Culture - Final No Growth (<1,000 CFU/ML) 05/21/18 04:59 Naris MRSA Culture - Final MRSA NOT DETECTED 05/16/18 22:42 Nose MRSA Culture (Admit) - Final MRSA NOT DETECTED Most Recent Lab Values WBC 10.9 K/uL (4.8-10.8) H 05/31/18 07:00 RBC 4.83 Mil/uL (4.40-5.90) 05/31/18 07:00 Hgb 11.3 g/dL (12.0-18.0) L 05/31/18 07:00 Hct 34.7 % (35.0-51.0) L 05/31/18 07:00 MCV 71.8 fL (80.0-94.0) L 05/31/18 07:00 MCH 23.4 pg (27.0-31.0) L 05/31/18 07:00 MCHC 32.6 g/dL (33.0-37.0) L 05/31/18 07:00 RDW 19.9 % (11.5-14.5) H 05/31/18 07:00 Plt Count 221 K/uL (130-400) 05/31/18 07:00 MPV 10.9 fL (7.2-11.7) 05/31/18 07:00 Neut % (Auto) 68.9 % (50.0-75.0) 05/31/18 07:00 Lymph % (Auto) 22.5 % (20.0-40.0) 05/31/18 07:00 Alexander % (Auto) 5.4 % (0.0-10.0) 05/31/18 07:00 Eos % (Auto) 2.5 % (0.0-4.0) 05/31/18 07:00 Baso % (Auto) 0.7 % (0.0-2.0) 05/31/18 07:00 Neut # (Auto) 7.5 K/uL (1.8-7.0) H 05/31/18 07:00 Lymph # (Auto) 2.5 K/uL (1.0-4.3) 05/31/18 07:00 Alexander # (Auto) 0.6 K/uL (0.0-0.8) 05/31/18 07:00 Eos # (Auto) 0.3 K/uL (0.0-0.7) 05/31/18 07:00 Baso # (Auto) 0.1 K/uL (0.0-0.2) 05/31/18 07:00 PT 12.4 SECONDS (9.7-12.2) H 05/21/18 08:44 INR 1.1 05/21/18 08:44 APTT 32 SECONDS (21-34) 05/21/18 08:44 Sodium 142 mmol/L (132-148) 05/31/18 07:00 Potassium 3.8 mmol/L (3.6-5.2) 05/31/18 07:00 Chloride 110 mmol/L (98-107) H 05/31/18 07:00 Carbon Dioxide 20 mmol/L (22-30) L 05/31/18 07:00 Anion Gap 16 (10-20) 05/31/18 07:00 BUN 24 mg/dL (9-20) H 05/31/18 07:00 Creatinine 0.9 mg/dL (0.8-1.5) 05/31/18 07:00 Est GFR ( Amer) > 60 05/31/18 07:00 Est GFR (Non-Af Amer) > 60 05/31/18 07:00 POC Glucose (mg/dL) 184 mg/dL (65-110) H 05/31/18 06:04 Random Glucose 171 mg/dL (75-110) H 05/31/18 07:00 Hemoglobin A1c 9.2 % (4.2-6.5) H 05/17/18 14:12 Calcium 9.2 mg/dl (8.6-10.4) 05/31/18 07:00 Phosphorus 3.6 mg/dL (2.5-4.5) 05/31/18 07:00 Magnesium 2.0 mg/dL (1.6-2.3) 05/31/18 07:00 Total Bilirubin 0.6 mg/dL (0.2-1.3) 05/31/18 07:00 AST 33 U/L (17-59) 05/31/18 07:00 ALT 39 U/L (21-72) 05/31/18 07:00 Alkaline Phosphatase 85 U/L (38-126) 05/31/18 07:00 Total Protein 6.6 g/dL (6.3-8.3) 05/31/18 07:00 Albumin 3.7 g/dL (3.5-5.0) 05/31/18 07:00 Globulin 2.9 gm/dL (2.2-3.9) 05/31/18 07:00 Albumin/Globulin Ratio 1.3 (1.0-2.1) 05/31/18 07:00 Triglycerides 123 mg/dL (0-149) 05/17/18 14:12 Cholesterol 199 mg/dL (0-199) 05/17/18 14:12 LDL Cholesterol Direct 152 mg/dL (0-129) H 05/17/18 14:12 HDL Cholesterol 38 mg/dL (30-70) 05/17/18 14:12 Free T4 1.22 ng/dL (0.78-2.19) 05/17/18 14:12 TSH 3rd Generation 0.22 mIU/L (0.46-4.68) L 05/17/18 14:12 Urine Color Yellow (YELLOW) 05/20/18 15:00 Urine Clarity Clear (Clear) 05/20/18 15:00 Urine pH 6.0 (5.0-8.0) 05/20/18 15:00 Ur Specific Dwarf 1.020 (1.003-1.030) 05/20/18 15:00 Urine Protein Negative mg/dL (NEGATIVE) 05/20/18 15:00 Urine Glucose (UA) 3+ mg/dL (Normal) H 05/20/18 15:00 Urine Ketones Negative mg/dL (NEGATIVE) 05/20/18 15:00 Urine Blood Negative (NEGATIVE) 05/20/18 15:00 Urine Nitrate Negative (NEGATIVE) 05/20/18 15:00 Urine Bilirubin Negative (NEGATIVE) 05/20/18 15:00 Urine Urobilinogen 2.0 mg/dL (0.2-1.0) 05/20/18 15:00 Ur Leukocyte Esterase Neg Maddy/uL (Negative) 05/20/18 15:00 Urine WBC (Auto) 1 /hpf (0-5) 05/20/18 15:00 Urine RBC (Auto) 1 /hpf (0-3) 05/20/18 15:00 - Hospital Course Hospital Course: Admission date 05/16/18 H&P Information was received from the ece - [facility] and medical record from [place] as patient was not oriented x3. 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 Per EMS the patient had a fall at home last night. In the ED, the patient had a Head CT which revealed an interval left posterior frontal/parietal intra cerebral hematoma with surrounding edema and possible minimal/mild mass effect on the left frontal horn. There is no mildline shift at this time. Given these findings, neurosurgery was called- Dr. Teresa stated the patient should be transferred. Patient was transferred to [facility] and is being followed by neurologist Dr. Aviles and interventional neurologist Dr. Brantley. Hospital course Patient was transferred here from [place] after he was found to have an left posterior frontal/parietal intracerebral bleed with history of left AVM and admitted to ICU at [facility] on 05/16/18 and transferred out on 05/19/18. Neurologist Dr. Aviles/Dr. Daugherty was consulted. Anticoagulation was held given new intracerebral bleed. Patient's BP was continuously monitored with the goal of maintaining systolic BP between 130 and 140. Initially, patient's BP was elevated, however anti-hypertensive regimen was altered to achieve goal systolic BP. Cerebral angiogram by Neurointerventionalist, Dr. Leal revealed no evidence of treatable pre-nidal aneurysm. Given patient's history of HTN, ECHO was done which revealed EF 60-65%. Initially, patient did not pass swallow evaluation by speech pathologist and received NG tube feeds, however later improved and resumed diet. Patient was placed on hypoglycemia protocol and insulin sliding scale for history of DM. Patient improved throughout course of hospitalization, with improved strength of lower extremities, improved right brand representative strength. Imaging: At [place]: * CT Head (05/16/18): interval left posterior frontal/parietal intra cerebral hematoma with surrounding edema and possible minimal mild mass effect on the left frontal horn. No midline shift. No dilatation of the right lateral ventricle appreciated. No interval dilatation or other particular segments noted. * CT head (05/16/18): subjective mild expansion of the left parietal hematoma with mild surrounding edema impression upon the posterior portion of the body of the left lateral ventricle. No other significant interval chage. At [facility]: * CT Head (05/17/18): re-demonstrated is a large parenchymal hematoma within the left posterior temporoparietal lobe secondary to hemorrhage into pre-existing AVM, mass effect produced by the hematoma and surrounding edema impress overlying sulci and posterior aspect left lateral ventricle as described. moderate to significant chronic white matter ischemic changes. * CT head (05/19/18): official read available in the computer. * CT Head (05/20/18): involving large subacute left posterior parietal lobe hematoma with moderate surrounding vasogenic edema, local mass effect, and effacement of the right lateral ventricle, 4mm midline shift from left to right. No herniation or hydrocephalus. Moderate chronic microangiopathic changes and moderate age-related global parenchymal volume loss * CXR 05/18/18 no active disease * CXR 05/23/18 NG tube coiled in distal esophagus. Advancement into the stomach is recommended. Enlarged ectatic aorta. Biapical pleural thickening with upper lobe granulomatous changes. Scattered nodularity in both lungs. Cardiomegaly. Mild venous congestion. Patchy increased markings at right lung base. * CXR 05/23/18 NG tube terminates in stomach. no acute findings. * ECHO 05/19/18 The left ventricle is normal size. The EF is 60-65%. Transmitral Doppler flow pattern is Grade 1- abnormal relaxation pattern. There is mild tricuspid regurgitation. RV systolic pressure is estimated at 30mmHg. There is no pulmonary HTN. The aortic root is normal size. The aortic root displays mild sclerocalcific changes of the aortic root. Diagnostic cerebral angiogram (Dr. Leal): Left fronto-parietal AVM: 1- Arterial supply via the superior branch of the left MCA and via distal left QUIN convexal branches. 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 3-No evidence of treatable mayela-nidal aneurysm. 4-Early venous drainaige (shunting) primarily into the superior sagital sinus with antegrade drainge into the bilateral transverse-sigmoid sinuses. There is also reflus into superficial cortical veins. Discharge summary Patient is stable to be discharged to subacute rehab today. Patient started on Metformin 1000mg twice a day by mouth and Amaryl 1mg by mouth daily. Patient is not to be discharged on ASA or Plavix given history of intracerebral bleed. Luke Ryan who is POA was made aware that patient may follow up with Dr. Leal, Neurointerventionalist and PMD Dr. Jones after sub-acute rehab. Patient should return to ER if symptoms recur or worsen. This was explained to patient who understands and agrees. This is a summary of patient's hospital course. Please refer to EMR for full medical course. - Date & Time of H&P Date of H&P: 05/16/18 Discharge Exam - Head Exam Head Exam: NORMAL INSPECTION - Eye Exam Eye Exam: EOMI - ENT Exam ENT Exam: Mucous Membranes Moist - Respiratory Exam Respiratory Exam: Clear to PA & Lateral, NORMAL BREATHING PATTERN. absent: Rales, Rhonchi, Wheezes - Cardiovascular Exam Cardiovascular Exam: REGULAR RHYTHM, +S1, +S2 - GI/Abdominal Exam GI & Abdominal Exam: Normal Bowel Sounds, Soft. absent: Distended, Firm, Guarding, Tenderness - Extremities Exam Additional comments: no calf tenderness, no pedal edema. - Neurological Exam Neurological exam: Alert Additional comments: Right facial droop noted. Right hand brand representative slightly weaker than left. Good strength of lower extremities. Discharge Plan - Discharge Medications Prescriptions: RX: amLODIPine [Norvasc] 10 mg PO DAILY 30 Days #30 tab RX: Glimepiride [Amaryl] 1 mg PO DAILY 30 Days #30 tab RX: hydrALAZINE [Apresoline] 100 mg PO Q8H 30 Days #30 tab RX: levETIRAcetam [Keppra] 500 mg PO BID 30 Days #60 tab RX: Losartan [Cozaar] 50 mg PO DAILY 30 Days #30 tab RX: metFORMIN [glucOPHAGE] 1,000 mg PO BID #60 tab RX: Metoprolol Succinate XL [Toprol XL] 100 mg PO DAILY #30 tab RX: Rosuvastatin Calcium [Crestor] 5 mg PO HS #30 tab RX: Tamsulosin [Flomax] 0.4 mg PO DAILY 30 Days #30 cap - Follow Up Plan Condition: GOOD Disposition: REHAB FACILITY/REHAB UNIT Instructions: Intracerebral Hemorrhage (DC), Dysphagia (DC), Arteriogram (DC), Pureed Diet Additional Instructions: Patient is stable to be discharged to subacute rehab today. Patient started on Norvasc 10mg by mouth daily, Metformin 1000mg twice a day by mouth, Amaryl 1mg by mouth daily, Hydralazine 100mg by mouth every 8 hours, Keppra 500mg by mouth twice daily, Cozaar 50mg by mouth daily, Toprol XL 100mg by mouth daily, Crestor 5mg by mouth at bedtime, Flomax 0.4mg by mouth daily. Patient is not to be discharged on ASA or Plavix given history of intracerebral bleed. Luke Ryan who is POA was made aware that patient may follow up with Dr. Leal , Neurointerventionalist and PMD Dr. Jones after sub-acute rehab. Patient should return to ER if symptoms recur or worsen. Patient was made aware who understands and agrees. Referrals: Dyllan Aviles MD [Staff Provider] - Feliberto Sawant MD [Staff Provider] - <Amaya Brody V - Last Filed: 06/02/18 18:58> Provider - Provider Date of Admission: 05/16/18 20:15 Attending physician: Amaya Brody DO Diagnosis - Discharge Diagnosis (1) Intracranial hemorrhage Status: Acute Priority: High (2) Dyslipidemia Status: Chronic Priority: Medium (3) Hypertension Status: Chronic Priority: Medium (4) Diabetes Status: Chronic (5) Prophylactic measure Status: Acute Hospital Course - Lab Results Lab Results: Micro Results 05/20/18 10:03 Blood Blood Culture - Final NO GROWTH AFTER 5 DAYS 05/20/18 10:03 Blood Gram Stain - Final TEST NOT PERFORMED 05/20/18 09:30 Blood Blood Culture - Final NO GROWTH AFTER 5 DAYS 05/20/18 15:00 Urine,Catheterized Urine Culture - Final No Growth (<1,000 CFU/ML) 05/21/18 04:59 Naris MRSA Culture - Final MRSA NOT DETECTED 05/16/18 22:42 Nose MRSA Culture (Admit) - Final MRSA NOT DETECTED Most Recent Lab Values WBC 10.7 K/uL (4.8-10.8) 06/02/18 07:51 RBC 4.89 Mil/uL (4.40-5.90) 06/02/18 07:51 Hgb 11.3 g/dL (12.0-18.0) L 06/02/18 07:51 Hct 35.1 % (35.0-51.0) 06/02/18 07:51 MCV 71.8 fL (80.0-94.0) L 06/02/18 07:51 MCH 23.1 pg (27.0-31.0) L 06/02/18 07:51 MCHC 32.2 g/dL (33.0-37.0) L 06/02/18 07:51 RDW 19.8 % (11.5-14.5) H 06/02/18 07:51 Plt Count 235 K/uL (130-400) 06/02/18 07:51 MPV 10.7 fL (7.2-11.7) 06/02/18 07:51 Neut % (Auto) 63.2 % (50.0-75.0) 06/02/18 07:51 Lymph % (Auto) 26.7 % (20.0-40.0) 06/02/18 07:51 Alexander % (Auto) 5.8 % (0.0-10.0) 06/02/18 07:51 Eos % (Auto) 3.5 % (0.0-4.0) 06/02/18 07:51 Baso % (Auto) 0.8 % (0.0-2.0) 06/02/18 07:51 Neut # (Auto) 6.8 K/uL (1.8-7.0) 06/02/18 07:51 Lymph # (Auto) 2.9 K/uL (1.0-4.3) 06/02/18 07:51 Alexander # (Auto) 0.6 K/uL (0.0-0.8) 06/02/18 07:51 Eos # (Auto) 0.4 K/uL (0.0-0.7) 06/02/18 07:51 Baso # (Auto) 0.1 K/uL (0.0-0.2) 06/02/18 07:51 PT 12.4 SECONDS (9.7-12.2) H 05/21/18 08:44 INR 1.1 05/21/18 08:44 APTT 32 SECONDS (21-34) 05/21/18 08:44 Sodium 145 mmol/L (132-148) 06/02/18 07:51 Potassium 4.1 mmol/L (3.6-5.2) 06/02/18 07:51 Chloride 109 mmol/L (98-107) H 06/02/18 07:51 Carbon Dioxide 24 mmol/L (22-30) 06/02/18 07:51 Anion Gap 16 (10-20) 06/02/18 07:51 BUN 30 mg/dL (9-20) H 06/02/18 07:51 Creatinine 1.0 mg/dL (0.8-1.5) 06/02/18 07:51 Est GFR ( Amer) > 60 06/02/18 07:51 Est GFR (Non-Af Amer) > 60 06/02/18 07:51 POC Glucose (mg/dL) 145 mg/dL (65-110) H 06/02/18 16:29 Random Glucose 160 mg/dL (75-110) H 06/02/18 07:51 Hemoglobin A1c 9.2 % (4.2-6.5) H 05/17/18 14:12 Calcium 9.8 mg/dl (8.6-10.4) 06/02/18 07:51 Phosphorus 3.7 mg/dL (2.5-4.5) 06/02/18 07:51 Magnesium 2.2 mg/dL (1.6-2.3) 06/02/18 07:51 Total Bilirubin 0.8 mg/dL (0.2-1.3) 06/02/18 07:51 AST 29 U/L (17-59) 06/02/18 07:51 ALT 31 U/L (21-72) 06/02/18 07:51 Alkaline Phosphatase 79 U/L (38-126) 06/02/18 07:51 Total Protein 6.8 g/dL (6.3-8.3) 06/02/18 07:51 Albumin 4.0 g/dL (3.5-5.0) 06/02/18 07:51 Globulin 2.8 gm/dL (2.2-3.9) 06/02/18 07:51 Albumin/Globulin Ratio 1.4 (1.0-2.1) 06/02/18 07:51 Triglycerides 123 mg/dL (0-149) 05/17/18 14:12 Cholesterol 199 mg/dL (0-199) 05/17/18 14:12 LDL Cholesterol Direct 152 mg/dL (0-129) H 05/17/18 14:12 HDL Cholesterol 38 mg/dL (30-70) 05/17/18 14:12 Free T4 1.22 ng/dL (0.78-2.19) 05/17/18 14:12 TSH 3rd Generation 0.22 mIU/L (0.46-4.68) L 05/17/18 14:12 Urine Color Yellow (YELLOW) 05/20/18 15:00 Urine Clarity Clear (Clear) 05/20/18 15:00 Urine pH 6.0 (5.0-8.0) 05/20/18 15:00 Ur Specific Dwarf 1.020 (1.003-1.030) 05/20/18 15:00 Urine Protein Negative mg/dL (NEGATIVE) 05/20/18 15:00 Urine Glucose (UA) 3+ mg/dL (Normal) H 05/20/18 15:00 Urine Ketones Negative mg/dL (NEGATIVE) 05/20/18 15:00 Urine Blood Negative (NEGATIVE) 05/20/18 15:00 Urine Nitrate Negative (NEGATIVE) 05/20/18 15:00 Urine Bilirubin Negative (NEGATIVE) 05/20/18 15:00 Urine Urobilinogen 2.0 mg/dL (0.2-1.0) 05/20/18 15:00 Ur Leukocyte Esterase Neg Maddy/uL (Negative) 05/20/18 15:00 Urine WBC (Auto) 1 /hpf (0-5) 05/20/18 15:00 Urine RBC (Auto) 1 /hpf (0-3) 05/20/18 15:00 Attending/Attestation - Attestation I have personally seen and examined this patient.: Yes I have fully participated in the care of the patient.: Yes I have reviewed all pertinent clinical information, including history, physical exam and plan: Yes Notes (Text): This is a late computer entry for 05/31/2018. Patient seen, examined and case discussed with director medical science. Patient is alert, awake, and speaking with me. Denies acute complaints. No family present at bedside. Patient ate well this morning. Patient is medically stable for discharge when bed is available. I have spoken with social and case manager specialist yesterday; they are aware. We are awaiting for bed to be available. (1) Intracranial hemorrhage Assessment & Plan: At [place]: * CT Head (05/16/18): interval left posterior frontal/parietal intra cerebral hematoma with surrounding edema and possible minimal mild mass effect on the left frontal horn. No midline shift. No dilatation of the right lateral ventricle appreciated. No interval dilatation or other particular segments noted. * CT head (05/16/18): subjective mild expansion of the left parietal hematoma with mild surrounding edema impression upon the posterior portion of the body of the left lateral ventricle. No other significant interval chage. At [facility]: * CT Head (05/17/18): re-demonstrated is a large parenchymal hematoma within the left posterior temporoparietal lobe secondary to hemorrhage into pre-existing AVM, mass effect produced by the hematoma and surrounding edema impress overlying sulci and posterior aspect left lateral ventricle as described. moderate to significant chronic white matter ischemic changes. * CT head (05/19/18): official read available in the computer. * CT Head (05/20/18): involving large subacute left posterior parietal lobe hematoma with moderate surrounding vasogenic edema, local mass effect, and effacement of the right lateral ventricle, 4mm midline shift from left to right. No herniation or hydrocephalus. Moderate chronic microangiopathic changes and moderate age-related global parenchymal volume loss Admitted to ICU at [facility] on 05/16/18; transferred out on 05/19/18 * Neurology (Dr. Aviles/Dr. Daugherty ) on the case-->help appreciated * Neuro-home hospice aide (Dr. 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 3-No evidence of treatable mayela-nidal aneurysm. 4-Early venous drainaige (shunting) primarily into the superior sagital sinus with antegrade drainge into the bilateral transverse-sigmoid sinuses. There is also reflus into superficial cortical veins. * We also discussed that gamma knife could be a viable option for the patient, while not providing immediate reduction of bleeding risk, would possibly reduce the risk over time. We will discuss this and other options, including surgery, intervention and observation after we have the results of the cerebral angiogram. * Elevated head of Bed * Seizure precautions * Neurochecks * Plavix was held and other anticoagulation held since 05/16/18 * Crestor 5mg POqHS * T, Chol: 199, LDL: 152, HDL: 38 * a1c: 9.2 Status: stable (2) Dysphagia Hypernatremia-->resolved Assessment & Plan: * GI (Sr. Concepcion) real estate utilization officer-->help appreciated; peg postponed and reconsult if needed * Patient has passed swallow eval; placed on dysphagia diet and aspiration precaution * Completed calorie count * hypernatremia secondary to GI loss-->patient is eating now will monitor sodium level; normalized Status: Resolved (3) Dyslipidemia Assessment & Plan: * Crestor 5mg POqHS * T, Chol: 199, LDL: 152, HDL: 38 * a1c: 9.2 Status: Chronic (4) Hypertension Assessment & Plan: * Norvasc 10mg PO daily * Hydralazine 10mg IVP Q6H SBP>160 * Hydralazine 100 mg PO Q8H * Cozaar 50 mg by mouth once a day * Toprol 100mg PO once a day * Echocardiogram (05/21/18): left ventricle is normal size, ejection fraction is 60-65%, grade i abnormal relaxation, mild tricupsid regurgitation, right ventricular systolic pressure is estimated at 30mm hg, no pulmonary hypertension , aortic root is normal size, aortic root displays mild scleorcalcific changes of the aortic root * Prior echocardiogram (05/03/18): normal LV systolic function. Aortic valve sclerosis Status: Chronic (5) Diabetes Status: Chronic * hgba1c: 9.2 * Lipid Panel: 123, Cholestrol: 199, LDL: 152. HDL: 38 * Hypoglycemic protocol * insulin sliding scale Q AC and HS * Accuchecks qAC and HS * Start Metformin 1000mg PO BID * Start Amaryl 1mg PO daily Status: Chronic (6) BPH Status: Chronic * Flomax 0.4mg PO daily Status: Chronic (7) Prophylactic measure Assessment & Plan: * Elevated head * Neurochecks * chemical anticoagulation secondary to intracranial hemorrhage * seizure precautions * aspiration precautions * Passed swallow eval * Tolerating Dysphagia diet * Calorie count in progress (day2/3) * Luke Ryan, Disposition: Patient is medically stable for discharge. No aspirin/plavix given intracranial hemorrhage related to AVM. Patient to f/u with neurointerventionalist and PMD as outpatient.
[2018-05-31] MEDS: Metoprolol Succinate 100 mg XL Tab PO SCH (10:42)
[2018-05-31] MEDS: Pantoprazole 40 mg EC Tab PO SCH (10:42)
--- NOTE | 2018-06-01 06:40 | CP.PCM.PN ---
Subjective - Date & Time of Evaluation Date of Evaluation: 06/01/18 Time of Evaluation: 06:40 - Subjective Subjective: Mr. Rosario was seen and examined at the bedside. He is awake,speech is much clearer, oriented in all spheres. He participates in a conversation. He denies denies, dizziness, blurred vision. He follows simple commands with mild right facial droop, his right upper extremity weakness able to move in vertically, but with no hand flexion and lower extremity weak. He is able to wiggle his toes. There was no untoward events overnight. Objective - Vital Signs/Intake and Output Vital Signs (last 24 hours): Temp Pulse Resp BP Pulse Ox 98.3 F 73 20 132/79 96 06/01/18 00:00 06/01/18 00:00 06/01/18 00:00 06/01/18 00:00 06/01/18 00:00 Intake and Output: 05/31/18 06/01/18 18:59 06:59 Intake Total 400 Balance 400 - Medications Medications: Current Medications Amlodipine Besylate (Norvasc) 10 mg PO DAILY [facility] Last Admin: 05/31/18 10:42 Dose: 10 mg Bisacodyl (Dulcolax) 10 mg AL ONCE PRN PRN Reason: Constipation Dextrose (Dextrose 50% Inj) 0 ml IV STAT PRN; Protocol PRN Reason: Hypoglycemia Protocol Dextrose (Glutose 15) 0 gm PO ONCE PRN; Protocol PRN Reason: Hypoglycemia Protocol Glimepiride (Amaryl) 1 mg PO DAILY [facility] Last Admin: 05/31/18 10:41 Dose: 1 mg Glucagon (Glucagen Diagnostic Kit) 0 mg IM STAT PRN; Protocol PRN Reason: Hypoglycemia Protocol Hydralazine HCl (Apresoline) 10 mg IVP Q6H PRN PRN Reason: sbp > 160 Last Admin: 05/26/18 08:45 Dose: 10 mg Hydralazine HCl (Apresoline) 100 mg PO Q8H [facility] Last Admin: 06/01/18 01:43 Dose: 100 mg Insulin Human Regular (Novolin R) 0 unit SC ACHS [facility] PRN Reason: Protocol Last Admin: 05/31/18 21:50 Dose: Not Given Levetiracetam (Keppra) 500 mg PO BID [facility] Last Admin: 05/31/18 17:36 Dose: 500 mg Losartan Potassium (Cozaar) 50 mg PO DAILY [facility] Last Admin: 05/31/18 10:42 Dose: 50 mg Metformin HCl (Glucophage) 1,000 mg PO BID [facility] Last Admin: 05/31/18 17:35 Dose: 1,000 mg Metoprolol Succinate (Toprol Xl) 100 mg PO DAILY [facility] Last Admin: 05/31/18 10:42 Dose: 100 mg Pantoprazole Sodium (Protonix Ec Tab) 40 mg PO DAILY [facility] Last Admin: 05/31/18 10:42 Dose: 40 mg Quetiapine Fumarate (Seroquel) 25 mg PO HS PRN PRN Reason: Insomnia Last Admin: 05/31/18 21:54 Dose: 25 mg Rosuvastatin Calcium (Crestor) 5 mg PO HS [facility] Last Admin: 05/31/18 21:52 Dose: 5 mg Tamsulosin HCl (Flomax) 0.4 mg PO DAILY [facility] Last Admin: 05/31/18 10:42 Dose: 0.4 mg - Labs Labs: 05/31/18 07:00 05/31/18 07:00 PT 12.4 SECONDS (9.7-12.2) H 05/21/18 08:44 INR 1.1 05/21/18 08:44 APTT 32 SECONDS (21-34) 05/21/18 08:44 - Constitutional Appears: No Acute Distress - Head Exam Head Exam: NORMAL INSPECTION - Eye Exam Pupil Exam: Miosis, PERRL Additional comments: 2mm - Neurological Exam Neurological Exam: Alert, Awake Neuro motor strength exam: Left Upper Extremity: 5, Right Upper Extremity: 0, Left Lower Extremity: 5, Right Lower Extremity: 2/1 Additional comments: neurological unchanged from previous examination. Assessment and Plan (1) Intracranial hemorrhage Assessment & Plan: Case discussed with Dr. Daugherty, continue all current medical regimen. Recommend to follow up with neurointerventionalist to monitor AVM, blood pressure control with systolic blood pressure between 130-140, keep head of bed elevated at least 30 degrees angle.normothermic, glycemic control, and rehab for discharge planning. Status: Acute
--- NOTE | 2018-06-01 09:55 | CP.PCM.PN ---
<Akil Grubbs - Last Filed: 06/01/18 20:06> Subjective - Date & Time of Evaluation Date of Evaluation: 06/01/18 Time of Evaluation: 09:55 - Subjective Subjective: Progress note for Hospitalist service Patient seen and examined at bedside. Patient was due to be discharged yesterday to subacute rehab, however it was determined that alf care was more appropriate for patient. He is sleeping and eating well. He denies headache , dizziness, shortness of breath, chest pain, abdominal pain, nausea, vomiting, diarrhea, leg pain at this time. Awaiting placement to terminal operations manager care. Objective - Vital Signs/Intake and Output Vital Signs (last 24 hours): Temp Pulse Resp BP Pulse Ox 99.0 F 87 20 112/71 100 06/01/18 08:18 06/01/18 08:18 06/01/18 08:18 06/01/18 08:18 06/01/18 08:18 - Medications Medications: Current Medications Amlodipine Besylate (Norvasc) 10 mg PO DAILY [facility] Last Admin: 05/31/18 10:42 Dose: 10 mg Bisacodyl (Dulcolax) 10 mg [place] ONCE PRN PRN Reason: Constipation Dextrose (Dextrose 50% Inj) 0 ml IV STAT PRN; Protocol PRN Reason: Hypoglycemia Protocol Dextrose (Glutose 15) 0 gm PO ONCE PRN; Protocol PRN Reason: Hypoglycemia Protocol Glimepiride (Amaryl) 1 mg PO DAILY [facility] Last Admin: 05/31/18 10:41 Dose: 1 mg Glucagon (Glucagen Diagnostic Kit) 0 mg IM STAT PRN; Protocol PRN Reason: Hypoglycemia Protocol Hydralazine HCl (Apresoline) 10 mg IVP Q6H PRN PRN Reason: sbp > 160 Last Admin: 05/26/18 08:45 Dose: 10 mg Hydralazine HCl (Apresoline) 100 mg PO Q8H [facility] Last Admin: 06/01/18 01:43 Dose: 100 mg Insulin Human Regular (Novolin R) 0 unit SC ACHS [facility] PRN Reason: Protocol Last Admin: 05/31/18 21:50 Dose: Not Given Levetiracetam (Keppra) 500 mg PO BID [facility] Last Admin: 05/31/18 17:36 Dose: 500 mg Losartan Potassium (Cozaar) 50 mg PO DAILY [facility] Last Admin: 05/31/18 10:42 Dose: 50 mg Metformin HCl (Glucophage) 1,000 mg PO BID [facility] Last Admin: 05/31/18 17:35 Dose: 1,000 mg Metoprolol Succinate (Toprol Xl) 100 mg PO DAILY [facility] Last Admin: 05/31/18 10:42 Dose: 100 mg Pantoprazole Sodium (Protonix Ec Tab) 40 mg PO DAILY [facility] Last Admin: 05/31/18 10:42 Dose: 40 mg Quetiapine Fumarate (Seroquel) 25 mg PO HS PRN PRN Reason: Insomnia Last Admin: 05/31/18 21:54 Dose: 25 mg Rosuvastatin Calcium (Crestor) 5 mg PO HS [facility] Last Admin: 05/31/18 21:52 Dose: 5 mg Tamsulosin HCl (Flomax) 0.4 mg PO DAILY [facility] Last Admin: 05/31/18 10:42 Dose: 0.4 mg - Labs Labs: 05/31/18 07:00 05/31/18 07:00 PT 12.4 SECONDS (9.7-12.2) H 05/21/18 08:44 INR 1.1 05/21/18 08:44 APTT 32 SECONDS (21-34) 05/21/18 08:44 - Constitutional Appears: Well, No Acute Distress - Head Exam Head Exam: ATRAUMATIC, NORMOCEPHALIC - Eye Exam Eye Exam: EOMI - ENT Exam ENT Exam: Mucous Membranes Moist - Neck Exam Neck Exam: absent: Tenderness - Respiratory Exam Respiratory Exam: Clear to Ausculation Bilateral, NORMAL BREATHING PATTERN. absent: Rales, Rhonchi, Wheezes - Cardiovascular Exam Cardiovascular Exam: REGULAR RHYTHM, +S1, +S2 - GI/Abdominal Exam GI & Abdominal Exam: Soft, Normal Bowel Sounds. absent: Distended, Guarding, Rigid, Tenderness - Extremities Exam Extremities Exam: absent: Calf Tenderness, Pedal Edema - Neurological Exam Neurological Exam: Alert, Awake Additional comments: Right facial droop. Decreased strength of right upper extremity, with decreased email marketing processor strength compared to left. Decreased strength of right lower extremity compared to left Assessment and Plan - Assessment and Plan (Free Text) Assessment: 83 year old male with history of multiple CVAs and known left AVM who was transferred from [place] to [facility] for evaluation and management of left posterior frontal/parietal intracerebral hematoma. Plan: Assessment/plan (1) Intracranial hemorrhage Assessment & Plan: At [place]: * CT Head (05/16/18): interval left posterior frontal/parietal intra cerebral hematoma with surrounding edema and possible minimal mild mass effect on the left frontal horn. No midline shift. No dilatation of the right lateral ventricle appreciated. No interval dilatation or other particular segments noted. * CT head (05/16/18): subjective mild expansion of the left parietal hematoma with mild surrounding edema impression upon the posterior portion of the body of the left lateral ventricle. No other significant interval chage. At [facility]: * CT Head (05/17/18): re-demonstrated is a large parenchymal hematoma within the left posterior temporoparietal lobe secondary to hemorrhage into pre-existing AVM, mass effect produced by the hematoma and surrounding edema impress overlying sulci and posterior aspect left lateral ventricle as described. moderate to significant chronic white matter ischemic changes. * CT head (05/19/18): official read available in the computer. * CT Head (05/20/18): involving large subacute left posterior parietal lobe hematoma with moderate surrounding vasogenic edema, local mass effect, and effacement of the right lateral ventricle, 4mm midline shift from left to right. No herniation or hydrocephalus. Moderate chronic microangiopathic changes and moderate age-related global parenchymal volume loss Admitted to ICU at [facility] on 05/16/18; transferred out on 05/19/18 * Neurology (Dr. Aviles/Dr. Daugherty ) on the case-->help appreciated * Noninterventionist (Dr. 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 3-No evidence of treatable mayela-nidal aneurysm. 4-Early venous drainaige (shunting) primarily into the superior sagital sinus with antegrade drainge into the bilateral transverse-sigmoid sinuses. There is also reflus into superficial cortical veins. * We also discussed that gamma knife could be a viable option for the patient, while not providing immediate reduction of bleeding risk, would possibly reduce the risk over time. We will discuss this and other options, including surgery, intervention and observation after we have the results of the cerebral angiogram. * Elevated head of Bed * Seizure precautions * Neurochecks * Plavix was held and other anticoagulation held since 05/16/18 * Crestor 5mg POqHS * T, Chol: 199, LDL: 152, HDL: 38 * a1c: 9.2 * Seroquel 25mg PO HS PRN (2) Dysphagia Hypernatremia * GI (Sr. Concepcion) referral and information aide-->help appreciated; peg postponed and reconsult if needed * Patient has passed swallow eval; placed on dysphagia diet and aspiration precaution * Continues to tolerate diet well * Currently on 3rd day of 3 calorie count * hypernatremia secondary to GI loss-->patient is eating now will monitor sodium level * 05/29/18: Na 143 (3) Dyslipidemia * Crestor 5mg POqHS * T, Chol: 199, LDL: 152, HDL: 38 * a1c: 9.2 (4) Hypertension Assessment & Plan: * Continue to monitor BP to keep systolic BP between 130-140 * Norvasc 10mg PO daily * Hydralazine 10mg IVP Q6H SBP>160 * Hydralazine 75mg PO Q8H --> (05/28/18) increased to 100mg PO Q8H * start Cozaar 50mg PO daily * Toprol 100mg PO once a day * Echocardiogram (05/21/18): left ventricle is normal size, ejection fraction is 60-65%, grade i abnormal relaxation, mild tricupsid regurgitation, right ventricular systolic pressure is estimated at 30mm hg, no pulmonary hypertension , aortic root is normal size, aortic root displays mild scleorcalcific changes of the aortic root * Prior echocardiogram (05/03/18): normal LV systolic function. Aortic valve sclerosis (5) Diabetes Status: Chronic * hgba1c: 9.2 * Lipid Panel: 123, Cholestrol: 199, LDL: 152. HDL: 38 * Hypoglycemic protocol * insulin sliding scale Q AC and HS * Accuchecks qAC and HS (6) Prophylactic measure Assessment & Plan: * Elevated head * Neurochecks * chemical anticoagulation secondary to intracranial hemorrhage * NPO * seizure precautions * aspiration precautions * Passed swallow eval * 3 day Calorie count completed 05/28/18 * Luke Ryan, , she is amendable to PEG if it is necessary Disposition: Can restart DM meds on discharge. Patient is not to be discharged on ASA or Plavix. Failed placement to subacute rehab yesterday, awaiting authorization for alf care facility. VALE Gordon Case discussed with Dr. Brody <Amaya Brody V - Last Filed: 06/02/18 18:59> Objective - Vital Signs/Intake and Output Vital Signs (last 24 hours): Temp Pulse Resp BP Pulse Ox 98.3 F 82 20 128/67 98 06/02/18 16:00 06/02/18 16:00 06/02/18 16:00 06/02/18 16:00 06/02/18 16:00 Intake and Output: 06/02/18 06/02/18 06:59 18:59 Intake Total 550 Balance 550 - Medications Medications: Current Medications Amlodipine Besylate (Norvasc) 10 mg PO DAILY [facility] Last Admin: 06/02/18 09:52 Dose: 10 mg Bisacodyl (Dulcolax) 10 mg [place] ONCE PRN PRN Reason: Constipation Dextrose (Dextrose 50% Inj) 0 ml IV STAT PRN; Protocol PRN Reason: Hypoglycemia Protocol Dextrose (Glutose 15) 0 gm PO ONCE PRN; Protocol PRN Reason: Hypoglycemia Protocol Glimepiride (Amaryl) 1 mg PO DAILY [facility] Last Admin: 06/02/18 09:51 Dose: 1 mg Glucagon (Glucagen Diagnostic Kit) 0 mg IM STAT PRN; Protocol PRN Reason: Hypoglycemia Protocol Hydralazine HCl (Apresoline) 10 mg IVP Q6H PRN PRN Reason: sbp > 160 Last Admin: 05/26/18 08:45 Dose: 10 mg Hydralazine HCl (Apresoline) 100 mg PO Q8H [facility] Last Admin: 06/02/18 17:37 Dose: 100 mg Sodium Chloride (Sodium Chloride 0.9%) 1,000 mls @ 50 mls/hr IV .Q20H ONE Stop: 06/03/18 08:26 Last Admin: 06/02/18 13:01 Dose: 50 mls/hr Insulin Human Regular (Novolin R) 0 unit SC ACHS [facility] PRN Reason: Protocol Last Admin: 06/02/18 16:47 Dose: Not Given Levetiracetam (Keppra) 500 mg PO BID [facility] Last Admin: 06/02/18 17:37 Dose: 500 mg Losartan Potassium (Cozaar) 50 mg PO DAILY [facility] Last Admin: 06/02/18 09:51 Dose: 50 mg Metformin HCl (Glucophage) 1,000 mg PO BID [facility] Last Admin: 06/02/18 17:37 Dose: 1,000 mg Metoprolol Succinate (Toprol Xl) 100 mg PO DAILY [facility] Last Admin: 06/02/18 09:52 Dose: 100 mg Pantoprazole Sodium (Protonix Ec Tab) 40 mg PO DAILY [facility] Last Admin: 06/02/18 09:51 Dose: 40 mg Quetiapine Fumarate (Seroquel) 25 mg PO HS PRN PRN Reason: Insomnia Last Admin: 06/01/18 10:09 Dose: 25 mg Rosuvastatin Calcium (Crestor) 5 mg PO HS [facility] Last Admin: 06/01/18 21:21 Dose: 5 mg Tamsulosin HCl (Flomax) 0.4 mg PO DAILY [facility] Last Admin: 06/02/18 09:51 Dose: 0.4 mg - Labs Labs: 06/02/18 07:51 06/02/18 07:51 PT 12.4 SECONDS (9.7-12.2) H 05/21/18 08:44 INR 1.1 05/21/18 08:44 APTT 32 SECONDS (21-34) 05/21/18 08:44 Assessment and Plan (1) Intracranial hemorrhage Status: Acute (2) Dyslipidemia Status: Chronic (3) Hypertension Status: Chronic (4) Diabetes Status: Chronic (5) Prophylactic measure Status: Acute Attending/Attestation - Attestation I have personally seen and examined this patient.: Yes I have fully participated in the care of the patient.: Yes I have reviewed all pertinent clinical information, including history, physical exam and plan: Yes Notes (Text): This is a late computer entry for 06/01/2018 Patient seen, examined and case discussed with medical center representative. Patient is alert, awake, and speaking with me. Denies acute complaints. No family present at bedside. Patient ate well this morning. Patient is medically stable for discharge when [id number] bed is available. I have spoken with social and insurance case manager today as well we are awaiting formal authorization from insurance. No acute changes. (1) Intracranial hemorrhage Assessment & Plan: At [place]: * CT Head (05/16/18): interval left posterior frontal/parietal intra cerebral hematoma with surrounding edema and possible minimal mild mass effect on the left frontal horn. No midline shift. No dilatation of the right lateral ventricle appreciated. No interval dilatation or other particular segments noted. * CT head (05/16/18): subjective mild expansion of the left parietal hematoma with mild surrounding edema impression upon the posterior portion of the body of the left lateral ventricle. No other significant interval chage. At [facility]: * CT Head (05/17/18): re-demonstrated is a large parenchymal hematoma within the left posterior temporoparietal lobe secondary to hemorrhage into pre-existing AVM, mass effect produced by the hematoma and surrounding edema impress overlying sulci and posterior aspect left lateral ventricle as described. moderate to significant chronic white matter ischemic changes. * CT head (05/19/18): official read available in the computer. * CT Head (05/20/18): involving large subacute left posterior parietal lobe hematoma with moderate surrounding vasogenic edema, local mass effect, and effacement of the right lateral ventricle, 4mm midline shift from left to right. No herniation or hydrocephalus. Moderate chronic microangiopathic changes and moderate age-related global parenchymal volume loss Admitted to ICU at [facility] on 05/16/18; transferred out on 05/19/18 * Neurology (Dr. Aviles/Dr. Daugherty ) on the case-->help appreciated * Neuro-candy spreader (Dr. 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 3-No evidence of treatable mayela-nidal aneurysm. 4-Early venous drainaige (shunting) primarily into the superior sagital sinus with antegrade drainge into the bilateral transverse-sigmoid sinuses. There is also reflus into superficial cortical veins. * We also discussed that gamma knife could be a viable option for the patient, while not providing immediate reduction of bleeding risk, would possibly reduce the risk over time. We will discuss this and other options, including surgery, intervention and observation after we have the results of the cerebral angiogram. * Elevated head of Bed * Seizure precautions * Neurochecks * Plavix was held and other anticoagulation held since 05/16/18 * Crestor 5mg POqHS * T, Chol: 199, LDL: 152, HDL: 38 * a1c: 9.2 Status: stable (2) Dysphagia Hypernatremia-->resolved Assessment & Plan: * GI (Sr. Concepcion) referral and information aide-->help appreciated; peg postponed and reconsult if needed * Patient has passed swallow eval; placed on dysphagia diet and aspiration precaution * Completed calorie count * hypernatremia secondary to GI loss-->patient is eating now will monitor sodium level; normalized Status: Resolved (3) Dyslipidemia Assessment & Plan: * Crestor 5mg POqHS * T, Chol: 199, LDL: 152, HDL: 38 * a1c: 9.2 Status: Chronic (4) Hypertension Assessment & Plan: * Norvasc 10mg PO daily * Hydralazine 10mg IVP Q6H SBP>160 * Hydralazine 100 mg PO Q8H * Cozaar 50 mg by mouth once a day * Toprol 100mg PO once a day * Echocardiogram (05/21/18): left ventricle is normal size, ejection fraction is 60-65%, grade i abnormal relaxation, mild tricupsid regurgitation, right ventricular systolic pressure is estimated at 30mm hg, no pulmonary hypertension , aortic root is normal size, aortic root displays mild scleorcalcific changes of the aortic root * Prior echocardiogram (05/03/18): normal LV systolic function. Aortic valve sclerosis Status: Chronic (5) Diabetes Status: Chronic * hgba1c: 9.2 * Lipid Panel: 123, Cholestrol: 199, LDL: 152. HDL: 38 * Hypoglycemic protocol * insulin sliding scale Q AC and HS * Accuchecks qAC and HS * Start Metformin 1000mg PO BID * Start Amaryl 1mg PO daily Status: Chronic (6) BPH Status: Chronic * Flomax 0.4mg PO daily Status: Chronic (7) Prophylactic measure Assessment & Plan: * Elevated head * Neurochecks * chemical anticoagulation secondary to intracranial hemorrhage * seizure precautions * aspiration precautions * Passed swallow eval * Tolerating Dysphagia diet * Calorie count in progress (day2/3) * Luke Ryan, Disposition: Patient is medically stable for discharge. No aspirin/plavix given intracranial hemorrhage related to AVM. Patient to f/u with neurointerventionalist and PMD as outpatient.
[2018-06-01] MEDS: Metoprolol Succinate 100 mg XL Tab PO SCH (10:09)
[2018-06-01] MEDS: Pantoprazole 40 mg EC Tab PO SCH (10:09)
[2018-06-01] MEDS: (Novolin R) Insulin Human Regular 100 units/ml vial SC SCH ×4 (10:12→23:34)
--- NOTE | 2018-06-02 05:08 | CP.PCM.PN ---
<Kiana Hilton P - Last Filed: 06/02/18 05:04> Subjective - Date & Time of Evaluation Date of Evaluation: 06/02/18 Time of Evaluation: 05:05 - Subjective Subjective: Medicine progress note for Dr. Brody. Patient seen and evaluated at bedside. Patient in no acute distress. Patient states he feels "blah", but has no specific complaints at this time. Denies chest pain, shortness of breath, abdominal pain, nausea, vomiting, fevers and chills. Objective - Vital Signs/Intake and Output Vital Signs (last 24 hours): Temp Pulse Resp BP Pulse Ox 97.9 F 72 20 122/58 L 99 06/02/18 00:00 06/02/18 00:00 06/02/18 00:00 06/02/18 00:00 06/02/18 00:00 Intake and Output: 06/01/18 06/02/18 18:59 06:59 Intake Total 250 Balance 250 - Medications Medications: Current Medications Amlodipine Besylate (Norvasc) 10 mg PO DAILY [facility] Last Admin: 06/01/18 10:09 Dose: 10 mg Bisacodyl (Dulcolax) 10 mg AL ONCE PRN PRN Reason: Constipation Dextrose (Dextrose 50% Inj) 0 ml IV STAT PRN; Protocol PRN Reason: Hypoglycemia Protocol Dextrose (Glutose 15) 0 gm PO ONCE PRN; Protocol PRN Reason: Hypoglycemia Protocol Glimepiride (Amaryl) 1 mg PO DAILY [facility] Last Admin: 06/01/18 10:08 Dose: 1 mg Glucagon (Glucagen Diagnostic Kit) 0 mg IM STAT PRN; Protocol PRN Reason: Hypoglycemia Protocol Hydralazine HCl (Apresoline) 10 mg IVP Q6H PRN PRN Reason: sbp > 160 Last Admin: 05/26/18 08:45 Dose: 10 mg Hydralazine HCl (Apresoline) 100 mg PO Q8H [facility] Last Admin: 06/02/18 00:12 Dose: 100 mg Insulin Human Regular (Novolin R) 0 unit SC [facility] PRN Reason: Protocol Last Admin: 06/01/18 23:34 Dose: Not Given Levetiracetam (Keppra) 500 mg PO BID [facility] Last Admin: 06/01/18 17:18 Dose: 500 mg Losartan Potassium (Cozaar) 50 mg PO DAILY [facility] Last Admin: 06/01/18 10:09 Dose: 50 mg Metformin HCl (Glucophage) 1,000 mg PO BID [facility] Last Admin: 06/01/18 17:17 Dose: 1,000 mg Metoprolol Succinate (Toprol Xl) 100 mg PO DAILY [facility] Last Admin: 06/01/18 10:09 Dose: 100 mg Pantoprazole Sodium (Protonix Ec Tab) 40 mg PO DAILY [facility] Last Admin: 06/01/18 10:09 Dose: 40 mg Quetiapine Fumarate (Seroquel) 25 mg PO HS PRN PRN Reason: Insomnia Last Admin: 06/01/18 10:09 Dose: 25 mg Rosuvastatin Calcium (Crestor) 5 mg PO HS [facility] Last Admin: 06/01/18 21:21 Dose: 5 mg Tamsulosin HCl (Flomax) 0.4 mg PO DAILY [facility] Last Admin: 06/01/18 10:50 Dose: 0.4 mg - Labs Labs: 05/31/18 07:00 05/31/18 07:00 PT 12.4 SECONDS (9.7-12.2) H 05/21/18 08:44 INR 1.1 05/21/18 08:44 APTT 32 SECONDS (21-34) 05/21/18 08:44 - Constitutional Appears: No Acute Distress - Head Exam Head Exam: ATRAUMATIC, NORMOCEPHALIC - Eye Exam Eye Exam: EOMI - ENT Exam ENT Exam: Mucous Membranes Moist - Respiratory Exam Respiratory Exam: Clear to Ausculation Bilateral. absent: Rales, Rhonchi, Wheezes - Cardiovascular Exam Cardiovascular Exam: REGULAR RHYTHM, +S1, +S2 - GI/Abdominal Exam GI & Abdominal Exam: Soft, Normal Bowel Sounds. absent: Tenderness - Extremities Exam Extremities Exam: absent: Pedal Edema, Tenderness - Neurological Exam Neurological Exam: Alert, Awake - Psychiatric Exam Psychiatric exam: Normal Mood - Skin Skin Exam: Dry, Intact, Warm Assessment and Plan - Assessment and Plan (Free Text) Plan: 83 year old male with history of multiple CVAs and known left AVM who was transferred from [place] to [facility] [place] for evaluation and management of left posterior frontal/parietal intracerebral hematoma. Plan: Assessment/plan (1) Intracranial hemorrhage Assessment & Plan: At [place]: * CT Head (05/16/18): interval left posterior frontal/parietal intra cerebral hematoma with surrounding edema and possible minimal mild mass effect on the left frontal horn. No midline shift. No dilatation of the right lateral ventricle appreciated. No interval dilatation or other particular segments noted. * CT head (05/16/18): subjective mild expansion of the left parietal hematoma with mild surrounding edema impression upon the posterior portion of the body of the left lateral ventricle. No other significant interval chage. At [facility]: * CT Head (05/17/18): re-demonstrated is a large parenchymal hematoma within the left posterior temporoparietal lobe secondary to hemorrhage into pre-existing AVM, mass effect produced by the hematoma and surrounding edema impress overlying sulci and posterior aspect left lateral ventricle as described. moderate to significant chronic white matter ischemic changes. * CT head (05/19/18): official read available in the computer. * CT Head (05/20/18): involving large subacute left posterior parietal lobe hematoma with moderate surrounding vasogenic edema, local mass effect, and effacement of the right lateral ventricle, 4mm midline shift from left to right. No herniation or hydrocephalus. Moderate chronic microangiopathic changes and moderate age-related global parenchymal volume loss Admitted to ICU at [facility] [place] on 05/16/18; transferred out on 05/19/18 * Neurology (Dr. Aviles/Dr. Daugherty ) on the case-->help appreciated * Noninterventionist (Dr. 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 3-No evidence of treatable mayela-nidal aneurysm. 4-Early venous drainaige (shunting) primarily into the superior sagital sinus with antegrade drainge into the bilateral transverse-sigmoid sinuses. There is also reflus into superficial cortical veins. * We also discussed that gamma knife could be a viable option for the patient, while not providing immediate reduction of bleeding risk, would possibly reduce the risk over time. We will discuss this and other options, including surgery, intervention and observation after we have the results of the cerebral angiogram. * Elevated head of Bed * Seizure precautions * Neurochecks * Plavix was held and other anticoagulation held since 05/16/18 * Crestor 5mg POqHS * T, Chol: 199, LDL: 152, HDL: 38 * a1c: 9.2 * Seroquel 25mg PO HS PRN (2) Dysphagia Hypernatremia * GI (Sr. Concepcion) resource room special education teacher-->help appreciated; peg postponed and reconsult if needed * Patient has passed swallow eval; placed on dysphagia diet and aspiration precaution * Continues to tolerate diet well * Currently on 3rd day of 3 calorie count * hypernatremia secondary to GI loss-->patient is eating now will monitor sodium level * 05/29/18: Na 143 (3) Dyslipidemia * Crestor 5mg POqHS * T, Chol: 199, LDL: 152, HDL: 38 * a1c: 9.2 (4) Hypertension Assessment & Plan: * Continue to monitor BP to keep systolic BP between 130-140 * Norvasc 10mg PO daily * Hydralazine 10mg IVP Q6H SBP>160 * Hydralazine 75mg PO Q8H --> (05/28/18) increased to 100mg PO Q8H * start Cozaar 50mg PO daily * Toprol 100mg PO once a day * Echocardiogram (05/21/18): left ventricle is normal size, ejection fraction is 60-65%, grade i abnormal relaxation, mild tricupsid regurgitation, right ventricular systolic pressure is estimated at 30mm hg, no pulmonary hypertension , aortic root is normal size, aortic root displays mild scleorcalcific changes of the aortic root * Prior echocardiogram (05/03/18): normal LV systolic function. Aortic valve sclerosis (5) Diabetes Status: Chronic * hgba1c: 9.2 * Lipid Panel: 123, Cholestrol: 199, LDL: 152. HDL: 38 * Hypoglycemic protocol * insulin sliding scale Q AC and HS * Accuchecks qAC and HS (6) Prophylactic measure Assessment & Plan: * Elevated head * Neurochecks * chemical anticoagulation secondary to intracranial hemorrhage * NPO * seizure precautions * aspiration precautions * Passed swallow eval * 3 day Calorie count completed 05/28/18 * Luke Ryan, , she is amendable to PEG if it is necessary Disposition: Can restart DM meds on discharge. Patient is not to be discharged on ASA or Plavix. Failed placement to subacute rehab yesterday, awaiting authorization for residential care facility. <Amaya Brody V - Last Filed: 06/02/18 19:01> Objective - Vital Signs/Intake and Output Vital Signs (last 24 hours): Temp Pulse Resp BP Pulse Ox 98.3 F 82 20 128/67 98 06/02/18 16:00 06/02/18 16:00 06/02/18 16:00 06/02/18 16:00 06/02/18 16:00 Intake and Output: 06/02/18 06/02/18 06:59 18:59 Intake Total 550 Balance 550 - Medications Medications: Current Medications Amlodipine Besylate (Norvasc) 10 mg PO DAILY [facility] Last Admin: 06/02/18 09:52 Dose: 10 mg Bisacodyl (Dulcolax) 10 mg AL ONCE PRN PRN Reason: Constipation Dextrose (Dextrose 50% Inj) 0 ml IV STAT PRN; Protocol PRN Reason: Hypoglycemia Protocol Dextrose (Glutose 15) 0 gm PO ONCE PRN; Protocol PRN Reason: Hypoglycemia Protocol Glimepiride (Amaryl) 1 mg PO DAILY [facility] Last Admin: 06/02/18 09:51 Dose: 1 mg Glucagon (Glucagen Diagnostic Kit) 0 mg IM STAT PRN; Protocol PRN Reason: Hypoglycemia Protocol Hydralazine HCl (Apresoline) 10 mg IVP Q6H PRN PRN Reason: sbp > 160 Last Admin: 05/26/18 08:45 Dose: 10 mg Hydralazine HCl (Apresoline) 100 mg PO Q8H [facility] Last Admin: 06/02/18 17:37 Dose: 100 mg Sodium Chloride (Sodium Chloride 0.9%) 1,000 mls @ 50 mls/hr IV .Q20H ONE Stop: 06/03/18 08:26 Last Admin: 06/02/18 13:01 Dose: 50 mls/hr Insulin Human Regular (Novolin R) 0 unit SC [facility] PRN Reason: Protocol Last Admin: 06/02/18 16:47 Dose: Not Given Levetiracetam (Keppra) 500 mg PO BID [facility] Last Admin: 06/02/18 17:37 Dose: 500 mg Losartan Potassium (Cozaar) 50 mg PO DAILY [facility] Last Admin: 06/02/18 09:51 Dose: 50 mg Metformin HCl (Glucophage) 1,000 mg PO BID [facility] Last Admin: 06/02/18 17:37 Dose: 1,000 mg Metoprolol Succinate (Toprol Xl) 100 mg PO DAILY [facility] Last Admin: 06/02/18 09:52 Dose: 100 mg Pantoprazole Sodium (Protonix Ec Tab) 40 mg PO DAILY [facility] Last Admin: 06/02/18 09:51 Dose: 40 mg Quetiapine Fumarate (Seroquel) 25 mg PO HS PRN PRN Reason: Insomnia Last Admin: 06/01/18 10:09 Dose: 25 mg Rosuvastatin Calcium (Crestor) 5 mg PO HS [facility] Last Admin: 06/01/18 21:21 Dose: 5 mg Tamsulosin HCl (Flomax) 0.4 mg PO DAILY [facility] Last Admin: 06/02/18 09:51 Dose: 0.4 mg - Labs Labs: 06/02/18 07:51 06/02/18 07:51 PT 12.4 SECONDS (9.7-12.2) H 05/21/18 08:44 INR 1.1 05/21/18 08:44 APTT 32 SECONDS (21-34) 05/21/18 08:44 Assessment and Plan (1) Intracranial hemorrhage Status: Acute (2) Dyslipidemia Status: Chronic (3) Hypertension Status: Chronic (4) Diabetes Status: Chronic (5) Prophylactic measure Status: Acute Attending/Attestation - Attestation I have personally seen and examined this patient.: Yes I have fully participated in the care of the patient.: Yes I have reviewed all pertinent clinical information, including history, physical exam and plan: Yes Notes (Text): Patient seen, examined, case discussed with medical underwriter. No acute changes. Patient asked for coffee as he always does. Patient is medically stable for discharge awaiting long-term care bed authorization. Patient started on gentle IV hydration given mild BUNs increased. Continue to follow. (1) Intracranial hemorrhage Assessment & Plan: At [place]: * CT Head (05/16/18): interval left posterior frontal/parietal intra cerebral hematoma with surrounding edema and possible minimal mild mass effect on the left frontal horn. No midline shift. No dilatation of the right lateral ventricle appreciated. No interval dilatation or other particular segments noted. * CT head (05/16/18): subjective mild expansion of the left parietal hematoma with mild surrounding edema impression upon the posterior portion of the body of the left lateral ventricle. No other significant interval chage. At [facility]: * CT Head (05/17/18): re-demonstrated is a large parenchymal hematoma within the left posterior temporoparietal lobe secondary to hemorrhage into pre-existing AVM, mass effect produced by the hematoma and surrounding edema impress overlying sulci and posterior aspect left lateral ventricle as described. moderate to significant chronic white matter ischemic changes. * CT head (05/19/18): official read available in the computer. * CT Head (05/20/18): involving large subacute left posterior parietal lobe hematoma with moderate surrounding vasogenic edema, local mass effect, and effacement of the right lateral ventricle, 4mm midline shift from left to right. No herniation or hydrocephalus. Moderate chronic microangiopathic changes and moderate age-related global parenchymal volume loss Admitted to ICU at [facility] [place] on 05/16/18; transferred out on 05/19/18 * Neurology (Dr. Aviles/Dr. Daugherty ) on the case-->help appreciated * Neuro-parks and recreation worker (Dr. 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 3-No evidence of treatable mayela-nidal aneurysm. 4-Early venous drainaige (shunting) primarily into the superior sagital sinus with antegrade drainge into the bilateral transverse-sigmoid sinuses. There is also reflus into superficial cortical veins. * We also discussed that gamma knife could be a viable option for the patient, while not providing immediate reduction of bleeding risk, would possibly reduce the risk over time. We will discuss this and other options, including surgery, intervention and observation after we have the results of the cerebral angiogram. * Elevated head of Bed * Seizure precautions * Neurochecks * Plavix was held and other anticoagulation held since 05/16/18 * Crestor 5mg POqHS * T, Chol: 199, LDL: 152, HDL: 38 * a1c: 9.2 Status: stable (2) Dysphagia Hypernatremia-->resolved Assessment & Plan: * GI (Sr. Concepcion) resource room special education teacher-->help appreciated; peg postponed and reconsult if needed * Patient has passed swallow eval; placed on dysphagia diet and aspiration precaution * Completed calorie count * hypernatremia secondary to GI loss-->patient is eating now will monitor sodium level; normalized Status: Resolved (3) Dyslipidemia Assessment & Plan: * Crestor 5mg POqHS * T, Chol: 199, LDL: 152, HDL: 38 * a1c: 9.2 Status: Chronic (4) Hypertension Assessment & Plan: * Norvasc 10mg PO daily * Hydralazine 10mg IVP Q6H SBP>160 * Hydralazine 100 mg PO Q8H * Cozaar 50 mg by mouth once a day * Toprol 100mg PO once a day * Echocardiogram (05/21/18): left ventricle is normal size, ejection fraction is 60-65%, grade i abnormal relaxation, mild tricupsid regurgitation, right ventricular systolic pressure is estimated at 30mm hg, no pulmonary hypertension , aortic root is normal size, aortic root displays mild scleorcalcific changes of the aortic root * Prior echocardiogram (05/03/18): normal LV systolic function. Aortic valve sclerosis Status: Chronic (5) Diabetes Status: Chronic * hgba1c: 9.2 * Lipid Panel: 123, Cholestrol: 199, LDL: 152. HDL: 38 * Hypoglycemic protocol * insulin sliding scale Q AC and HS * Accuchecks qAC and HS * Start Metformin 1000mg PO BID * Start Amaryl 1mg PO daily Status: Chronic (6) BPH Status: Chronic * Flomax 0.4mg PO daily Status: Chronic (7) Prophylactic measure Assessment & Plan: * Elevated head * Neurochecks * chemical anticoagulation secondary to intracranial hemorrhage * seizure precautions * aspiration precautions * Passed swallow eval * Tolerating Dysphagia diet * Calorie count in progress (day2/3) * Luke Ryan, Disposition: Patient is medically stable for discharge. No aspirin/plavix given intracranial hemorrhage related to AVM. Patient to f/u with neurointerventionalist and PMD as outpatient.
[2018-06-02 07:58] LABS: BASO # 0.1 K/uL (0.0-0.2); BASO % 0.8 % (0.0-2.0); EOS # 0.4 K/uL (0.0-0.7); EOS % 3.5 % (0.0-4.0); HEMOGLOBIN 11.3 g/dL (12.0-18.0); LYMPH # 2.9 K/uL (1.0-4.3); LYMPH % 26.7 % (20.0-40.0); MEAN CELL VOLUME 71.8 fL (80.0-94.0); MEAN CORPUSCULAR HEMOGLOBIN 23.1 pg (27.0-31.0); MEAN CORPUSCULAR HGB CONC 32.2 g/dL (33.0-37.0); MEAN PLATELET VOLUME 10.7 fL (7.2-11.7); MONO # 0.6 K/uL (0.0-0.8); MONO % 5.8 % (0.0-10.0); NEUT # 6.8 K/uL (1.8-7.0); NEUT % 63.2 % (50.0-75.0); RBC 4.89 Mil/uL (4.40-5.90); RED CELL DISTRIBUTION WIDTH 19.8 % (11.5-14.5); WHITE BLOOD COUNT 10.7 K/uL (4.8-10.8)
[2018-06-02 08:18] LABS: ALB/GLOB RATIO 1.4 (1.0-2.1); ALT/SGPT 31 U/L (21-72); AST/SGOT 29 U/L (17-59); BLOOD UREA NITROGEN 30 mg/dL (9-20); CALCIUM 9.8 mg/dl (8.6-10.4); GFR AFRICAN-AMERICAN > 60; GFR NON-AFRICAN AMERICAN > 60
[2018-06-02] MEDS: (Novolin R) Insulin Human Regular 100 units/ml vial SC SCH ×4 (08:36→22:23)
[2018-06-02] MEDS: Pantoprazole 40 mg EC Tab PO SCH (09:51)
[2018-06-02] MEDS: Metoprolol Succinate 100 mg XL Tab PO SCH (09:52)
[2018-06-02] MEDS ORDERED: Sodium Chloride 0.9% 1,000 ML IV ONE (12:27)
--- NOTE | 2018-06-03 04:59 | CP.PCM.PN ---
<Kiana Hilton P - Last Filed: 06/03/18 04:55> Subjective - Date & Time of Evaluation Date of Evaluation: 06/03/18 Time of Evaluation: 04:56 - Subjective Subjective: Medicine progress noted for Dr. Brody. Patient was seen and evaluated at bedside. Patient in no acute distress, awake and alert. He has no complaints at this time. States he is eating well and having bowel movements. Denies chest pain, shortness of breath, abdominal pain, nausea, vomiting, headache, fever, and chills. Objective - Vital Signs/Intake and Output Vital Signs (last 24 hours): Temp Pulse Resp BP Pulse Ox 98.0 F 67 20 123/68 100 06/03/18 00:10 06/03/18 00:10 06/03/18 00:10 06/03/18 00:10 06/03/18 00:10 Intake and Output: 06/02/18 06/03/18 18:59 06:59 Intake Total 550 Balance 550 - Medications Medications: Current Medications Amlodipine Besylate (Norvasc) 10 mg PO DAILY [facility] Last Admin: 06/02/18 09:52 Dose: 10 mg Bisacodyl (Dulcolax) 10 mg HI ONCE PRN PRN Reason: Constipation Dextrose (Dextrose 50% Inj) 0 ml IV STAT PRN; Protocol PRN Reason: Hypoglycemia Protocol Dextrose (Glutose 15) 0 gm PO ONCE PRN; Protocol PRN Reason: Hypoglycemia Protocol Glimepiride (Amaryl) 1 mg PO DAILY [facility] Last Admin: 06/02/18 09:51 Dose: 1 mg Glucagon (Glucagen Diagnostic Kit) 0 mg IM STAT PRN; Protocol PRN Reason: Hypoglycemia Protocol Hydralazine HCl (Apresoline) 10 mg IVP Q6H PRN PRN Reason: sbp > 160 Last Admin: 05/26/18 08:45 Dose: 10 mg Hydralazine HCl (Apresoline) 100 mg PO Q8H [facility] Last Admin: 06/03/18 01:00 Dose: Not Given Sodium Chloride (Sodium Chloride 0.9%) 1,000 mls @ 50 mls/hr IV .Q20H ONE Stop: 06/03/18 08:26 Last Admin: 06/02/18 13:01 Dose: 50 mls/hr Insulin Human Regular (Novolin R) 0 unit SC ACHS [facility] PRN Reason: Protocol Last Admin: 06/02/18 22:23 Dose: Not Given Levetiracetam (Keppra) 500 mg PO BID [facility] Last Admin: 06/02/18 17:37 Dose: 500 mg Losartan Potassium (Cozaar) 50 mg PO DAILY [facility] Last Admin: 06/02/18 09:51 Dose: 50 mg Metformin HCl (Glucophage) 1,000 mg PO BID [facility] Last Admin: 06/02/18 17:37 Dose: 1,000 mg Metoprolol Succinate (Toprol Xl) 100 mg PO DAILY [facility] Last Admin: 06/02/18 09:52 Dose: 100 mg Pantoprazole Sodium (Protonix Ec Tab) 40 mg PO DAILY [facility] Last Admin: 06/02/18 09:51 Dose: 40 mg Quetiapine Fumarate (Seroquel) 25 mg PO HS PRN PRN Reason: Insomnia Last Admin: 06/01/18 10:09 Dose: 25 mg Rosuvastatin Calcium (Crestor) 5 mg PO HS [facility] Last Admin: 06/02/18 22:24 Dose: 5 mg Tamsulosin HCl (Flomax) 0.4 mg PO DAILY [facility] Last Admin: 06/02/18 09:51 Dose: 0.4 mg - Labs Labs: 06/02/18 07:51 06/02/18 07:51 PT 12.4 SECONDS (9.7-12.2) H 05/21/18 08:44 INR 1.1 05/21/18 08:44 APTT 32 SECONDS (21-34) 05/21/18 08:44 - Additional Findings Additional findings: - Constitutional Appears: No Acute Distress - Head Exam Head Exam: ATRAUMATIC, NORMOCEPHALIC - Eye Exam Eye Exam: EOMI - ENT Exam ENT Exam: Mucous Membranes Moist - Respiratory Exam Respiratory Exam: Clear to Ausculation Bilateral. absent: Rales, Rhonchi, Wheezes - Cardiovascular Exam Cardiovascular Exam: REGULAR RHYTHM, +S1, +S2 - GI/Abdominal Exam GI & Abdominal Exam: Soft, Normal Bowel Sounds. absent: Tenderness - Extremities Exam Extremities Exam: No lower extremity edema. 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 - Neurological Exam Neurological Exam: Alert, Awake - Psychiatric Exam Psychiatric exam: Normal Mood - Skin Skin Exam: Dry, Intact, Warm Assessment and Plan - Assessment and Plan (Free Text) Plan: 3 year old male with history of multiple CVAs and known left AVM who was transferred from [place] to [facility] for evaluation and management of left posterior frontal/parietal intracerebral hematoma. Plan: Assessment/plan (1) Intracranial hemorrhage Assessment & Plan: At [place]: * CT Head (05/16/18): interval left posterior frontal/parietal intra cerebral hematoma with surrounding edema and possible minimal mild mass effect on the left frontal horn. No midline shift. No dilatation of the right lateral ventricle appreciated. No interval dilatation or other particular segments noted. * CT head (05/16/18): subjective mild expansion of the left parietal hematoma with mild surrounding edema impression upon the posterior portion of the body of the left lateral ventricle. No other significant interval chage. At [facility]: * CT Head (05/17/18): re-demonstrated is a large parenchymal hematoma within the left posterior temporoparietal lobe secondary to hemorrhage into pre-existing AVM, mass effect produced by the hematoma and surrounding edema impress overlying sulci and posterior aspect left lateral ventricle as described. moderate to significant chronic white matter ischemic changes. * CT head (05/19/18): official read available in the computer. * CT Head (05/20/18): involving large subacute left posterior parietal lobe hematoma with moderate surrounding vasogenic edema, local mass effect, and effacement of the right lateral ventricle, 4mm midline shift from left to right. No herniation or hydrocephalus. Moderate chronic microangiopathic changes and moderate age-related global parenchymal volume loss Admitted to ICU at [facility] on 05/16/18; transferred out on 05/19/18 * Neurology (Dr. Aviles/Dr. Daugherty ) on the case-->help appreciated * Noninterventionist (Dr. Dionisio Lael) on board-->help appreciated * Operative Note (05/25/18): Left fronto-parietal AVM: 1-Arterial supply via the superior branch of the left MCA and via distal left QUIN convexal branches. 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 3-No evidence of treatable mayela-nidal aneurysm. 4-Early venous drainaige (shunting) primarily into the superior sagital sinus with antegrade drainge into the bilateral transverse-sigmoid sinuses. There is also reflus into superficial cortical veins. * We also discussed that gamma knife could be a viable option for the patient, while not providing immediate reduction of bleeding risk, would possibly reduce the risk over time. We will discuss this and other options, including surgery, intervention and observation after we have the results of the cerebral angiogram. * Elevated head of Bed * Seizure precautions * Neurochecks * Plavix was held and other anticoagulation held since 05/16/18 * Crestor 5mg POqHS * T, Chol: 199, LDL: 152, HDL: 38 * a1c: 9.2 * Seroquel 25mg PO HS PRN (2) Dysphagia Hypernatremia * GI (Sr. Concepcion) deboner-->help appreciated; peg postponed and reconsult if needed * Patient has passed swallow eval; placed on dysphagia diet and aspiration precaution * Continues to tolerate diet well * Currently on 3rd day of 3 calorie count * hypernatremia secondary to GI loss-->patient is eating now will monitor sodium level * 05/29/18: Na 143 (3) Dyslipidemia * Crestor 5mg POqHS * T, Chol: 199, LDL: 152, HDL: 38 * a1c: 9.2 (4) Hypertension Assessment & Plan: * Continue to monitor BP to keep systolic BP between 130-140 * Norvasc 10mg PO daily * Hydralazine 10mg IVP Q6H SBP>160 * Hydralazine 75mg PO Q8H --> (05/28/18) increased to 100mg PO Q8H * start Cozaar 50mg PO daily * Toprol 100mg PO once a day * Echocardiogram (05/21/18): left ventricle is normal size, ejection fraction is 60-65%, grade i abnormal relaxation, mild tricupsid regurgitation, right ventricular systolic pressure is estimated at 30mm hg, no pulmonary hypertension , aortic root is normal size, aortic root displays mild scleorcalcific changes of the aortic root * Prior echocardiogram (05/03/18): normal LV systolic function. Aortic valve sclerosis (5) Diabetes Status: Chronic * hgba1c: 9.2 * Lipid Panel: 123, Cholestrol: 199, LDL: 152. HDL: 38 * Hypoglycemic protocol * insulin sliding scale Q AC and HS * Accuchecks qAC and HS (6) Prophylactic measure Assessment & Plan: * Elevated head * Neurochecks * chemical anticoagulation secondary to intracranial hemorrhage * NPO * seizure precautions * aspiration precautions * Passed swallow eval * 3 day Calorie count completed 05/28/18 * Niece Shelby, , she is amendable to PEG if it is necessary Disposition: Can restart DM meds on discharge. Patient is not to be discharged on ASA or Plavix. Failed placement to subacute rehab, awaiting authorization for technician terminal and repeater care facility. <Amaya Brody V - Last Filed: 06/03/18 20:21> Objective - Vital Signs/Intake and Output Vital Signs (last 24 hours): Temp Pulse Resp BP Pulse Ox 97.8 F 69 20 125/66 96 06/03/18 16:00 06/03/18 16:00 06/03/18 16:00 06/03/18 16:00 06/03/18 16:00 Intake and Output: 06/03/18 06/04/18 18:59 06:59 Intake Total 400 Balance 400 - Medications Medications: Current Medications Amlodipine Besylate (Norvasc) 10 mg PO DAILY [facility] Last Admin: 06/03/18 09:04 Dose: 10 mg Bisacodyl (Dulcolax) 10 mg HI ONCE PRN PRN Reason: Constipation Dextrose (Dextrose 50% Inj) 0 ml IV STAT PRN; Protocol PRN Reason: Hypoglycemia Protocol Dextrose (Glutose 15) 0 gm PO ONCE PRN; Protocol PRN Reason: Hypoglycemia Protocol Glimepiride (Amaryl) 1 mg PO DAILY [facility] Last Admin: 06/03/18 09:05 Dose: 1 mg Glucagon (Glucagen Diagnostic Kit) 0 mg IM STAT PRN; Protocol PRN Reason: Hypoglycemia Protocol Hydralazine HCl (Apresoline) 10 mg IVP Q6H PRN PRN Reason: sbp > 160 Last Admin: 05/26/18 08:45 Dose: 10 mg Hydralazine HCl (Apresoline) 100 mg PO Q8H [facility] Last Admin: 06/03/18 17:32 Dose: 100 mg Insulin Human Regular (Novolin R) 0 unit SC ACHS [facility] PRN Reason: Protocol Last Admin: 06/03/18 17:34 Dose: 2 unit Levetiracetam (Keppra) 500 mg PO BID [facility] Last Admin: 06/03/18 17:33 Dose: 500 mg Losartan Potassium (Cozaar) 50 mg PO DAILY [facility] Last Admin: 07/08/18 09:05 Dose: 50 mg Metformin HCl (Glucophage) 1,000 mg PO BID [facility] Last Admin: 06/03/18 17:33 Dose: 1,000 mg Metoprolol Succinate (Toprol Xl) 100 mg PO DAILY [facility] Last Admin: 06/03/18 09:05 Dose: 100 mg Pantoprazole Sodium (Protonix Ec Tab) 40 mg PO DAILY [facility] Last Admin: 06/03/18 09:05 Dose: 40 mg Quetiapine Fumarate (Seroquel) 25 mg PO HS PRN PRN Reason: Insomnia Last Admin: 06/01/18 10:09 Dose: 25 mg Rosuvastatin Calcium (Crestor) 5 mg PO HS [facility] Last Admin: 06/02/18 22:24 Dose: 5 mg Tamsulosin HCl (Flomax) 0.4 mg PO DAILY [facility] Last Admin: 06/03/18 09:04 Dose: 0.4 mg - Labs Labs: 06/03/18 08:58 06/03/18 08:58 PT 12.4 SECONDS (9.7-12.2) H 05/21/18 08:44 INR 1.1 05/21/18 08:44 APTT 32 SECONDS (21-34) 05/21/18 08:44 Assessment and Plan (1) Intracranial hemorrhage Status: Acute (2) Dyslipidemia Status: Chronic (3) Hypertension Status: Chronic (4) Diabetes Status: Chronic (5) Prophylactic measure Status: Acute Attending/Attestation - Attestation I have personally seen and examined this patient.: Yes I have fully participated in the care of the patient.: Yes I have reviewed all pertinent clinical information, including history, physical exam and plan: Yes Notes (Text): Patient seen, examined, case discussed with medical facilities section director. No acute changes. Patient asked for coffee as he always does. Patient is medically stable for discharge awaiting long-term care bed authorization. Patient started on gentle IV hydration given mild BUN increase for past couple of days. Continue to follow. (1) Intracranial hemorrhage Assessment & Plan: At [place]: * CT Head (05/16/18): interval left posterior frontal/parietal intra cerebral hematoma with surrounding edema and possible minimal mild mass effect on the left frontal horn. No midline shift. No dilatation of the right lateral ventricle appreciated. No interval dilatation or other particular segments noted. * CT head (05/16/18): subjective mild expansion of the left parietal hematoma with mild surrounding edema impression upon the posterior portion of the body of the left lateral ventricle. No other significant interval chage. At [facility]: * CT Head (05/17/18): re-demonstrated is a large parenchymal hematoma within the left posterior temporoparietal lobe secondary to hemorrhage into pre-existing AVM, mass effect produced by the hematoma and surrounding edema impress overlying sulci and posterior aspect left lateral ventricle as described. moderate to significant chronic white matter ischemic changes. * CT head (05/19/18): official read available in the computer. * CT Head (05/20/18): involving large subacute left posterior parietal lobe hematoma with moderate surrounding vasogenic edema, local mass effect, and effacement of the right lateral ventricle, 4mm midline shift from left to right. No herniation or hydrocephalus. Moderate chronic microangiopathic changes and moderate age-related global parenchymal volume loss Admitted to ICU at [facility] on 05/16/18; transferred out on 05/19/18 * Neurology (Dr. Aviles/Dr. Daugherty ) on the case-->help appreciated * Neuro-analytics associate (Dr. 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 3-No evidence of treatable mayela-nidal aneurysm. 4-Early venous drainaige (shunting) primarily into the superior sagital sinus with antegrade drainge into the bilateral transverse-sigmoid sinuses. There is also reflus into superficial cortical veins. * We also discussed that gamma knife could be a viable option for the patient, while not providing immediate reduction of bleeding risk, would possibly reduce the risk over time. We will discuss this and other options, including surgery, intervention and observation after we have the results of the cerebral angiogram. * Elevated head of Bed * Seizure precautions * Neurochecks * Plavix was held and other anticoagulation held since 05/16/18 * Crestor 5mg POqHS * T, Chol: 199, LDL: 152, HDL: 38 * a1c: 9.2 Status: stable (2) Dysphagia Hypernatremia-->resolved Assessment & Plan: * GI (Sr. Concepcion) deboner-->help appreciated; peg postponed and reconsult if needed * Patient has passed swallow eval; placed on dysphagia diet and aspiration precaution * Completed calorie count * hypernatremia secondary to GI loss-->patient is eating now will monitor sodium level; normalized Status: Resolved (3) Dyslipidemia Assessment & Plan: * Crestor 5mg POqHS * T, Chol: 199, LDL: 152, HDL: 38 * a1c: 9.2 Status: Chronic (4) Hypertension Assessment & Plan: * Norvasc 10mg PO daily * Hydralazine 10mg IVP Q6H SBP>160 * Hydralazine 100 mg PO Q8H * Cozaar 50 mg by mouth once a day * Toprol 100mg PO once a day * Echocardiogram (05/21/18): left ventricle is normal size, ejection fraction is 60-65%, grade i abnormal relaxation, mild tricupsid regurgitation, right ventricular systolic pressure is estimated at 30mm hg, no pulmonary hypertension , aortic root is normal size, aortic root displays mild scleorcalcific changes of the aortic root * Prior echocardiogram (05/03/18): normal LV systolic function. Aortic valve sclerosis Status: Chronic (5) Diabetes Status: Chronic * hgba1c: 9.2 * Lipid Panel: 123, Cholestrol: 199, LDL: 152. HDL: 38 * Hypoglycemic protocol * insulin sliding scale Q AC and HS * Accuchecks qAC and HS * Start Metformin 1000mg PO BID * Start Amaryl 1mg PO daily Status: Chronic (6) BPH Status: Chronic * Flomax 0.4mg PO daily Status: Chronic (7) Prophylactic measure Assessment & Plan: * Elevated head * Neurochecks * chemical anticoagulation secondary to intracranial hemorrhage * seizure precautions * aspiration precautions * Passed swallow eval * Tolerating Dysphagia diet * Luke Ryan, Disposition: Patient is medically stable for discharge. No aspirin/plavix given intracranial hemorrhage related to AVM. Patient to f/u with neurointerventionalist and PMD as outpatient.
[2018-06-03] MEDS: (Novolin R) Insulin Human Regular 100 units/ml vial SC SCH ×4 (08:30→21:49)
[2018-06-03] MEDS: Metoprolol Succinate 100 mg XL Tab PO SCH (09:05)
[2018-06-03] MEDS: Pantoprazole 40 mg EC Tab PO SCH (09:05)
[2018-06-03 09:09] LABS: BASO # 0.1 K/uL (0.0-0.2); BASO % 0.9 % (0.0-2.0); EOS # 0.3 K/uL (0.0-0.7); EOS % 3.4 % (0.0-4.0); HEMOGLOBIN 10.7 g/dL (12.0-18.0); LYMPH # 2.8 K/uL (1.0-4.3); MEAN CORPUSCULAR HEMOGLOBIN 22.9 pg (27.0-31.0); MEAN CORPUSCULAR HGB CONC 31.9 g/dL (33.0-37.0); MEAN PLATELET VOLUME 10.5 fL (7.2-11.7); MONO # 0.5 K/uL (0.0-0.8); MONO % 5.7 % (0.0-10.0); NEUT # 5.7 K/uL (1.8-7.0); RBC 4.65 Mil/uL (4.40-5.90); RED CELL DISTRIBUTION WIDTH 19.9 % (11.5-14.5); WHITE BLOOD COUNT 9.5 K/uL (4.8-10.8)
[2018-06-03 09:25] LABS: BLOOD UREA NITROGEN 21 mg/dL (9-20); CALCIUM 9.5 mg/dl (8.6-10.4); GFR AFRICAN-AMERICAN > 60; GFR NON-AFRICAN AMERICAN > 60
[2018-06-04] MEDS: (Novolin R) Insulin Human Regular 100 units/ml vial SC SCH ×4 (07:39→22:30)
[2018-06-04 08:22] LABS: BASO # 0.1 K/uL (0.0-0.2); EOS # 0.2 K/uL (0.0-0.7); EOS % 2.9 % (0.0-4.0); HEMOGLOBIN 10.6 g/dL (12.0-18.0); LYMPH # 2.7 K/uL (1.0-4.3); LYMPH % 32.1 % (20.0-40.0); MEAN CELL VOLUME 72.3 fL (80.0-94.0); MEAN CORPUSCULAR HEMOGLOBIN 23.3 pg (27.0-31.0); MEAN CORPUSCULAR HGB CONC 32.2 g/dL (33.0-37.0); MEAN PLATELET VOLUME 9.9 fL (7.2-11.7); MONO # 0.6 K/uL (0.0-0.8); MONO % 6.6 % (0.0-10.0); NEUT # 4.9 K/uL (1.8-7.0); NEUT % 57.4 % (50.0-75.0); RBC 4.54 Mil/uL (4.40-5.90); RED CELL DISTRIBUTION WIDTH 19.9 % (11.5-14.5); WHITE BLOOD COUNT 8.5 K/uL (4.8-10.8)
[2018-06-04 08:35] LABS: BLOOD UREA NITROGEN 20 mg/dL (9-20); CALCIUM 9.4 mg/dl (8.6-10.4); GFR AFRICAN-AMERICAN > 60; GFR NON-AFRICAN AMERICAN > 60
[2018-06-04] MEDS: Metoprolol Succinate 100 mg XL Tab PO SCH (09:40)
[2018-06-04] MEDS: Pantoprazole 40 mg EC Tab PO SCH (09:40)
--- NOTE | 2018-06-04 11:44 | CP.PCM.PN ---
Subjective - Date & Time of Evaluation Date of Evaluation: 06/04/18 Time of Evaluation: 11:35 - Subjective Subjective: Progress Note for Hospitalist service Patient seen and examined at bedside. He is resting comfortably. No family at bedside present. Awaiting LTAC placement. He denies fevers, chills, chest pain , shortness of breath, palpitations, abdominal pain, nausea, vomiting, diarrhea , leg pains. Objective - Vital Signs/Intake and Output Vital Signs (last 24 hours): Temp Pulse Resp BP Pulse Ox 98.2 F 79 20 135/62 98 06/04/18 07:52 06/04/18 07:52 06/04/18 07:52 06/04/18 07:52 06/04/18 07:52 Intake and Output: 06/04/18 06/04/18 06:59 18:59 Intake Total 600 Balance 600 - Medications Medications: Current Medications Amlodipine Besylate (Norvasc) 10 mg PO DAILY [facility] Last Admin: 06/04/18 09:40 Dose: 10 mg Bisacodyl (Dulcolax) 10 mg IN ONCE PRN PRN Reason: Constipation Dextrose (Dextrose 50% Inj) 0 ml IV STAT PRN; Protocol PRN Reason: Hypoglycemia Protocol Dextrose (Glutose 15) 0 gm PO ONCE PRN; Protocol PRN Reason: Hypoglycemia Protocol Glimepiride (Amaryl) 1 mg PO DAILY [facility] Last Admin: 06/04/18 09:39 Dose: 1 mg Glucagon (Glucagen Diagnostic Kit) 0 mg IM STAT PRN; Protocol PRN Reason: Hypoglycemia Protocol Hydralazine HCl (Apresoline) 10 mg IVP Q6H PRN PRN Reason: sbp > 160 Last Admin: 05/26/18 08:45 Dose: 10 mg Hydralazine HCl (Apresoline) 100 mg PO Q8H [facility] Last Admin: 06/04/18 09:40 Dose: 100 mg Insulin Human Regular (Novolin R) 0 unit SC ACHS [facility] PRN Reason: Protocol Last Admin: 06/04/18 07:39 Dose: Not Given Levetiracetam (Keppra) 500 mg PO BID [facility] Last Admin: 06/04/18 09:40 Dose: 500 mg Losartan Potassium (Cozaar) 50 mg PO DAILY [facility] Last Admin: 06/04/18 09:40 Dose: 50 mg Metformin HCl (Glucophage) 1,000 mg PO BID [facility] Last Admin: 06/04/18 09:40 Dose: 1,000 mg Metoprolol Succinate (Toprol Xl) 100 mg PO DAILY [facility] Last Admin: 06/04/18 09:40 Dose: 100 mg Pantoprazole Sodium (Protonix Ec Tab) 40 mg PO DAILY [facility] Last Admin: 06/04/18 09:40 Dose: 40 mg Quetiapine Fumarate (Seroquel) 25 mg PO HS PRN PRN Reason: Insomnia Last Admin: 06/01/18 10:09 Dose: 25 mg Rosuvastatin Calcium (Crestor) 5 mg PO HS [facility] Last Admin: 06/03/18 21:48 Dose: 5 mg Tamsulosin HCl (Flomax) 0.4 mg PO DAILY [facility] Last Admin: 06/04/18 09:40 Dose: 0.4 mg - Labs Labs: 06/04/18 08:02 06/04/18 08:02 PT 12.4 SECONDS (9.7-12.2) H 05/21/18 08:44 INR 1.1 05/21/18 08:44 APTT 32 SECONDS (21-34) 05/21/18 08:44 - Constitutional Appears: No Acute Distress - Head Exam Head Exam: ATRAUMATIC, NORMOCEPHALIC - Eye Exam Eye Exam: EOMI - ENT Exam ENT Exam: Mucous Membranes Moist - Respiratory Exam Respiratory Exam: Clear to Ausculation Bilateral, NORMAL BREATHING PATTERN. absent: Rales, Rhonchi, Wheezes, Respiratory Distress, Stridor - Cardiovascular Exam Cardiovascular Exam: REGULAR RHYTHM, +S1, +S2 - GI/Abdominal Exam GI & Abdominal Exam: Soft, Normal Bowel Sounds. absent: Distended, Firm, Guarding, Rigid, Tenderness - Extremities Exam Extremities Exam: absent: Calf Tenderness, Pedal Edema - Back Exam Back Exam: absent: rash noted - Neurological Exam Neurological Exam: Alert, Awake Additional comments: Right facial droop noted. Right upper extremity strength 2/5 compared to left upper extremity strength 4/5 Left lower extremity strength 4/5, right lower extremity strength 5/5 - Skin Skin Exam: Dry, Intact, Warm Assessment and Plan - Assessment and Plan (Free Text) Assessment: 83 year old male with history of multiple CVAs and known left AVM who was transferred from [place] to [facility] for evaluation and management of left posterior frontal/parietal intracerebral hematoma. Plan: Assessment/plan (1) Intracranial hemorrhage Assessment & Plan: At [place]: * CT Head (05/16/18): interval left posterior frontal/parietal intra cerebral hematoma with surrounding edema and possible minimal mild mass effect on the left frontal horn. No midline shift. No dilatation of the right lateral ventricle appreciated. No interval dilatation or other particular segments noted. * CT head (05/16/18): subjective mild expansion of the left parietal hematoma with mild surrounding edema impression upon the posterior portion of the body of the left lateral ventricle. No other significant interval chage. At [facility]: * CT Head (05/17/18): re-demonstrated is a large parenchymal hematoma within the left posterior temporoparietal lobe secondary to hemorrhage into pre-existing AVM, mass effect produced by the hematoma and surrounding edema impress overlying sulci and posterior aspect left lateral ventricle as described. moderate to significant chronic white matter ischemic changes. * CT head (05/19/18): official read available in the computer. * CT Head (05/20/18): involving large subacute left posterior parietal lobe hematoma with moderate surrounding vasogenic edema, local mass effect, and effacement of the right lateral ventricle, 4mm midline shift from left to right. No herniation or hydrocephalus. Moderate chronic microangiopathic changes and moderate age-related global parenchymal volume loss Admitted to ICU at [facility] on 05/16/18; transferred out on 05/19/18 * Neurology (Dr. Aviles/Dr. Daugherty ) on the case-->help appreciated * Noninterventionist (Dr. 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 3-No evidence of treatable mayela-nidal aneurysm. 4-Early venous drainaige (shunting) primarily into the superior sagital sinus with antegrade drainge into the bilateral transverse-sigmoid sinuses. There is also reflus into superficial cortical veins. * We also discussed that gamma knife could be a viable option for the patient, while not providing immediate reduction of bleeding risk, would possibly reduce the risk over time. We will discuss this and other options, including surgery, intervention and observation after we have the results of the cerebral angiogram. * Elevated head of Bed * Seizure precautions * Neurochecks * Plavix was held and other anticoagulation held since 05/16/18 * Crestor 5mg POqHS * T, Chol: 199, LDL: 152, HDL: 38 * a1c: 9.2 * Seroquel 25mg PO HS PRN (2) Dysphagia Hypernatremia * GI (Sr. Concepcion) national van truck driver-->help appreciated; peg postponed and reconsult if needed * Patient has passed swallow eval; placed on dysphagia diet and aspiration precaution * Continues to tolerate diet well * Currently on 3rd day of 3 calorie count * hypernatremia secondary to GI loss-->patient is eating now will monitor sodium level * 05/29/18: Na 143 (3) Dyslipidemia * Crestor 5mg POqHS * T, Chol: 199, LDL: 152, HDL: 38 * a1c: 9.2 (4) Hypertension Assessment & Plan: * Continue to monitor BP to keep systolic BP between 130-140 * Norvasc 10mg PO daily * Hydralazine 10mg IVP Q6H SBP>160 * Hydralazine 75mg PO Q8H --> (05/28/18) increased to 100mg PO Q8H * start Cozaar 50mg PO daily * Toprol 100mg PO once a day * Echocardiogram (05/21/18): left ventricle is normal size, ejection fraction is 60-65%, grade i abnormal relaxation, mild tricupsid regurgitation, right ventricular systolic pressure is estimated at 30mm hg, no pulmonary hypertension , aortic root is normal size, aortic root displays mild scleorcalcific changes of the aortic root * Prior echocardiogram (05/03/18): normal LV systolic function. Aortic valve sclerosis (5) Diabetes Status: Chronic * hgba1c: 9.2 * Lipid Panel: 123, Cholestrol: 199, LDL: 152. HDL: 38 * Hypoglycemic protocol * insulin sliding scale Q AC and HS * Accuchecks qAC and HS (6) Prophylactic measure Assessment & Plan: * Elevated head * Neurochecks * chemical anticoagulation secondary to intracranial hemorrhage * NPO * seizure precautions * aspiration precautions * Passed swallow eval * 3 day Calorie count completed 05/28/18 * Nijos Ryan, , she is amendable to PEG if it is necessary * Not to be discharged on ASA or Plavix. * Awaiting LTAC placement as per maintenance worker Johanny
[2018-06-05] MEDS: (Novolin R) Insulin Human Regular 100 units/ml vial SC SCH ×4 (08:37→21:39)
[2018-06-05 09:05] LABS: BASO # 0.1 K/uL (0.0-0.2); BASO % 1.1 % (0.0-2.0); EOS # 0.3 K/uL (0.0-0.7); EOS % 3.4 % (0.0-4.0); HEMOGLOBIN 10.4 g/dL (12.0-18.0); LYMPH # 2.9 K/uL (1.0-4.3); LYMPH % 35.1 % (20.0-40.0); MEAN CELL VOLUME 71.5 fL (80.0-94.0); MEAN CORPUSCULAR HEMOGLOBIN 23.2 pg (27.0-31.0); MEAN CORPUSCULAR HGB CONC 32.4 g/dL (33.0-37.0); MEAN PLATELET VOLUME 10.1 fL (7.2-11.7); MONO # 0.5 K/uL (0.0-0.8); NEUT # 4.6 K/uL (1.8-7.0); NEUT % 54.4 % (50.0-75.0); RBC 4.49 Mil/uL (4.40-5.90); RED CELL DISTRIBUTION WIDTH 19.5 % (11.5-14.5); WHITE BLOOD COUNT 8.4 K/uL (4.8-10.8)
[2018-06-05 09:23] LABS: ALB/GLOB RATIO 1.4 (1.0-2.1); ALBUMIN 3.8 g/dL (3.5-5.0); ALT/SGPT 34 U/L (21-72); AST/SGOT 31 U/L (17-59); BLOOD UREA NITROGEN 22 mg/dL (9-20); CALCIUM 9.3 mg/dl (8.6-10.4); GFR AFRICAN-AMERICAN > 60; GFR NON-AFRICAN AMERICAN > 60
[2018-06-05] MEDS: Pantoprazole 40 mg EC Tab PO SCH (09:57)
[2018-06-05] MEDS: Metoprolol Succinate 100 mg XL Tab PO SCH (09:58)
--- NOTE | 2018-06-05 19:09 | CP.PCM.PN ---
Subjective - Date & Time of Evaluation Date of Evaluation: 06/05/18 Time of Evaluation: 11:00 - Subjective Subjective: Progress Note for Hospitalist service Patient seen and examined at bedside. He is resting comfortably in bed. He denies headache, dizziness, chest pain, shortness of breath, palpitations, abdominal pain, nausea, vomiting, diarrhea, legs pain. No family present at bedside. Objective - Vital Signs/Intake and Output Vital Signs (last 24 hours): Temp Pulse Resp BP Pulse Ox 98.3 F 75 20 100/66 95 06/05/18 15:04 06/05/18 15:04 06/05/18 15:04 06/05/18 15:04 06/05/18 15:04 - Medications Medications: Current Medications Amlodipine Besylate (Norvasc) 10 mg PO DAILY [facility] Last Admin: 06/05/18 09:57 Dose: 10 mg Bisacodyl (Dulcolax) 10 mg [place] ONCE PRN PRN Reason: Constipation Dextrose (Dextrose 50% Inj) 0 ml IV STAT PRN; Protocol PRN Reason: Hypoglycemia Protocol Dextrose (Glutose 15) 0 gm PO ONCE PRN; Protocol PRN Reason: Hypoglycemia Protocol Glimepiride (Amaryl) 1 mg PO DAILY [facility] Last Admin: 06/05/18 09:58 Dose: 1 mg Glucagon (Glucagen Diagnostic Kit) 0 mg IM STAT PRN; Protocol PRN Reason: Hypoglycemia Protocol Hydralazine HCl (Apresoline) 10 mg IVP Q6H PRN PRN Reason: sbp > 160 Last Admin: 05/26/18 08:45 Dose: 10 mg Hydralazine HCl (Apresoline) 100 mg PO Q8H [facility] Last Admin: 06/05/18 16:56 Dose: Not Given Insulin Human Regular (Novolin R) 0 unit SC ACHS [facility] PRN Reason: Protocol Last Admin: 06/05/18 16:57 Dose: Not Given Levetiracetam (Keppra) 500 mg PO BID [facility] Last Admin: 06/05/18 18:40 Dose: 500 mg Losartan Potassium (Cozaar) 50 mg PO DAILY [facility] Last Admin: 06/05/18 09:57 Dose: 50 mg Metformin HCl (Glucophage) 1,000 mg PO BID [facility] Last Admin: 06/05/18 18:40 Dose: Not Given Metoprolol Succinate (Toprol Xl) 100 mg PO DAILY [facility] Last Admin: 06/05/18 09:58 Dose: 100 mg Pantoprazole Sodium (Protonix Ec Tab) 40 mg PO DAILY [facility] Last Admin: 06/05/18 09:57 Dose: 40 mg Quetiapine Fumarate (Seroquel) 25 mg PO HS PRN PRN Reason: Insomnia Last Admin: 06/01/18 10:09 Dose: 25 mg Rosuvastatin Calcium (Crestor) 5 mg PO HS [facility] Last Admin: 06/04/18 22:33 Dose: 5 mg Tamsulosin HCl (Flomax) 0.4 mg PO DAILY [facility] Last Admin: 06/05/18 10:02 Dose: 0.4 mg - Labs Labs: 06/05/18 08:53 06/05/18 08:53 PT 12.4 SECONDS (9.7-12.2) H 05/21/18 08:44 INR 1.1 05/21/18 08:44 APTT 32 SECONDS (21-34) 05/21/18 08:44 - Constitutional Appears: Well, No Acute Distress - Head Exam Head Exam: ATRAUMATIC, NORMOCEPHALIC - Eye Exam Eye Exam: EOMI - ENT Exam ENT Exam: Mucous Membranes Moist - Neck Exam Neck Exam: Full ROM. absent: Tenderness - Respiratory Exam Respiratory Exam: Clear to Ausculation Bilateral, NORMAL BREATHING PATTERN. absent: Rales, Rhonchi, Wheezes, Respiratory Distress, Stridor - Cardiovascular Exam Cardiovascular Exam: REGULAR RHYTHM, +S1, +S2 - GI/Abdominal Exam GI & Abdominal Exam: Soft, Normal Bowel Sounds. absent: Firm, Guarding, Rigid, Tenderness - Extremities Exam Extremities Exam: absent: Calf Tenderness, Pedal Edema - Neurological Exam Neurological Exam: Alert, Awake Additional comments: Right facial droop RUE 2/5 strength compared to LUE 4/5 RLE 3/5 strength compared to RLE 4/5 Assessment and Plan - Assessment and Plan (Free Text) Plan: Assessment/plan (1) Intracranial hemorrhage At [place]: * CT Head (05/16/18): interval left posterior frontal/parietal intra cerebral hematoma with surrounding edema and possible minimal mild mass effect on the left frontal horn. No midline shift. No dilatation of the right lateral ventricle appreciated. No interval dilatation or other particular segments noted. * CT head (05/16/18): subjective mild expansion of the left parietal hematoma with mild surrounding edema impression upon the posterior portion of the body of the left lateral ventricle. No other significant interval chage. At [facility]: * CT Head (05/17/18): re-demonstrated is a large parenchymal hematoma within the left posterior temporoparietal lobe secondary to hemorrhage into pre-existing AVM, mass effect produced by the hematoma and surrounding edema impress overlying sulci and posterior aspect left lateral ventricle as described. moderate to significant chronic white matter ischemic changes. * CT head (05/19/18): official read available in the computer. * CT Head (05/20/18): involving large subacute left posterior parietal lobe hematoma with moderate surrounding vasogenic edema, local mass effect, and effacement of the right lateral ventricle, 4mm midline shift from left to right. No herniation or hydrocephalus. Moderate chronic microangiopathic changes and moderate age-related global parenchymal volume loss Admitted to ICU at [facility] on 05/16/18; transferred out on 05/19/18 * Neurology (Dr. Aviles/Dr. Daugherty ) on the case-->help appreciated * Noninterventionist (Dr. 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 3-No evidence of treatable mayela-nidal aneurysm. 4-Early venous drainaige (shunting) primarily into the superior sagital sinus with antegrade drainge into the bilateral transverse-sigmoid sinuses. There is also reflus into superficial cortical veins. * We also discussed that gamma knife could be a viable option for the patient, while not providing immediate reduction of bleeding risk, would possibly reduce the risk over time. We will discuss this and other options, including surgery, intervention and observation after we have the results of the cerebral angiogram. * Elevated head of Bed * Seizure precautions * Neurochecks * Plavix was held and other anticoagulation held since 05/16/18 * Crestor 5mg POqHS * T, Chol: 199, LDL: 152, HDL: 38 * a1c: 9.2 * Seroquel 25mg PO HS PRN * Keppra 500mg PO BID (2) Dysphagia, resolved Hypernatremia, resolved * GI (Sr. Concepcion) substation operator transforming-->help appreciated; peg postponed and reconsult if needed * Patient has passed swallow eval; placed on dysphagia diet and aspiration precaution * Continues to tolerate diet well * hypernatremia likely secondary to GI loss-->patient is eating now will continue to monitor sodium level (3) Dyslipidemia * Crestor 5mg POqHS * T, Chol: 199, LDL: 152, HDL: 38 * a1c: 9.2 (4) Hypertension * Continue to monitor BP to keep systolic BP between 130-140 * Norvasc 10mg PO daily * Hydralazine 10mg IVP Q6H SBP>160, held * Hydralazine 100mg PO Q8H, held * start Cozaar 50mg PO daily * Toprol 100mg PO once a day * Echocardiogram (05/21/18): left ventricle is normal size, ejection fraction is 60-65%, grade i abnormal relaxation, mild tricupsid regurgitation, right ventricular systolic pressure is estimated at 30mm hg, no pulmonary hypertension , aortic root is normal size, aortic root displays mild scleorcalcific changes of the aortic root * Prior echocardiogram (05/03/18): normal LV systolic function. Aortic valve sclerosis (5) Diabetes * hgba1c: 9.2 * Lipid Panel: 123, Cholestrol: 199, LDL: 152. HDL: 38 * Hypoglycemic protocol * Accuchecks qAC and HS * Amaryl 1mg PO daily * Metformin 1000mg PO BID * ISS (6) BPH * Flomax 0.4mg PO daily (7) Prophylactic measure * Elevated head * Neurochecks * chemical anticoagulation secondary to intracranial hemorrhage * NPO * seizure precautions * aspiration precautions * Passed swallow eval * 3 day Calorie count completed 05/28/18 * Niece Shelby, , she is amendable to PEG if it is necessary Disposition: Not to be discharged on ASA or Plavix. Awaiting LTAC placement as per foundry worker general Johanny
[2018-06-06] MEDS: (Novolin R) Insulin Human Regular 100 units/ml vial SC SCH ×3 (07:50→17:10)
[2018-06-06 09:03] LABS: BASO # 0.1 K/uL (0.0-0.2); BASO % 0.9 % (0.0-2.0); EOS # 0.3 K/uL (0.0-0.7); EOS % 3.6 % (0.0-4.0); HEMOGLOBIN 10.9 g/dL (12.0-18.0); LYMPH # 3.3 K/uL (1.0-4.3); LYMPH % 37.1 % (20.0-40.0); MEAN CELL VOLUME 72.2 fL (80.0-94.0); MEAN CORPUSCULAR HEMOGLOBIN 23.6 pg (27.0-31.0); MEAN CORPUSCULAR HGB CONC 32.7 g/dL (33.0-37.0); MEAN PLATELET VOLUME 9.9 fL (7.2-11.7); MONO # 0.5 K/uL (0.0-0.8); MONO % 6.1 % (0.0-10.0); NEUT # 4.6 K/uL (1.8-7.0); NEUT % 52.3 % (50.0-75.0); NRBC % 0.2 % (0.0-2.0); RBC 4.61 Mil/uL (4.40-5.90); RED CELL DISTRIBUTION WIDTH 19.7 % (11.5-14.5); WHITE BLOOD COUNT 8.8 K/uL (4.8-10.8)
[2018-06-06 09:15] LABS: ALB/GLOB RATIO 1.3 (1.0-2.1); ALBUMIN 3.9 g/dL (3.5-5.0); ALT/SGPT 32 U/L (21-72); AST/SGOT 27 U/L (17-59); BLOOD UREA NITROGEN 22 mg/dL (9-20); CALCIUM 9.6 mg/dl (8.6-10.4); GFR AFRICAN-AMERICAN > 60; GFR NON-AFRICAN AMERICAN > 60
[2018-06-06] MEDS: Pantoprazole 40 mg EC Tab PO SCH (10:38)
[2018-06-06] MEDS: Metoprolol Succinate 100 mg XL Tab PO SCH (10:39)
--- NOTE | 2018-06-06 11:54 | CP.PCM.PN ---
Subjective - Date & Time of Evaluation Date of Evaluation: 06/06/18 Time of Evaluation: 11:54 - Subjective Subjective: Patient Objective - Vital Signs/Intake and Output Vital Signs (last 24 hours): Temp Pulse Resp BP Pulse Ox 98.5 F 72 20 112/60 97 06/06/18 07:00 06/06/18 07:00 06/06/18 07:00 06/06/18 07:00 06/06/18 07:00 - Medications Medications: Current Medications Amlodipine Besylate (Norvasc) 10 mg PO DAILY [facility] Last Admin: 06/06/18 10:39 Dose: Not Given Bisacodyl (Dulcolax) 10 mg [place] ONCE PRN PRN Reason: Constipation Dextrose (Dextrose 50% Inj) 0 ml IV STAT PRN; Protocol PRN Reason: Hypoglycemia Protocol Dextrose (Glutose 15) 0 gm PO ONCE PRN; Protocol PRN Reason: Hypoglycemia Protocol Glimepiride (Amaryl) 1 mg PO DAILY [facility] Last Admin: 06/06/18 10:38 Dose: 1 mg Glucagon (Glucagen Diagnostic Kit) 0 mg IM STAT PRN; Protocol PRN Reason: Hypoglycemia Protocol Hydralazine HCl (Apresoline) 10 mg IVP Q6H PRN PRN Reason: sbp > 160 Last Admin: 05/26/18 08:45 Dose: 10 mg Hydralazine HCl (Apresoline) 100 mg PO Q8H [facility] Last Admin: 06/06/18 10:39 Dose: Not Given Insulin Human Regular (Novolin R) 0 unit SC ACHS [facility] PRN Reason: Protocol Last Admin: 06/06/18 07:50 Dose: Not Given Levetiracetam (Keppra) 500 mg PO BID [facility] Last Admin: 06/06/18 10:38 Dose: 500 mg Losartan Potassium (Cozaar) 50 mg PO DAILY [facility] Last Admin: 06/06/18 10:38 Dose: 50 mg Metformin HCl (Glucophage) 1,000 mg PO BID [facility] Last Admin: 06/06/18 10:38 Dose: 1,000 mg Metoprolol Succinate (Toprol Xl) 100 mg PO DAILY [facility] Last Admin: 06/06/18 10:39 Dose: Not Given Pantoprazole Sodium (Protonix Ec Tab) 40 mg PO DAILY [facility] Last Admin: 06/06/18 10:38 Dose: 40 mg Quetiapine Fumarate (Seroquel) 25 mg PO HS PRN PRN Reason: Insomnia Last Admin: 06/01/18 10:09 Dose: 25 mg Tamsulosin HCl (Flomax) 0.4 mg PO DAILY [facility] Last Admin: 06/06/18 10:38 Dose: 0.4 mg - Labs Labs: 06/06/18 08:49 06/06/18 08:49 PT 12.4 SECONDS (9.7-12.2) H 05/21/18 08:44 INR 1.1 05/21/18 08:44 APTT 32 SECONDS (21-34) 05/21/18 08:44 - Constitutional Appears: Well, No Acute Distress - Head Exam Head Exam: ATRAUMATIC, NORMOCEPHALIC - Eye Exam Eye Exam: EOMI - ENT Exam ENT Exam: Mucous Membranes Moist - Neck Exam Neck Exam: absent: Full ROM, Tenderness - Respiratory Exam Respiratory Exam: Clear to Ausculation Bilateral, NORMAL BREATHING PATTERN. absent: Rales, Rhonchi, Wheezes - Cardiovascular Exam Cardiovascular Exam: REGULAR RHYTHM, +S1, +S2 - GI/Abdominal Exam GI & Abdominal Exam: Soft, Normal Bowel Sounds. absent: Firm, Guarding, Tenderness - Extremities Exam Extremities Exam: absent: Calf Tenderness, Pedal Edema - Neurological Exam Neurological Exam: Alert, Awake Neuro motor strength exam: Left Upper Extremity: 4, Right Upper Extremity: 3, Left Lower Extremity: 4, Right Lower Extremity: 4 - Skin Skin Exam: Dry, Intact, Warm Assessment and Plan - Assessment and Plan (Free Text) Plan: Assessment/plan Assessment/plan (1) Intracranial hemorrhage At [place]: * CT Head (05/16/18): interval left posterior frontal/parietal intra cerebral hematoma with surrounding edema and possible minimal mild mass effect on the left frontal horn. No midline shift. No dilatation of the right lateral ventricle appreciated. No interval dilatation or other particular segments noted. * CT head (05/16/18): subjective mild expansion of the left parietal hematoma with mild surrounding edema impression upon the posterior portion of the body of the left lateral ventricle. No other significant interval chage. At [facility]: * CT Head (05/17/18): re-demonstrated is a large parenchymal hematoma within the left posterior temporoparietal lobe secondary to hemorrhage into pre-existing AVM, mass effect produced by the hematoma and surrounding edema impress overlying sulci and posterior aspect left lateral ventricle as described. moderate to significant chronic white matter ischemic changes. * CT head (05/19/18): official read available in the computer. * CT Head (05/20/18): involving large subacute left posterior parietal lobe hematoma with moderate surrounding vasogenic edema, local mass effect, and effacement of the right lateral ventricle, 4mm midline shift from left to right. No herniation or hydrocephalus. Moderate chronic microangiopathic changes and moderate age-related global parenchymal volume loss Admitted to ICU at [facility] [place] on 05/16/18; transferred out on 05/19/18 * Neurology (Dr. Aviles/Dr. Daugherty ) on the case-->help appreciated * Noninterventionist (Dr. 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 3-No evidence of treatable mayela-nidal aneurysm. 4-Early venous drainaige (shunting) primarily into the superior sagital sinus with antegrade drainge into the bilateral transverse-sigmoid sinuses. There is also reflus into superficial cortical veins. * We also discussed that gamma knife could be a viable option for the patient, while not providing immediate reduction of bleeding risk, would possibly reduce the risk over time. We will discuss this and other options, including surgery, intervention and observation after we have the results of the cerebral angiogram. * Elevated head of Bed * Seizure precautions * Neurochecks * Plavix was held and other anticoagulation held since 05/16/18 * Crestor 5mg POqHS * T, Chol: 199, LDL: 152, HDL: 38 * a1c: 9.2 * Seroquel 25mg PO HS PRN * Keppra 500mg PO BID (2) Dysphagia, resolved Hypernatremia, resolved * GI (Sr. Concepcion) apparel fashion designer-->help appreciated; peg postponed and reconsult if needed * Patient has passed swallow eval; placed on dysphagia diet and aspiration precaution * Continues to tolerate diet well * hypernatremia likely secondary to GI loss-->patient is eating now will continue to monitor sodium level (3) Dyslipidemia * Crestor 5mg POqHS * T, Chol: 199, LDL: 152, HDL: 38 * a1c: 9.2 (4) Hypertension * Continue to monitor BP to keep systolic BP between 130-140 * Norvasc 10mg PO daily * Hydralazine 10mg IVP Q6H SBP>160, held * Hydralazine 100mg PO Q8H, held * start Cozaar 50mg PO daily * Toprol 100mg PO once a day * Echocardiogram (05/21/18): left ventricle is normal size, ejection fraction is 60-65%, grade i abnormal relaxation, mild tricupsid regurgitation, right ventricular systolic pressure is estimated at 30mm hg, no pulmonary hypertension , aortic root is normal size, aortic root displays mild scleorcalcific changes of the aortic root * Prior echocardiogram (05/03/18): normal LV systolic function. Aortic valve sclerosis (5) Diabetes * hgba1c: 9.2 * Lipid Panel: 123, Cholestrol: 199, LDL: 152. HDL: 38 * Hypoglycemic protocol * Accuchecks qAC and HS * Amaryl 1mg PO daily * Metformin 1000mg PO BID * ISS (6) BPH * Flomax 0.4mg PO daily (7) Prophylactic measure * Elevated head * Neurochecks * chemical anticoagulation secondary to intracranial hemorrhage * NPO * seizure precautions * aspiration precautions * Passed swallow eval, has been on pureed diet * 3 day Calorie count completed 05/28/18 * Luke Ryan, , she is amendable to PEG if it is necessary Disposition: As per manager sign Johanny, failed LTAC. Awaiting subacute rehab placement. Akil Grubbs, MAXIMYI Case discussed with Dr. Baldemar Edouard
[2018-06-07] MEDS: (Novolin R) Insulin Human Regular 100 units/ml vial SC SCH ×4 (07:48→21:51)
[2018-06-07 09:00] LABS: BASO # 0.1 K/uL (0.0-0.2); BASO % 0.9 % (0.0-2.0); EOS # 0.2 K/uL (0.0-0.7); EOS % 3.2 % (0.0-4.0); HEMOGLOBIN 10.2 g/dL (12.0-18.0); LYMPH # 2.9 K/uL (1.0-4.3); LYMPH % 37.8 % (20.0-40.0); MEAN CELL VOLUME 71.5 fL (80.0-94.0); MEAN CORPUSCULAR HEMOGLOBIN 23.4 pg (27.0-31.0); MEAN CORPUSCULAR HGB CONC 32.7 g/dL (33.0-37.0); MEAN PLATELET VOLUME 9.9 fL (7.2-11.7); MONO # 0.5 K/uL (0.0-0.8); NEUT # 3.9 K/uL (1.8-7.0); NEUT % 51.1 % (50.0-75.0); RBC 4.37 Mil/uL (4.40-5.90); RED CELL DISTRIBUTION WIDTH 19.6 % (11.5-14.5); WHITE BLOOD COUNT 7.6 K/uL (4.8-10.8)
[2018-06-07 09:13] LABS: ALB/GLOB RATIO 1.4 (1.0-2.1); ALBUMIN 3.9 g/dL (3.5-5.0); ALT/SGPT 32 U/L (21-72); AST/SGOT 29 U/L (17-59); BLOOD UREA NITROGEN 19 mg/dL (9-20); CALCIUM 9.5 mg/dl (8.6-10.4); GFR AFRICAN-AMERICAN > 60; GFR NON-AFRICAN AMERICAN > 60
[2018-06-07] MEDS: Metoprolol Succinate 100 mg XL Tab PO SCH (09:28)
[2018-06-07] MEDS: Pantoprazole 40 mg EC Tab PO SCH (09:29)
--- NOTE | 2018-06-07 12:13 | CP.PCM.PCO ---
Physician Communication Note - Physician Communication Note Physician Communication Note: Please see above
--- NOTE | 2018-06-07 13:50 | CP.PCM.DIS ---
Provider - Provider Date of Admission: 05/16/18 20:15 Attending physician: Baldemar Edouard MD Consults: Neurology: Dr. Daugherty Neurointerventional: Dr. Leal Time Spent in preparation of Discharge (in minutes): 40 Hospital Course - Lab Results Lab Results: Micro Results 05/20/18 10:03 Blood Blood Culture - Final NO GROWTH AFTER 5 DAYS 05/20/18 10:03 Blood Gram Stain - Final TEST NOT PERFORMED 05/20/18 09:30 Blood Blood Culture - Final NO GROWTH AFTER 5 DAYS 05/20/18 15:00 Urine,Catheterized Urine Culture - Final No Growth (<1,000 CFU/ML) 05/21/18 04:59 Naris MRSA Culture - Final MRSA NOT DETECTED 05/16/18 22:42 Nose MRSA Culture (Admit) - Final MRSA NOT DETECTED Most Recent Lab Values WBC 7.6 K/uL (4.8-10.8) 06/07/18 08:32 RBC 4.37 Mil/uL (4.40-5.90) L 06/07/18 08:32 Hgb 10.2 g/dL (12.0-18.0) L 06/07/18 08:32 Hct 31.2 % (35.0-51.0) L 06/07/18 08:32 MCV 71.5 fL (80.0-94.0) L 06/07/18 08:32 MCH 23.4 pg (27.0-31.0) L 06/07/18 08:32 MCHC 32.7 g/dL (33.0-37.0) L 06/07/18 08:32 RDW 19.6 % (11.5-14.5) H 06/07/18 08:32 Plt Count 225 K/uL (130-400) 06/07/18 08:32 MPV 9.9 fL (7.2-11.7) 06/07/18 08:32 Neut % (Auto) 51.1 % (50.0-75.0) 06/07/18 08:32 Lymph % (Auto) 37.8 % (20.0-40.0) 06/07/18 08:32 Otero % (Auto) 7.0 % (0.0-10.0) 06/07/18 08:32 Eos % (Auto) 3.2 % (0.0-4.0) 06/07/18 08:32 Baso % (Auto) 0.9 % (0.0-2.0) 06/07/18 08:32 Neut # (Auto) 3.9 K/uL (1.8-7.0) 06/07/18 08:32 Lymph # (Auto) 2.9 K/uL (1.0-4.3) 06/07/18 08:32 Otero # (Auto) 0.5 K/uL (0.0-0.8) 06/07/18 08:32 Eos # (Auto) 0.2 K/uL (0.0-0.7) 06/07/18 08:32 Baso # (Auto) 0.1 K/uL (0.0-0.2) 06/07/18 08:32 PT 12.4 SECONDS (9.7-12.2) H 05/21/18 08:44 INR 1.1 05/21/18 08:44 APTT 32 SECONDS (21-34) 05/21/18 08:44 Sodium 140 mmol/L (132-148) 06/07/18 08:32 Potassium 3.8 mmol/L (3.6-5.2) 06/07/18 08:32 Chloride 107 mmol/L (98-107) 06/07/18 08:32 Carbon Dioxide 24 mmol/L (22-30) 06/07/18 08:32 Anion Gap 13 (10-20) 06/07/18 08:32 BUN 19 mg/dL (9-20) 06/07/18 08:32 Creatinine 0.8 mg/dL (0.8-1.5) 06/07/18 08:32 Est GFR ( Amer) > 60 06/07/18 08:32 Est GFR (Non-Af Amer) > 60 06/07/18 08:32 POC Glucose (mg/dL) 151 mg/dL (65-110) H 06/07/18 11:16 Random Glucose 124 mg/dL (75-110) H 06/07/18 08:32 Hemoglobin A1c 9.2 % (4.2-6.5) H 05/17/18 14:12 Calcium 9.5 mg/dl (8.6-10.4) 06/07/18 08:32 Phosphorus 3.5 mg/dL (2.5-4.5) 06/07/18 08:32 Magnesium 1.9 mg/dL (1.6-2.3) 06/07/18 08:32 Total Bilirubin 0.8 mg/dL (0.2-1.3) 06/07/18 08:32 AST 29 U/L (17-59) 06/07/18 08:32 ALT 32 U/L (21-72) 06/07/18 08:32 Alkaline Phosphatase 78 U/L (38-126) 06/07/18 08:32 Total Protein 6.6 g/dL (6.3-8.3) 06/07/18 08:32 Albumin 3.9 g/dL (3.5-5.0) 06/07/18 08:32 Globulin 2.7 gm/dL (2.2-3.9) 06/07/18 08:32 Albumin/Globulin Ratio 1.4 (1.0-2.1) 06/07/18 08:32 Triglycerides 123 mg/dL (0-149) 05/17/18 14:12 Cholesterol 199 mg/dL (0-199) 05/17/18 14:12 LDL Cholesterol Direct 152 mg/dL (0-129) H 05/17/18 14:12 HDL Cholesterol 38 mg/dL (30-70) 05/17/18 14:12 Free T4 1.22 ng/dL (0.78-2.19) 05/17/18 14:12 TSH 3rd Generation 0.22 mIU/L (0.46-4.68) L 05/17/18 14:12 Urine Color Yellow (YELLOW) 05/20/18 15:00 Urine Clarity Clear (Clear) 05/20/18 15:00 Urine pH 6.0 (5.0-8.0) 05/20/18 15:00 Ur Specific [place] 1.020 (1.003-1.030) 05/20/18 15:00 Urine Protein Negative mg/dL (NEGATIVE) 05/20/18 15:00 Urine Glucose (UA) 3+ mg/dL (Normal) H 05/20/18 15:00 Urine Ketones Negative mg/dL (NEGATIVE) 05/20/18 15:00 Urine Blood Negative (NEGATIVE) 05/20/18 15:00 Urine Nitrate Negative (NEGATIVE) 05/20/18 15:00 Urine Bilirubin Negative (NEGATIVE) 05/20/18 15:00 Urine Urobilinogen 2.0 mg/dL (0.2-1.0) 05/20/18 15:00 Ur Leukocyte Esterase Neg Maddy/uL (Negative) 05/20/18 15:00 Urine WBC (Auto) 1 /hpf (0-5) 05/20/18 15:00 Urine RBC (Auto) 1 /hpf (0-3) 05/20/18 15:00 - Hospital Course Hospital Course: Admission date 05/16/18 H&P Information was received from the [facility] and medical record from [place] as patient was not oriented x3. 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 Per EMS the patient had a fall at home last night. In the ED, the patient had a Head CT which revealed an interval left posterior frontal/parietal intra cerebral hematoma with surrounding edema and possible minimal/mild mass effect on the left frontal horn. There is no mildline shift at this time. Given these findings, neurosurgery was called- Dr. Teresa stated the patient should be transferred. Patient was transferred to [facility] and is being followed by neurologist Dr. Aviles and interventional neurologist Dr. Brantley. Hospital course Patient was transferred here from [place] after he was found to have an left posterior frontal/parietal intracerebral bleed with history of left AVM and admitted to ICU at [facility] on 05/16/18 and transferred out on 05/19/18. Neurologist Dr. Aviles/Dr. Daugherty was consulted. Anticoagulation was held given new intracerebral bleed. Patient's BP was continuously monitored with the goal of maintaining systolic BP between 130 and 140. Initially, patient's BP was elevated, however anti-hypertensive regimen was altered to achieve goal systolic BP. Cerebral angiogram by Neurointerventionalist, Dr. Leal revealed no evidence of treatable pre-nidal aneurysm. Given patient's history of HTN, ECHO was done which revealed EF 60-65%. Initially, patient did not pass swallow evaluation by speech pathologist and received NG tube feeds, however patient later passed swallow evaluation and resumed diet. Patient was placed on hypoglycemia protocol and insulin sliding scale for history of DM. Patient improved throughout course of hospitalization, with improved strength of lower extremities, improved right patient biller strength. On discharge, patient was medically stable, eating and drinking well. Patient was awaiting placement to subacute rehab, intermediate care, before getting placed to [facility], who will plan intermediate care for patient. Imaging: At [place]: * CT Head (05/16/18): interval left posterior frontal/parietal intra cerebral hematoma with surrounding edema and possible minimal mild mass effect on the left frontal horn. No midline shift. No dilatation of the right lateral ventricle appreciated. No interval dilatation or other particular segments noted. * CT head (05/16/18): subjective mild expansion of the left parietal hematoma with mild surrounding edema impression upon the posterior portion of the body of the left lateral ventricle. No other significant interval chage. At [facility]: * CT Head (05/17/18): re-demonstrated is a large parenchymal hematoma within the left posterior temporoparietal lobe secondary to hemorrhage into pre-existing AVM, mass effect produced by the hematoma and surrounding edema impress overlying sulci and posterior aspect left lateral ventricle as described. moderate to significant chronic white matter ischemic changes. * CT head (05/19/18): official read available in the computer. * CT Head (05/20/18): involving large subacute left posterior parietal lobe hematoma with moderate surrounding vasogenic edema, local mass effect, and effacement of the right lateral ventricle, 4mm midline shift from left to right. No herniation or hydrocephalus. Moderate chronic microangiopathic changes and moderate age-related global parenchymal volume loss * CXR 05/18/18 no active disease * CXR 05/23/18 NG tube coiled in distal esophagus. Advancement into the stomach is recommended. Enlarged ectatic aorta. Biapical pleural thickening with upper lobe granulomatous changes. Scattered nodularity in both lungs. Cardiomegaly. Mild venous congestion. Patchy increased markings at right lung base. * CXR 05/23/18 NG tube terminates in stomach. no acute findings. * ECHO 05/19/18 The left ventricle is normal size. The EF is 60-65%. Transmitral Doppler flow pattern is Grade 1- abnormal relaxation pattern. There is mild tricuspid regurgitation. RV systolic pressure is estimated at 30mmHg. There is no pulmonary HTN. The aortic root is normal size. The aortic root displays mild sclerocalcific changes of the aortic root. Diagnostic cerebral angiogram (Dr. Leal): Left fronto-parietal AVM: 1- Arterial supply via the superior branch of the left MCA and via distal left QUIN convexal branches. 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 3-No evidence of treatable mayela-nidal aneurysm. 4-Early venous drainaige (shunting) primarily into the superior sagital sinus with antegrade drainge into the bilateral transverse-sigmoid sinuses. There is also reflus into superficial cortical veins. Discharge summary: Patient is medically stable to be discharged to [facility] subacute rehab today. The following medications will need to be continued while at [facility]: Keppra 500 mg, 1 tablet by mouth 2x/day Crestor 5 mg PO HS Norvasc 10 mg PO 1x/day Hydralazine 100 mg PO Q8H Cozaar 50 mg PO 1x/day Metoprolol Succinate 100 mg PO 1x/day Hydralazine 10 mg IV Q6H PRN SBP > 160 Glimepiride 1 mg PO 1x/day Metformin 1,000 mg PO 2x/day Flomax 0.4 mg PO 1x/day Quetiapine 25 mg PO HS PRN Insomnia This is a brief summary of hospital course. For full details, please refer to medical records. Discharge Exam - Head Exam Head Exam: ATRAUMATIC, NORMOCEPHALIC - Eye Exam Eye Exam: EOMI - ENT Exam ENT Exam: Mucous Membranes Moist - Neck Exam Neck exam: Full Rom - Respiratory Exam Respiratory Exam: Clear to PA & Lateral, NORMAL BREATHING PATTERN. absent: Rales, Rhonchi, Wheezes, Stridor - Cardiovascular Exam Cardiovascular Exam: REGULAR RHYTHM, +S1, +S2 - GI/Abdominal Exam GI & Abdominal Exam: Normal Bowel Sounds, Soft. absent: Distended, Firm, Tenderness - Extremities Exam Extremities exam: normal capillary refill, pedal pulses present Additional comments: no calf tenderness or pedal edema. - Neurological Exam Neurological exam: Alert Additional comments: Mild residual right sided facial droop Slight decreased strength of right upper extremity compared to left Good strength of lower extremities bilaterally - Skin Additional comments: no ulcers noted. Discharge Plan - Discharge Medications Prescriptions: amLODIPine [Norvasc] 10 mg PO DAILY 30 Days #30 tab Glimepiride [Amaryl] 1 mg PO DAILY 30 Days #30 tab hydrALAZINE [Apresoline] 100 mg PO Q8H 30 Days #30 tab levETIRAcetam [Keppra] 500 mg PO BID 30 Days #60 tab Losartan [Cozaar] 50 mg PO DAILY 30 Days #30 tab Metoprolol Succinate XL [Toprol XL] 100 mg PO DAILY #30 tab Tamsulosin [Flomax] 0.4 mg PO DAILY 30 Days #30 cap - Follow Up Plan Condition: GOOD Disposition: REHAB FACILITY/REHAB UNIT Instructions: Intracerebral Hemorrhage (DC), Dysphagia (DC), Arteriogram (DC), Pureed Diet Additional Instructions: Patient is stable to be discharged to [facility] subacute rehab today, per Dr. Baldemar Edouard. Patient started on Norvasc 10mg by mouth daily, Metformin 1000mg twice a day by mouth, Amaryl 1mg by mouth daily, Hydralazine 100mg by mouth every 8 hours, Keppra 500mg by mouth twice daily, Cozaar 50mg by mouth daily, Toprol XL 100mg by mouth daily, Crestor 5mg by mouth at bedtime, Flomax 0.4mg by mouth daily, Seroquel 25mg by mouth at bedtime as needed. Patient is not to be discharged on ASA or Plavix given history of intracerebral bleed. Patient should return to ER if symptoms recur or worsen. Referrals: Dyllan Aviles MD [Staff Provider] - Feliberto Sawant MD [Staff Provider] -
[2018-06-08] MEDS: (Novolin R) Insulin Human Regular 100 units/ml vial SC SCH ×4 (07:47→21:55)
--- NOTE | 2018-06-08 09:14 | CP.PCM.PN ---
Subjective - Date & Time of Evaluation Date of Evaluation: 06/08/18 Time of Evaluation: 09:14 Objective - Vital Signs/Intake and Output Vital Signs (last 24 hours): Temp Pulse Resp BP Pulse Ox 98.4 F 87 20 116/50 L 97 06/08/18 07:00 06/08/18 07:00 06/08/18 07:00 06/08/18 07:00 06/08/18 07:00 Intake and Output: 06/08/18 06/08/18 06:59 18:59 Intake Total 260 Output Total 1 Balance 259 - Medications Medications: Current Medications Amlodipine Besylate (Norvasc) 10 mg PO DAILY [facility] Last Admin: 06/07/18 09:31 Dose: 10 mg Bisacodyl (Dulcolax) 10 mg IN ONCE PRN PRN Reason: Constipation Dextrose (Dextrose 50% Inj) 0 ml IV STAT PRN; Protocol PRN Reason: Hypoglycemia Protocol Dextrose (Glutose 15) 0 gm PO ONCE PRN; Protocol PRN Reason: Hypoglycemia Protocol Glimepiride (Amaryl) 1 mg PO DAILY [facility] Last Admin: 06/07/18 09:28 Dose: 1 mg Glucagon (Glucagen Diagnostic Kit) 0 mg IM STAT PRN; Protocol PRN Reason: Hypoglycemia Protocol Hydralazine HCl (Apresoline) 10 mg IVP Q6H PRN PRN Reason: sbp > 160 Last Admin: 05/26/18 08:45 Dose: 10 mg Hydralazine HCl (Apresoline) 100 mg PO Q8H [facility] Last Admin: 06/08/18 01:26 Dose: 100 mg Insulin Human Regular (Novolin R) 0 unit SC [facility] PRN Reason: Protocol Last Admin: 06/08/18 07:47 Dose: Not Given Levetiracetam (Keppra) 500 mg PO BID [facility] Last Admin: 06/07/18 17:40 Dose: 500 mg Losartan Potassium (Cozaar) 50 mg PO DAILY [facility] Last Admin: 06/07/18 09:29 Dose: 50 mg Metformin HCl (Glucophage) 1,000 mg PO BID [facility] Last Admin: 06/07/18 17:40 Dose: 1,000 mg Metoprolol Succinate (Toprol Xl) 100 mg PO DAILY [facility] Last Admin: 06/07/18 09:28 Dose: 100 mg Quetiapine Fumarate (Seroquel) 25 mg PO HS PRN PRN Reason: Insomnia Last Admin: 06/01/18 10:09 Dose: 25 mg Rosuvastatin Calcium (Crestor) 5 mg PO HS [facility] Last Admin: 06/07/18 21:53 Dose: 5 mg Tamsulosin HCl (Flomax) 0.4 mg PO DAILY [facility] Last Admin: 06/07/18 09:28 Dose: 0.4 mg - Labs Labs: 06/07/18 08:32 06/07/18 08:32 PT 12.4 SECONDS (9.7-12.2) H 05/21/18 08:44 INR 1.1 05/21/18 08:44 APTT 32 SECONDS (21-34) 05/21/18 08:44
--- NOTE | 2018-06-08 09:26 | CP.PCM.PN ---
Subjective - Date & Time of Evaluation Date of Evaluation: 06/08/18 Time of Evaluation: 09:10 - Subjective Subjective: Hospitalist Progress Note Patient was seen and examined at 9:10 AM 656 B Upon ROS: States "NO" to FULL ROS Exam: General: AA and is not oriented to time, He is smiling and in NO distress HEENT: NCA, EOMI, PERRLA, NO cervical/supraclavicular/submandibular lymphadenopathy, NO pharyngeal erythema/exudate, Nasal Turbinates are nonerythematous/nonedematous, Oral Mucosa is moist Cardio: NS1 and NS2, NO M/R/G Resp: CTA B/L, NO R/R/W GI: BSx4, Soft, NT, NO HSM, NO guarding/rebound tenderness Ext: Pulses are strong and equal, Capillary Refill is 2 seconds, NO edema, Right Foot is missing Toes #3 through #5 Neuro: CN II through XII are grossly intact Skin: NO ulcerations were noted on any of the gurdeep prominences Assessments: 1). Hx Intracranial Bleed 2). Hx Dysphagia 3). Hx HLD 4). Hx HTN 5). Hx DM 2 6). Hx BPH The following medications will need to be continued while at [facility]: Keppra 500 mg, 1 tablet by mouth 2x/day Crestor 5 mg PO HS Norvasc 10 mg PO 1x/day Hydralazine 100 mg PO Q8H Cozaar 50 mg PO 1x/day Metoprolol Succinate 100 mg PO 1x/day Hydralazine 10 mg IV Q6H PRN SBP > 160 Glimepiride 1 mg PO 1x/day Metformin 1,000 mg PO 2x/day Flomax 0.4 mg PO 1x/day Quetiapine 25 mg PO HS PRN Insomnia Disposition: Patient has been accepted at [facility] to be transitioned to [facility]. Unfortunately, notified by Spring Assembler Jenn that patient's Niece has used patient's SS Check for the month of May 2018 and therefore [facility] will not be able to accommodate patient till 06/27/18. However, Case Management Team is working on getting patient to [facility] sooner. Baldemar Edouard D.O. Objective - Vital Signs/Intake and Output Vital Signs (last 24 hours): Temp Pulse Resp BP Pulse Ox 98.4 F 87 20 116/50 L 97 06/08/18 07:00 06/08/18 07:00 06/08/18 07:00 06/08/18 07:00 06/08/18 07:00 Intake and Output: 06/08/18 06/08/18 06:59 18:59 Intake Total 260 Output Total 1 Balance 259 - Medications Medications: Current Medications Amlodipine Besylate (Norvasc) 10 mg PO DAILY [facility] Last Admin: 06/07/18 09:31 Dose: 10 mg Bisacodyl (Dulcolax) 10 mg SC ONCE PRN PRN Reason: Constipation Dextrose (Dextrose 50% Inj) 0 ml IV STAT PRN; Protocol PRN Reason: Hypoglycemia Protocol Dextrose (Glutose 15) 0 gm PO ONCE PRN; Protocol PRN Reason: Hypoglycemia Protocol Glimepiride (Amaryl) 1 mg PO DAILY [facility] Last Admin: 06/07/18 09:28 Dose: 1 mg Glucagon (Glucagen Diagnostic Kit) 0 mg IM STAT PRN; Protocol PRN Reason: Hypoglycemia Protocol Hydralazine HCl (Apresoline) 10 mg IVP Q6H PRN PRN Reason: sbp > 160 Last Admin: 05/26/18 08:45 Dose: 10 mg Hydralazine HCl (Apresoline) 100 mg PO Q8H [facility] Last Admin: 06/08/18 01:26 Dose: 100 mg Insulin Human Regular (Novolin R) 0 unit SC [facility] PRN Reason: Protocol Last Admin: 06/08/18 07:47 Dose: Not Given Levetiracetam (Keppra) 500 mg PO BID [facility] Last Admin: 06/07/18 17:40 Dose: 500 mg Losartan Potassium (Cozaar) 50 mg PO DAILY [facility] Last Admin: 06/07/18 09:29 Dose: 50 mg Metformin HCl (Glucophage) 1,000 mg PO BID [facility] Last Admin: 06/07/18 17:40 Dose: 1,000 mg Metoprolol Succinate (Toprol Xl) 100 mg PO DAILY [facility] Last Admin: 06/07/18 09:28 Dose: 100 mg Quetiapine Fumarate (Seroquel) 25 mg PO HS PRN PRN Reason: Insomnia Last Admin: 06/01/18 10:09 Dose: 25 mg Rosuvastatin Calcium (Crestor) 5 mg PO HS [facility] Last Admin: 06/07/18 21:53 Dose: 5 mg Tamsulosin HCl (Flomax) 0.4 mg PO DAILY [facility] Last Admin: 06/07/18 09:28 Dose: 0.4 mg - Labs Labs: 06/07/18 08:32 06/07/18 08:32 PT 12.4 SECONDS (9.7-12.2) H 05/21/18 08:44 INR 1.1 05/21/18 08:44 APTT 32 SECONDS (21-34) 05/21/18 08:44
[2018-06-08] MEDS: Metoprolol Succinate 100 mg XL Tab PO SCH (10:31)
[2018-06-09] MEDS: (Novolin R) Insulin Human Regular 100 units/ml vial SC SCH ×4 (08:01→21:35)
--- NOTE | 2018-06-09 10:45 | CP.PCM.PN ---
Subjective - Date & Time of Evaluation Date of Evaluation: 06/09/18 Time of Evaluation: 10:30 - Subjective Subjective: Hospitalist Progress Note Patient was seen and examined at 10:30 AM 656 B Upon ROS: States "NO" to FULL ROS Exam: General: AA and is not oriented to time, He is smiling and in NO distress HEENT: NCA, EOMI, PERRLA, NO cervical/supraclavicular/submandibular lymphadenopathy, NO pharyngeal erythema/exudate, Nasal Turbinates are nonerythematous/nonedematous, Oral Mucosa is moist Cardio: NS1 and NS2, NO M/R/G Resp: CTA B/L, NO R/R/W GI: BSx4, Soft, NT, NO HSM, NO guarding/rebound tenderness Ext: Pulses are strong and equal, Capillary Refill is 2 seconds, NO edema, Right Foot is missing Toes #3 through #5 Neuro: CN II through XII are grossly intact Skin: NO ulcerations were noted on any of the gurdeep prominences Assessments: 1). Hx Intracranial Bleed 2). Hx Dysphagia 3). Hx HLD 4). Hx HTN 5). Hx DM 2 6). Hx BPH The following medications will need to be continued while at [facility]: Keppra 500 mg, 1 tablet by mouth 2x/day Crestor 5 mg PO HS Norvasc 10 mg PO 1x/day Hydralazine 100 mg PO Q8H Cozaar 50 mg PO 1x/day Metoprolol Succinate 100 mg PO 1x/day Hydralazine 10 mg IV Q6H PRN SBP > 160 Glimepiride 1 mg PO 1x/day Metformin 1,000 mg PO 2x/day Flomax 0.4 mg PO 1x/day Quetiapine 25 mg PO HS PRN Insomnia Disposition: Patient has been accepted at [facility] to be transitioned to [facility]. Unfortunately, notified by Guest Services Coordinator Jenn 06/08/18 that patient's Niece has used patient's SS Check for the month of May 2018 and therefore [facility] will not be able to accommodate patient till 06/27/18. However, Case Management Team is working on getting patient to [facility] sooner. Labs should be done once a week on Mondays. Baldemar J. Edouard, D.O. Objective - Vital Signs/Intake and Output Vital Signs (last 24 hours): Temp Pulse Resp BP Pulse Ox 98.1 F 94 H 20 147/69 98 06/09/18 07:00 06/09/18 07:00 06/09/18 07:00 06/09/18 07:00 06/09/18 07:00 Intake and Output: 06/09/18 06/09/18 06:59 18:59 Output Total 150 Balance -150 - Medications Medications: Current Medications Amlodipine Besylate (Norvasc) 10 mg PO DAILY [facility] Last Admin: 06/08/18 10:31 Dose: 10 mg Bisacodyl (Dulcolax) 10 mg [place] ONCE PRN PRN Reason: Constipation Dextrose (Dextrose 50% Inj) 0 ml IV STAT PRN; Protocol PRN Reason: Hypoglycemia Protocol Dextrose (Glutose 15) 0 gm PO ONCE PRN; Protocol PRN Reason: Hypoglycemia Protocol Glimepiride (Amaryl) 1 mg PO DAILY [facility] Last Admin: 06/08/18 10:31 Dose: 1 mg Glucagon (Glucagen Diagnostic Kit) 0 mg IM STAT PRN; Protocol PRN Reason: Hypoglycemia Protocol Hydralazine HCl (Apresoline) 10 mg IVP Q6H PRN PRN Reason: sbp > 160 Last Admin: 05/26/18 08:45 Dose: 10 mg Hydralazine HCl (Apresoline) 100 mg PO Q8H [facility] Last Admin: 06/09/18 01:05 Dose: 100 mg Insulin Human Regular (Novolin R) 0 unit SC [facility] PRN Reason: Protocol Last Admin: 06/09/18 08:01 Dose: Not Given Levetiracetam (Keppra) 500 mg PO BID [facility] Last Admin: 06/08/18 17:36 Dose: 500 mg Losartan Potassium (Cozaar) 50 mg PO DAILY [facility] Last Admin: 06/08/18 10:31 Dose: 50 mg Metformin HCl (Glucophage) 1,000 mg PO BID [facility] Last Admin: 06/08/18 17:37 Dose: 1,000 mg Metoprolol Succinate (Toprol Xl) 100 mg PO DAILY [facility] Last Admin: 06/08/18 10:31 Dose: 100 mg Quetiapine Fumarate (Seroquel) 25 mg PO HS PRN PRN Reason: Insomnia Last Admin: 07/06/18 10:09 Dose: 25 mg Rosuvastatin Calcium (Crestor) 5 mg PO HS [facility] Last Admin: 06/08/18 21:42 Dose: 5 mg Tamsulosin HCl (Flomax) 0.4 mg PO DAILY [facility] Last Admin: 06/08/18 10:31 Dose: 0.4 mg - Labs Labs: 06/07/18 08:32 06/07/18 08:32 PT 12.4 SECONDS (9.7-12.2) H 05/21/18 08:44 INR 1.1 05/21/18 08:44 APTT 32 SECONDS (21-34) 05/21/18 08:44
[2018-06-09] MEDS: Metoprolol Succinate 100 mg XL Tab PO SCH (10:46)
[2018-06-10] MEDS: (Novolin R) Insulin Human Regular 100 units/ml vial SC SCH ×4 (07:02→21:14)
[2018-06-10] MEDS: Metoprolol Succinate 100 mg XL Tab PO SCH (09:04)
--- NOTE | 2018-06-10 17:21 | CP.PCM.PN ---
Subjective - Date & Time of Evaluation Date of Evaluation: 06/10/18 Time of Evaluation: 17:10 - Subjective Subjective: Hospitalist Progress Note Patient was seen and examined at 5:10 PM 656 B Upon ROS: States "NO" to FULL ROS Exam: General: He was asleep but easily arousable, AA and is not oriented to time, He is smiling and in NO distress, He drank 2 of the Glucerna's today but MMD UNIT TEACHER explains that he did not eat much HEENT: NCA, EOMI, PERRLA, NO cervical/supraclavicular/submandibular lymphadenopathy, NO pharyngeal erythema/exudate, Nasal Turbinates are nonerythematous/nonedematous, Oral Mucosa is moist Cardio: NS1 and NS2, NO M/R/G Resp: CTA B/L, NO R/R/W GI: BSx4, Soft, NT, NO HSM, NO guarding/rebound tenderness Ext: Pulses are strong and equal, Capillary Refill is 2 seconds, NO edema, Right Foot is missing Toes #3 through #5 Neuro: CN II through XII are grossly intact Skin: NO ulcerations were noted on any of the gurdeep prominences upon full body skin exam Assessments: 1). Hx Intracranial Bleed 2). Hx Dysphagia 3). Hx HLD 4). Hx HTN 5). Hx DM 2 6). Hx BPH The following medications will need to be continued while here and at [facility]: Keppra 500 mg, 1 tablet by mouth 2x/day Crestor 5 mg PO HS Norvasc 10 mg PO 1x/day Hydralazine 100 mg PO Q8H Cozaar 50 mg PO 1x/day Metoprolol Succinate 100 mg PO 1x/day Hydralazine 10 mg IV Q6H PRN SBP > 160 Glimepiride 1 mg PO 1x/day Metformin 1,000 mg PO 2x/day Flomax 0.4 mg PO 1x/day Quetiapine 25 mg PO HS PRN Insomnia Disposition: Patient has been accepted at [facility] to be transitioned to [facility] [employer]. Unfortunately, notified by Meringuer Jenn 06/08/18 that patient's Niece has used patient's SS Check for the month of May 2018 and therefore [facility] will not be able to accommodate patient till 06/27/18. However, Case Management Team is working on getting patient to [facility] sooner. Labs should be done once a week on Mondays. Baldemar Edouard D.O. Objective - Vital Signs/Intake and Output Vital Signs (last 24 hours): Temp Pulse Resp BP Pulse Ox 98.3 F 80 20 157/72 H 98 06/10/18 15:11 06/10/18 17:03 06/10/18 15:11 06/10/18 17:03 06/10/18 15:11 - Medications Medications: Current Medications Amlodipine Besylate (Norvasc) 10 mg PO DAILY [facility] Last Admin: 06/10/18 09:05 Dose: 10 mg Bisacodyl (Dulcolax) 10 mg AL ONCE PRN PRN Reason: Constipation Dextrose (Dextrose 50% Inj) 0 ml IV STAT PRN; Protocol PRN Reason: Hypoglycemia Protocol Dextrose (Glutose 15) 0 gm PO ONCE PRN; Protocol PRN Reason: Hypoglycemia Protocol Glimepiride (Amaryl) 1 mg PO DAILY [facility] Last Admin: 06/10/18 09:04 Dose: 1 mg Glucagon (Glucagen Diagnostic Kit) 0 mg IM STAT PRN; Protocol PRN Reason: Hypoglycemia Protocol Hydralazine HCl (Apresoline) 10 mg IVP Q6H PRN PRN Reason: sbp > 160 Last Admin: 05/26/18 08:45 Dose: 10 mg Hydralazine HCl (Apresoline) 100 mg PO Q8H [facility] Last Admin: 06/10/18 16:51 Dose: 100 mg Insulin Human Regular (Novolin R) 0 unit SC ACHS [facility] PRN Reason: Protocol Last Admin: 06/10/18 16:24 Dose: Not Given Levetiracetam (Keppra) 500 mg PO BID [facility] Last Admin: 06/10/18 09:05 Dose: 500 mg Losartan Potassium (Cozaar) 50 mg PO DAILY [facility] Last Admin: 06/10/18 09:04 Dose: 50 mg Metformin HCl (Glucophage) 1,000 mg PO BID [facility] Last Admin: 06/10/18 09:05 Dose: 1,000 mg Metoprolol Succinate (Toprol Xl) 100 mg PO DAILY [facility] Last Admin: 06/10/18 09:04 Dose: 100 mg Quetiapine Fumarate (Seroquel) 25 mg PO HS PRN PRN Reason: Insomnia Last Admin: 06/01/18 10:09 Dose: 25 mg Rosuvastatin Calcium (Crestor) 5 mg PO HS [facility] Last Admin: 06/09/18 22:11 Dose: 5 mg Tamsulosin HCl (Flomax) 0.4 mg PO DAILY [facility] Last Admin: 06/10/18 09:04 Dose: 0.4 mg - Labs Labs: 06/07/18 08:32 06/07/18 08:32 PT 12.4 SECONDS (9.7-12.2) H 05/21/18 08:44 INR 1.1 05/21/18 08:44 APTT 32 SECONDS (21-34) 05/21/18 08:44
[2018-06-11 07:29] LABS: ALB/GLOB RATIO 1.6 (1.0-2.1); ALBUMIN 4.1 g/dL (3.5-5.0); ALT/SGPT 29 U/L (21-72); AST/SGOT 27 U/L (17-59); BLOOD UREA NITROGEN 18 mg/dL (9-20); CALCIUM 9.4 mg/dl (8.6-10.4); GFR AFRICAN-AMERICAN > 60; GFR NON-AFRICAN AMERICAN > 60
[2018-06-11 07:37] LABS: BASO # 0.1 K/uL (0.0-0.2); BASO % 0.8 % (0.0-2.0); EOS # 0.3 K/uL (0.0-0.7); EOS % 3.8 % (0.0-4.0); LYMPH # 2.6 K/uL (1.0-4.3); MEAN CORPUSCULAR HEMOGLOBIN 23.4 pg (27.0-31.0); MEAN CORPUSCULAR HGB CONC 32.5 g/dL (33.0-37.0); MEAN PLATELET VOLUME 9.8 fL (7.2-11.7); MONO # 0.4 K/uL (0.0-0.8); MONO % 6.2 % (0.0-10.0); NEUT # 3.5 K/uL (1.8-7.0); NEUT % 51.2 % (50.0-75.0); RBC 4.68 Mil/uL (4.40-5.90); RED CELL DISTRIBUTION WIDTH 19.6 % (11.5-14.5); WHITE BLOOD COUNT 6.8 K/uL (4.8-10.8)
[2018-06-11] MEDS: (Novolin R) Insulin Human Regular 100 units/ml vial SC SCH ×4 (07:49→22:12)
[2018-06-11] MEDS: Metoprolol Succinate 100 mg XL Tab PO SCH (09:26)
--- NOTE | 2018-06-11 10:03 | CP.PCM.PN ---
<Amaya Brody V - Last Filed: 06/11/18 15:46> Objective - Vital Signs/Intake and Output Vital Signs (last 24 hours): Temp Pulse Resp BP Pulse Ox 98.5 F 85 20 137/74 97 06/11/18 07:00 06/11/18 07:00 06/11/18 07:00 06/11/18 07:00 06/11/18 07:00 - Medications Medications: Current Medications Amlodipine Besylate (Norvasc) 10 mg PO DAILY [facility] Last Admin: 06/11/18 09:27 Dose: 10 mg Bisacodyl (Dulcolax) 10 mg [place] ONCE PRN PRN Reason: Constipation Dextrose (Dextrose 50% Inj) 0 ml IV STAT PRN; Protocol PRN Reason: Hypoglycemia Protocol Dextrose (Glutose 15) 0 gm PO ONCE PRN; Protocol PRN Reason: Hypoglycemia Protocol Glimepiride (Amaryl) 1 mg PO DAILY [facility] Last Admin: 06/11/18 09:27 Dose: 1 mg Glucagon (Glucagen Diagnostic Kit) 0 mg IM STAT PRN; Protocol PRN Reason: Hypoglycemia Protocol Hydralazine HCl (Apresoline) 10 mg IVP Q6H PRN PRN Reason: sbp > 160 Last Admin: 05/26/18 08:45 Dose: 10 mg Hydralazine HCl (Apresoline) 100 mg PO Q8H [facility] Last Admin: 06/11/18 09:26 Dose: 100 mg Insulin Human Regular (Novolin R) 0 unit SC ACHS [facility] PRN Reason: Protocol Last Admin: 06/11/18 12:50 Dose: 2 unit Levetiracetam (Keppra) 500 mg PO BID [facility] Last Admin: 06/11/18 09:27 Dose: 500 mg Losartan Potassium (Cozaar) 50 mg PO DAILY [facility] Last Admin: 06/11/18 09:27 Dose: 50 mg Metformin HCl (Glucophage) 1,000 mg PO BID [facility] Last Admin: 06/11/18 09:26 Dose: 1,000 mg Metoprolol Succinate (Toprol Xl) 100 mg PO DAILY [facility] Last Admin: 06/11/18 09:26 Dose: 100 mg Quetiapine Fumarate (Seroquel) 25 mg PO HS PRN PRN Reason: Insomnia Last Admin: 06/01/18 10:09 Dose: 25 mg Rosuvastatin Calcium (Crestor) 5 mg PO HS [facility] Last Admin: 06/10/18 21:24 Dose: 5 mg Tamsulosin HCl (Flomax) 0.4 mg PO DAILY [facility] Last Admin: 06/11/18 09:26 Dose: 0.4 mg - Labs Labs: 06/11/18 07:00 06/11/18 07:00 PT 12.4 SECONDS (9.7-12.2) H 05/21/18 08:44 INR 1.1 05/21/18 08:44 APTT 32 SECONDS (21-34) 05/21/18 08:44 Assessment and Plan (1) Intracranial hemorrhage Status: Acute (2) Dyslipidemia Status: Chronic (3) Hypertension Status: Chronic (4) Diabetes Status: Chronic (5) Prophylactic measure Status: Acute Attending/Attestation - Attestation I have personally seen and examined this patient.: Yes I have fully participated in the care of the patient.: Yes I have reviewed all pertinent clinical information, including history, physical exam and plan: Yes Notes (Text): Patient seen, examined, case discussed with medical safety director. No acute changes. Patient asked for coffee as he always does. Patient has been accepted at [facility] to be transitioned to [facility]. Unfortunately, notified by Human Resources Operations Director Jenn 06/08/18 that patient's Niece has used patient's SS Check for the month of May 2018 and therefore [facility] will not be able to accommodate patient till 06/27/18. However, Case Management Team is working on getting patient to [facility] sooner. (1) Intracranial hemorrhage Assessment & Plan: At [place]: * CT Head (05/16/18): interval left posterior frontal/parietal intra cerebral hematoma with surrounding edema and possible minimal mild mass effect on the left frontal horn. No midline shift. No dilatation of the right lateral ventricle appreciated. No interval dilatation or other particular segments noted. * CT head (05/16/18): subjective mild expansion of the left parietal hematoma with mild surrounding edema impression upon the posterior portion of the body of the left lateral ventricle. No other significant interval chage. At [facility]: * CT Head (05/17/18): re-demonstrated is a large parenchymal hematoma within the left posterior temporoparietal lobe secondary to hemorrhage into pre-existing AVM, mass effect produced by the hematoma and surrounding edema impress overlying sulci and posterior aspect left lateral ventricle as described. moderate to significant chronic white matter ischemic changes. * CT head (05/19/18): official read available in the computer. * CT Head (05/20/18): involving large subacute left posterior parietal lobe hematoma with moderate surrounding vasogenic edema, local mass effect, and effacement of the right lateral ventricle, 4mm midline shift from left to right. No herniation or hydrocephalus. Moderate chronic microangiopathic changes and moderate age-related global parenchymal volume loss Admitted to ICU at [facility] on 05/16/18; transferred out on 05/19/18 * Neurology (Dr. Aviles/Dr. Daugherty ) on the case-->help appreciated * Neuro-brass sorter (Dr. 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 3-No evidence of treatable mayela-nidal aneurysm. 4-Early venous drainaige (shunting) primarily into the superior sagital sinus with antegrade drainge into the bilateral transverse-sigmoid sinuses. There is also reflus into superficial cortical veins. * We also discussed that gamma knife could be a viable option for the patient, while not providing immediate reduction of bleeding risk, would possibly reduce the risk over time. We will discuss this and other options, including surgery, intervention and observation after we have the results of the cerebral angiogram. * Elevated head of Bed * Seizure precautions * Neurochecks * Plavix was held and other anticoagulation held since 05/16/18 * Crestor 5mg POqHS * T, Chol: 199, LDL: 152, HDL: 38 * a1c: 9.2 Status: stable (2) Dysphagia Hypernatremia-->resolved Assessment & Plan: * GI (Sr. Concepcion) automotive parts person-->help appreciated; peg postponed and reconsult if needed * Patient has passed swallow eval; placed on dysphagia diet and aspiration precaution * Completed calorie count * hypernatremia secondary to GI loss-->patient is eating now will monitor sodium level; normalized Status: Resolved (3) Dyslipidemia Assessment & Plan: * Crestor 5mg POqHS * T, Chol: 199, LDL: 152, HDL: 38 * a1c: 9.2 Status: Chronic (4) Hypertension Assessment & Plan: * Norvasc 10mg PO daily * Hydralazine 10mg IVP Q6H SBP>160 * Hydralazine 100 mg PO Q8H * Cozaar 50 mg by mouth once a day * Toprol 100mg PO once a day * Echocardiogram (05/21/18): left ventricle is normal size, ejection fraction is 60-65%, grade i abnormal relaxation, mild tricupsid regurgitation, right ventricular systolic pressure is estimated at 30mm hg, no pulmonary hypertension , aortic root is normal size, aortic root displays mild scleorcalcific changes of the aortic root * Prior echocardiogram (05/03/18): normal LV systolic function. Aortic valve sclerosis Status: Chronic (5) Diabetes Status: Chronic * hgba1c: 9.2 * Lipid Panel: 123, Cholestrol: 199, LDL: 152. HDL: 38 * Hypoglycemic protocol * insulin sliding scale Q AC and HS * Accuchecks qAC and HS * continue Metformin 1000mg PO BID * continue Amaryl 1mg PO daily Status: Chronic (6) BPH Status: Chronic * Flomax 0.4mg PO daily Status: Chronic (7) Prophylactic measure Assessment & Plan: * Elevated head * Neurochecks * chemical anticoagulation secondary to intracranial hemorrhage * seizure precautions * aspiration precautions * Passed swallow eval * Tolerating Dysphagia diet * Luke Ryan, Disposition: Patient is medically stable for discharge. No aspirin/plavix given intracranial hemorrhage related to AVM. Patient to f/u with neurointerventionalist and PMD as outpatient. <Akil Grubbs - Last Filed: 06/11/18 19:09> Subjective - Date & Time of Evaluation Date of Evaluation: 06/11/18 Time of Evaluation: 10:03 - Subjective Subjective: Progress note for Hospitalist service. Patient seen and examined at bedside. He states he has no complaints. He is resting in bed comfortably. He denies any pain at this time. He denies fevers, chills, headache, lightheadedness, chest pain, shortness of breath, palpitations , abdominal pain, nausea, vomiting, diarrhea, constipation, calf pain, dysuria. He is eating and drinking well. Objective - Vital Signs/Intake and Output Vital Signs (last 24 hours): Temp Pulse Resp BP Pulse Ox 98.5 F 85 20 137/74 97 06/11/18 07:00 06/11/18 07:00 06/11/18 07:00 06/11/18 07:00 06/11/18 07:00 - Medications Medications: Current Medications Amlodipine Besylate (Norvasc) 10 mg PO DAILY [facility] Last Admin: 06/11/18 09:27 Dose: 10 mg Bisacodyl (Dulcolax) 10 mg [place] ONCE PRN PRN Reason: Constipation Dextrose (Dextrose 50% Inj) 0 ml IV STAT PRN; Protocol PRN Reason: Hypoglycemia Protocol Dextrose (Glutose 15) 0 gm PO ONCE PRN; Protocol PRN Reason: Hypoglycemia Protocol Glimepiride (Amaryl) 1 mg PO DAILY [facility] Last Admin: 06/11/18 09:27 Dose: 1 mg Glucagon (Glucagen Diagnostic Kit) 0 mg IM STAT PRN; Protocol PRN Reason: Hypoglycemia Protocol Hydralazine HCl (Apresoline) 10 mg IVP Q6H PRN PRN Reason: sbp > 160 Last Admin: 05/26/18 08:45 Dose: 10 mg Hydralazine HCl (Apresoline) 100 mg PO Q8H [facility] Last Admin: 06/11/18 09:26 Dose: 100 mg Insulin Human Regular (Novolin R) 0 unit SC [facility] PRN Reason: Protocol Last Admin: 06/11/18 07:49 Dose: Not Given Levetiracetam (Keppra) 500 mg PO BID [facility] Last Admin: 06/11/18 09:27 Dose: 500 mg Losartan Potassium (Cozaar) 50 mg PO DAILY [facility] Last Admin: 06/11/18 09:27 Dose: 50 mg Metformin HCl (Glucophage) 1,000 mg PO BID [facility] Last Admin: 06/11/18 09:26 Dose: 1,000 mg Metoprolol Succinate (Toprol Xl) 100 mg PO DAILY [facility] Last Admin: 06/11/18 09:26 Dose: 100 mg Quetiapine Fumarate (Seroquel) 25 mg PO HS PRN PRN Reason: Insomnia Last Admin: 06/01/18 10:09 Dose: 25 mg Rosuvastatin Calcium (Crestor) 5 mg PO HS [facility] Last Admin: 06/10/18 21:24 Dose: 5 mg Tamsulosin HCl (Flomax) 0.4 mg PO DAILY [facility] Last Admin: 06/11/18 09:26 Dose: 0.4 mg - Labs Labs: 06/11/18 07:00 06/11/18 07:00 PT 12.4 SECONDS (9.7-12.2) H 05/21/18 08:44 INR 1.1 05/21/18 08:44 APTT 32 SECONDS (21-34) 05/21/18 08:44 - Constitutional Appears: No Acute Distress - Head Exam Head Exam: ATRAUMATIC, NORMOCEPHALIC - Eye Exam Eye Exam: EOMI - ENT Exam ENT Exam: Mucous Membranes Moist - Neck Exam Neck Exam: absent: Tenderness - Respiratory Exam Respiratory Exam: Clear to Ausculation Bilateral, NORMAL BREATHING PATTERN. absent: Rales, Rhonchi, Wheezes, Respiratory Distress, Stridor - Cardiovascular Exam Cardiovascular Exam: REGULAR RHYTHM, +S1, +S2 - GI/Abdominal Exam GI & Abdominal Exam: Soft. absent: Firm, Rigid, Tenderness - Extremities Exam Extremities Exam: Normal Capillary Refill. absent: Calf Tenderness, Pedal Edema - Back Exam Back Exam: absent: CVA tenderness (L), CVA tenderness (R), rash noted Additional comments: no ulcerations noted - Neurological Exam Neurological Exam: Alert, Awake Additional comments: Mild right facial droop Right upper extremity: 3/5 Left upper extremity: 4/5 Right lower extremity: 3/5 Left lower extremity: 4/5 - Skin Skin Exam: Dry, Intact, Warm Additional comments: No ulcerations noted. 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 Left lower extremity: no ulcerations noted. Assessment and Plan - Assessment and Plan (Free Text) Plan: Assessment/plan 1. History of intracranial bleed At [place]: * CT Head (05/16/18): interval left posterior frontal/parietal intra cerebral hematoma with surrounding edema and possible minimal mild mass effect on the left frontal horn. No midline shift. No dilatation of the right lateral ventricle appreciated. No interval dilatation or other particular segments noted. * CT head (05/16/18): subjective mild expansion of the left parietal hematoma with mild surrounding edema impression upon the posterior portion of the body of the left lateral ventricle. No other significant interval chage. At [facility]: * CT Head (05/17/18): re-demonstrated is a large parenchymal hematoma within the left posterior temporoparietal lobe secondary to hemorrhage into pre-existing AVM, mass effect produced by the hematoma and surrounding edema impress overlying sulci and posterior aspect left lateral ventricle as described. moderate to significant chronic white matter ischemic changes. * CT head (05/19/18): official read available in the computer. * CT Head (05/20/18): involving large subacute left posterior parietal lobe hematoma with moderate surrounding vasogenic edema, local mass effect, and effacement of the right lateral ventricle, 4mm midline shift from left to right. No herniation or hydrocephalus. Moderate chronic microangiopathic changes and moderate age-related global parenchymal volume loss Admitted to ICU at [facility] on 05/16/18; transferred out on 05/19/18 * Neurology (Dr. Aviles/Dr. Daugherty ) on the case-->help appreciated * Noninterventionist (Dr. 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 3-No evidence of treatable mayela-nidal aneurysm. 4-Early venous drainaige (shunting) primarily into the superior sagital sinus with antegrade drainge into the bilateral transverse-sigmoid sinuses. There is also reflus into superficial cortical veins. * We also discussed that gamma knife could be a viable option for the patient, while not providing immediate reduction of bleeding risk, would possibly reduce the risk over time. We will discuss this and other options, including surgery, intervention and observation after we have the results of the cerebral angiogram. * ASA/Plavix was held since 05/16/18 * Crestor 5mg POqHS * Seroquel 25mg PO HS PRN insomnia * Keppra 500mg PO BID (2) History of dysphagia * Patient continues to eat pureed diet (3) History of Dyslipidemia * Crestor 5mg POqHS (4) History of Hypertension * Norvasc 10mg PO daily * Hydralazine 10mg IVP Q6H SBP>160 * Hydralazine 100mg PO Q8H * Cozaar 50mg PO daily * Metoprolol succinate 100mg PO once a day * Echocardiogram (05/21/18): left ventricle is normal size, ejection fraction is 60-65%, grade i abnormal relaxation, mild tricupsid regurgitation, right ventricular systolic pressure is estimated at 30mm hg, no pulmonary hypertension , aortic root is normal size, aortic root displays mild scleorcalcific changes of the aortic root * Prior echocardiogram (05/03/18): normal LV systolic function. Aortic valve sclerosis (5) History of Diabetes * Amaryl 1mg PO daily * Metformin 1000mg PO BID (6) History of BPH * Flomax 0.4mg PO daily (7) Prophylactic measure * chemical anticoagulation contraindicated secondary to intracranial hemorrhage * Niece Shelby, Disposition: Patient accepted to [facility] with the plan to be transitioned to [facility] term senior care. Patient's niece used patient's SS check for the month of May 2018, so patient may not be able to get to [facility] prior to . Continue to follow with Case Management in the event patient can be transferred earlier. VALE Gordon Case discussed with Dr. Brody
[2018-06-12 07:54] VITALS: RESP 20
[2018-06-12] MEDS: (Novolin R) Insulin Human Regular 100 units/ml vial SC SCH ×4 (08:02→22:40)
[2018-06-12] MEDS: Metoprolol Succinate 100 mg XL Tab PO SCH (11:31)
[2018-06-13] MEDS: (Novolin R) Insulin Human Regular 100 units/ml vial SC SCH ×3 (08:34→17:11)
--- NOTE | 2018-06-13 09:12 | CP.PCM.PN ---
Subjective - Date & Time of Evaluation Date of Evaluation: 06/13/18 Time of Evaluation: 09:12 Objective - Vital Signs/Intake and Output Vital Signs (last 24 hours): Temp Pulse Resp BP Pulse Ox 98.3 F 74 20 143/72 100 06/13/18 07:00 06/13/18 07:00 06/13/18 07:00 06/13/18 07:00 06/13/18 07:00 Intake and Output: 06/13/18 06/13/18 06:59 18:59 Intake Total 500 Balance 500 - Medications Medications: Current Medications Amlodipine Besylate (Norvasc) 10 mg PO DAILY [facility] Last Admin: 06/12/18 11:31 Dose: 10 mg Bisacodyl (Dulcolax) 10 mg [place] ONCE PRN PRN Reason: Constipation Dextrose (Dextrose 50% Inj) 0 ml IV STAT PRN; Protocol PRN Reason: Hypoglycemia Protocol Dextrose (Glutose 15) 0 gm PO ONCE PRN; Protocol PRN Reason: Hypoglycemia Protocol Glimepiride (Amaryl) 1 mg PO DAILY [facility] Last Admin: 06/12/18 11:31 Dose: 1 mg Glucagon (Glucagen Diagnostic Kit) 0 mg IM STAT PRN; Protocol PRN Reason: Hypoglycemia Protocol Hydralazine HCl (Apresoline) 10 mg IVP Q6H PRN PRN Reason: sbp > 160 Last Admin: 05/26/18 08:45 Dose: 10 mg Hydralazine HCl (Apresoline) 100 mg PO Q8H [facility] Last Admin: 06/13/18 00:35 Dose: Not Given Insulin Human Regular (Novolin R) 0 unit SC [facility] PRN Reason: Protocol Last Admin: 06/13/18 08:34 Dose: Not Given Levetiracetam (Keppra) 500 mg PO BID [facility] Last Admin: 06/12/18 17:52 Dose: 500 mg Losartan Potassium (Cozaar) 50 mg PO DAILY [facility] Last Admin: 06/12/18 11:31 Dose: 50 mg Metformin HCl (Glucophage) 1,000 mg PO BID [facility] Last Admin: 06/12/18 17:52 Dose: 1,000 mg Metoprolol Succinate (Toprol Xl) 100 mg PO DAILY [facility] Last Admin: 06/12/18 11:31 Dose: 100 mg Quetiapine Fumarate (Seroquel) 25 mg PO HS PRN PRN Reason: Insomnia Last Admin: 06/01/18 10:09 Dose: 25 mg Rosuvastatin Calcium (Crestor) 5 mg PO HS [facility] Last Admin: 06/12/18 21:31 Dose: 5 mg Tamsulosin HCl (Flomax) 0.4 mg PO DAILY [facility] Last Admin: 06/12/18 11:31 Dose: 0.4 mg - Labs Labs: 06/11/18 07:00 06/11/18 07:00 PT 12.4 SECONDS (9.7-12.2) H 05/21/18 08:44 INR 1.1 05/21/18 08:44 APTT 32 SECONDS (21-34) 05/21/18 08:44
[2018-06-13] MEDS: Metoprolol Succinate 100 mg XL Tab PO SCH (11:49)
[2018-06-13 16:38] VITALS: BP 104/57; PULSE 68; TEMP 97.7; O2SAT 99
--- NOTE | 2018-06-13 17:29 | CP.PCM.DIS ---
Provider - Provider Date of Admission: 05/16/18 20:15 Attending physician: Amaya Brody DO Consults: Neurology: Dr. Daugherty Neurointerventional: Dr. Leal Time Spent in preparation of Discharge (in minutes): 35 Hospital Course - Lab Results Lab Results: Micro Results 05/20/18 10:03 Blood Blood Culture - Final NO GROWTH AFTER 5 DAYS 05/20/18 10:03 Blood Gram Stain - Final TEST NOT PERFORMED 05/20/18 09:30 Blood Blood Culture - Final NO GROWTH AFTER 5 DAYS 05/20/18 15:00 Urine,Catheterized Urine Culture - Final No Growth (<1,000 CFU/ML) 05/21/18 04:59 Naris MRSA Culture - Final MRSA NOT DETECTED 05/16/18 22:42 Nose MRSA Culture (Admit) - Final MRSA NOT DETECTED Most Recent Lab Values WBC 6.8 K/uL (4.8-10.8) 06/11/18 07:00 RBC 4.68 Mil/uL (4.40-5.90) 06/11/18 07:00 Hgb 11.0 g/dL (12.0-18.0) L 06/11/18 07:00 Hct 33.7 % (35.0-51.0) L 06/11/18 07:00 MCV 72.0 fL (80.0-94.0) L 06/11/18 07:00 MCH 23.4 pg (27.0-31.0) L 06/11/18 07:00 MCHC 32.5 g/dL (33.0-37.0) L 06/11/18 07:00 RDW 19.6 % (11.5-14.5) H 06/11/18 07:00 Plt Count 222 K/uL (130-400) 06/11/18 07:00 MPV 9.8 fL (7.2-11.7) 06/11/18 07:00 Neut % (Auto) 51.2 % (50.0-75.0) 06/11/18 07:00 Lymph % (Auto) 38.0 % (20.0-40.0) 06/11/18 07:00 [place] % (Auto) 6.2 % (0.0-10.0) 06/11/18 07:00 Eos % (Auto) 3.8 % (0.0-4.0) 06/11/18 07:00 Baso % (Auto) 0.8 % (0.0-2.0) 06/11/18 07:00 Neut # (Auto) 3.5 K/uL (1.8-7.0) 06/11/18 07:00 Lymph # (Auto) 2.6 K/uL (1.0-4.3) 06/11/18 07:00 [place] # (Auto) 0.4 K/uL (0.0-0.8) 06/11/18 07:00 Eos # (Auto) 0.3 K/uL (0.0-0.7) 06/11/18 07:00 Baso # (Auto) 0.1 K/uL (0.0-0.2) 06/11/18 07:00 PT 12.4 SECONDS (9.7-12.2) H 05/21/18 08:44 INR 1.1 05/21/18 08:44 APTT 32 SECONDS (21-34) 05/21/18 08:44 Sodium 143 mmol/L (132-148) 06/11/18 07:00 Potassium 3.9 mmol/L (3.6-5.2) 06/11/18 07:00 Chloride 109 mmol/L (98-107) H 06/11/18 07:00 Carbon Dioxide 24 mmol/L (22-30) 06/11/18 07:00 Anion Gap 14 (10-20) 06/11/18 07:00 BUN 18 mg/dL (9-20) 06/11/18 07:00 Creatinine 0.7 mg/dL (0.8-1.5) L 06/11/18 07:00 Est GFR ( Amer) > 60 06/11/18 07:00 Est GFR (Non-Af Amer) > 60 06/11/18 07:00 POC Glucose (mg/dL) 126 mg/dL (65-110) H 06/12/18 14:30 Random Glucose 123 mg/dL (75-110) H 06/11/18 07:00 Hemoglobin A1c 9.2 % (4.2-6.5) H 05/17/18 14:12 Calcium 9.4 mg/dl (8.6-10.4) 06/11/18 07:00 Phosphorus 3.4 mg/dL (2.5-4.5) 06/11/18 07:00 Magnesium 2.0 mg/dL (1.6-2.3) 06/11/18 07:00 Total Bilirubin 0.8 mg/dL (0.2-1.3) 06/11/18 07:00 AST 27 U/L (17-59) 06/11/18 07:00 ALT 29 U/L (21-72) 06/11/18 07:00 Alkaline Phosphatase 77 U/L (38-126) 06/11/18 07:00 Total Protein 6.6 g/dL (6.3-8.3) 06/11/18 07:00 Albumin 4.1 g/dL (3.5-5.0) 06/11/18 07:00 Globulin 2.6 gm/dL (2.2-3.9) 06/11/18 07:00 Albumin/Globulin Ratio 1.6 (1.0-2.1) 06/11/18 07:00 Triglycerides 123 mg/dL (0-149) 05/17/18 14:12 Cholesterol 199 mg/dL (0-199) 05/17/18 14:12 LDL Cholesterol Direct 152 mg/dL (0-129) H 05/17/18 14:12 HDL Cholesterol 38 mg/dL (30-70) 05/17/18 14:12 Free T4 1.22 ng/dL (0.78-2.19) 05/17/18 14:12 TSH 3rd Generation 0.22 mIU/L (0.46-4.68) L 05/17/18 14:12 Urine Color Yellow (YELLOW) 05/20/18 15:00 Urine Clarity Clear (Clear) 05/20/18 15:00 Urine pH 6.0 (5.0-8.0) 05/20/18 15:00 Ur Specific [place] 1.020 (1.003-1.030) 05/20/18 15:00 Urine Protein Negative mg/dL (NEGATIVE) 05/20/18 15:00 Urine Glucose (UA) 3+ mg/dL (Normal) H 05/20/18 15:00 Urine Ketones Negative mg/dL (NEGATIVE) 05/20/18 15:00 Urine Blood Negative (NEGATIVE) 05/20/18 15:00 Urine Nitrate Negative (NEGATIVE) 05/20/18 15:00 Urine Bilirubin Negative (NEGATIVE) 05/20/18 15:00 Urine Urobilinogen 2.0 mg/dL (0.2-1.0) 05/20/18 15:00 Ur Leukocyte Esterase Neg Maddy/uL (Negative) 05/20/18 15:00 Urine WBC (Auto) 1 /hpf (0-5) 05/20/18 15:00 Urine RBC (Auto) 1 /hpf (0-3) 05/20/18 15:00 - Hospital Course Hospital Course: admission date 05/16/18 H&P Information was received from the [facility] and medical record from [place] as patient was not oriented x3. 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 Per EMS the patient had a fall at home last night. In the ED, the patient had a Head CT which revealed an interval left posterior frontal/parietal intra cerebral hematoma with surrounding edema and possible minimal/mild mass effect on the left frontal horn. There is no mildline shift at this time. Given these findings, neurosurgery was called- Dr. Teresa stated the patient should be transferred. Patient was transferred to [facility] and is being followed by neurologist Dr. Aviles and interventional neurologist Dr. Brantley. Hospital course Patient was transferred here from [place] after he was found to have an left posterior frontal/parietal intracerebral bleed with history of left AVM and admitted to ICU at [facility] [place] on 05/16/18 and transferred out on 05/19/18. Neurologist Dr. Aviles/Dr. Daugherty was consulted. Anticoagulation was held given new intracerebral bleed. Patient's BP was continuously monitored with the goal of maintaining systolic BP between 130 and 140. Initially, patient's BP was elevated, however anti-hypertensive regimen was altered to achieve goal systolic BP. Cerebral angiogram by Neurointerventionalist, Dr. Leal revealed no evidence of treatable pre-nidal aneurysm. Given patient's history of HTN, ECHO was done which revealed EF 60-65%. Initially, patient did not pass swallow evaluation by speech pathologist and received NG tube feeds, however patient later passed swallow evaluation and resumed diet. Patient was placed on hypoglycemia protocol and insulin sliding scale for history of DM. Patient improved throughout course of hospitalization, with improved strength of lower extremities, improved right district operations manager strength. On discharge, patient was medically stable, eating and drinking well. Patient was awaiting placement to subacute rehab, snub[facility], before getting placed to [facility], who will plan usp care for patient. Imaging: At [place]: * CT Head (05/16/18): interval left posterior frontal/parietal intra cerebral hematoma with surrounding edema and possible minimal mild mass effect on the left frontal horn. No midline shift. No dilatation of the right lateral ventricle appreciated. No interval dilatation or other particular segments noted. * CT head (05/16/18): subjective mild expansion of the left parietal hematoma with mild surrounding edema impression upon the posterior portion of the body of the left lateral ventricle. No other significant interval chage. At [facility]: * CT Head (05/17/18): re-demonstrated is a large parenchymal hematoma within the left posterior temporoparietal lobe secondary to hemorrhage into pre-existing AVM, mass effect produced by the hematoma and surrounding edema impress overlying sulci and posterior aspect left lateral ventricle as described. moderate to significant chronic white matter ischemic changes. * CT head (05/19/18): official read available in the computer. * CT Head (05/20/18): involving large subacute left posterior parietal lobe hematoma with moderate surrounding vasogenic edema, local mass effect, and effacement of the right lateral ventricle, 4mm midline shift from left to right. No herniation or hydrocephalus. Moderate chronic microangiopathic changes and moderate age-related global parenchymal volume loss * CXR 05/18/18 no active disease * CXR 05/23/18 NG tube coiled in distal esophagus. Advancement into the stomach is recommended. Enlarged ectatic aorta. Biapical pleural thickening with upper lobe granulomatous changes. Scattered nodularity in both lungs. Cardiomegaly. Mild venous congestion. Patchy increased markings at right lung base. * CXR 05/23/18 NG tube terminates in stomach. no acute findings. * ECHO 05/19/18 The left ventricle is normal size. The EF is 60-65%. Transmitral Doppler flow pattern is Grade 1- abnormal relaxation pattern. There is mild tricuspid regurgitation. RV systolic pressure is estimated at 30mmHg. There is no pulmonary HTN. The aortic root is normal size. The aortic root displays mild sclerocalcific changes of the aortic root. Diagnostic cerebral angiogram (Dr. Leal): Left fronto-parietal AVM: 1- Arterial supply via the superior branch of the left MCA and via distal left QUIN convexal branches. 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 3-No evidence of treatable mayela-nidal aneurysm. 4-Early venous drainaige (shunting) primarily into the superior sagital sinus with antegrade drainge into the bilateral transverse-sigmoid sinuses. There is also reflus into superficial cortical veins. Discharge summary: Patient is medically stable to be discharged to [facility] subacute rehab today. The following medications will need to be continued while at [facility]: Keppra 500 mg, 1 tablet by mouth 2x/day Crestor 5 mg PO HS Norvasc 10 mg PO 1x/day Hydralazine 100 mg PO Q8H Cozaar 50 mg PO 1x/day Metoprolol Succinate 100 mg PO 1x/day Hydralazine 10 mg IV Q6H PRN SBP > 160 Glimepiride 1 mg PO 1x/day Metformin 1,000 mg PO 2x/day Flomax 0.4 mg PO 1x/day Quetiapine 25 mg PO HS PRN Insomnia Patient is to follow up with their PMD within one week of discharge. This is a brief summary of hospital course. For full details, please refer to medical records. Discharge Exam - Head Exam Head Exam: ATRAUMATIC, NORMOCEPHALIC - Eye Exam Eye Exam: EOMI - ENT Exam ENT Exam: Mucous Membranes Moist - Respiratory Exam Respiratory Exam: Clear to PA & Lateral, NORMAL BREATHING PATTERN. absent: Rhonchi, Wheezes, Respiratory Distress - Cardiovascular Exam Cardiovascular Exam: REGULAR RHYTHM, +S1, +S2 - GI/Abdominal Exam GI & Abdominal Exam: Normal Bowel Sounds, Soft. absent: Distended, Firm, Guarding, Tenderness - Extremities Exam Extremities exam: normal inspection, pedal pulses present - Back Exam Back exam: absent: rash noted - Neurological Exam Neurological exam: Alert - Psychiatric Exam Psychiatric exam: Normal Mood - Skin Skin Exam: Dry, Intact, Normal Color, Warm Discharge Plan - Discharge Medications Prescriptions: amLODIPine [Norvasc] 10 mg PO DAILY 30 Days #30 tab Glimepiride [Amaryl] 1 mg PO DAILY 30 Days #30 tab hydrALAZINE [Apresoline] 100 mg PO Q8H 30 Days #30 tab levETIRAcetam [Keppra] 500 mg PO BID 30 Days #60 tab Losartan [Cozaar] 50 mg PO DAILY 30 Days #30 tab Metoprolol Succinate XL [Toprol XL] 100 mg PO DAILY #30 tab Tamsulosin [Flomax] 0.4 mg PO DAILY 30 Days #30 cap - Follow Up Plan Condition: GOOD Disposition: REHAB FACILITY/REHAB UNIT Instructions: Intracerebral Hemorrhage (DC), Dysphagia (DC), Arteriogram (DC), Pureed Diet Additional Instructions: Patient is stable to be discharged to subacute rehab today, per Dr. Brody. Patient started on Norvasc 10mg by mouth daily, Metformin 1000mg twice a day by mouth, Amaryl 1mg by mouth daily, Hydralazine 100mg by mouth every 8 hours, Keppra 500mg by mouth twice daily, Cozaar 50mg by mouth daily, Toprol XL 100mg by mouth daily, Crestor 5mg by mouth at bedtime, Flomax 0.4mg by mouth daily, Seroquel 25mg by mouth at bedtime as needed. Patient is not to be discharged on ASA or Plavix given history of intracerebral bleed. Patient is to follow up with his PMD, Dr. Jones within a week of discharge. Patient should return to ER if symptoms recur or worsen. Referrals: Dyllan Aviles MD [Staff Provider] - Feliberto Sawant MD [Staff Provider] -
== END 2018-06-13 20:16 | DRG 64 ==
LOC: C.9I 20:15 → C.5S 05-20 21:54
PROVIDERS: ADMIT Hospitalist; ATTEND Hospitalist
PROC: B31RYZZ Fluoroscopy of Intracranial Arteries using Other Contrast (ICD-10-PCS; principal; 2018-05-25 10:00)
DX: I61.8 Other nontraumatic intracerebral hemorrhage (principal); Q28.2 Arteriovenous malformation of cerebral vessels; G93.6 Cerebral edema; R47.01 Aphasia; I69.351 Hemiplegia and hemiparesis following cerebral infarction affecting right dominant side; E87.0 Hyperosmolality and hypernatremia; F17.210 Nicotine dependence, cigarettes, uncomplicated; E78.00 Pure hypercholesterolemia, unspecified; E11.65 Type 2 diabetes mellitus with hyperglycemia; Z66 Do not resuscitate; R29.810 Facial weakness; Z51.5 Encounter for palliative care; I10 Essential (primary) hypertension; E78.5 Hyperlipidemia, unspecified; E11.51 Type 2 diabetes mellitus with diabetic peripheral angiopathy without gangrene; R45.1 Restlessness and agitation; I69.191 Dysphagia following nontraumatic intracerebral hemorrhage; Z79.4 Long term (current) use of insulin